=== PATIENT | female | born 1950 | race Caucasian/White ===

== ENCOUNTER 2023-12-24 11:35 | Outpatient (CLI) | payer MEDICARE, SELFPAY ==
--- NOTE | 2023-12-24 | ECG_ITS ---
SEE SCANNED COPY FOR CONFIRMED REPORT MTDD
[2023-12-24 12:17] LABS: Basophils Absolute Auto 0.1 K/mm3 (0.0-0.1); Eosinophils Absolute Auto 0.5 K/mm3 (0-0.3); Eosinophils Percent Auto 8.3 % (0-4.4); Hematocrit 39.7 % (37.0-47.0); Hemoglobin 12.2 g/dL (12.0-15.0); Immature Granulocyte Absolute 0.01 K/mm3 (0.00-0.031); Immature Granulocyte Percent A 0.2 % (0-0.5); Lymphocytes Percent Auto 24.9 % (18.3-44.2); Mean Corpuscular HGB Conc 30.7 g/dl (32-36); Mean Corpuscular Hemoglobin 30.8 pg (26-34); Mean Corpuscular Volume 100.3 fl (80-100); Mean Platelet Volume 11.8 fl (7.4-10.4); Monocytes Absolute Auto 0.5 K/mm3 (0.1-0.6); Neutrophils Absolute Auto 3.4 K/mm3 (1.3-6.7); Neutrophils Percent Auto 56.6 % (45.5-73.1); Platelet Count Result 248 k/mm3 (150-375); Red Blood Count 3.96 M/mm3 (4.2-5.4); Red Cell Distribution Width 13.2 % (11.5-14.5)
[2023-12-24 12:27] LABS: Appearance Urine Clear (Clear); Bacteria Urine None Seen /hpf; Bilirubin Urine Negative (Negative); Blood Urine Negative (Negative); Color Urine Yellow (Yellow); Glucose Urine UA Negative (Negative); Ketones Urine Negative (Negative); Leukocyte Esterase Ur Trace LEU/UL (Negative); Nitrate Urine Negative (Negative); Protein Urine Negative (Negative); RBC Urine 0-2 /hpf (0-2); Specific Grav Ur 1.025 (1.001-1.035); Squamous Epithelial Cell Urine Occasional /hpf (Few); WBC Urine 0-5 /hpf (0-3); pH Urine 5.5 (5.0-9.0)
[2023-12-24 12:29] LABS: Alanine Aminotransferase 11 U/L (6-35); Albumin Level 4.3 g/dL (3.5-5.1); Alkaline Phosphatase 76 U/L (38-126); Anion Gap 6 mmol/L (4-12); Aspartate Amino Transferase 22 U/L (14-36); Bilirubin,Total 0.5 mg/dL (0.2-1.3); Blood Urea Nitrogen 23 mg/dL (7-17); Calcium 9.6 mg/dL (8.4-10.2); Carbon Dioxide 26 mmol/L (22-30); Chloride 105 mmol/L (98-107); Estimated Glomerular Filt Rate > 60; Glucose 95 mg/dL (65-110); Potassium 4.3 mmol/L (3.4-5.0); Sodium 137 mmol/L (137-145)
[2023-12-24 12:32] LABS: Add Urine Microscopic? YES
== END 2023-12-24 11:36 | disposition home or self-care (01) ==
LOC: ANHLAB 11:45
PROVIDERS: PCP Internal Medicine; Visit Provider Internal Medicine
DX: I47.19 Other supraventricular tachycardia (principal)
CPT/HCPCS: 36415; 80053; 81001; 85025; 93005

== ENCOUNTER 2024-01-04 09:51 | Outpatient (CLI) | payer MEDICARE, SELFPAY ==
[2024-01-04 11:36] LABS: Urine Cotinine NEGATIVE
[2024-01-04 13:22] LABS: Hemoglobin A1C 4.9 % (<5.7)
== END 2024-01-04 09:52 | disposition home or self-care (01) ==
LOC: ANHSURGERY 09:58
PROVIDERS: PCP Internal Medicine; Visit Provider Orthopaedic Surgery
DX: Z01.818 Encounter for other preprocedural examination (principal); M16.12 Unilateral primary osteoarthritis, left hip
CPT/HCPCS: 80307; 83036; 86850; 86900; 86901

== ENCOUNTER 2024-01-06 07:36 | Outpatient (CLI) | payer MEDICARE, SELFPAY ==
--- NOTE | 2024-01-06 | ECHO_ITS ---
Patient Info Name: Louise Ponce Age: 73 years : 1950 Gender: Female Ht: 63 in Wt: 217 lbs BSA: 2.14 m2 HR: 69 bpm BP: 137 / 88 mmHg Heart Rhythm: Sinus Rhythm Technical Quality: Fair Exam Date: 01/06/2024 7:56 AM Exam Location: Echo Lab Patient Status: Outpatient Admit Date: 01/06/2024 Staff Ordering Physician: LucianoDidier MD [employer] Console Operator Track: Gena Barksdale RDCS Attending Provider: FabiánDidier MD Exam Type: CA echo doppler color flow Study Info Indications R00.0 - Tachycardia, unspecified - Preop Complete two-dimensional, color flow and Doppler transthoracic echocardiogram is performed. Summary 1. Left ventricular chamber dimension is normal. 2. Left ventricular systolic function is normal, estimated at 50-55%. 3. There is mildly increased left ventricular wall thickness. 4. The left ventricular diastolic function is grade I diastolic dysfunction. 5. Right ventricular chamber dimension is mildly enlarged. 6. Right ventricular systolic function is normal. 7. Left atrial chamber dimension is moderately enlarged. 8. Right atrial chamber dimension is mildly enlarged. 9. There is mild mitral valve regurgitation. 10. There is mild tricuspid valve regurgitation. Left Ventricle Left ventricular chamber dimension is normal. Left ventricular systolic function is normal, estimated at 50-55%. There is mildly increased left ventricular wall thickness. The left ventricular diastolic function is grade I diastolic dysfunction. Right Ventricle Right ventricular chamber dimension is mildly enlarged. Right ventricular systolic function is normal. Left Atria Left atrial chamber dimension is moderately enlarged. Right Atria Right atrial chamber dimension is mildly enlarged. Atrial Septum Intact interatrial septum visualized by color flow imaging. Aortic Valve The aortic valve is probable trileaflet. There is no aortic valve stenosis. There is no aortic valve regurgitation. Pulmonic Valve The pulmonic valve is not well visualized. There is trace pulmonic regurgitation. Mitral Valve There is mild mitral valve regurgitation. Tricuspid Valve There is mild tricuspid valve regurgitation. Pericardium/Pleural There is no pericardial effusion. Inferior Vena Cava Normal inferior vena cava with >50% collapse upon inspiration consistent with normal right atrial pressure, 3 mmHg. Aorta The aortic root size at the sinus of Valsalva is normal. Tricuspid Valve Name Value Normal Estimated PAP/RSVP RA Pressure 3 mmHg <=5 Report Signatures
== END 2024-01-06 07:37 | disposition home or self-care (01) ==
PROVIDERS: PCP Internal Medicine; Visit Provider Internal Medicine
DX: I47.19 Other supraventricular tachycardia (principal); I51.89 Other ill-defined heart diseases
CPT/HCPCS: 93306

== ENCOUNTER 2024-01-12 15:46 | Observation (INO) | payer MEDICARE, SELFPAY ==
[2024-01-04 10:03] VITALS: BMI 39.2
--- NOTE | 2024-01-04 10:22 | PC.NURSE ---
Report to the Outpatient Waiting Room, entrance under the green pavilion located off [facility], at time _6:00 AM on date _01/11/24 . Planned Procedure Time: 7:30 AM . Time changes happen often and if your time is changed the preop area will call you the afternoon before. - You and your visitor will be asked to self-screen and do not enter if you have any COVID symptoms. - A mask is optional within the hospital at this time. Patients may have clear liquids (water, carbonated beverages, clear teas, apple juice) until 3 hours prior to surgery ( 4:30 AM)with a maximum of 20 ounces. - No food from midnight until time of surgery - Infants may have breast milk until 4 hours before surgery, infant formula 6 hours prior to surgery. - Children will be allowed to drink immediately following surgery. If applicable, please bring a bottle or sippy cup to assist with drinking. Juice, water, soda, and popsicles are readily available. For infants on formula, please bring formula the day of surgery. Pacifiers are allowed. Take the following medications with a SIP of water the morning of surgery: __BUPROPION,PRIMIDONE,SERTRALINE DO NOT STOP ANY OF YOUR OTHER PRESCRIPTION MEDICATIONS PRIOR TO SURGERY ?EXCEPT THE FOLLOWING Medications to discontinue per physician ____IBUPROFEN PER DR MEJIA Please no make-up, nail tuvaluan, hairspray, perfume, deodorant, or body powder the day of surgery. No jewelry (including any body piercings) or valuables the day of surgery, leave them at home. Please take a shower or bath the night before, or the morning of, surgery with an antibacterial soap. Wear comfortable, loose fitting clothing. Children are encouraged to wear pajamas. - Jewelry must be removed prior to entering the operating room. Rings and piercings that are not removed may be cut off. - The hospital will not accept responsibility for valuables. - Please leave all valuables, including medications, at home the day of surgery. If you are going home after surgery, a licensed armored car driver must drive you home. - NO public transportation without another adult if you receive anesthesia. - We recommend that an adult stay with you for 24 hours following discharge. - We also recommend that you do not drive, make important decision, drink alcoholic beverages, or take any drugs that were not prescribed by your health care provider for at least 24 hours after your discharge time. Follow any additional instructions given to you from your surgeon. If you or anyone in your household have experienced Covid symptoms in the past week, please notify your surgeon or the nurse liaison at the phone number below for possible testing. VERBAL AND WRITTEN instructions given to _PATIENT and asked if any additional questions and then verbalized understanding. Patient advised to call surgeon office or pre surgery nurse liaison [phone] if any additional questions.
[2024-01-04 10:43] VITALS: BP 111/74; PULSE 70; RESP 18; TEMP 36.6; O2SAT 97
--- NOTE | 2024-01-08 14:53 | PM.IMHP ---
H&P: HPI History of Present Illness Date/Time: 01/08/24 14:53 Chief Complaint: Painful Arthritis Left hip, unresponsive to conservative therapy. Review of Systems Musculoskeletal: Musculoskeletal: Reports myalgias, Reports arthralgias, Reports joint swelling and Reports stiffness PMF Past Medical History Medical History (Updated 12/03/23 @ 10:51 by Miguelito Stauffer MD) Depression Hyperlipidemia Hypertension Occasional tremors Surgical History Surgical History (Updated 12/03/23 @ 10:51 by Miguelito Stauffer MD) History of ankle surgery 1988 due to break History of bladder surgery bladder lift 2005 History of left knee replacement 2017 History of lung surgery upper lobe removed 1999 History of right hip replacement 2014 Family History Family History (Updated 12/03/23 @ 10:39 by Evy Bashir CMA) Father Acute myocardial infarction Hypertension Sibling Cerebrovascular accident Breast cancer Social History Social History (Updated 12/03/23 @ 10:40 by Evy Bashir CMA) Smoking status: Never smoker Additional smoking assessment comments: DENIES ANY FORM OF TOBACCO USE Alcohol intake: current Drinks per week: 7 Substance use: current Substance use type: marijuana Other substance usage details: 1/2 gummie to sleep Do You Feel Safe in your Home?: Yes Lack of Transportation: No Lack of Food: Never True Current Housing: I Have Housing Concerned About Future Housing: No Difficulty Paying Gas/Electric Bills: No Difficulty Paying for Meds: No Currently Unemployed: No Education: Bachelor's Degree Difficulty w/ Childcare or Family Care: No Living arrangements: with family Additional living arrangements comments: caregiver for Occupation/Education: retired Gender identity (if verbalized by the patient): Female Spiritual care concerns: No Meds Home Medications and Allergies Home Medications Medication Instructions Recorded Confirmed Type albuterol 90 mcg/actuation aerosol 1 mcg inhalation PRN PRN ASTHMA 01/04/24 01/04/24 History inhaler atorvastatin 10 mg tablet 10 mg PO DAILY 01/04/24 01/04/24 History bupropion HCl 150 mg 24 hr tablet, 150 mg PO DAILY 01/04/24 01/04/24 History extended release hydrochlorothiazide 25 mg tablet 25 mg PO DAILY 01/04/24 01/04/24 History ibuprofen 125 mg-acetaminophen 250 2 tablet PO PRN PRN Pain 01/04/24 01/04/24 History mg tablet olmesartan 40 mg tablet 40 mg PO DAILY 01/04/24 01/04/24 History primidone 50 mg tablet 50 mg PO BID 01/04/24 01/04/24 History sertraline 100 mg tablet 150 mg PO DAILY 01/04/24 01/04/24 History rivaroxaban 10 mg tablet (Xarelto) 10 mg PO DAILY PE prophylaxis s/p 01/07/24 Rx joint surgery 21 days #21 tabs Allergies Allergy/AdvReac Type Severity Reaction Status Date / Time avocado Allergy Mild stomach Verified 01/04/24 10:05 ache banana Allergy Mild stomach Uncoded 01/04/24 10:05 ache Exam Narrative: Pain with any motion of the Left Hip. Internal roatation to 0. External rotation to 30. Positive Stinchfield Test. NVI Eyes: General: appearance normal, both eyes and all related structures Neck: Neck: supple Resp: Effort & Inspection: normal respiratory effort Cardio: Rate: regular rate Rhythm: regular rhythm Assessment and Plan Assessment and plan (1) Osteoarthritis of left hip: Code(s): M16.12 - Unilateral primary osteoarthritis, left hip Status: Acute Assessment and Plan: Patient has Osteoarthritis Left Hip. She has failed conservative treatment and would like to proceed with Total Hip Arthroplasty. I discussed Risks, Benefits, Limitations, and Alternatives in detail. Will proceed with Left Total Hip Arthroplasty.
[2024-01-11] VITALS (16 sets, daily range): BP systolic 108–133; BP diastolic 57–96; PULSE 65–106; RESP 12–19; TEMP 35.9–36.7; O2SAT 93–100
--- NOTE | 2024-01-11 06:44 | WPDHPUPDATE1 ---
History and Physical Update Update Date/Time: 01/11/24 06:44 History and Physical has been reviewed, including an updated exam of the patient. There are NO changes in the patient's condition. Risks, benefits, and alternatives have been discussed and questions answered. Patient agrees to proceed with procedure.
[2024-01-11] MEDS: VANCOMYCIN 1,500 MG/NS 500 ML BAG 250 MG IVPB (06:57)
[2024-01-11] MEDS: ACETAMINOPHEN 500 MG TABLET 1000 MG PO (06:58)
[2024-01-11] MEDS: TRANEXAMIC ACID 1,000MG/ISO100 1,000 MG/100 ML BAG 200 MG IVPB (07:00)
--- NOTE | 2024-01-11 07:13 | WPDANESEPPF ---
Anes - Initial Pre Proc Eval Procedure: Operation Date: 01/11/24 07:30 Proposed Procedures p Left Total Hip Arthroplasty - Miguelito Stauffer MD Date/Time: 01/11/24 07:13 Surgeon: Miguelito Stauffer MD Pre Op Diagnosis: oa left hip Patient Data Age: 73 Gender: F Height: 1.6 m Weight: 100.4 kg Last Vital Signs Temp 96.9 F L 01/11/24 06:13 Pulse 106 H 01/11/24 06:13 Resp 18 01/11/24 06:13 BP 108/61 01/11/24 06:13 Pulse Ox 97 01/11/24 06:13 O2 Del Method Room Air 01/11/24 06:13 Allergies Allergy/AdvReac Type Severity Reaction Status Date / Time avocado Allergy Mild stomach Verified 01/11/24 06:14 ache banana Allergy Mild stomach Uncoded 01/11/24 06:14 ache Home Medications Medication Instructions Recorded Confirmed Type albuterol 90 mcg/actuation aerosol 1 mcg inhalation PRN PRN ASTHMA 01/04/24 01/11/24 History inhaler atorvastatin 10 mg tablet 10 mg PO DAILY 01/04/24 01/11/24 History bupropion HCl 150 mg 24 hr tablet, 150 mg PO DAILY 01/04/24 01/11/24 History extended release hydrochlorothiazide 25 mg tablet 25 mg PO DAILY 01/04/24 01/11/24 History ibuprofen 125 mg-acetaminophen 250 2 tablet PO PRN PRN Pain 01/04/24 01/11/24 History mg tablet olmesartan 40 mg tablet 40 mg PO DAILY 01/04/24 01/11/24 History primidone 50 mg tablet 50 mg PO BID 01/04/24 01/11/24 History sertraline 100 mg tablet 150 mg PO DAILY 01/04/24 01/11/24 History rivaroxaban 10 mg tablet (Xarelto) 10 mg PO DAILY PE prophylaxis s/p 01/07/24 Rx joint surgery 21 days #21 tabs Patient hx anesthesia problems: none Family hx anesthesia problems: none Results Review: All pre-operative results and documents have been reviewed as part of the pre-operative evaluation. PMFSH Past Medical History Medical History (Updated 12/03/23 @ 10:51 by Miguelito Stauffer MD) Depression Hyperlipidemia Hypertension Occasional tremors Surgical History Surgical History (Updated 12/03/23 @ 10:51 by Miguelito Stauffer MD) History of ankle surgery 1988 due to break History of bladder surgery bladder lift 2005 History of left knee replacement 2017 History of lung surgery upper lobe removed 1999 History of right hip replacement 2014 Family History Family History (Updated 12/03/23 @ 10:39 by Evy Bashir [facility]) Father Acute myocardial infarction Hypertension Sibling Cerebrovascular accident Breast cancer Social History Social History (Updated 12/03/23 @ 10:40 by Evy Bashir CMA) Smoking status: Never smoker Additional smoking assessment comments: DENIES ANY FORM OF TOBACCO USE Alcohol intake: current Drinks per week: 7 Substance use: current Substance use type: marijuana Other substance usage details: 1/2 gummie to sleep Do You Feel Safe in your Home?: Yes Lack of Transportation: No Lack of Food: Never True Current Housing: I Have Housing Concerned About Future Housing: No Difficulty Paying Gas/Electric Bills: No Difficulty Paying for Meds: No Currently Unemployed: No Education: Bachelor's Degree Difficulty w/ Childcare or Family Care: No Living arrangements: with family Additional living arrangements comments: caregiver for Occupation/Education: retired Gender identity (if verbalized by the patient): Female Spiritual care concerns: No Anes - Eval Final PreProcedure Day of Procedure 01/11/24 07:13 Patient weight: morbidly obese Heart: regular rate and rhythm Lungs: clear to auscultation Airway: Mallampati scale class II Neurological: alert and oriented Last oral intake: >/= 8 hours ASA classification: III Emergent: no Anesthetic plan: proceed Anesthesia type and monitoring: general ETT and standard monitoring Results Review: All pre-operative results and documents have been reviewed as part of the pre-operative evaluation. Informed Consent: The patient's anesthetic plan and its attendan
[2024-01-11] MEDS: ceFAZolin 2 GM/D5W 50 ML 2 GM/50 ML BAG IVPB ×3 (07:30→23:26)
[2024-01-11] MEDS: LACTATED RINGERS 1,000 ML 30 ML IV CONT ×2 (07:33→10:23)
[2024-01-11] MEDS: BUPIVACAINE/EPINEPHRINE 0.5% 10 ML VIAL 30 ML INFILTRATE (08:52)
--- NOTE | 2024-01-11 09:46 | W.PM.PROC2 ---
Procedure Note - Detailed Date of Procedure 01/11/24 Pre-op Diagnosis Osteoarthritis Left Hip Post-op Diagnosis Same Procedure Performed LEFT total hip arthroplasty Surgeon Miguelito Stauffer MD Automatic Pilot Mechanic Jeb Anesthesia General Indications Paind and Arthritis Description of Procedure Patient was brought to the operating room #8, and an anesthetic was administered. The patient was placed with the LEFT up and sterilely prepped and draped in the usual manner. Longitudinal incision was done, dissection carried down to the fascia. A Hardinge type approach was used and the femoral head was dislocated anteriorly. Femoral head was removed a finger breath above the lesser trochanter. The acetabulum was serially reamed to accept a 52mm component. This was impacted into place and secured with 2 25mm screws. A high wall liner was placed. The femur was reamed and broached to accept a #8 component which was impacted into place. A minus 3 head and neck were placed and the hip was put through full range of motion. The hip was noted to be stable. The wounds were then closed in a layered fashion using #5 ethibond, 2 vicryl, 2-0 vicryl and imer. Patient left the operating room in satisfactory condition. Implants Biomet Hip Mere Multihole Cup Estimated Blood Loss 600 Drains No Packing No Pathology None sent Complications No immediate complications Condition Stable Disposition PACU [facility] Billing Surgery - Charge Forward: Surgery Billing ([id number] Total Hip)
[2024-01-11] MEDS: fentaNYL CITRATE INJ (*CRX) 100 MCG/2 ML VIAL 25 MCG IV PUSH ×4 (10:55→11:30)
--- NOTE | 2024-01-11 12:15 | ADMGEN ---
This patient, Louise Ponce, was admitted to Medical Room 258-. Patient/family oriented to hospital policies and general routines including ID bracelet, bed and alarms, visiting hours, pain management, procedures, bathroom and other care routines, personal items, smoking policy, room service/diet, and visiting hours. Information on how to activate the Rapid Response Team has been discussed. Patient/Family are encouraged to report perceived risks to care and to ask questions if they do not understand what they are told or what they should do.
[2024-01-11] MEDS: CYCLOBENZAPRINE HCL 10 MG TABLET PO (12:46)
[2024-01-11] MEDS: HYDROcodone/acetaminophen (*CRX) 5-325 MG TABLET 1 TAB PO ×2 (12:46→17:28)
[2024-01-11] MEDS: RIVAROXABAN 10 MG TABLET PO (16:47)
[2024-01-11] MEDS: PRIMIDONE 50 MG TABLET PO (16:47)
[2024-01-11] MEDS: SENNA/DOCUSATE SODIUM TABLET 2 TAB PO (16:48)
[2024-01-11] MEDS: ONDANSETRON INJ 4 MG/2 ML VIAL IV PUSH (17:27)
--- NOTE | 2024-01-11 20:54 | WPDCN ---
Assessment and Plan Assessment and plan (1) Osteoarthritis of left hip: Code(s): M16.12 - Unilateral primary osteoarthritis, left hip Status: Acute Assessment and Plan: Postoperative day 0 status post left total hip arthroplasty. Wound care, pain control, and DVT prophylaxis deferred to Dr. Stauffer. Check baseline labs in a.m. (2) Postoperative nausea: Code(s): R11.0 - Nausea; Z98.890 - Other specified postprocedural states Status: Acute Assessment and Plan: Antiemetics available as needed. Continue IV fluids until tolerating diet. (3) Hypertension: Code(s): I10 - Essential (primary) hypertension Status: Acute Assessment and Plan: Blood pressures were reviewed and they have been stable postoperatively. Antihypertensives will be reviewed and resumed as appropriate. (4) Hyperlipidemia: Code(s): E78.5 - Hyperlipidemia, unspecified Status: Acute Assessment and Plan: Continue atorvastatin and check LFTs. (5) Essential tremor: Code(s): G25.0 - Essential tremor Status: Acute Assessment and Plan: Continue primidone. (6) Obstructive sleep apnea on CPAP: Code(s): G47.33 - Obstructive sleep apnea (adult) (pediatric) Status: Acute Assessment and Plan: CPAP will be provided for the patient to use while hospitalized. Plan Thank you for allowing us to participate in this patient's care. Please do not hesitate to contact us with any questions. HPI Data of Consult Date/Time: 01/11/24 21:30 Requesting Physician: Miguelito Stauffer MD Consult Narrative Reason for consult: medical management Narrative: This is a very poor 73-year-old female with osteoarthritis, hypertension, hyperlipidemia, essential tremor, obstructive sleep apnea, and remote history of lung cancer whom the hospitalist service has been consulted for help managing her medical conditions postoperatively. The patient provides the following history. She reports longstanding pain in her left hip which has not been amenable to conservative outpatient treatment and she elected for replacement today. Her surgery was performed under general anesthesia with no immediate complications documented and an estimated blood loss of 600 mL. Her pain has been reasonably well controlled. Unfortunately she continues to have quite a bit of nausea postoperatively and she has not had much to eat or drink. She has not been able to urinate since surgery either. She denies fever, chills, sweats, chest pain, shortness of breath, vomiting, back, and abdominal pain. She also denies paresthesias, skin color, and temperature changes distal to the surgical site. Regarding her chronic medical conditions, she believes that they are well controlled on home medication. She wears a CPAP at nighttime no personal or family history of venous thromboembolism. Review of Systems Review of Systems: 12 systems were reviewed and are negative except for as per HPI. [facility] Past Medical History Medical History (Updated 01/11/24 @ 21:31 by Wanda Roman PA-C) Depression Essential tremor Hyperlipidemia Hypertension Obstructive sleep apnea on CPAP Surgical History Surgical History (Updated 01/11/24 @ 21:29 by Wanda Roman PA-C) History of ankle surgery 1988 due to break History of bladder surgery bladder lift 2005 History of left hip replacement (01/11/24) History of left knee replacement 2018 History of lung surgery upper lobe removed 1999 History of right hip replacement 2014 Family History Family History Father Acute myocardial infarction Hypertension Sibling Cerebrovascular accident Breast cancer Social History Social History (Updated 01/11/24 @ 21:30 by Wanda Roman PA-C) Social History: Surrogate medical decision maker: Dottie Ponce, daughter. [place]
[2024-01-12] VITALS (8 sets, daily range): BP systolic 90–130; BP diastolic 50–78; PULSE 66–110; RESP 16–18; TEMP 36.2–36.9; O2SAT 95–98
--- NOTE | ~2024-01-12 | XR_ITS ---
EXAMINATION: XR surgery orthopedic DATE: 01/11/2024 09:36 INDICATION: Left hip osteoarthritis. TECHNIQUE: 3 intraoperative views of the pelvis were obtained. COMPARISON: Pelvis radiograph 01/11/2024 FINDINGS: There is a total right hip arthroplasty in near-anatomic alignment. The first 2 images demo nstrate a left acetabular cup in expected position and a broach in proximal left femur. The third buffy ge demonstrates a total left hip arthroplasty in near-anatomic alignment. No fracture. IMPRESSION: 1. Bilateral total hip arthroplasties in near-anatomic alignment. Reviewed, dictated and finalized at location A.
--- NOTE | ~2024-01-12 | XR_ITS ---
AP view of the pelvis Clinical history: Preoperative Findings: No acute fracture or dislocation is seen. Right hip arthroplasty in place, without evidence of hardware convocation. There is moderate to advanced degenerative change of the left hip joint. So ft tissues are unremarkable. Impression: Moderate to advanced degenerative change of the left hip joint. Right hip arthroplasty in place. Reviewed, dictated and finalized at location M. Impression: Moderate to advanced degenerative change of the left hip joint. Right hip arthroplasty in place.
[2024-01-12] MEDS: HYDROcodone/acetaminophen (*CRX) 5-325 MG TABLET 1 TAB PO ×2 (01:33→17:21)
[2024-01-12 05:50] LABS: Basophils Percent Auto 0.3 % (0.2-1.2); Hemoglobin 10.3 g/dL (12.0-15.0); Immature Granulocyte Absolute 0.02 K/mm3 (0.00-0.031); Immature Granulocyte Percent A 0.3 % (0-0.5); Lymphocytes Absolute Auto 1.22 K/mm3 (0.9-3.2); Lymphocytes Percent Auto 15.8 % (18.3-44.2); Mean Corpuscular HGB Conc 31.2 g/dl (32-36); Mean Corpuscular Hemoglobin 30.9 pg (26-34); Mean Corpuscular Volume 99.1 fl (80-100); Monocytes Absolute Auto 0.9 K/mm3 (0.1-0.6); Monocytes Percent Auto 12.1 % (2.6-8.5); Neutrophils Absolute Auto 5.5 K/mm3 (1.3-6.7); Neutrophils Percent Auto 71.5 % (45.5-73.1); Platelet Count Result 221 k/mm3 (150-375); Red Blood Count 3.33 M/mm3 (4.2-5.4); White Blood Count 7.7 K/mm3 (4.5-10.0)
[2024-01-12 05:51] LABS: Alanine Aminotransferase 14 U/L (6-35); Albumin Level 3.4 g/dL (3.5-5.1); Alkaline Phosphatase 64 U/L (38-126); Anion Gap 3 mmol/L (4-12); Aspartate Amino Transferase 30 U/L (14-36); Bilirubin,Total 0.6 mg/dL (0.2-1.3); Blood Urea Nitrogen 13 mg/dL (7-17); Calcium 8.7 mg/dL (8.4-10.2); Carbon Dioxide 27 mmol/L (22-30); Chloride 102 mmol/L (98-107); Estimated CRCL calculation 83 ml/min; Estimated Glomerular Filt Rate > 60; Glucose 111 mg/dL (65-110); Potassium 3.6 mmol/L (3.4-5.0); Sodium 132 mmol/L (137-145)
[2024-01-12] MEDS: CYCLOBENZAPRINE HCL 10 MG TABLET PO (06:03)
--- NOTE | 2024-01-12 07:15 | PM.PNORT ---
Progress Note: A&P Assessment and Plan (1) History of total left hip replacement: Code(s): Z96.642 - Presence of left artificial hip joint Status: Acute Assessment and Plan: Patient is status post total hip arthroplasty left. Overall she is doing okay. She has a hard time getting up because of her weight. She uses an assist of 2. Will see how she does in therapy. I doubt she would be ready to go today. Anticipate discharge tomorrow if she is doing better. Subjective Subjective Date/Time Seen: 01/12/24 07:15 Post Op day: 1 Principal diagnosis: Status post LEFT total hip arthroplasty for osteoarthriLEF Interval history: Patient is status post hip replacement. Overall she is doing okay. She is heavy and has a difficult time getting up and around. Will see how she does in therapy today. Review of Systems Musculoskeletal: Musculoskeletal: Reports myalgias, Reports arthralgias, Reports joint swelling and Reports stiffness Exam Narrative: On exam the dressing is intact. Patient wiggles toes. She is able to get up with help of 2. Objective Data Vital Signs Vital Signs: Vital Signs - 24 hr 01/11/24 10:23 01/11/24 10:40 01/11/24 10:55 Temperature 97.3 F L Pulse Rate 82 84 81 Respiratory Rate 12 17 13 Blood Pressure 114/70 122/86 117/69 Pulse Oximetry 100 100 100 Oxygen Delivery Simple Face Mask Simple Face Mask Simple Face Mask Oxygen Flow Rate 8 8 8 01/11/24 11:10 01/11/24 11:25 01/11/24 11:40 Temperature Pulse Rate 77 78 77 Respiratory Rate 18 17 19 Blood Pressure 113/86 117/70 113/57 L Pulse Oximetry 100 95 100 Oxygen Delivery Simple Face Mask Room Air Nasal Cannula Oxygen Flow Rate 8 2 01/11/24 11:55 01/11/24 12:20 01/11/24 12:35 Temperature 96.7 F L 96.9 F L Pulse Rate 65 65 84 Respiratory Rate 18 16 16 Blood Pressure 116/96 H 122/73 133/71 Pulse Oximetry 100 100 100 Oxygen Delivery Nasal Cannula Oxygen Flow Rate 2 01/11/24 12:20 01/11/24 13:05 01/11/24 13:35 Temperature 97.3 F L Pulse Rate 71 Respiratory Rate 16 Blood Pressure 131/83 Pulse Oximetry 100 99 Oxygen Delivery Nasal Cannula Room Air Oxygen Flow Rate 2 01/11/24 14:00 01/11/24 14:30 01/11/24 17:50 Temperature 98.1 F 97.2 F L Pulse Rate 92 75 Respiratory Rate 17 16 Blood Pressure 128/70 110/80 Pulse Oximetry 93 96 98 Oxygen Delivery Room Air Oxygen Flow Rate 01/11/24 21:18 01/11/24 21:15 01/11/24 22:40 Temperature 97.2 F L Pulse Rate 78 76 Respiratory Rate 18 Blood Pressure 131/75 Pulse Oximetry 98 98 Oxygen Delivery Room Air CPAP Oxygen Flow Rate 01/12/24 01:31 01/12/24 04:58 01/12/24 02:05 Temperature 97.2 F L 97.7 F Pulse Rate 66 76 Respiratory Rate 18 17 Blood Pressure 130/78 125/54 L Pulse Oximetry 96 95 Oxygen Delivery Room Air Oxygen Flow Rate Intake/Output Intake/Output: Intake & Output 01/09/24 01/10/24 01/11/24 01/12/24 23:59 23:59 23:59 23:59 Intake Total 530 Output Total 250 325 Balance 280 -325 Meds/Results Medications: Active Medications Generic Name Dose Route Start Last Admin Trade Name Freq PRN Reason Stop Dose Admin Hydrocodone Bitart/Acetaminophen 1 tab 01/11/24 12:01 01/12/24 01:33 Hydrocodone/Acetaminophen (*Crx) 5-325 Mg Tablet PO 1 tab Q4H PRN Administration Pain Rated 4-6 Hydrocodone Bitart/Acetaminophen 1 tab 01/11/24 12:01 Hydrocodone/Acetaminophen (*Crx) 7.5-325 Mg Tablet PO Q4H PRN Pain Rated 7-10 Hydrocodone Bitart/Acetaminophen 1 tab 01/11/24 21:05 Hydrocodone/Acetaminophen (*Crx) 5-325 Mg Tablet PO Q6H PRN Pain Rated 4-6 Albuterol 1 puff 01/11/24 12:25 Albuterol Sulfate (*Sp) Aerosol 1 Puff INHALATION Q4-6H PRN Shortness Of Breath Atorvastatin Calcium 10 mg 01/12/24 09:00 Atorvastatin 10 Mg Tablet PO DAILY KATELYN Bupropion HCl 150 mg 01/12/24 09:00 Bupropion Hcl Xl (24 Hr
[2024-01-12] MEDS: SERTRALINE HCL 50 MG TABLET 150 MG PO (08:19)
[2024-01-12] MEDS: PRIMIDONE 50 MG TABLET PO ×2 (08:19→16:54)
[2024-01-12] MEDS: HYDROcodone/acetaminophen (*CRX) 7.5-325 MG TABLET 1 TAB PO (08:19)
[2024-01-12] MEDS: ATORVASTATIN 10 MG TABLET PO (08:19)
[2024-01-12] MEDS: SENNA/DOCUSATE SODIUM TABLET 2 TAB PO ×2 (08:19→16:54)
[2024-01-12] MEDS: OLMESARTAN MEDOXOMIL 20 MG TABLET 40 MG PO (08:19)
[2024-01-12] MEDS: ceFAZolin 2 GM/D5W 50 ML 2 GM/50 ML BAG IVPB (08:20)
[2024-01-12] MEDS: polyethylene glycoL 3350 17 GM POWD.PACK PO (08:20)
[2024-01-12] MEDS: buPROPion HCL XL (24 HR) 150 MG TABCR PO (08:20)
[2024-01-12] MEDS: hydroCHLOROthiazide 25 MG TABLET PO (08:20)
[2024-01-12] MEDS: CELECOXIB 200 MG CAPSULE PO (08:20)
--- NOTE | 2024-01-12 09:35 | PM.IMPN ---
Progress Note: A&P Assessment and Plan (1) Osteoarthritis of left hip: Code(s): M16.12 - Unilateral primary osteoarthritis, left hip Status: Acute Assessment and Plan: Postoperative day 1 status post left total hip arthroplasty. Wound care, pain control, and DVT prophylaxis deferred to Dr. Stauffer. PT and OT ordered Case management working on outpatient rehab needs Patient is stable, and back on all home medications except for Xarelto which we will defer to the surgical team to start. We will sign off today, if you need further assistance please reconsult us. (2) Postoperative nausea: Code(s): R11.0 - Nausea; Z98.890 - Other specified postprocedural states Status: Acute Assessment and Plan: Zofran ordered Advanced diet as tolerated Patient denies any nausea today, resolved (3) Hypertension: Code(s): I10 - Essential (primary) hypertension Status: Acute Assessment and Plan: Blood pressure ranging 114/63 to 130/78 Continue hydrochlorothiazide 25 mg daily (4) Hyperlipidemia: Code(s): E78.5 - Hyperlipidemia, unspecified Status: Acute Assessment and Plan: Continue atorvastatin (5) Essential tremor: Code(s): G25.0 - Essential tremor Status: Acute Assessment and Plan: Continue primidone. (6) Obstructive sleep apnea on CPAP: Code(s): G47.33 - Obstructive sleep apnea (adult) (pediatric) Status: Acute Assessment and Plan: CPAP will be provided for the patient to use while hospitalized. Time Spent With Patient Time with patient: 25 - 35 minutes Subjective Date/time seen: 01/12/24 09:35 Interval history: This is a 73-year-old female who presented to the hospital on 01/11/2024 for elective left total hip arthroplasty with Dr. Stauffer. We were consulted for medical management. On examination today patient is alert oriented x3, lying in the bed. She denies any fever, chills, nausea, vomiting, diarrhea, abdominal pain, chest pain, shortness a breath. She states that her pain is well controlled. She has a left hip incision with imer and OR dressing with shadowing. She is using ice and has worked with PT and OT. Labs today showed normal white blood cell count of 7.7, hemoglobin 10.3, sodium 132 otherwise unremarkable. Plan for PT and OT today. Patient is on all of her home medications at this time other than her Xarelto which will be started by the surgical team. Her vital signs are stable, she is afebrile, she is on room air. We will go ahead and sign off today. Case management looking into AVERY for patient as she states that her just got out of rehab himself after a 9 month long stay and will not be able to help her at home. We will defer for discharge needs to the surgery team at this time. If he needed any further assistance feel free to reach back out. Review of Systems Review of Systems: 12 systems were reviewed and are negative except for as per HPI. Constitutional: Constitutional: Reports as per HPI and Reports no additional constitutional complaints Eyes: Eyes: Reports as per HPI and Reports no additional eye complaints ENT: Reports system reviewed and no additional complaints, except as documented and Reports as per HPI Cardiovascular: Cardiovascular: Reports as per HPI and Reports no additional cardiovascular complaints Respiratory: Respiratory: Reports as per HPI and Reports no additional respiratory complaints Gastrointestinal: Gastrointestinal: Reports as per HPI and Reports no additional gastrointestinal complaints Genitourinary: Genitourinary: Reports no additional female genitourinary complaints and Reports as per HPI Musculoskeletal: Musculoskeletal: Reports no additional musculoskeletal complaints and Reports as per HPI Integumentary/Breasts: Skin/Breast: Reports system reviewed and no additional complaints, except as docu and Reports as pe
--- NOTE | 2024-01-12 10:36 | WPDANESPN ---
Anes - Prog Note Post-Op Date/Time: 01/12/24 10:36 Cardiovascular status: normal Respiratory status: normal Airway patency: baseline Mental status: baseline Post-Op hydration status: normal Vital Signs: Last Vital Signs Temp 36.8 C 01/12/24 09:32 Pulse 110 H 01/12/24 09:32 Resp 16 01/12/24 09:32 BP 114/63 01/12/24 09:32 Pulse Ox 98 01/12/24 09:32 O2 Del Method Room Air 01/12/24 08:15 O2 Flow Rate 2 01/11/24 12:20 Pain Score (VAS): 10/03 I/O: Intake & Output 01/11/24 01/12/24 01/12/24 23:59 07:59 15:59 Intake Total 340 480 Output Total 250 325 Balance 90 -325 480 Laboratory Tests 01/12/24 05:07 01/12/24 05:07 01/12/24 05:07 WBC 7.7 RBC 3.33 L Hgb 10.3 L Hct 33.0 L MCV 99.1 MCH 30.9 MCHC 31.2 L RDW 13.0 Plt Count 221 MPV 12.0 H Immature Gran % (Auto) 0.3 Neut % (Auto) 71.5 Lymph % (Auto) 15.8 L [place] % (Auto) 12.1 H Eos % (Auto) 0.0 Baso % (Auto) 0.3 Lymph # (Auto) 1.22 [place] # (Auto) 0.9 H Eos # (Auto) 0.0 Baso # (Auto) 0.0 Abs Immat Gran (auto) 0.02 Absolute Neuts (auto) 5.5 Absolute Nucleated RBC 0.000 Nucleated RBC % 0.0 Sodium 132 L Potassium 3.6 Chloride 102 Carbon Dioxide 27 Anion Gap 3 L BUN 13 D Creatinine 0.60 L Estim Creat Clear Calc 83 Estimated GFR > 60 Glucose 111 H Calcium 8.7 Magnesium 2.0 Total Bilirubin 0.6 Direct Bilirubin 0.0 AST 30 ALT 14 Alkaline Phosphatase 64 Total Protein 6.0 L Albumin 3.4 L Post-procedural complaints: none Patient Feedback: Patient satisfied with anesthetic care.
[2024-01-12] MEDS: RIVAROXABAN 10 MG TABLET PO (16:54)
--- NOTE | 2024-01-13 07:08 | PM.DS ---
DS: Admitting Diagnosis Discharge Date 10/15/2023 Admitting Diagnosis Osteoarthritis Left Hip DS: Discharge Diagnosis Discharge Diagnosis (1) History of total left hip replacement: Code(s): Z96.642 - Presence of left artificial hip joint Status: Acute Assessment and Plan: Left Hip Relacement for Osteoarthritis. Plan Discharge to Home DS: Summary Hospital Course Hospital Course: Patient underwent THONG for osteoarthritis. She progressed slowly in therapy. She may be discharged today. Status at Discharge Functional status at discharge: uses cane/walker Time Spent with Patient Time attestation: Total time spent providing and/or coordinating discharge services: Exam Narrative: Dressing intact. Wiggles toes.Ambulating slowly. Discharge Plan Discharge Attending physician on discharge: Miguelito Stauffer Discharging Clinician: Miguelito Stauffer Anticipated Discharge Date/Time: 01/13/24 14:12 Patient Disposition: Home Health Service Activity: no straining and no driving Diet: regular Wound Care Instructions: keep dressing dry Discharge Instructions: Dr. Miguelito Stauffer M.D [address] [id number] POST-OPERATIVE DISCHARGE INSTRUCTIONS TOTAL HIP ARTHROPLASTY 1. Move toes/feet up and down every hour while awake. 2. Be up walking every hour while awake. 3. Use walker stapling machine operator if instructed to use walker stapling machine operator.When you are allowed to use the cane, use the cane in the opposite hand. 4. When resting, do not rest in the chair. Rather, lie on your back, with back flat, and the leg elevated above heart to minimize swelling. You may put a pillow under your head. Do not rest in a chair. Resting in the chair results in swelling in the leg. Significant swelling could indicate a blood clot and if this occurs, call the office (or go to the ER) to have a venous ultrasound performed. Its ok to sit in the chair to eat and use the toilet and to receive a guest but sitting in a chair will cause your leg to swell. so try to minimize sitting in a chair. 5. Wound Care: Apply a folded 4x4 sponge to incision and hold with crossing strips of 1 inch Transpore tape. 6. Follow weight bearing status as instructed: 7. May shower. Remove dressing before shower and reapply dressing after shower. Patient Instructions: Antibiotic Form, Pain Management (GEN) Stand Alone Forms: General Discharge Information Follow-up/Referrals: Miguelito Stauffer MD [Physician] - Discharge Medications: New hydrocodone-acetaminophen 7.5-325 mg tablet 1 tablet PO Q4H PRN (Reason: pain) Qty: 40 0RF doxycycline hyclate 100 mg tablet 100 mg PO DAILY Qty: 10 0RF cyclobenzaprine 10 mg tablet 10 mg PO TID PRN (Reason: muscle spasm) Qty: 30 0RF Continued sertraline 100 mg tablet 150 mg PO DAILY atorvastatin 10 mg tablet 10 mg PO DAILY bupropion HCl 150 mg tablet extended release 24 hr 150 mg PO DAILY hydrochlorothiazide 25 mg tablet 25 mg PO DAILY olmesartan 40 mg tablet 40 mg PO DAILY primidone 50 mg tablet 50 mg PO BID albuterol 90 mcg/actuation Aerosol 1 mcg INHALATION PRN PRN (Reason: ASTHMA) Xarelto 10 mg tablet 10 mg PO DAILY 21 Days Qty: 21 0RF Rx Instructions: take 1 tab daily x 21 days beginning the day AFTER surgery. Held ibuprofen-acetaminophen 125-250 mg Tablet 2 tablet PO PRN PRN (Reason: Pain) Hold Instructions: Resume on 01/23/24. Until Xarelto is done Date of admission: 01/12/24 15:46 Primary Care Provider: FabiánDidier Admitting Provider: Miguelito Stauffer Attending physician on admission: Miguelito Stauffer Condition: Stable
[2024-01-13] MEDS: ATORVASTATIN 10 MG TABLET PO (08:37)
[2024-01-13] MEDS: buPROPion HCL XL (24 HR) 150 MG TABCR PO (08:37)
[2024-01-13] MEDS: PRIMIDONE 50 MG TABLET PO (08:37)
[2024-01-13] MEDS: SERTRALINE HCL 50 MG TABLET 150 MG PO (08:37)
[2024-01-13] MEDS: CELECOXIB 200 MG CAPSULE PO (08:37)
[2024-01-13] MEDS: OLMESARTAN MEDOXOMIL 20 MG TABLET 40 MG PO (08:37)
[2024-01-13] MEDS: HYDROcodone/acetaminophen (*CRX) 5-325 MG TABLET 1 TAB PO ×2 (08:37→14:26)
[2024-01-13] MEDS: SENNA/DOCUSATE SODIUM TABLET 2 TAB PO (08:38)
== END 2024-01-13 15:00 | disposition home health service (06) ==
LOC: ANHSURGERY 15:58 → ANH2MED 15:58
PROVIDERS: Physician Assistant; Admitting Provider Orthopaedic Surgery; PCP Internal Medicine; Visit Provider Orthopaedic Surgery
PROC: (CPT 27130; principal; 2024-01-11 07:30)
DX: M16.12 Unilateral primary osteoarthritis, left hip (principal); R11.0 Nausea; I10 Essential (primary) hypertension; E78.5 Hyperlipidemia, unspecified; G25.0 Essential tremor; G47.33 Obstructive sleep apnea (adult) (pediatric); Z90.2 Acquired absence of lung [part of]; F12.90 Cannabis use, unspecified, uncomplicated; Z79.51 Long term (current) use of inhaled steroids; E66.01 Morbid (severe) obesity due to excess calories; Z68.41 Body mass index [BMI] 40.0-44.9, adult
CPT/HCPCS: 27130; 36415; 72170; 80048; 80076; 80307; 83036; 83735; 85025; 86850; 86900; 86901; 97110; 97116; 97161; 97165; 97530; 97535; 99199; A9270; C1713; C1776; G0378; J0171; J0330; J0690; J1100; J1170; J1596; J2250; J2371; J2405; J2704; J3010; J3370; J7120

== ENCOUNTER 2024-08-03 09:28 | Outpatient (CLI) | payer MEDICARE, SELFPAY ==
[2024-08-03 10:09] LABS: Hematocrit 36.1 % (37.0-47.0); Hemoglobin 11.7 g/dL (12.0-15.0); Mean Corpuscular HGB Conc 32.4 g/dl (32-36); Mean Corpuscular Hemoglobin 31.6 pg (26-34); Mean Corpuscular Volume 97.6 fl (80-100); Mean Platelet Volume 11.5 fl (7.4-10.4); Platelet Count Result 244 k/mm3 (150-375); Red Cell Distribution Width 13.6 % (11.5-14.5); White Blood Count 4.6 K/mm3 (4.5-10.0)
[2024-08-03 10:50] LABS: Iron 97 ug/dL (37-170)
[2024-08-03 11:00] LABS: Percent Iron Saturation 32 % (20-50)
[2024-08-03 11:07] LABS: Free T4 Free Thyroxine 0.82 ng/dL (0.78-2.19)
[2024-08-03 12:21] LABS: LDL Cholesterol Direct 42 mg/dL
[2024-08-03 12:31] LABS: Alanine Aminotransferase 13 U/L (6-35); Albumin Level 4.2 g/dL (3.5-5.1); Alkaline Phosphatase 77 U/L (38-126); Anion Gap 2 mmol/L (4-12); Aspartate Amino Transferase 26 U/L (14-36); Bilirubin,Total 0.5 mg/dL (0.2-1.3); Blood Urea Nitrogen 21 mg/dL (7-17); Calcium 9.6 mg/dL (8.4-10.2); Carbon Dioxide 30 mmol/L (22-30); Chloride 105 mmol/L (98-107); Cholesterol 195 mg/dL (0-200); Estimated Glomerular Filt Rate > 60; Glucose 91 mg/dL (65-110); Sodium 137 mmol/L (137-145); Triglycerides 66 mg/dL (<150)
[2024-08-03 12:40] LABS: Cortisol Random 7.62 ug/dL
[2024-08-03 13:16] LABS: Folic Acid 6.4 ng/mL (2.76->20)
[2024-08-03 21:01] LABS: HDL Direct 119 mg/dL
[2024-08-04 06:39] LABS: Triiodothyronine T3 Free 2.7 pg/mL (2.3-4.2)
== END 2024-08-03 09:29 | disposition home or self-care (01) ==
LOC: ANHLAB 09:32
PROVIDERS: PCP Internal Medicine; Visit Provider Internal Medicine
DX: E78.5 Hyperlipidemia, unspecified (principal); I10 Essential (primary) hypertension; I47.19 Other supraventricular tachycardia; E55.9 Vitamin D deficiency, unspecified
CPT/HCPCS: 36415; 80053; 80061; 82533; 82607; 82728; 82746; 83540; 83550; 84439; 84443; 84481; 85027; 86038; 86039

== ENCOUNTER 2024-10-10 08:03 | Outpatient (CLI) | payer MEDICARE, SELFPAY ==
--- NOTE | ~2024-10-10 | DEXA_ITS ---
Bone Density Report Name: GLADIS MARK Age: 74 Sex: Female Ethnicity: White Date of : 1950 Indication: postmenopausal; screening for osteoporosis; height loss; cancer; Referring Provider: MARGARITA*BALDEV Pettit Study: Bone densitometry was performed. Exam Date: October 10, 2024 Accession number: [id number] Bone Density: Region BMD T-score Z-score Classification AP Spine(L1-L4) 1.060 0.1 2.4 Normal World Health Organization criteria for BMD impression classify patients as: Normal (T-score at or above -1.0), Osteopenia (T-score between -1.0 and -2.5), or Osteoporosis (T-score at or below -2.5). Clinical Information Provided by Patient: Has used the following medications: Vitamin D Has the following medical conditions: Cancer, lung ca Patient maximum height was 65.0 Menopause Age: 57 Drinks caffeinated beverages Onset of menses at age 14 Number of children 2 Impression: The patient has normal bone mass. Discussion: LOW RISK OF FRACTURE; BONE DENSITY IS WELL ABOVE THE MINIMUM DESIRABLE LEVEL AND ABOVE AVERAGE FOR AGE AND SEX AT ALL SKELETAL SITES TESTED. This person's bone density is above expected limits for age and sex. This is rarely clinically significant, but should be pursued if there are significant musculoskeletal complaints. The patient should follow a healthful lifestyle (good nutrition with adequate calcium and vitamin D, and appropriate weight-bearing exercise). Follow-Up: Consider repeating this study in 5 years or sooner if there is some new clinical indication. Reported by: LYNETTE on 10/10/2024 8:39:00 AM. Reviewed, dictated and finalized at location ALinda PINEDA
--- OUTSIDE RECORDS SUMMARY | 2024-10-10 11:11 | XMS_ITS | Referral Summary ---
Author Organization [facility] Address [address] [place] [address] Care Team Providers Care Instrument Maker And Repairer Name Role Phone Didier Wolf MD Primary Care Provider Allergies No known active allergies Medications flu vac [id number] s,up,/PF (FLUARIX QUAD [id number], PF, IM) Fluarix Quad [id number] (PF) 60 mcg (15 mcg x 4)/0.5 mL IM syringe TO BE ADMINISTERED BY PHARMACIST FOR IMMUNIZATION Active albuterol HFA (PROAIR HFA) 90 mcg/actuation inhaler ProAir HFA 90 mcg/actuation aerosol inhaler INHALE 2 PUFFS EVERY 4 HOURS Active ergocalciferol (VITAMIN D) 50,000 unit capsule ergocalciferol (vitamin D2) 50,000 unit capsule TAKE ONE CAPSULE BY MOUTH ONE TIME PER WEEK Active fluticasone propion-salmet patti (WIXELA INHUB) 250-50 mcg/dose diskus inhaler Wixela Inhub 250 mcg-50 mcg/dose powder for inhalation Active buPROPion XL (WELLBUTRIN XL) 150 mg 24 hr tablet Take 1 tablet (150 mg total) by mouth every morning Active atorvastatin (LIPITOR) 10 mg tablet Take 1 tablet (10 mg total) by mouth daily 3 Active hydroCHLOROthi azide (HYDRODIURIL) 25 mg tablet Take 1 tablet (25 mg total) by mouth daily 3 Active olmesartan (BENICAR) 40 mg tablet Take 1 tablet (40 mg total) by mouth daily 3 Active primidone (MYSOLINE) 50 mg tablet Take 1 tablet (50 mg total) by mouth 2 (two) times a day Active sertraline (ZOLOFT) 100 mg tablet Take 1 tablet (100 mg total) by mouth every morning Active sertraline (ZOLOFT) 50 mg tablet Take 1 tablet (50 mg total) by mouth every morning Active Active Problems Problem Noted Date Diagnosed Date Weight loss counseling, encounter for 05/04/2023 Assessment & Plan (06/01/2023 10:38 AM CDT): Reviewed calorie restriction based on BMR as previously detailed.A Commended for continuing to track diet, asked to continue daily or intermittently to have continued mindfulness with calories/carbs/proteins. Reviewed recommendation/goal of >/= 150 minutes/week moderate-intensity aerobic exercise. Assessment & Plan (05/04/2023 1:57 PM CDT): Discussed that significant health benefits/risk reduction may be seen with even 5% weight loss. Discussed that weight loss will require calorie deficit. Calculated basal metabolic rate and estimated total energy expenditure; discussed 500-1000 kcal/day deficit to lose 1-2 lb per week. Asked to keep detailed food diary for at least 1 week and bring to next visit. Discussed setting SMART goals. Discussed relatively small, although significant, role of exercise in weight loss; greater importance in weight maintenance as shown in Look Ahead study and National Weight Control Registry. Discussed recommendation/goal for 150 minutes per week moderate-intensity aerobic exercise. Metabolic and nutritional disorder 05/04/2023 Assessment & Plan (06/01/2023 10:41 AM CDT): Unable to obtain labs from PCP. Pt believes they are older than 6 months. New lab orders sent to [facility]. Continue low-carb (<150 g/day), low-glycemic diet. Assessment & Plan (05/04/2023 1:58 PM CDT): No previous labs available for review. Asked her to forward most recent labs from PCP. Discussed increased risk for DM in setting of obesity and FHx DM. Discussed insulin resistance including effect on weight and risk for progression to diabetes. Recommended low-carb, low-glycemic diet; choose whole grains and avoid more highly processed carbohydrates. Discussed potential benefits of this w/r/t gut microbiome. Referred to ADA and [facility] websites for additional information on topics including glycemic index/carbohydrate choices, protein sources. Recommended low-glycemic diet. Reviewed importance of adequate protein intake of 1-1.2 g/kg IBW/day. Closed fracture of metatarsal bone 05/10/2019 Disorder of sacrum 05/10/2019 Derangement of knee 05/10/2019 Encounter for removal of sutures 05/10/2019 Enthesopathy of hip region 05/10/2019 Hip pain 05/10/2019 Localized, primary osteoarthritis of elbow 05/10 Pain in limb 05/10/2019 Spinal enthesopathy 05/10/2019 Vitamin D deficiency 04/13/2019 Assessment & Plan (06/01/2023 10:38 AM CDT): In past, will recheck lab. Essential hypertension 03/03/2019 Assessment & Plan (05/04/2023 2:02 PM CDT): Reviewed role of diet, exercise, weight loss in controlling blood pressure. Recommended low sodium/DASH diet. Continue current medications. No recent VS to review. Class 3 severe obesity with serious comorbidity and body mass index (BMI) of 40.0 to 44.9 in adult 03/03/2019 Overview (05/04/2023): BMI 40 Sept 2022 Assessment & Plan (06/01/2023 10:40 AM CDT): Obesity is unchanged. Diet interventions: as noted. Resources provided in AVS. Regular aerobic exercise program discussed. Plan- Consider pharmacotherapy, reviewed metformin and zonisamide use however need to wait on labs for more detailed recommendations. Continue diet/exercise interventions as discussed. Follow up with Dr. Torres in [x] 1 month; [] 2 months; [] 3 months; [] 6 months; [] Other: Assessment & Plan (05/04/2023 2:00 PM CDT): Obesity is unchanged.. Plan: General weight loss/lifestyle modification strategies discussed (elicit support from others; identify saboteurs; non-food rewards; etc.)., Behavioral treatment: consider [facility]., Diet interventions: as noted., Informal exercise measures discussed; e.g. taking stairs instead of elevator., Regular aerobic exercise program discussed., and Further, more detailed recommendations pending review of labs and food record. Follow up in [x] 1 month; [] 2 months; [] 3 months; [] 6 months; [] Other: Obstructive sleep apnea syndrome 03/03/2019 Assessment & Plan (05/04/2023 2:03 PM CDT): Discussed comorbidities associated with sleep apnea, including effects on weight, and stressed importance of adequate treatment if present. Continue CPAP. Osteoarthritis of hip 03/03/2019 Assessment & Plan (05/04/2023 2:03 PM CDT): Discussed potential for diminished pain, improved function and reduced progression with weight loss. Anxiety 04/23/2017 Social History Tobacco Use Types Packs/Day Years Used Date Smoking Tobacco: Never Smokeless Tobacco: Never Personal Safety Answer Date Recorded Getting School Help Needed Not on file 08/03 Comments Unknown Sex and Gender Information Value Date Recorded Sex Assigned at Not on file Legal Sex Female 12:45 PM CDT Gender Identity Not on file Sexual Orientation Straight 05/04/2023 12 :18 PM CDT Last Filed Vital Signs Vital Sign Reading Time Taken Comments Blood Pressure - - Pulse - - Temperature - - Respiratory Rate - - Oxygen Saturation - - Inhaled Oxygen Concentration - - Weight 98.9 kg (218 lb) 09/21/2023 1:51 PM MULTIPLE 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 PRESS OPERATOR h ome Height 162.6 cm (5' 4 ) 09/21/2023 1:51 PM MULTIPLE PUNCH PRESS OPERATOR Body Mass Index 37.42 09/21/2023 1:51 PM MULTIPLE PUNCH PRESS OPERATOR Plan of Treatment Not on file Insurance [employer] Member Subscriber Plan / Payer (Ef fective 2023-Present) Name:Louise Ponce Relation to Subscriber:Self Name:Louise Ponce Payer ID:[id number] (NAIC) Type:[facility] MEDICARE Address: [place] [phone] [employer] HMO REF Member Subscriber Plan / Payer (Ef fective 2022-Present) Name:Louise Ponce Relation to Subscriber:Self Name:Louise Ponce Payer ID:[id number] (NAIC) Type:[facility] MEDICARE Address: [address] [place] [phone] [address] [address] MEDICARE SOLUTIONS Care Teams Instrument Maker And Repairer Relationship Specialty Start Date End Date Didier Wolf MD PCP - General Internal Medicine 02/21/19
--- OUTSIDE RECORDS SUMMARY | 2024-10-10 11:11 | XMS_ITS | Encounter Summary ---
Author Organization [facility] Address [address] [place] [address] Care Team Providers Care Senior Climate Advisor Name Role Phone Didier Wolf MD Primary Care Provider [phone] Reason for Referral * Evaluate (Routine) - Closed Specialty Diagnoses / Procedures Referred By Francis t Referred To Contact Diagnoses Family history of breast cancer Meg Munoz MD [address] [facility] [address] [place] [address] Denise Ware, FINANCE AND ADMINISTRATION MANAGER-[facility] RETIRED Referral ID Status Reason Start Date Expiration Date V isits Requested Visits Authorized [id number] Closed Specialty Services Required 09/05/2021 09/05/2022 99 99 [employer] Reason for Visit * Reason Onset Date Comments Genetic Counseling 09/05/2021 Encounter Details Date Type Department Care Team (Late st Contact Info) Description 09/05/2021 Telephone [facility] [address] [place] [address] Meg Munoz MD [address] [facility] [address] [place] [address] Genetic Counseling Social History Tobacco Use Types Packs/Day Years Used Date Smoking Tobacco: Never Smokeless Tobacco: Never Alcohol Use Standard Drinks/Week Comments Yes 10 (1 standard drink = 0.6 oz pu re alcohol) per week Sex and Gender Information Value Date Recorded Sex Assigned at Not on file Gender Identity Not on file Sexual Orientation Not on file documented as of this encounter Miscellaneous Notes * Telephone Encounter - Meg Munoz MD - 09/05/2021 12:46 PM [employer] Would refer the patient to genetics as below. Genetics for breast cancer risk: Dr. Denise Ware at [facility] [phone] Meg Munoz MD [employer] * Telephone Encounter - Duyen Boone - 09/05/2021 11:29 AM CST Patient wanting to get genetic testing for breast cancer because daughter was just diagnosed and italso runs in the family. Daughter is also a patient of Dr Munoz. # [phone] [employer] documented in this encounter Plan of Treatment Scheduled Referrals Name Type Priority Associated Diagnoses Order Schedule Ref to Cancer Genetic Counseling - Yamileth Ware [facility] Outpatient Referral Routine Family history of breast cancer Ordered: 09/05/2021 documented as of this encounter Visit Diagnoses Diagnosis Family history of breast cancer- Primary Family history of malignant neoplasm of breast documented in this encounter Care Teams Senior Climate Advisor Relationship Specialty Start Date End Date Didier Wolf MD PCP - General 12/01/17 documented as of this encounter
--- OUTSIDE RECORDS SUMMARY | 2024-10-10 11:11 | XMS_ITS | Clinical Summary ---
Author Organization [facility] Address [address] [facility] [place] [address] Care Team Providers Care Strings Teacher Name Role Phone Didier Wolf MD Primary Care Provider Source Comments [facility],non-owned Affiliates and Associated Physician Practices is amultiple site organization consisting of ambulatory clinics and hospital sitesin [place], [place], [place] and [place]. This disclosure is being madepursuant to the Care Everywhere program and may not contain all information available regarding this patient. Last updated 18.[facility] Allergies No known active allergies Medications * Be aware that medications may not be up to date on this document. Alwaysverify current medications with the patient. Medication Sig Dispensed Refills Start Date End Date Status losartan-hydroCHLORO thiazide (HYZAAR) 100-25 MG tabletIndications:We ll woman exam with routine gynecological exam Take 1 tablet by mouth once daily 1 11/09/2017 Active ALBUTEROL SULFATE HFA INIndications:Well woman exam with routine gynecological exam Inhale 2 puffs by mouth as needed Active PARoxetine (PAXIL) 20 MG tabletIndications:We ll woman exam with routine gynecological exam Take 20 mg by mouth once daily Active methocarbamol (ROBAXIN) 750 MG tablet Take 750 mg by mouth every 8 hours 1 01/03/2019 Active meloxicam (MOBIC) 15 MG tablet Take 15 mg by mouth once daily 0 01/11/2019 Active WIXELA INHUB 250-50 MCG/DOSE inhaler INHALE 1 DOSE BY MOUTH TWICE DAILY. RINSE MOUTH AFTER USE 1 11/26/2018 Active vitamin D, ergocalciferol, (DRISDOL) 80808 units capsule TAKE ONE CAPSULE BY MOUTH ONE TIME PER WEEK 0 11/11/2018 Active acetaminophen-codein e (TYLENOL #3) 300-30 MG tablet acetaminophen 300 mg-codeine 30 mg tablet Active Estradiol (IMVEXXY STARTER PACK) 10 MCG INST Insert 1 capsule into the vagina once daily 18 Each 03/02/2019 Active Active Problems Problem Noted Date Diagnosed Date Essential hypertension 03/03/2019 Obesity 03/03/2019 Obstructive sleep apnea syndrome 03/03/2019 Osteoarthritis of hip 03/03/2019 Anxiety 04/23/2017 Immunizations Name Administration Dates Next Due INFLUENZA VACCINE 05/24/2017 Family History Medical History Relation Name Comments CAD (Coronary Artery Disease) Father Hypertension Father Cancer - Breast Maternal Grandmother Depression Mother Cancer - Breast Paternal Aunt Cancer - Breast Sister Relation Name Status Comments Father Maternal Grandmother Mother Paternal Aunt Sister Social History Tobacco Use Types Packs/Day Years Used Date Smoking Tobacco: Never Smokeless Tobacco: Never Alcohol Use Standard Drinks/Week Comments Yes 10 (1 standard drink = 0.6 oz pu re alcohol) per week Sex and Gender Information Value Date Recorded Sex Assigned at Not on file Gender Identity Not on file Sexual Orientation Not on file Last Filed Vital Signs Vital Sign Reading Time Taken Comments Blood Pressure 142/82 03/02/2019 10:15 AM CDT Pulse - - Temperature - - Respiratory Rate - - Oxygen Saturation - - Inhaled Oxygen Concentration - - Weight 108 kg (238 lb) 03/02/2019 10:15 AM CDT Height 162.6 cm (5' 4 ) 03/02/2019 10:15 AM CDT Body Mass Index 40.85 03/02/2019 10:15 AM CDT Plan of Treatment Health Maintenance Due Date Last Done Comments BONE DENSITY TESTING 1950 COLOGUARD (AGES 45-75) - COLON CA SCREENING 1950 COLON MONITORING 1950 COLONOSCOPY - COLON CA SCREENING 1950 CT COLONOGRAPHY - COLON CA SCREENING 1950 Colorectal Cancer Screening 1950 FIT - COLON CA SCREENING 1950 FLEX SIG - COLON CA SCREENING 1950 LIPID TESTING 1950 HEPATITIS C SCREENING 02/01/1970 DTAP/TDAP/TD VACCINES (1 - Tdap) 02/05/1971 PNEUMOCOCCAL VACCINE 50+ (1 of 1 - PCV) 02/05/2002 ZOSTER VACCINE (1 of 2) 02/05/2002 Respiratory Syncytial Virus (RSV) Vaccine Pt: or over 60 yrs (1 - Risk 60-74 years 1-dose series) 2012 MAMMOGRAM 01/31/2021 01/31/2019, 01/28/2019 COVID-19 VACCINE ( season) 2024 12/06/2021, 06/20/2021 INFLUENZA VACCINE (#1) 2024 0, 04/22/2018, 06/12/2017, Additional history exists DEPRESSION SCREENING 08/24/2024 MEDICARE AWV CALENDAR YEAR 2024 HEPATITIS B VACCINE Aged Out No longe r eligible based on patient's age to complete this topic HIB VACCINE Aged Out No longer eligi ble based on patient's age to complete this topic HPV VACCINE Aged Out No longer eligi ble based on patient's age to complete this topic MENINGOCOCCAL (Group B) VACCINE Aged Out No longer eligible based on patient's age to complete this topic MENINGOCOCCAL VACCINE Aged Out No anais jerel eligible based on patient's age to complete this topic Procedures Procedure Name Priority Date/Time Associated Diagnosis Comments MAMMOGRAM Routine 01/31/2019 from Last 3 Months or Most Recently Relevant to Health Maintenance Results * MAMMOGRAM (01/31/2019) Anatomical Region Laterality Modality Other Historical Provider MD SCANNING ONLY from Last 3 Months or Most Recently Relevant to Health Maintenance Care Teams Strings Teacher Relationship Specialty Start Date End Date Didier Wolf MD PCP - General 12/01/17
--- OUTSIDE RECORDS SUMMARY | 2024-10-10 11:11 | XMS_ITS | Referral Summary ---
Author Organization [facility] Address [address] [place] [address] Care Team Providers Care Forensic Audit Expert Name Role Phone Didier Wolf MD Primary Care Provider [phone] Source Comments [facility],non-owned Affiliates and Associated Physician Practices is amultiple site organization consisting of ambulatory clinics and hospital sitesin [place], [place], [place] and [place]. This disclosure is being madepursuant to the Care Everywhere program and may not contain all information available regarding this patient. Last updated 18.[facility] Allergies No known active allergies Medications * [...] 1 11/26/2018 Active vitamin D, ergocalciferol, (DRISDOL) 45582 units capsule TAKE ONE CAPSULE BY MOUTH [...] Administration Dates Next Due INFLUENZA VACCINE 05/24/2017 Social History Tobacco Use Types Packs/Day Years [...] 03/02/2019 10:15 AM CDT Plan of Treatment Not on file Procedures Procedure Name Priority Date/Time Associated Diagnosis Comments MAMMOGRAM Routine 01/31/2019 from Last 3 Months or Most Recently Relevant to Health Maintenance Results * MAMMOGRAM (01/31/2019) Anatomical Region Laterality Modality Other Historical Provider MD SCANNING ONLY from Last 3 Months or Most Recently Relevant to Health Maintenance Care Teams Forensic Audit Expert Relationship Specialty Start Date End Date Didier Wolf MD PCP - General 12/01/17
--- OUTSIDE RECORDS SUMMARY | 2024-10-10 11:12 | XMS_ITS | Continuity of Care Document ---
Author Organization [facility] Address [address] [place] [address] Phone Care Team Providers Care Supervisor Logging Name Role Phone Benito Oconnell MD Unavailable Unavailable Advance Directives Directive Yes / No Effective Date File Name No Information Encounters Encounter Description Practice Location Reason(s) For Visit Diagnoses Date Provider Providers Copied on Encounter [facility], Box Replaced by [facility], [place], [place], [id number], tel:[phone] [facility] No Information Anish Oliver. [address], [place], [id number], [place]. tel:[phone] Referring Provider: Anson Flores, [address], [place], [address]. tel:[phone] [facility] Box Replaced by [facility], [place], [place], [id number], tel:[phone] [facility] SCREEN MAMMOGRAM NEC Geri Hernandez. [address], [place], [place], [id number]. tel:[phone] [facility] Box Replaced by [facility], [place], [place], [id number], tel:[phone] [facility] ASYMPT POSTMENO STATUSLUMP OR MASS IN BREAST No Information [facility] Box Replaced by [facility], [place], [place], [id number], tel:[phone] [facility] ABDMNAL TNDR LT LWR QUADOTH ADV EFF MED/BIO SUB Tila Heller. [address], [place], [place], [id number], [place]. tel:[phone] Family History Family Member Type Diagnosis Age At Onset No Information Payers Payer name Insurance type Covered green party ID Ruth amaya(s) [facility] [id number] Social History Type Description Quantity Date Captured Comments Sex Female Smoking Status No Information Chief Complaint And Reason For Visit No Information Reason For Referral Reason For Referral No Information History Of Present Illness Encounter Date Complaint History Of Prese nt Illness No Information Functional Status Date Functional Assessmen t No Information Instructions Date Instruction Additional Infor mation No Information Assessments Type Assessment Date No Information Patient Care Teams Name Effective Dates (start - stop) Status Members No Information
--- OUTSIDE RECORDS SUMMARY | 2024-10-10 11:12 | XMS_ITS ---
Author Organization [facility] Address [address] [place] [address] Care Team Providers Care Electrocardiogram Technician Name Role Phone Didier Wolf MD Primary Care Provider Unavaila Sol [place] Unavailable [phone] Allergies Allergen (clinical drug ingredient) Drug/Non Drug Allergy documented on EMR Reaction Allergy Type Onset Date Status banana allergenic extract BANANA (uncoded) Unknown Allergy 12/28/2023 Active Avocado Avocado Unknown Allergy 12/28/2023 Active REASON FOR VISIT pt doing paper, Depression screening negative Medications Medication SIG (Take, Route, Frequency, Duration) Notes Start Date End Date Status FLUTICASONE 250 MCG-SALMETEROL 50 MCG/DOSE BLISTR POWDR FOR INHALATION *Reorder from [facility] for eRx and Interaction Alerts* 12/28/2023 Active Ergocalciferol 1.25 MG (81622 UT) Oral 12/28/2023 Active Primidone 50 MG Oral 12/28/2023 Act kim Sertraline HCl 100 MG 1 tablet Oral Once a day for 90 days take together with 50 mg tablet for total daily dose of 150 mg Active Sertraline HCl 50 MG 1 tablet Oral Once a day for 90 days take together with 100 mg tab for total daily dose of 150 mg Active buPROPion HCl ER (XL) 150 MG 1 TABLET Oral Once a day for 90 days Active Atorvastatin Calcium 10 MG Oral 12/28/2023 Active hydroCHLOROthiazide 25 MG Oral 12/28/2023 Active Social History Sex Assigned At : Social History Observation Description Sex Assigned At Female Vital Signs Blood pressure systolic 109 mm Hg 10/06/19 25 Blood pressure diastolic 69 mm Hg 025 Heart Rate 67 /min 10/06/2024 Height 64.00 in 10/06/2024 Weight 234 lbs 10/06/2024 BMI 40.16 kg/m2 10/06/2024 Height-cm 162.56 cm 10/06/2024 Weight-kg 106.14 kg 10/06/2024 Encounters Encounter Location Date Provider Diagnosis [facility] [address] [facility] [address] [place] [address] 10/06/2024 Sol Gonzalez Major depressive disorder, recurrent, mild F33.0 ; Generalized anxiety disorder F41.1 and Recurrent hypersomnia G47.13 Assessments Encounter Date Diagnosis (ICD Code) Assessment Notes Treatment Notes Treatment Clinical Notes Section Notes 10/06/2024 Major depressive disorder, recurrent, mild (ICD-10 - F33.0) 10/06/2024 Generalized anxiety disorder (ICD-10 - F41.1) 10/06/2024 Recurrent hypersomnia (ICD-10 - G47.13) Plan Of Treatment Medication Medication Name Sig Start Date Stop Date Notes Sertraline HCl 100 MG 1 tablet Oral Once a day for 90 days Sertraline HCl 50 MG 1 tablet Oral Once a day for 90 days buPROPion HCl ER (XL) 150 MG 1 TABLET Or al Once a day for 90 days Next Appt Details Follow Up: 3 Months, Reason: Provider Name:Bonnie keene, 01/03/2025 02:00:00 PM, [facility] [address], [facility] [address], [place], [address], Progress Notes * HOOD MARKOB: 2 (74 yo F)Acc No.[id number]:10/06/2024 Patient: Jane GLADIS VALENZUELA Provider: Willy GONZALEZ MD :1950 A ge:74 Y S ex:Female Date:10/06/2024 Address:[address] [facility] [facility] Pcp:Didier Wolf MD Subjective: * Chief Complaints: * 1 . Pt doing paper. 2. Depression screening negative. * HPI: D epression Screening: JOCY-7 (2018 Edition) F eeling nervous, anxious, or on edge?Several days, N ot being able to stop or control worrying N ot at all, W orrying too much about different things S everal days, T rouble relaxing N ot at all, B eing so restless that it is hard to sit still N ot at all, B ecoming easily annoyed or irritable?Not at all, F eeling afraid as if something awful might happen N ot at all, T otal JOCY-7 Score 2 , I nterpretation of Total ( 0 to 4) No Anxiety. D epression screening: PHQ-9 L ittle interest or pleasure in doing things N ot at all, F eeling down, depressed, or hopeless N ot at all, T rouble falling or staying asleep, or sleeping too much N ot at all, F eeling tired or having little energy N ot at all, P oor appetite or overeating S everal days, F eeling bad about yourself or that you are a failure, or have let yourself or your family down N ot at all, T rouble concentrating on things, such as reading the newspaper or watching television N ot at all, M oving or speaking so slowly that other people could have noticed; or the opposite, being so fidgety or restless that you have been moving around a lot more than usual N ot at all, T houghts that you would be better off or of hurting yourself in some way N ot at all, T otal Score 1 , Interpretation M inimal Depression. I ntervention D epression Screening Findings N egative, S uicide Risk Assessment Performed 0 10/06/2024. F unctional Status: I think I'm doing well. Of course I'm upset that President Ryan was elected, but it's maybe better than before the election because I can try to tune some of it out. . * ROS: P erformance Met: N ormal blood pressure reading documented, follow-up not required ( G8783). * Medical History: P roblems: Generalized anxiety disorder, Mild recurrent major depression, Recurrent hypersomnia, Recurrent major depression in remission, ,, Past Psychiatric History: Anxiety Disorder,Major Depressive Episode, abdominal aortic aneurysm: No, atrial fibrillation: No, chronic fatigue syndrome: No, essential tremor: Yes, hyperlipidemia: No, hypertension: Yes, Parkinson's disease: No, restless leg syndrome: No, stroke: No, subdural hematoma: No, type 1 diabetes mellitus: No, type 2 diabetes mellitus: No, vitamin B12 deficiency: No, vitamin D deficiency: Yes. * Surgical History: A nkle arthroscopy/surgery (15682) , Hip arthroscopy dx (25656) , Knee arthroscopy/surgery (46069) lt , Lung excision (753013641) , Other , Left hip replacement 01/11/2024. * Social History: M igrated Social History: M igrated Social History: Alcohol Intake: Moderate 12/09/2022,Tobacco Years: Never smoker 03/02/2020. * Medications: T aking Sertraline HCl 100 MG Tablet 1 tablet Oral Once a day take together with 50 mg tablet for total daily dose of 150 mg, Notes to Pharmacist: do not fill until pt requests, Taking Sertraline HCl 50 MG Tablet 1 tablet Oral Once a day take together with 100 mg tab for total daily dose of 150 mg, Notes to Pharmacist: do not fill until pt requests, Taking Atorvastatin Calcium 10 MG Tablet Oral , Taking hydroCHLOROthiazide 25 MG Tablet Oral , Taking FLUTICASONE 250 MCG-SALMETEROL 50 MCG/DOSE BLISTR POWDR FOR INHALATION , Notes to Pharmacist: *Reorder from [facility] for eRx and Interaction Alerts*, Taking Ergocalciferol 1.25 MG (08822 UT) Capsule Oral , Taking Primidone 50 MG Tablet Oral , Taking buPROPion HCl ER (XL) 150 MG Tablet Extended Release 24 Hour 1 TABLET Oral Once a day , Notes to Pharmacist: do not fill until pt requests, Discontinued ProAir HFA 108 (90 Base) MCG/ACT Aerosol Solution Inhalation , Discontinued Wellbutrin XL 150 MG Tablet Extended Release 24 Hour 1 tablet in the morning Oral Once a day , Notes to Pharmacist: do not fill until pt requests, Medication List reviewed and reconciled with the patient * Allergies: B ANANA: Allergy - Onset Date 12/28/2023, Avocado: Allergy - Onset Date 12/28/2023. Objective: * Vitals: B P:109/69mm Hg, HR:67/min, Wt:234lbs, Wt-k.14 kg, Ht: 64.00 in, Ht-cm: 162.56 cm, BMI:40.16Index, Body Surface Area: 2.19. * Examination: P sychiatry: Appearance: w ell-groomed, well-nourished, .... Affect / mood: a ppropriate, full range. Attention: g ood. Attitude: c ooperative. Suicidal ideation: n one. Memory status: n o impairment noted. Degree of awareness of surroundings: w ithin normal limits.? Delusions: n o. Hallucinations: n o. Insight: g ood. Intellectual functioning: n o impairment noted. Judgement: g ood. Orientation: a wake, alert and oriented x 3. Perceptual disorders: n o perceptual disorder noted. Psychomotor activity: w ithin normal range. Speech / language: a ppropriate pitch/modulation, clear and coherent, normal rate, volume, and articulation (RVR), proper grammar used. Thought content: a ppropriate. Thought process: i ntact. Assessment: * Assessment: 1. M ajor depressive disorder, recurrent, mild - F33.0 (Primary) 2 . G eneralized anxiety disorder - F41.1 3 . R ecurrent hypersomnia - G47.13 ? Plan: * Treatment: * Procedure Codes: G 8783 NORMAL BP READING DOC F/U NOT RQR, 11032 BEHAV ASSMT W/SCORE & DOCD/STAND INSTRUMENT, G8752 MOST RECENT SYSTOLIC BP < 140MM HG, G8754 MOST RECENT DIASTOLIC BP < 90MM HG * Follow Up: 3 Months * Billing Information: * Visit Code: * Procedure Codes: G8783 NORMAL BP READING DOC F/U NOT RQR. 93318 BEHAV ASSMT W/SCORE & DOCD/STAND INSTRUMENT. G8752 MOST RECENT SYSTOLIC BP < 140MM HG. G8754 MOST RECENT DIASTOLIC BP < 90MM HG. * Electronic signature of Santa Gonzalez MD on 10/10/2024 at 11:11 AM MASTERCAM PROGRAMMER Sign off status: Pending * Provider: Willy GONZALEZ MD Date: 10/06/2024 Generated for Ladonna vela/Erum/eTkathleensmitting on: 10/10/2024 11:11 AM MASTERCAM PROGRAMMER History and Physical Notes * HPI (History of Present Illness) Category Sub-Category Detail Notes Category Not es Depression screening PHQ-9 Little inte rest or pleasure in doing things: Not at all Feeling down, depressed, or hopeless: No t at all Trouble falling or staying asleep, or sl eeping too much: Not at all Feeling tired or having little energy: N ot at all Poor appetite or overeating: Several day s Feeling bad about yourself o r that you are a failure, or have let yourself or your family down: Not at all Trouble concentrating on thi ngs, such as reading the newspaper or watching television: Not at all Moving or speaking so slowly that other people could have noticed; or the opposite, being so fidgety or restless that you have been moving around a lot more than usual: Not at all Thoughts that you would be b sanford off or of hurting yourself in some way: Not at all Total Score: 1 Interpretation: Minimal Depression Intervention Depression Screening Findings: N egative Suicide Risk Assessment Performed: 10/06 Functional Status I think I 'm doing well. Of course I'm upset that President Ryan was elected, but it's maybe better than before the election because I can try to tune some of it out. Depression Screening JOCY-7 (2018 Edition) Feeling nervous, anxious, or on edge: Several days Not being able to stop or control worryi ng: Not at all Worrying too much about different things : Several days Trouble relaxing: Not at all Being so restless that it is hard to sit still: Not at all Becoming easily annoyed or irritable: No t at all Feeling afraid as if something awful vinnie ht happen: Not at all Total JOCY-7 Score: 2 Interpretation of Total: (0 to 4) No Anx iety Examination Category Sub-Category Detail Notes Category Not es Psychiatry Appearance: well-groomed, well-nourished , ... Attitude: cooperative Psychomotor activity: within normal rang e Attention: good Degree of awareness of surroundings: wit hin normal limits Orientation: awake, alert and krystal ented x 3 Affect / mood: appropriate, full ra nge Speech / language: appropriate pitch/mo dulation, clear and coherent, normal rate, volume, and articulation (RVR), proper grammar used Insight: good Judgement: good Thought process: intact Thought content: appropriate Perceptual disorders: no perceptual diso rder noted Suicidal ideation: none Intellectual functioning: no impairment noted Memory status: no impairment noted Delusions: no Hallucinations: no
--- OUTSIDE RECORDS SUMMARY | 2024-10-10 11:12 | XMS_ITS ---
Author Organization [facility] Address [address] [place] [address] Care Team Providers Care Transition Of Care Specialist Name Role Phone Didier Wolf MD Primary Care Provider Unavaila Sol [place] Unavailable [phone] Allergies Allergen (clinical drug ingredient) Drug/Non Drug Allergy documented on EMR Reaction Allergy Type Onset Date Status BANANA (uncoded) Unknown Allergy 12/28/2023 Ac tive Avocado Avocado Unknown Allergy 12/28/2023 Active REASON FOR VISIT MIPS PHQ less than 5 Positive with f/u doc, Depression screening positive, Dementia MIPS Medications Medication SIG (Take, Route, Frequency, Duration) Notes Start Date End Date Status Primidone 50 MG Oral 12/28/2023 Act kim Ergocalciferol 1.25 MG (52536 UT) Oral 12/28/2023 Active buPROPion HCl ER (XL) 150 MG 1 TABLET Oral Once a day for 90 days do not fill until pt requests Active Wellbutrin XL 150 MG 1 tablet in the morning Oral Once a day for 90 days do not fill until pt requests Active ProAir HFA 108 (90 Base) MCG/ACT Inhalation 12/28/2023 Active Atorvastatin Calcium 10 MG Oral 12/28/2023 Active FLUTICASONE 250 MCG-SALMETEROL 50 MCG/DOSE BLISTR POWDR FOR INHALATION *Reorder from [facility] for eRx and Interaction Alerts* 12/28/2023 Active hydroCHLOROthiazide 25 MG Oral 12/28/2023 Active Sertraline HCl 50 MG 1 tablet Oral Once a day for 90 days take together with 100 mg tab for total daily dose of 150 mg do not fill until pt requests Active Sertraline HCl 100 MG 1 tablet Oral Once a day for 90 days take together with 50 mg tablet for total daily dose of 150 mg do not fill until pt requests Active Social History Tobacco Use: Social History Observation Description Date Details (start date - stop date) Never Smoker NA - NA Sex Assigned At : Social History Observation Description Sex Assigned At Female Tobacco Control (Standard) Question Answer Notes Tobacco use: Nonsmoker AUDIT-C (Standard) Question Answer Notes Did you have a drink contain ing alcohol in the past year? Yes How often did you have six o r more drinks on one occasion in the past year? Never (0 point) How many drinks did you have on a typical day when you were drinking in the past year? 1 or 2 drinks (0 point) How often did you have a dri nk containing alcohol in the past year? Daily or almost daily (4 points) Problems Problem Type SNOMED Code ICD Code Onset Dates Problem Status W/U Status Risk Notes Problem Mild recurrent major depression (76509688) Major depressive disorder, recurrent, mild (F33.0) Active confirmed Problem Generalized anxiety disorder (47214002) Generalized anxiety disorder (F41.1) Active confirmed Problem Recurrent hypersomnia (227926664) Recurrent hypersomnia (G47.13) Active confirmed Vital Signs Blood pressure systolic 108 mm Hg 07/08/20 24 Blood pressure diastolic 69 mm Hg 024 Heart Rate 68 /min 07/08/2024 Height 64.00 in 07/08/2024 Weight 233 lbs 07/08/2024 BMI 39.99 kg/m2 07/08/2024 Height-cm 162.56 cm 07/08/2024 Weight-kg 105.69 kg 07/08/2024 Encounters Encounter Location Date Provider Diagnosis [facility] [address] [facility] [address] [address] 07/08/2024 Thenhugo Gonzalez Major depressive disorder, recurrent, mild F33.0 ; Generalized anxiety disorder F41.1 and Recurrent hypersomnia G47.13 Assessments Encounter Date Diagnosis (ICD Code) Assessment Notes Treatment Notes Treatment Clinical Notes Section Notes 07/08/2024 Major depressive disorder, recurrent, mild (ICD-10 - F33.0) 07/08/2024 Generalized anxiety disorder (ICD-10 - F41.1) 07/08/2024 Recurrent hypersomnia (ICD-10 - G47.13) 07/08/2024 Other referral to the local chapter or national office of the Alzheimer's Association ( ; http://www.alz.o rg), the Alzheimer's Disease Education and Referral Center (ADEMD) ( ; http://www.mandy.[facility].gov/Alzheimer s/), Plan Of Treatment Medication Medication Name Sig Start Date Stop Date Notes buPROPion HCl ER (XL) 150 MG 1 TABLET Oral Once a day for 90 days do not fill until pt requests Sertraline HCl 50 MG 1 tablet Oral Once a day for 90 days do not fill until pt requests Sertraline HCl 100 MG 1 tablet Oral Once a day for 90 days do not fill until pt requests Treatment Notes Assessment Notes Other referral to the local [facility] or national office of the Alzheimer's Association ( ; http://www.alz.org), the Alzheimer's Disease Education and Referral Center (ADEMD) ( ; http://www.mandy.nih.gov/Alzheimers/), Next Appt Details Provider Name:Bonnie Dionna keene, 01/03/2025 02:00:00 PM, [address] [place] [address] [address], [facility] [address], [place], [address], Progress Notes * HOOD MARKOB: 2 (74 yo F)Acc No.[id number]:07/08/2024 Patient: Hugo NICOLAS GLADIS Provider: Willy GONZALEZ MD :1950 A ge:74 Y S ex:Female Date:07/08/2024 Address:[address] [place] [address] Pcp:Didier Wolf MD Subjective: * Chief Complaints: * 1 . MIPS PHQ less than 5 Positive with f/u doc. 2. Depression screening positive. 3. Dementia MIPS. * HPI: P ast Psychiatric Hospitalizations: Previous psychiatric hospitalizations P revious Psychiatric Hospitalization N o. P ast History of Suicidal attempt H ave you ever attempted suicide in the past N o. D epression Screening: JOCY-7 (2018 Edition) F eeling nervous, anxious, or on edge?Several days, N ot being able to stop or control worrying N ot at all, W orrying too much about different things N ot at all, T rouble relaxing N ot at all, B eing so restless that it is hard to sit still N ot at all, B ecoming easily annoyed or irritable?More than half the days, F eeling afraid as if something awful might happen N ot at all,?Total JOCY-7 Score 3 , I nterpretation of Total ( 0 to 4) No Anxiety. [place]-Suicide Severity Rating Scale: Suicide Risk (CSRS-screener) i n the past one month Have you wished you were or wished you could go to sleep and not wake up? N o, i n the past one month Have you actually had any thoughts of killing yourself? N o, H ave you ever done anything, started to do anything, or prepared to do anything to end your life? N o. D epression screening: PHQ-9 L ittle interest or pleasure in doing things S everal days, F eeling down, depressed, or hopeless S everal days, T rouble falling or staying asleep, or sleeping too much S everal days, F eeling tired or having little energy S everal days, P oor appetite or overeating S everal [...] N ot at all, T otal Score 5, I nterpretation M ild Depression. I ntervention D epression Screening Findings?Positve, F ollow-Up for Depression M ental health treatment assessment, Patient follow-up to return when and if necessary, Psychiatric follow-up, S uicide Risk Assessment Performed?07/08/2024, A dditional Evaluation for Depression P sychiatric interview and evaluation, Name of the standardized tool used for adult depression screening: P [facility] Health Questionnaire (PHQ-9). H istory of Presenting Problem: I think I'm pretty good. had difficult time dealing with election results, I've been crabby ; has not seemed to be as affected by it 63 yo [id number] ('s youngest sister) on 06/29/2024--being treated for leukemia, developed an infection in her port and of sepsis, it all just happened so fast still goes to chair yoga; suggested JASON at [facility] to pt and she will look into it. * Medical History: P ramya: Generalized anxiety disorder, Mild recurrent major depression, [...] Yes. * Surgical History: A nkle arthroscopy/surgery (24307) , Hip arthroscopy dx (86751) , Knee arthroscopy/surgery (08627) lt , Lung excision (878477297) , Other , Left hip replacement 01/11/2024. * Hospitalization/Major Diagno stic Procedure: D enies Past Hospitalization. * Family History: M aternal Uncle: Alcohol Abuse. F ather: None. M aternal Aunt: None. P aternal Aunt: None. M other: Psychotic Episode. P aternal Grandfather: None. P aternal Grandmother: None. M aternal Grandfather: None. M aternal Grandmother: None. B rother: Alcohol Abuse. S ister: None. D aughter: None. 2 daughter(s) . . * Social History: T obacco Use: T obacco Control (Standard) T obacco use: N onsmoker. M igrated Social History: M igrated Social History: Alcohol Intake: Moderate 12/09/2022,Tobacco Years: Never smoker 03/02/2020. D rug/Alcohol: D rugs H ave you used drugs other than those for medical reasons in the past 12 months??No. A JEY-C (Standard) D id you have a drink containing alcohol in the past year? Y es, H ow often did you have six or more drinks on one occasion in the past year? N ever (0 point), H ow many drinks did you have on a typical day when you were drinking in the past year? 1 or 2 drinks (0 point), H ow often did you have a drink containing alcohol in the past year? D aily or almost daily (4 points). 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 Safety issues A re there any firearms in the house??Yes. A dvance Care Planning A re you your own decision-maker Y es, D o you have Power of Child Care Development Specialist for Health or Medical? Y es, D o you have a power of deputy commonwealth's attorney for health??Yes, D o you have power of deputy commonwealth's attorney for Medical ? Y es, I f yes, then please bring the POA paperwork so that we can upload it. N o. S ocial History: H grady M arital Status: M jacey, N nirmal of Adults in household: 2 , L evel of Education: F [employer]. * Medications: T aking Atorvastatin Calcium 10 MG Tablet Oral , Taking ProAir HFA 108 (90 Base) MCG/ACT Aerosol Solution Inhalation , Taking hydroCHLOROthiazide 25 MG Tablet Oral , Taking FLUTICASONE 250 MCG-SALMETEROL 50 MCG/DOSE BLISTR POWDR FOR INHALATION , Notes to Pharmacist: *Reorder from [employer] for eRx and Interaction Alerts*, Taking Ergocalciferol 1.25 MG (40130 UT) Capsule Oral , Taking Primidone 50 MG Tablet Oral , Taking Sertraline HCl 100 MG Tablet 1 tablet [...] do not fill until pt requests, Taking Wellbutrin XL 150 MG Tablet Extended Release 24 Hour 1 tablet in the morning Oral Once a day , Notes to Pharmacist: do not fill until pt requests, Taking buPROPion HCl ER (XL) 150 MG Tablet Extended Release 24 Hour TAKE 1 TABLET BY MOUTH EVERY DAY IN THE MORNING FOR 90 DAY Oral , Discontinued Olmesartan Medoxomil 40 MG Tablet Oral , Medication List reviewed and reconciled with the patient * Allergies: B ANANA: Allergy - Onset Date 12/28/2023, Avocado: Allergy - Onset Date 12/28/2023. Objective: * Vitals: B P:108/69mm Hg, HR:68/min, Wt:233lbs, Wt-k.69 kg, Ht: 64.00 in, Ht-cm: 162.56 cm, BMI:39.99Index, Body Surface Area: 2.18. * Examination: F unctional Assessment: Ajmes Index of ADL . Physical Functioning . 1 point for independence, 0 for help. P sychiatry: Dementia . N eurology: s lums score 28/30. Assessment: * Assessment: 1. M ajor depressive disorder, recurrent, mild - F33.0 (Primary) 2 . G eneralized anxiety disorder - F41.1 3 . R ecurrent hypersomnia - G47.13 ? Plan: * Treatment: 2. O thers Notes: referral to the local [facility] ornational office of the Alzheimer's Association ( ;http://www.alz.org), the [facility] ([facility]) ( ;http://www.mandy.nih.gov/Alzh star/), * Procedure Codes: 9 6127 BEHAV ASSMT W/SCORE & DOCD/STAND INSTRUMENT * Billing Information: * Visit Code: * Procedure Codes: 36707 BEHAV ASSMT W/SCORE & DOCD/STAND INSTRUMENT. * Electronic signature of Santa Gonzalez MD on 10/10/2024 at 11:12 AM ASSEMBLER CONVERTIBLE TOP Sign off status: Pending * Provider: Willy GONZALEZ MD Date: 1 09/07/2023 Generated for Ladonna vela/Erum/Vickyitting on: 0 10/10/2024 11:12 AM ASSEMBLER CONVERTIBLE TOP History and Physical Notes * HPI (History of Present Illness) Category Sub-Category Detail Notes Category Notes History of Presenting Problem I think I'm pretty good. had difficult time dealing with election results, I've been crabby ; has not seemed to be as affected by it 63 yo [id number] ('s youngest sister) on 06/29/2024--deepa vela treated for leukemia, developed an infection in her port and of sepsis, it all just happened so fast still goes to chair yoga; suggested JASON at [facility] to pt and she will look into it Past Psychiatric Hospitalizations Previous psychiatric hospitalizations Previous Psychiatric Hospitalization: No Past History of Suicidal attempt Have yo u ever attempted suicide in the past: No Depression screening PHQ-9 Little inte rest or pleasure in doing things: Several days Feeling down, depressed, or hopeless: Se veral days Trouble falling or staying asleep, or sl eeping too much: Several days Feeling tired or having little energy: S everal days Poor appetite or overeating: Several day s [...] some way: Not at all Total Score: 5 Interpretation: Mild Depression Intervention Depression Screening Findings: P ositve Follow-Up for Depression: [facility] health treatment assessment, Patient follow-up to return when and if necessary, Psychiatric follow-up Suicide Risk Assessment Performed: 07/08 Additional Evaluation for Depression: Ps ychiatric interview and evaluation Name of the standardized too l used for adult depression screening:: Patient Health Questionnaire (PHQ-9) Depression Screening JOCY-7 (2018 Edition) Elizabethin g nervous, anxious, or on edge: Several days Not being able to stop or control worryi ng: Not at all Worrying too much about different things : Not at all Trouble relaxing: Not at all Being so restless that it is hard to sit still: Not at all Becoming easily annoyed or irritable: Mo re than half the days Feeling afraid as if something awful vinnie ht happen: Not at all Total JOCY-7 Score: 3 Interpretation of Total: (0 to 4) No Anx iety [place]-Suicide Severity Rating Scale Suicide Risk (CSRS-screener) in the past one month Have you wished you were or wished you could go to sleep and not wake up?: No in the past one month Have y ou actually had any thoughts of killing yourself?: No Have you ever done anything, started to do anything, or prepared to do anything to end your life?: No Examination Category Sub-Category Detail Notes Category Not es Neurology slums score Psychiatry Dementia Safety concern s creening for dangerousness to self and environment risks provided:: Yes What action was taken to mitigate the risk?: Education provided Topics discussed for environmental risks:: Home safety risks that could arise from cooking or smoking, Access to firearms or other weapons, Access to potentially dangerous chemicals and other materials Topics discussed for dangerousness to self:: Medication misuse, Financial mismanagement Safety concern mitigation recommendation provided:: Not required Screening Result:: Negative Caregiver education and support provided : Yes Functional Assessment James Index of ADL Score:: 6 1 point for independence, 0 for help 1 point for independence, 0 for help Physical Functioning Personal hygiene: i ncluding combing hair, brushing teeth, shaving, applying makeup, washing/drying face and hands (exclude baths and showers): Independent (1) Bathing: how client takes fu ll-body bath/shower or sponge bath (exclude washing of back and hair). Includes how each part of body is bathed: arms, upper and lower legs, chest, abdomen, perineal area. (code for most dependent episode in last 7 days): Independent (1) Dressing upper body: how cli ent dresses and undresses (street clothes, underwear) above the waist, includes prostheses, orthotics, fasteners, pullovers, etc.: Independent (1) Dressing lower body: how cli ent dresses and undresses (street clothes, underwear), from the waist down, includes prostheses, orthotics, belts, pants, skirts, shoes, and fasteners: Independent (1) Eating - Including taking in food by any method, including tube feedings: Independent (1) Toilet use: including using the toilet room or commode, bedpan, urinal, transferring on/off toilet, cleaning self after toilet use or incontinent episode, changing pad, managing any special devices required (ostomy or catheter), and adjusting clothes.: Independent (1) Transfer: including moving t o and between surfaces--to/from bed, chair, wheelchair, standing position (excludes to/from bath/toilet): Independent (1) Transportation: No difficulty Continence:: Independent (1)
--- OUTSIDE RECORDS SUMMARY | 2024-10-10 11:12 | XMS_ITS ---
Author Organization [facility] Exent Address [facility] [place] [address] Care Team Providers Care Lens Cleaner Name Role Phone Didier Wolf MD Primary Care Provider Unavaila Sol [place] Unavailable [phone] Walter Parada Unavailable [phone] REASON FOR VISIT phq less than 5, major depression and anxiety Medications Medication SIG (Take, Route, Frequency, Duration) Notes Start Date End Date Status Atorvastatin Calcium 10 MG Oral 12/28/2023 Active ProAir HFA 108 (90 Base) MCG/ACT Inhalation 12/28/2023 Active hydroCHLOROthiazide 25 MG Oral 12/28/2023 Active FLUTICASONE 250 MCG-SALMETEROL 50 MCG/DOSE BLISTR POWDR FOR INHALATION *Reorder from [facility] for eRx and Interaction Alerts* 12/28/2023 Active Ergocalciferol 1.25 MG (69291 UT) Oral 12/28/2023 Active Wellbutrin XL 150 MG 1 tablet in the morning Oral Once a day for 90 days do not fill until pt requests Active Olmesartan Medoxomil 40 MG Oral 12/28/2023 Active Primidone 50 MG Oral 12/28/2023 Act kim Sertraline HCl 100 MG 1 tablet Oral Once a day for 90 days take together with 50 mg tablet for total daily dose of 150 mg do not fill until pt requests Active Sertraline HCl 50 MG 1 tablet Oral Once a day for 90 days take together with 100 mg tab for total daily dose of 150 mg do not fill until pt requests Active Social History Sex Assigned At : Social History Observation Description Sex Assigned At Female Encounters Encounter Location Date Provider Diagnosis [facility] [address] [facility] [address] [place] [address] 06/29/2024 Walter Parada Generalized anxiety disorder F41.1 and Depression, major, recurrent, mild F33.0 Assessments Encounter Date Diagnosis (ICD Code) Assessment Notes Treatment Notes Treatment Clinical Notes Section Notes 06/29/2024 Generalized anxiety disorder (ICD-10 - F41.1) 72 year female who presents with a hx of anxiety and depression. Reported she has suffered from both since 1999; noted she has had a lot life events at that time. Diagnosed with lung cancer, brother suffered a massive stroke, who in 2019, and life stressors. Started on Paxil at that time, believes she did really well on it. Client added she has seen Rachael Shin for a couple of years for medication therapy. Noted she would like to stop taking psych meds but is concerned she may never stop. No psych admissions reported by client but stated she has received out patient therapy in the past and really benefited from it. Family hs is postive for depression and anxiety and suspects mother may have suffered a psychotic break.Client was [place] area. Described childhood as very lonely due to big age differences with siblings, father always working and mother caring for her mother. Reported she is the youngest of three; sister and brother who in 2019. Parents were over 40 years; father in 1975 and mother in 1996. Relationship with parents was pretty decent due to parents being older when she was born. Noted older sister took care of her more so then mother. Client has two daughters ages 45 and 41. Relationship is very good with daughters. Client has been for 52 years with having major health issues; some cognitive issues which are affecting his ability to make decisions and loss of independence. Client stated this has added to her anxiety. Further shared sister in law who she was close to 06/2022. Noted she had been her POA for several years prior to her . 06/29/2024 Depression, major, recurrent, mild (ICD-10 - F33.0) 72 year female who presents with a hx of anxiety and depression. Reported she has suffered from both since 1999; noted she has had a lot life events at that time. Diagnosed with lung cancer, brother suffered a massive stroke, who in 2019, and life stressors. Started on Paxil at that time, believes she did really well on it. Client added she has seen Rachael Shin for a couple of years for medication therapy. Noted she would like to stop taking psych meds but is concerned she may never stop. No psych admissions reported by client but stated she has received out patient therapy in the past and really benefited from it. Family hs is postive for depression and anxiety and suspects mother may have suffered a psychotic break.Client was born and raised in this area. Described childhood as very lonely due to big age differences with siblings, father always working and mother caring for her mother. Reported she is the youngest of three; sister and brother who in 2019. Parents were over 40 years; father in 1975 and mother in 1996. Relationship with parents was pretty decent due to parents being older when she was born. Noted older sister took care of her more so then mother. Client has two daughters ages 45 and 41. Relationship is very good with daughters. Client has been for 52 years with having major health issues; some cognitive issues which are affecting his ability to make decisions and loss of independence. Client stated this has added to her anxiety. Further shared sister in law who she was close to 06/2022. Noted she had been her POA for several years prior to her . 06/29/2024 Other Client participated in individual psychotherapy (CBT/Supportive) related to her hx of depression and anxiety. Based on today's session continued psychotherapy is recommended with no changes to treatment plan. Client presented to session well groomed and fully oriented with no risk of harm to self or others. Client verbal and engaged through out session. Reported upon presentation that she has been okay since last seen on 04.28.2024. Added that she is a bit disappointed due to presidential election results but acknowledges that there is nothing she can do. Client further shared that 's youngest sister last night from Leukemia. Noted she had just been diagnosed three months ago. seems to be doing all right. Client bothered that she was unable to cry due to medication she is taking. Believes however that she is doing all right with . Noted that she had a really good visit with sister and her two daughters and is looking forward to daughter and granddaughter coming to visit this week. Client is a good place with little to anxiety or depression. Client provided supportive therapy. Next session in two months. 72 year female who presents with a hx of anxiety and depression. Reported she has suffered from both since 1999; noted she has had a lot life events at that time. Diagnosed with lung cancer, brother suffered a massive stroke, who in 2019, and life stressors. Started on Paxil at that time, believes she did really well on it. Client added she has seen Rachael Shin for a couple of years for medication therapy. Noted she would like to stop taking psych meds but is concerned she may never stop. No psych admissions reported by client but stated she has received out patient therapy in the past and really benefited from it. Family hs is postive for depression and anxiety and suspects mother may have suffered a psychotic break.Client was born and raised in this area. Described childhood as very lonely due to big age differences with siblings, father always working and mother caring for her mother. Reported she is the youngest of three; sister and brother who in 2019. Parents were over 40 years; father in 1975 and mother in 1996. Relationship with parents was pretty decent due to parents being older when she was born. Noted older sister took care of her more so then mother. Client has two daughters ages 45 and 41. Relationship is very good with daughters. Client has been for 52 years with having major health issues; some cognitive issues which are affecting his ability to make decisions and loss of independence. Client stated this has added to her anxiety. Further shared sister in law who she was close to 06/2022. Noted she had been her POA for several years prior to her . Plan Of Treatment Next Appt Details Follow Up: 2 months, Reason: Provider Name:Bonnie keene, 01/03/2025 02:00:00 PM, [address], [facility] [address], [place], [address], Progress Notes * HOOD MARKOB: 2 (74 yo F)Acc No.[id number]:06/29/2024 Patient: Jane GLADIS VALENZUELA Provider: Jane Parada LCPC :1950 A ge:74 Y S ex:Female Date:06/29/2024 Address:[address] [facility] Pcp:Didier Wolf MD Data: * Time Tracker: * Date Start Time End Time Duration User Type Captured By Mode Notes 06/29/2024 11:02 AM 11:47 AM 00:45:42 Therapist Walter Parada Timer * Chief Complaints: * P hq less than 5 major depression and anxiety * HPI: D epression Screening: JOCY-7 (2018 Edition) F eeling nervous, anxious, or on edge N ot at all N ot being able to stop or control worrying?Not at all W orrying too much about different things N ot at all T rouble relaxing N ot at all B eing so restless that it is hard to sit still N ot at all B ecoming easily annoyed or irritable N ot at all F eeling afraid as if something awful might happen N ot at all I f you checked any problems, how difficult have they made it for you to do your work, take care of things at home, or get along with other people? N ot difficult at all I nterpretation of Total ( 0 to 4) No Anxiety Referral source s elf-referral . A nger management H x denied by client . A nxiety w ith excessive worry(about my due to his poor health, if I could take care of him, what the future would hold with low energy with restlessness which has been long-standing aggravated by difficult work, financial and/or relationship issues and relieved by compliance with medication therapy active counseling . D epression w ith decreased concentration with decreased energy with difficulty sleeping with poor appetite with isolative behavior with feelings of being slowed down with feelings of worthlessness with sad mood which has been long-standing aggravated by difficult work, financial and/or relationship issues and relieved by compliance with medication therapy active counseling . H omicidal ideation H x denied by client . M ood lability ?Hx denied by client . O bsessive thoughts H x denied by client . P sychosis H x denied by client . S leep disturbance w ith difficulty staying asleep has been long-standing difficult work, financial and/or relationship issues and relieved by compliance with medication therapy treating the underlying medical condition . S ubstance abuse H x denied by client . S uicidal ideation H x denied for any suicidee attempts and thoughts.? . A DHD H x denied by client but has thought she might suffer from it.?. P sychotherapy H x positive for psychotherapyl currently seeing Walter . 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 C urrent probation / parole n o . H istory of arrests n o . H istory of incarcerations n o .?Legal history n o . P ending charges n o . [place]-Suicide Severity Rating Scale: Suicide Risk (CSRS-screener) i n the past one month Have you wished you were or wished you could go to sleep and not wake up? N o i n the past one month Have you actually had any thoughts of killing yourself? N o D epression screening: PHQ-9 L ittle interest or pleasure in doing things?Not at all F eeling down, depressed, or hopeless N ot at all T rouble falling or staying asleep, or sleeping too much N ot at all F eeling tired or having little energy N ot at all P oor appetite or overeating N ot at all F eeling bad about yourself or that you are a failure, or have let yourself or your family down N ot at all T rouble concentrating on things, such as reading the newspaper or watching television N ot at all M oving or speaking so slowly that other people could have noticed; or the opposite, being so fidgety or restless that you have been moving around a lot more than usual N ot at all T houghts that you would be better off or of hurting yourself in some way N ot at all I nterpretation M inimal Depression Intervention D epression Screening Findings N egative S uicide Risk Assessment Performed 1 08/29/2023 * Family History: F ather: . M other: , Anxiety disorder , Depressive disorder . B rother: . S islucía: alive 83 yrs, Diabetes mellitus . 2 daughter(s) . . * Social History: M igrated Social History: M igrated Social History: Alcohol Intake: Moderate 12/09/2022,Tobacco Years: Never smoker 03/02/2020. * Medications: T akingAtorvastatin Calcium 10 MG Tablet Oral ProAir HFA 108 (90 Base) MCG/ACT Aerosol Solution Inhalation hydroCHLOROthiazide 25 MG Tablet Oral FLUTICASONE 250 MCG-SALMETEROL 50 MCG/DOSE BLISTR POWDR FOR INHALATION , Notes to Pharmacist: *Reorder from [facility] for eRx and Interaction Alerts*Ergocalciferol 1.25 MG (62977 UT) Capsule Oral Olmesartan Medoxomil 40 MG Tablet Oral Primidone 50 MG Tablet Oral Sertraline HCl 100 MG Tablet 1 tablet Oral Once a day take together with 50 mg tablet for total daily dose of 150 mg, Notes to Pharmacist: do not fill until pt requestsSertraline HCl 50 MG Tablet 1 tablet Oral Once a day take together with 100 mg tab for total daily dose of 150 mg, Notes to Pharmacist: do not fill until pt requestsWellbutrin XL 150 MG Tablet Extended Release 24 Hour 1 tablet in the morning Oral Once a day , Notes to Pharmacist: do not fill until pt requestsMedication List reviewed and reconciled with the patientTaking Atorvastatin Calcium 10 MG Tablet Oral Taking ProAir HFA 108 (90 Base) MCG/ACT Aerosol Solution Inhalation Taking hydroCHLOROthiazide 25 MG Tablet Oral Taking FLUTICASONE 250 MCG-SALMETEROL 50 MCG/DOSE BLISTR POWDR FOR INHALATION , Notes to Pharmacist: *Reorder from [facility] for eRx and Interaction Alerts*Taking Ergocalciferol 1.25 MG (80672 UT) Capsule Oral Taking Olmesartan Medoxomil 40 MG Tablet Oral Taking Primidone 50 MG Tablet Oral Taking Sertraline HCl 100 MG Tablet 1 tablet Oral Once a day take together with 50 mg tablet for total daily dose of 150 mg, Notes to Pharmacist: do not fill until pt requestsTaking Sertraline HCl 50 MG Tablet 1 tablet Oral Once a day take together with 100 mg tab for total daily dose of 150 mg, Notes to Pharmacist: do not fill until pt requestsTaking Wellbutrin XL 150 MG Tablet Extended Release 24 Hour 1 tablet in the morning Oral Once a day , Notes to Pharmacist: do not fill until pt requestsMedication List reviewed and reconciled with the patient Assessment: * Assessment: 1. G eneralized anxiety disorder - F41.1 (Primary) 2 . D epression, major, recurrent, mild - F33.0 72 year fe male who presents with a hx of anxiety and depression. Reported she has suffered from both since 1999; noted she has had a lot life events at that time. Diagnosed with lung cancer, brother suffered a massive stroke, who in 2019, and life stressors. Started on Paxil at that time, believes she did really well on it. Client added she has seen Rachael Shin for a couple of years for medication therapy. Noted she would like to stop taking psych meds but is concerned she may never stop. No psych admissions reported by client but stated she has received out patient therapy in the past and really benefited from it. Family hs is postive for depression and anxiety and suspects mother may have suffered a psychotic break.Client was born and raised in this area. Described childhood as very lonely due to big age differences with siblings, father always working and mother caring for her mother. Reported she is the youngest of three; sister and brother who in 2019. Parents were over 40 years; father in 1975 and mother in 1996. Relationship with parents was pretty decent due to parents being older when she was born. Noted older sister took care of her more so then mother. Client has two daughters ages 45 and 41. Relationship is very good with daughters. Client has been for 52 years with having major health issues; some cognitive issues which are affecting his ability to make decisions and loss of independence. Client stated this has added to her anxiety. Further shared sister in law who she was close to 06/2022. Noted she had been her POA for several years prior to her . Plan: * Treatment: * Procedure Codes: 9 6127 BEHAV ASSMT W/SCORE & DOCD/STAND [id number] PSYCHOTHERAPY W/PATIENT 45 MINUTES * Follow Up: 2 months * Billing Information: * Visit Code: * Procedure Codes: 52424 BEHAV ASSMT W/SCORE & DOCD/STAND INSTRUMENT. 86844 PSYCHOTHERAPY W/PATIENT 45 MINUTES. * H BALER Sign off status: Completed Signatures: No Ad Hoc Signature Added true * Provider: Jane Parada LCPC Date: 08/29/2023 Generated for Ladonna vela/Erum/Vickyitting on: 0 10/10/2024 11:11 AM CLOTH BALER History and Physical Notes * HPI (History [...] ot at all Poor appetite or overeating: Not at all Feeling bad about yourself o r that [...] yourself in some way: Not at all Interpretation: Minimal Depression Intervention Depression Screening Findings: N egative Suicide Risk Assessment Performed: 06/29 Depression Screening JOCY-7 (2018 Edition) Feeling nervous, anxious, or on edge: Not at all Referral source self-referral . Anger management Hx denied by client . Anxiety with excessive worry(about my due to his poor health, if I could take care of him, what the future would hold with low energy with restlessness which has been long-standing aggravated by difficult work, financial and/or relationship issues and relieved by compliance with medication therapy active counseling . Depression with decreased concentration with decreased energy with difficulty sleeping with poor appetite with isolative behavior with feelings of being slowed down with feelings of worthlessness with sad mood which has been long-standing aggravated by difficult work, financial and/or relationship issues and relieved by compliance with medication therapy active counseling . Homicidal ideation Hx denied by client . Mood lability Hx denied by client . Obsessive thoughts Hx denied by client . Psychosis Hx denied by client . Sleep disturbance with difficulty staying asleep has been long-standing difficult work, financial and/or relationship issues and relieved by compliance with medication therapy treating the underlying medical condition . Substance abuse Hx denied by client . Suicidal ideation Hx denied for any suicidee attempts and thoughts. . ADHD Hx denied by client but has thought she might suffer from it. . Psychotherapy Hx positive for psychotherapyl currently seeing Walter . 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 Current probation / parole no . History of arrests no . History of incarcerations no . Legal history no . Pending charges no . Not being able to stop or control worryi ng: Not at all Worrying too much about different things : Not at all Trouble relaxing: Not at all Being so restless that it is hard to sit still: Not at all Becoming easily annoyed or irritable: No t at all Feeling afraid as if something awful vinnie ht happen: Not at all If you checked any problems, how difficult have they made it for you to do your work, take care of things at home, or get along with other people?: Not difficult at all Interpretation of Total: (0 to 4) No Anx iety [place]-Suicide Severity Rating Scale Suicide Risk (CSRS-screener) in the past one month Have you wished you were or wished you could go to sleep and not wake up?: No in the past one month Have y ou actually had any thoughts of killing yourself?: No
--- OUTSIDE RECORDS SUMMARY | 2024-10-10 11:12 | XMS_ITS | Clinical Summary ---
Author Organization [facility] Address [address] [place] [address] Care Team Providers Care Claims Supervisor Name Role Phone Didier Wolf MD Primary Care Provider [phone] Allergies No known active allergies Medications flu vac [id number],36mo s,up,/PF (FLUARIX QUAD [id number], PF, IM) Fluarix Quad [id number] (PF) 60 mcg (15 mcg x 4)/0.5 [...] 6 months. New lab orders sent to [facility]. Continue low-carb (<150 g/day), low-glycemic diet. Assessment [...] w/r/t gut microbiome. Referred to ADA and [facility] websites for additional information on topics [...] reduced progression with weight loss. Anxiety 04/23/2017 Surgical History Surgery Date Site/Laterality Comments ANKLE FRACTURE SURGERY 08/24/1988 - 08/23/1989 LUNG CANCER SURGERY BLADDER REPAIR TOTAL HIP ARTHROPLASTY REPLACEMENT TOTAL KNEE Medical History Medical History Date Comments Asthma Cancer (CMS/HCC) (HCC) Depression Hypertension Obesity Pneumonia Sleep apnea Family History Medical History Relation Name Comments Arthritis Brother Gout Brother Hypertension Brother Heart disease Father Hypertension Father Arthritis Mother Arthritis Sister Blood Clot Sister Cancer Sister Diabetes Sister Hypertension Sister Relation Name Status Comments Brother Father Mother Sister Social History Tobacco Use Types Packs/Day Years Used Date Smoking Tobacco: Never Smokeless Tobacco: Never Personal Safety Answer Date Recorded Getting School Help Needed Not on file 08/03 Comments Unknown Sex and Gender Information Value Date Recorded Sex Assigned at Not on file Legal Sex Female 12:45 PM CDT Gender Identity Not on file Sexual Orientation Straight 05/04/2023 12 :18 PM CDT Obstetrics History Last Filed Vital Signs Vital Sign Reading Time Taken Comments Blood Pressure - - Pulse - - Temperature - - Respiratory Rate - - Oxygen Saturation - - Inhaled Oxygen Concentration - - Weight 98.9 kg (218 lb) 09/21/2023 1:51 PM TELEVISION JOURNALIST h ome Height 162.6 cm (5' 4 ) 09/21/2023 1:51 PM TELEVISION JOURNALIST Body Mass Index 37.42 09/21/2023 1:51 PM TELEVISION JOURNALIST Plan of Treatment Health Maintenance Due Date Last Done Comments Breast Cancer Screening-Mammogram 1950 Colon Cancer Screening-Colonoscopy 1950 Depression Screening 1950 Fall Risk Assessment 1950 Hepatitis C Screening 1950 Osteoporosis Screening-Bone Density Scan 1950 DTaP/Tdap/Td Vaccine (1 - Tdap) 02/05/1963 Hepatitis B Screening 02/05/1970 Well Visit 65+ 02/05/2017 Influenza Vaccine (#1) 2024 3, 06/01/2022, 05/24/2020, Additional history exists Zoster Vaccine Completed 06/21/2018, 05/25, 03/16/2018, Additional history exists Pneumococcal vaccine 65+ Completed 07/22/2019, 01/22 Insurance MEDICARE SOLUTIONS [facility] MDCR HMO REF MEDICARE SOLUTIONS Care Teams Claims Supervisor Relationship Specialty Start Date End Date Didier Wolf MD PCP - General Internal Medicine 02/21/19
--- OUTSIDE RECORDS SUMMARY | 2024-10-10 11:12 | XMS_ITS | Patient Health Summary ---
Author Organization [facility] Address [address] [place] [address] Care Team Providers Care Preschool Teacher Aide Name Role Phone Didier Wolf MD Primary Care Provider [phone] Note from [facility],non-owned Affiliates and Associated Physician Practices is amultiple site organization consisting of ambulatory clinics and hospital sitesin [place], [place], [place] and [place]. This disclosure is being madepursuant to the Care Everywhere program and may not contain all information available regarding this patient. Last updated 18.[facility] Allergies No known active allergies Medications * Be aware that medications may not be up to date on this document. Alwaysverify current medications with the patient. * losartan-hydroCHLOROthiazide (HYZAAR) 100-25 MG tablet(Started 11/09/2017) Take 1 tablet by mouth once daily 1 refill left * ALBUTEROL SULFATE HFA IN Inhale 2 puffs by mouth as needed * PARoxetine (PAXIL) 20 MG tablet Take 20 mg by mouth once daily * methocarbamol (ROBAXIN) 750 MG tablet(Started 01/03/2019) Take 750 mg by mouth every 8 hours 1 refill left * meloxicam (MOBIC) 15 MG tablet(Started 01/11/2019) Take 15 mg by mouth once daily * WIXELA INHUB 250-50 MCG/DOSE inhaler(Started 11/26/2018) INHALE 1 DOSE BY MOUTH TWICE DAILY. RINSE MOUTH AFTER USE 1 refill left * vitamin D, ergocalciferol, (DRISDOL) 43317 units capsule(Started 11/11/2018) TAKE ONE CAPSULE BY MOUTH ONE TIME PER WEEK * acetaminophen-codeine (TYLENOL #3) 300-30 MG tablet acetaminophen 300 mg-codeine 30 mg tablet * Estradiol (IMVEXXY STARTER PACK) 10 MCG INST(Started 03/02/2019) Insert 1 capsule into the vagina once daily Active Problems Problem Noted Date Diagnosed Date Essential hypertension 03/03/2019 Obesity 03/03/2019 Obstructive sleep apnea syndrome 03/03/2019 Osteoarthritis of hip 03/03/2019 Anxiety 04/23/2017 Immunizations * INFLUENZA VACCINE(Given 05/24/2017) Social History Tobacco Use Types Packs/Day Years [...] Mass Index 40.85 03/02/2019 10:15 AM CDT Procedures * MAMMOGRAM(Performed 01/31/2019) * MAMMOGRAM(Performed 01/28/2019) * PAP IMAGE-GUIDED W HPV(Performed 12/01/2017) Performed for Well woman exam with routine gynecological exam * HPV DETECTION HIGH RISK GUANAKITO(Performed 12/01/2017) Performed for Well woman exam with routine gynecological exam Results * MAMMOGRAM (01/31/2019) Only the most recent of2 resultswithin the time period is included. Anatomical Region Laterality Modality Other Historical Provider MD SCANNING ONLY * HPV DETECTION HIGH RISK GUANAKITO (12/01/2017 2:00 PM CDT) High Risk Human Papilloma Result Not Detected Not Detected 12/07/2017 4:31 PM CDT [facility] High Risk Human Papilloma Interp 12/07/2017 4:31 PM CDT [facility] Comment:High Risk Human Kristopher lloma Virus was Not Detected. Pathology/Cytolo gy VAGINA AND CERVIX, CS / Unknown 12/01/2017 2:00 PM CDT 12/07/2017 10:02 AM CDT Narrative [facility] - 12/07/2017 4:31 PM CDT Nucleic acid isolated from the specimen was analyzed with a nucleic acid amplification test (FDA approved Gen-Probe HPV Assay) to detect high risk human papilloma virus (Types: 16, 18, 31, 33, 35, 39, 45, 51, 52, 56, 58, 59, 66, and 68). The reference range is Not Detected . Comment: These test results should not be used as the sole basis for clinical assessment and treatment of patients. These results should always be correlated with other available data (cytology, histology, and clinical information). Meg Munoz MD LAB - MICROBIOLOGY ORDERABLES Performing Organization Address City/State/[facility] Co de Phone Number [facility] [address] [phone] * PAP IMAGE-GUIDED LIQUID BASE W HPV (12/01/2017 2:00 PM CDT) Case Report Gynecologic Cytology Report Case: [id number] Authorizing Provider: Meg Munoz MD Collected: 12/01/2017 02:00 PM Ordering Location: [facility] Received: 12/07/2017 10:02 AM First Screen: Kael Aleman Specimen: THINPREP - IMAGE GUIDED, Cervicovaginal 12/08/2017 3:32 PM CDT [facility] LMP menopausal 12/08/2017 3:32 PM CDT [facility] Menstrual Status Postmenopausal 11/22 3:32 PM CDT [facility] Specimen Adequacy Satisfactory for evaluation, endocervical/trans formation zone component present. 12/08/2017 3:32 PM CDT [facility] Categorization Negative for intraepithelial lesion or malignancy. 12/08/2017 3:32 PM CDT [facility] Interpretation SOAP GRINDER Negative for intraepithelial lesion or malignancy. 12/08/2017 3:32 PM CDT [facility] Other Atrophic epithelial pattern. 12/08/2017 3:32 PM CDT [facility] Note(s) HUMAN PAPILLOMAVIRUS DIRECT - HPV result to follow in separate report. 12/08/2017 3:32 PM CDT [facility] Pap Footnote This specimen was evaluated by the ThinPrep Imaging System along with the an additional manual rescreening by a upholsterer helper and/or pathologist. 12/08/2017 3:32 PM CDT [facility] Embedded Images 3:32 PM CDT [facility] Pathology/Cytolo gy VAGINA AND CERVIX, CS / Unknown 12/01/2017 2:00 PM CDT 12/07/2017 10:02 AM CDT Meg Munoz MD LAB - PATHOLOGY/CY TOLOGY ORDERABLES Performing Organization Address City/State/[facility] Co de Phone Number [facility] [address] [phone] Care Teams Preschool Teacher Aide Relationship Specialty Start Date End Date Didier Wolf MD PCP - General 12/01/17
--- OUTSIDE RECORDS SUMMARY | 2024-10-10 11:12 | XMS_ITS | Data Portability ---
[facility] Organization [facility] Address [address] [place] [address] Care Team Providers Care Hepatologist Name Role Phone BALDEV WOLF Primary Care Provider Assessment Encounter Date Assessment Date Assessment LastModified by Organization Details LastModified Time 10/29/2023 10/29/2023 She is still trying to lose weight hyperlipidemia and other diagnosis and the assessment and plan under management of been discussed. She has been using her CPAP for sleep apnea and gaining benefit. Obtain records from previous clinic and follow-up with me in 4 months [email or web address] Not available 11/08/2023 16:40:11 12/24/2023 12/24/2023 EKG was interpreted by cardiology as sinus rhythm with PVC inferior infarct age undetermined we will obtain blood work she will need an echocardiogram continue current therapy if echo shows no regional wall more motion abnormalities that she is optimized for keep her regular follow. Her asthma is optimized blood pressure is optimized sleep apnea is optimized anxiety is stable resume home medications as soon as possible postsurgery [email or web address] Not available 01/30/2024 11:14:29 02/29/2024 02/29/2024 wellness visit completed handouts were appropriate discussed immunizations and screenings ordered were appropriate patient agreeable she will keep her regular follow up all questions answered [email or web address] Not available 03/27/2024 11:49:39 03/07/2024 03/07/2024 obesity handout DEXA ordered we will continue current therapy echo reviewed blood work recently done reviewed follow up me in months she is taking some for anemia Not available 03/07/2024 21:01:00 08/04/2024 08/04/2024 blood work reall y is nondiagnostic we will continue to observe and she will see me back in her regularly scheduled appointment time [place] [id number] Not available 08/29/2024 16:50:55 Plan of Treatment Reminders Order Date Submit Date Provider Last Modified By Organization Details Last Modified Time Details Appointments ANY 15 2024 10:00A M Baldev Wolf MD Not available Not available Not available Lab CBC w/ auto diff 2023 024 [facility] (Lab), [address] [place] [address], [phone], 12/24/2023 16:02:44 CMP, serum or plasma 2023 024 [facility] (Lab), [address] [place] [address], [phone], 12/24/2023 16:02:44 urinalysi s, complete 2023 024 [facility] (Lab), [address] [place] [address], [phone], 12/24/2023 16:02:44 Referral None recorded. Procedures None recorded. Surgeries None recorded. Imaging DEXA [address] (Imaging), [address] [place] [address], [phone], 10/05/2024 14:42:17 MAMMO, screening , bilateral 2023 024 [email or web address], [address] [facility], [place], [address], 04/19/2024 15:27:57 electroca rdiogram 2023 024 [facility] (Cardiology & Emg), [address] [place] [address], [phone], 12/31/2023 09:38:18 Medication Orders None recorded. Patient TargetsNo targets recorded. Patient Instructions Encounter Date Encounter Id Patient Instructions Last Modified By Organization Details Last Modified Time 02/29/2024 [id number] A healthy lifestyle: care instructions [email or web address] Not available 02/29/2024 17:33:48 preventing falls : care instructions [email or web address] Not available 02/29/2024 14:00:11 Medicare [place] Preventive Checklist [email or web address] Not available 02/29/2024 14:00:11 03/07/2024 [id number] A healthy lifestyle: care instructions [email or web address] Not available 03/07/2024 21:01:16 08/04/2024 [id number] A healthy lifestyle: care instructions [email or web address] Not available 08/05/2024 07:59:03 Reason for Referral None Reported. Results Created Date Observation Date Name Description Value Unit Range Abnormal Flag Note LastModifiedBy Organization Detail LastModifiedTime 12/25/19 elect jose alcantara am No observ ation record ed. [facility] (Cardiology & Emg) [address] [place] [address], [phone], 01/04/2024 09:47:37 01/06/2001/06/2024 , [facility] ardio gram No observ ation record ed. [address], [address], 01/10/2024 23:08:56 01/11/2001/11/2024 XR, pelvi s No observ ation record ed. [email or web address] [address], [address], 01/11/2024 13:30:59 02/17/20 24 08/30/2020 DEXA, axial skele ton No observ ation record ed. [email or web address] Not Available 16:24:33 02/17/20 24 02/28/2022 MAMMO , scree inderjit, digit al, bilat eral No observ ation record ed. [email or web address] Not Available 16:35:53 02/29/20 24 03/06/2023 XR, foot, 3 or more view No observ ation record ed. Not Available 2023 09:16:12 03/01/20 24 08/30/2014 colon oscop y proce dure (PROC ) No observ ation record ed. [address] [place], [address], 03/02/2024 09:14:56 04/14/20 24 04/14/2024 MAMMO , scree inderjit, bilat eral No observ ation record ed. [facility] [address] [facility], [place], [address], 04/19/2024 16:35:25 04/19/20 24 04/14/2024 MAMMO , scree inderjit, bilat eral No observ ation record ed. [facility] [address] [facility], [place], [address], 04/20/2024 13:56:32 04/19/20 24 04/14/2024 MAMMO , scree inderjit, bilat eral No observ ation record ed. [facility] [address] [facility], [place], [address], 04/20/2024 13:56:33 Result Notes None recorded. Problems Name Problem SNOMED Code Status Onset Date Resolution Date Notes Provider Name and Address Organization Details Recorded Time Ectopic atrial tachycardia 473499044 Active [address] MA [facility], [facility] 4 17:15:22 Obstructive sleep apnea syndrome 35624652 Active 2023 Baldev Wolf MD Attn: Rahul ritter,[address] [facility], [place], [address], [facility] 4 14:20:19 Hyperlipidemia 45005671 Active 2023 Baldve Wolf MD Attn: Rahul ritter,[address] [facility], [place], [address], [facility] 4 14:20:20 Essential tremor 144091003 Active 2023 Baldev Wolf MD Attn: Rahul ritter,[address] [facility], [place], [address], [place] - [facility] 4 14:20:21 Vitamin D deficiency 32641320 Active 2023 Baldev Wolf MD Attn: Rahul ritter,[address] [facility], [place], [address], [place] [facility] 4 14:20:24 Anxiety 73516146 Active 2023 Baldev Wolf MD Attn: Rahul ritter,[address] [facility], [place], [address], [place] [facility] 4 14:20:26 Essential hypertension 31782027 Active 2023 Baldev Wlof MD Attn: Rahul ritter,[address] [facility], [place], [address], [place] - [facility] 4 14:20:28 Obesity 660774804 Active 2023 Baldev Wolf MD Attn: Rahul ritter,[address] [facility], [place], [address], [place] - [facility] 4 14:20:29 Problem Notes None recorded. Procedures Surgical History Date Name Laterality Status Provider Name and Address Organization Details Recorded Time 08/30/19 15 colonoscopy completed Shell Grant [place] - [facility] 02/17/2024 16:25:52 repair of ankle completed Elizabeth Lind Jane [place] - [facility] 10/29/2023 16:03:24 Joint Replacement completed Elizabeth Lind Jane [place] - [facility] 10/29/2023 16:03:34 lobectomy of upper lobe of left lung completed Elizabeth Lind [facility] - [facility] 10/29/2023 16:03:48 Imaging Results Imaging Date Name Status LastModified by Organization Details LastModified Time 12/25/2023 electrocardiogram completed [facility] (Cardiology & Emg) [address] [place] [address], [phone], 01/04/2024 09:47:37 01/06/2024 US, echocardiogram completed [address], [address], 01/10/2024 23:08:56 01/11/2024 XR, pelvis completed [facility] [address] [facility] [address], [place], [address], 01/11/2024 13:30:59 08/30/2020 DEXA, axial skeleton completed [email or web address] In formation not available 02/17/2024 16:24:33 02/28/2022 MAMMO, screening, digital, bilateral completed [email or web address] Information not available 02/17/2024 16:35:53 03/06/2023 XR, foot, 3 or more view completed Information not available 03/02/2024 09:16:12 08/30/2014 colonoscopy procedure (PROC) completed [address] [place], [address], 03/02/2024 09:14:56 04/14/2024 MAMMO, screening, bilateral completed [facility] [address] [facility], [place], [address], 04/19/2024 16:35:25 04/14/2024 MAMMO, screening, bilateral completed [facility] [address] [facility], [place], [address], 04/20/2024 13:56:32 04/14/2024 MAMMO, screening, bilateral completed [facility] [address] [place], [address], 04/20/2024 13:56:33 Procedure Notes None recorded. Medical Equipment None Reported. Allergies Allergen ID Allergen Name Allergen Category Reaction Reaction Severity Criticality Documentation Date Start Date Code Code System Note Provider Name and Address Organization Details Recorded Time 054227 banana extract food,medi cation nausea severe Not available 12/24/2023 22230 9 RxNorm Not Available Not Available Not Available 427558 avocado allergeni c extract food nausea severe Not available 12/24/2023 01654 2 RxNorm Not Available Not Available Not Available Medications Name Sig Start Date Stop Date Status Note LastModified by Organization Details LastModified Time cyclobenzap rine 10 mg tablet 10 MG ORALLY THREE TIMES A DAY NEEDED FOR MUSCLE SPASM 02/28 completed Not Available Not Available Not Available amoxicillin 500 mg capsule TAKE 4 CAPSULES BY MOUTH NOW 10/28 completed Not Available Not Available Not Available primidone 50 mg tablet TAKE 1 TABLET BY MOUTH TWICE A DAY active Not Available Not Available No t Available fluticasone 250 mcg-salmete rol 50 mcg/dose blistr powdr for inhalation TAKE 1 PUFF BY MOUTH TWICE A DAY *RINSE MOUTH AFTER USE* active Not Available Not Available No t Available nystatin 100,000 unit/mL oral suspension TAKE 5 ML BY MOUTH 3 TIMES A DAY FOR 10 DAYS 10/28 completed Not Available Not Available Not Available doxycycline hyclate 100 mg capsule TAKE 1 CAPSULE BY MOUTH EVERY DAY 02/28 completed Not Available Not Available Not Available atorvastati n 10 mg tablet TAKE 1 TABLET BY MOUTH EVERY DAY 2024 active Not Available Not Available Not Avai lable azithromyci n 250 mg tablet TAKE 2 TABLETS BY MOUTH TODAY, THEN TAKE 1 TABLET DAILY FOR 4 DAYS 10/28 completed Not Available Not Available Not Available naltrexone 50 mg tablet TAKE 0.5 TABLETS (25 MG TOTAL) BY MOUTH DAILY FOR 7 DAYS, THEN 1 TABLET (50 MG TOTAL) DAILY. 10/28 completed Not Available Not Available Not Available sertraline 100 mg tablet 1 TABLET ORAL ONCE A DAY TAKE TOGETHER WITH 50 MG TABLET FOR TOTAL DAILY DOSE OF 150 MG 90 DAYS active Not Available Not Available No t Available hydrocodone 7.5 mg-acetamin ophen 325 mg tablet TAKE 1 TABLET BY MOUTH EVERY 4 HOURS NEEDED FOR PAIN 02/28 completed Not Available Not Available Not Available hydrochloro thiazide 25 mg tablet TAKE 1 TABLET BY MOUTH EVERY DAY 2024 active Not Available Not Available Not Avai lable ergocalcife rol (vitamin D2) 1,250 mcg (50,000 unit) capsule TAKE 1 CAPSULE BY MOUTH EVERY 2 WEEKS 2023 active Not Available Not Available Not Avai lable albuterol sulfate HFA 90 mcg/actuati on aerosol inhaler INHALE 2 PUFFS EVERY 4 HOURS active Not Available Not Available No t Available sertraline 50 mg tablet TAKE 1 TABLET BY MOUTH ONCE DAILY WITH SERTRALIN E 100MG TABLET, TOTAL DOSE 150MG active Not Available Not Available No t Available doxycycline hyclate 100 mg tablet TAKE 1 TABLET BY MOUTH EVERY DAY 02/28 completed Not Available Not Available Not Available tobramycin 0.3 %-dexametha sone 0.1 % eye drops,suspe nsion INSTILL 3 DROPS INTO BOTH EYES THREE TIMES DAILY FOR ONE WEEK 10/28 completed Not Available Not Available Not Available olmesartan 40 mg tablet Take One Tablet By Mouth Every Day active Not Available Not Available No t Available bupropion HCl XL 150 mg 24 hr tablet, extended release TAKE 1 TABLET BY MOUTH EVERY DAY IN THE MORNING FOR 90 DAY active Not Available Not Available No t Available nitrofurant oin monohydrate /macrocryst als 100 mg capsule TAKE 1 CAPSULE BY MOUTH TWICE A DAY FOR 5 DAYS active Not Available Not Available No t Available Xarelto 10 mg tablet PLEASE SEE ATTACHED FOR DETAILED DIRECTION S 02/28 completed Not Available Not Available Not Available Vitals Date Recorded Body height Body mass index (BMI) Body weight Heart rate Oxygen saturation Oxygen saturation in Arterial blood by Pulse oximetry Systolic blood pressure Diastolic blood pressure Provider Name and Address Organization Details Last Updated DateTime 4 162.56 cm 37.7 kg/m2 24486.9 6 g 64 /min 98 % 98 % 108 mm[Hg] 82 mm[Hg] CLEMENTE Lim [place] - [facility] 4 15:58:43 Date Recorded Body height Body mass index (BMI) Body weight Heart rate Oxygen saturation Oxygen saturation in Arterial blood by Pulse oximetry Systolic blood pressure Diastolic blood pressure Provider Name and Address Organization Details Last Updated DateTime 4 162.56 cm 38.3 kg/m2 741546. 54 g 99 /min 99 % 99 % 110 mm[Hg] 78 mm[Hg] Miriam Kirkpatrick [place] - [facility] 4 11:42:17 Date Recorded Body height Body mass index (BMI) Body weight Heart rate Respiratory rate Oxygen saturation Oxygen saturation in Arterial blood by Pulse oximetry Systolic blood pressure Diastolic blood pressure Provider Name and Address Organization Details Last Updated DateTime 4 162.56 cm 38.1 kg/m2 468253. 15 g 118 /min 18 /min 99 % 99 % 106 mm[Hg] 78 mm[Hg] CLEMENTE Lim [facility] 4 12:51:07 Date Recorded Pain severity - 0-10 verbal numeric rating [Score] - Reported Provider Name and Address Organization Details Last Updated DateTime 02/29/2024 Moraima Delgado [facility] 02/29/2024 12:52:52 Date Recorded Body height Body mass index (BMI) Body weight Heart rate Respiratory rate Oxygen saturation Oxygen saturation in Arterial blood by Pulse oximetry Systolic blood pressure Diastolic blood pressure Provider Name and Address Organization Details Last Updated DateTime 4 162.56 cm 38.3 kg/m2 872510. 54 g 71 /min 14 /min 97 % 97 % 102 mm[Hg] 68 mm[Hg] CLEMENTE Lim [facility] 4 14:09:27 Date Recorded Body height Body mass index (BMI) Body weight Heart rate Oxygen saturation Oxygen saturation in Arterial blood by Pulse oximetry Systolic blood pressure Diastolic blood pressure Provider Name and Address Organization Details Last Updated DateTime 4 162.56 cm 39.9 kg/m2 192497. 59 g 73 /min 96 % 96 % 112 mm[Hg] 74 mm[Hg] Tatiana Jeong MA [facility] 4 16:31:09 Social History Question Answer Notes LastModified by Organizat ion Details LastModified Time Tobacco Smoking Status Never Smoker [facility] 10/29/2023 15:58:56 Do You Have An Advance Directive? Yes Information not available 12/24/2023 What Is Your Level Of Alcohol Consumption? Occasional Couple Drinks Per Week Information not available 02/29/2024 Are You Blind Or Do You Have Difficulty Seeing? Yes Glasses Information not available 12/24/2023 What Is Your Level Of Caffeine Consumption? Moderate Information not available 02/29/2024 In The 14 Days Before Symptom Onset, Have You Had Close Contact With A Laboratory-confir med COVID-19 While That Case Was Ill? No Information not available 12/24/2023 In The 14 Days Before Symptom Onset, Have You Had Close Contact With A Person Who Is Under Investigation For COVID-19 While That Person Was Ill? No Information not available 12/24/2023 Have You Been To An Area Known To Be High Risk For COVID-19? No Information not available 12/24/2023 Are You Currently Employed? No Retired Information not available 02/29/2024 Are You Deaf Or Do You Have Serious Difficulty Hearing? 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 REGULAR Information not available 12/24/2023 What Is The Highest Grade Or Level Of School You Have Completed Or The Highest Degree You Have Received? [id number] Information not available 02/29/2024 Are There Any Guns Present In Your Home? Yes Locked Up Information not available 02/29/2024 In The Past 7 Days, How Many Days Did You Exercise? 0 Information not available 02/29/2024 In The Past 7 Days, How Much Pain Have You Temple? Some Information not available 02/29/2024 In General, Would You Say You Health Is: Very Good Information not available 02/29/2024 How Would You Describe The Condition Of Your Mouth And Teeth- Including False Teeth Or Dentures? Very Good Information not available 02/29/2024 Each Night, How Many Hours Of Sleep Do You Get? 9 Information no t available 02/29/2024 Has Anyone Ever Told You That You Snore? No CPAP Information not available 02/29/2024 In The Past 7 Days, How Often Have You Temple Sleepy In The Daytime? Never Information not available 02/29/2024 # Alcohol Drinks Per Week 2 Information not available 02/29/2024 What Was The Date Of Your Most Recent Tobacco Screening? 08/04/2024 [email or web address] Information not available 08/04/2024 What Is Your Relationship Status? Information not available 12/24/2023 Do You Use Your Seat Belt Or Car Seat Routinely? Yes Information not available 12/24/2023 Do You Have Smoke And Carbon Monoxide Detectors In Your Home? Yes Information not available 12/24/2023 Do You Feel Stressed (tense, Restless, Nervous, Or Anxious, Or Unable To Sleep At Night)? [id number] Information not available 02/29/2024 Do You Use Any Illicit Or Recreational Drugs? No Information not available 02/29/2024 Do You Use Sunscreen Routinely? Yes Information not available 12/24/2023 Has Tobacco Cessation Counseling Been Provided? No Information not available 02/29/2024 Do You Or Have You Ever Used Any Other Forms Of Tobacco Or Nicotine? No Information not available 02/29/2024 Sex: Female Functional Status Question Answer Note LastModified by Organization D etails LastModified Time Are you able to care for yourself? Yes Information n ot available 12/24/2023 What is your exercise level? None Information not available 12/24/2023 Mental Status None recorded. Family History Relationship Description Onset Age of this Age Resolved Age Notes LastModified by Organization Details LastModified Time Father Hypertensive disorder [email or web address] Not available 02/2024 16:01:05 Father Heart disease [email or web address] Not available 02/2024 16:01:16 Father Disorder of coronary artery [email or web address] Not available 02/2024 16:02:28 Mother Hypertensive disorder [email or web address] Not available 02/2024 16:01:05 Mother Dementia [email or web address] Not availa ble 10/29/2023 16:01:57 Sister Hypertensive disorder [email or web address] Not available 02/2024 16:01:05 Sister Malignant tumor of breast [email or web address] Not available 02/2024 16:01:44 Brother Cerebrovascu lar accident [email or web address] Not available 0 10/29/2023 16:01:28 Medical History Condition Response Anxiety Disorder Y High Blood Pressure Y Cancer Y Depression Y Asthma Y Gynecological History Statement/Question Response If Post Menopausal, Age at Menopause 54 Obstetrics History GPAL:G 0 P 0 0 0 0 Immunizations Vaccine Type Date Status Note Provider Nam e and Address Organization Details Recorded Time zoster recombinant 8 completed SRIDHAR Barrientos - [facility] 02/17/2024 16:12:14 zoster recombinant 8 SRIDHAR Parham - [facility] 02/17/2024 16:12:14 Influenza, high-dose, quadrivalent, PF 1 completed Shell Grant [place], [place] - [facility] 02/17/2024 16:12:14 Influenza, adjuvanted, quadrivalent, PF 0 completed Shell [place] [facility] 02/17/2024 16:12:14 Influenza, adjuvanted, quadrivalent, PF 1 completed Shell Grant [place] [facility] 02/17/2024 16:12:14 Influenza, adjuvanted, quadrivalent, PF 2 completed Shell Grant [place] [facility] 02/17/2024 16:12:14 Influenza, adjuvanted, quadrivalent, PF 3 completed Shell [place] [facility] 02/17/2024 16:12:14 COVID-19, mRNA, LNP-S, PF, 100 mcg/0.5mL dose or 50 mcg/0.25mL dose 1 completed Shell Grant [place] [facility] 02/17/2024 16:12:14 COVID-19, mRNA, LNP-S, PF, 100 mcg/0.5mL dose or 50 mcg/0.25mL dose 1 completed Shell Grant [place] [facility] 02/17/2024 16:12:14 COVID-19, mRNA, LNP-S, PF, 30 mcg/0.3 mL dose 1 completed Shell Grant [place] [facility] 02/17/2024 16:12:14 COVID-19, mRNA, LNP-S, PF, 30 mcg/0.3 mL dose, sunita-sucrose 2 completed Shell Grant [place] [facility] 02/17/2024 16:12:14 COVID-19, mRNA, LNP-S, bivalent, PF, 30 mcg/0.3 mL dose 2 [place] Shell sims[place] [facility] 02/17/2024 16:12:14 pneumococcal conjugate PCV 7 9 [place] [facility] 02/17/2024 16:12:14 RSV, recombinant, protein subunit RSVpreF, adjuvant reconstituted, 0.5 mL, PF 3 completed Shell Grant [place] [facility] 02/17/2024 16:12:14 COVID-19, mRNA, LNP-S, PF, 50 mcg/0.5 mL 3 completed Shell Grant [place] [facility] 02/17/2024 16:12:14 pneumococcal polysaccharide PPV23 9 completed Shell Grant [place] [facility] 02/17/2024 16:12:14 influenza, unspecified formulation 7 completed Shell Grant [place] [facility] 02/17/2024 16:12:14 Pneumococcal conjugate PCV 13 8 [place] Shell sims[place] [facility] 02/17/2024 16:12:14 Influenza, high-dose, trivalent, PF 8 completed Shell Grant [place] [facility] 02/17/2024 16:12:14 Influenza, high-dose, trivalent, PF 9 completed Shell [place] [facility] 02/17/2024 16:12:14 Influenza, high-dose, trivalent, PF 7 completed [place] [facility] 02/17/2024 16:12:14 Influenza, split virus, trivalent, PF 4 completed [place] [facility] 02/17/2024 16:12:14 Influenza, split virus, quadrivalent, PF 5 completed Shell [place] [facility] 02/17/2024 16:12:14 Influenza, split virus, quadrivalent, PF 6 completed Shell Grant [place] [facility] 02/17/2024 16:12:14 influenza, unspecified formulation 4 completed Bernadette Rothman [place] [facility] 06/29/2024 12:43:10 Past Encounters Encounter ID Performer Location Encounter Start Date Encounter Closed Date Diagnosis/Indication Diagnosis SNOMED-CT Code Diagnosis ICD10 Code Diagnosis Note [id number] MD [facility] (Adult Med) [address] [place] [address] 10/29/2023 15:28:42 10/29/2023 16:48:29 Hyperlipidemia 71258389 E78.5 Anxiety 51828546 F41.9 Chronic rhinitis 1611809 6 J31.0 Asthma 910555343 J45.90 9 Essential hypertension 24918082 I10 Essential tremor 6327683 09 G25.0 Obstructiv e sleep apnea syndrome 50002620 G47.33 [id number] Baldev Wolf MD [facility] [employer] - [place] [address] [place] [address] 12/24/2023 11:08:30 12/24/2023 12:16:24 Ectopic atrial tachycardia 462781900 I47.19 Hyperlipidemia 27664544 E78.5 Anxiety 86706571 F41.9 Chronic rhinitis 5199993 6 J31.0 Obstructiv e sleep apnea syndrome 87372195 G47.33 Asthma 834158007 J45.90 9 Essential hypertension 63556361 I10 Essential tremor 2382943 09 G25.0 Osteoarthritis 809089898 M19.90 [id number] Baldev Wolf MD [facility] Group - [place] [address] [place] [address] 02/29/2024 11:38:17 02/29/2024 14:34:26 Adult health examination 025713933 Z00.00 Health Risk Assessment collected and reviewed Obesity 185624105 E66.8 Screening mammography 24 907025 Z12.31 [id number] Baldev Wolf MD [facility] - [place] [address] [place] [address] 03/07/2024 13:55:56 03/07/2024 14:44:21 Screening for osteoporosis 384737056 Z13.820 Obesity 145527508 E66.8 Essential hypertension 94893063 I10 Anxiety 13403573 F41.9 Vitamin D deficiency 347 01473 E55.9 Essential tremor 9130028 09 G25.0 Hyperlipidemia 19922981 E78.5 Obstructiv e sleep apnea syndrome 61926627 G47.33 Postmenopausal state 764 [address] Z78.0 [id number] Baldev Wolf [facility] [place]son Amezcua [address] [place] [address] 08/04/2024 15:50:22 08/04/2024 17:28:59 Body mass index 30+ - obesity 843982204 Z68.39 Obesity 683761930 E66.9 Fatigue 01760667 R53.83 Health Concerns Section Related Observation LastModified by Organization Detai ls LastModified Time None Recorded Concern Status LastModified by Organization Details LastModified Time None Recorded Advance Directives Directive Y: Payers Encounter Date Sequence Insurance Name Policy Number Policy Fowler Covered Member ID Fowler Member ID Guarantor Name 10/29/2023 1 [facility] (MEDICARE REPLACEMENT/A DVANTAGE - PPO) [id number] Louise Arnotti [id number] Louisemary beth Caceresotti 12/24/2023 1 [facility] (MEDICARE REPLACEMENT/A DVANTAGE - PPO) [id number] Louise Arnotti [id number] Louisemary beth Caceresotti 02/29/2024 1 [facility] (MEDICARE REPLACEMENT/A DVANTAGE - PPO) [id number] Louise Arnotti [id number] Louise Arnotti 03/07/2024 1 [facility] (MEDICARE REPLACEMENT/A DVANTAGE - PPO) [id number] Louise Arnotti [id number] Louise Arnotti 08/04/2024 1 [facility] (MEDICARE REPLACEMENT/A DVANTAGE - PPO) [id number] Louise Arnotti [id number] Louise Arnotti Notes Date Note Type Note Provider Name and Address Organization Details Recorded Time 10/29/2023 text/html Asthma has been doing fine despite up-and-down temperatures. Anxiety stable no SI or HI. Chronic rhinitis has been doing okay no side effects from meds. Hyperlipidemia does try to follow a low-fat diet hypertension no headache or dizziness essential tremors been doing fine osteoarthritis still bothers her. Sleep apnea she has been using her CPAP Baldev Wolf MD Attn: Accounting,[address] [facility], [place], [address], [facility] 11/08/2023 16:40:29 12/24/2023 text/html Going to have orthopedic surgery no chest pain shortness of breath or palpitations. Getting benefit from CPAP anxiety has been stable asthma has been controlled no new interval developments or from her last visit Baldev Wolf MD Attn: Accounting,[address], [place], [address], [facility] 01/30/2024 11:14:46 02/29/2024 text/html MAW 2Reported bypatient.Diet and Nutrition:healthy diet Fracture Risk:no sudden unexplained fractures;history of fractures(right ankle in 1988) Concentration and Memory:no decreased concentrating ability; no memory lapses or loss; does not forget words Speech/Motor difficulties:no speech difficulties; no difficulty expressing formulated concepts; no difficulty with fine manipulative tasks; no difficulty writing/copying; no slowed reaction time; does not knock things over when trying to pick them up Hearing: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); wears hearing aids Vision:worse with distance(glasses) Activities of Daily Living:able to bathe with limited or no assistance; able to contol urination and bowels; able to dress with limited or no assistance; able to feed self with limited or no assistance; able to get out of chair or bed with limited or no assistance; able to groom with limited or no assistance; able to toilet with limited or no assistance Instrumental Activities of Daily Living:able to do house work with limited or no assistance; able to grocery shop with limited or no assistance; able to manage medications with limited or no assistance; able to manage money with limited or no assistance; able to prepare meals with limited or no assistance; able to use the phone with limited or no assistance Falls Risk Assessment:no frequent falls while walking; no fall in the past year; no fall since last visit; no dizziness/vertigo Home Safety:no unsafe yazmin hazzards; no unsafe stairs; working smoke/CO detectors; practicing 'safer sex'; has hand bars in the bathroom/shower; good lighting in the home;fire arms(locked up) here for Medicare wellness Baldev Wolf MD Attn: Accounting,[address], [place], [address], [facility] 03/27/2024 11:49:52 03/07/2024 text/html hypertension no headache or dizziness obesity she has needed limbs anxiety has been stable low vitamin-D level she does try to replace that her tremor has been doing okay hyperlipidemia trying to low-fat diet sleep apnea compliant with device. Still recovering from left hip surgery Baldev Wolf MD Attn: Accounting,[address] , [place], [address], [facility] 03/07/2024 21:01:19 08/04/2024 text/html she has been hav ing some fatigue got some blood work done which really nonspecific does have some mild anemia she is seeing her psychiatrist as well she has had a lot of anxiety and depression. Still has a hematoma from her surgery but it is no worse Baldev Wolf MD Attn: Accounting,[address] , [place], [address], [facility] 08/29/2024 16:51:14 OBGyn Episode No OBEpisode recorded.
== END 2024-10-10 08:04 | disposition home or self-care (01) ==
LOC: ANHIMG 08:07
PROVIDERS: PCP Internal Medicine; Visit Provider Internal Medicine
DX: Z13.820 Encounter for screening for osteoporosis (principal); Z78.0 Asymptomatic menopausal state
CPT/HCPCS: 77080

== ENCOUNTER 2024-11-22 00:59 | Emergency (ER) | payer MEDICARE, SELFPAY ==
--- NOTE | ~2024-11-22 | XR_ITS ---
Right Knee Technique: AP, lateral, and oblique views were obtained. Clinical History: Pain Findings: No fracture or dislocation is seen. Osseous alignment is anatomic. Joint spaces are preserv ed without degenerative or erosive change. Soft tissues are unremarkable. No joint effusion is seen. Impression: Unremarkable right knee radiographs. Reviewed, dictated and finalized at [facility]. Impression: Unremarkable right knee radiographs.
--- OUTSIDE RECORDS SUMMARY | 2024-11-22 01:02 | XMS_ITS | CONTINUITY OF CARE DOCUMENT ---
Author Name [email or web address] Address Unknown Organization [facility] Address [address] [place] [address] Phone [phone] Care Team Providers Care Cfo Controller Name Role Phone Ann Marie TURCIOS, Josué Unavailable [phone] ROBERTO TURCIOS, JULIA Unavailable AMRGARITA TURCIOS, BALDEV Amaya Unavailable [phone] INSURANCE PROVIDERS Payer name Policy type / Coverage type [employer] red alliance party ID UHC MEDICARE COMPLETE O Other [id number]
--- OUTSIDE RECORDS SUMMARY | 2024-11-22 01:02 | XMS_ITS | Referral Summary ---
Author Organization [facility] Address [address] [place] [address] Care Team Providers Care Cashier Manager Name Role Phone Didier Wolf MD Primary Care Provider Allergies No known active allergies Medications flu vac [id number] s,up,/PF (FLUARIX QUAD 3620-3240, PF, IM) Fluarix Quad 3524-7307 (PF) 60 mcg (15 mcg x 4)/0.5 [...] 6 months. New lab orders sent to [facility]. Continue low-carb (<150 g/day), low-glycemic diet. Assessment [...] w/r/t gut microbiome. 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 Height 162.6 cm (5' 4 ) 09/21/2023 1:51 PM POOLROOM TABLE ATTENDANT Body Mass Index 37.42 09/21/2023 1:51 PM POOLROOM TABLE ATTENDANT Plan of Treatment Not on file [address] MEDICARE ADVANTAGE [address] H[address] REF [address] MEDIC[address] ADVANTAGE Member Subscriber Plan / Payer (Ef fective 2023-Present) Name:Louise Ponce Relation to Subscriber:Self Name:Louise Ponce Payer ID:[id number] (NAIC) Type:[facility] MEDICARE Address: [place] [phone] Care Teams Cashier Manager Relationship Specialty Start Date End Date Didier Wolf MD PCP - General Internal Medicine 02/21/19
--- OUTSIDE RECORDS SUMMARY | 2024-11-22 01:02 | XMS_ITS | Clinical Summary ---
Author Organization [facility] Address [address] [place] [address] Care Team Providers Care Paradichlorobenzene Tender Name Role Phone Didier Wolf MD Primary Care Provider [phone] [facility],non-owned Affiliates and Associated Physician Practices is amultiple site organization consisting of ambulatory clinics and hospital sitesin [place], [place], [place] and [place]. This disclosure is being madepursuant to the Care Everywhere program and may not contain all information available regarding this patient. Last updated 18.[facility] Allergies No known active allergies Medications * [...] 1 11/26/2018 Active vitamin D, ergocalciferol, (DRISDOL) 44928 units capsule TAKE ONE CAPSULE BY MOUTH [...] 2024 12/06/2021, 06/20/2021 INFLUENZA VACCINE (#1) 2024 , 04/22/2018, 06/12/2017, Additional history exists DEPRESSION SCREENING [...] complete this topic MENINGOCOCCAL (Group B) VACCINE SHARED DECISION-MAKING Aged Out No longer eligible based on patient's age to complete this topic MENINGOCOCCAL GROUPS A/C/Y/W VACCINE Aged Out No longer eligible based on patient's age to complete this topic Procedures Procedure Name Priority Date/Time Associated Diagnosis Comments MAMMOGRAM Routine 01/31/2019 from Last 3 Months or Most Recently Relevant to Health Maintenance Results * MAMMOGRAM (01/31/2019) Anatomical Region Laterality Modality Other Historical Provider MD SCANNING ONLY from Last 3 Months or Most Recently Relevant to Health Maintenance Care Teams Paradichlorobenzene Tender Relationship Specialty Start Date End Date Didier Wolf MD PCP - General 12/01/17
--- OUTSIDE RECORDS SUMMARY | 2024-11-22 01:03 | XMS_ITS | Continuity of Care Document ---
Author Organization [facility] Address [address] [place] [address] Phone Care Team Providers Care Rn Endocrinology Name Role Phone Benito Oconnell MD Unavailable Unavailable Advance Directives Directive Yes / No Effective Date File Name No Information Encounters Encounter Description Practice Location Reason(s) For Visit Diagnoses Date Provider Providers Copied on Encounter [facility], [facility], [place], [place], [id number], tel:[phone] [facility] No Information Anish Oliver. [address], [place], [id number], [place]. tel:[phone] Referring Provider: Anson Flores, [address], [place], [address]. tel:[phone] [facility], [place], [place], [address], tel:[phone] [facility] SCREEN MAMMOGRAM NEC Geri Hernandez. [address], [place], [place], [address]. tel:[phone] [facility], [place], [place], [address], tel:[phone] [facility] ASYMPT POSTMENO STATUSLUMP OR MASS IN BREAST No Information [facility], [place], [place], [address], tel:[phone] [facility] ABDMNAL TNDR LT LWR QUADOTH ADV EFF MED/BIO SUB Tila Heller. [address], [place], [place], [address], [place]. tel:[phone] Family History Family Member Type Diagnosis Age At Onset No Information Payers Payer name Insurance type Covered alliance party ID Ruth amaya(s) [facility] [id number] Social History Type Description Quantity Date Captured [...]
--- OUTSIDE RECORDS SUMMARY | 2024-11-22 01:03 | XMS_ITS | Clinical Summary ---
Author Organization [facility] Address [address] [place] [address] Care Team Providers Care Professional Athletes Coach Name Role Phone Unavailable Primary Care Provider Unavailabl e Encounters Date Type Department Care Team Description 11/09/2024 External Device Data [facility] Provider, Abstract 10/29/2024 External Device Data [facility] Provider, Abstract 10/28/2024 External Device Data [facility] Provider, Abstract 10/25/2024 External Device Data [facility] Provider, Abstract 10/11/2024 External Device Data [facility] Provider, Abstract 09/14/2024 External Device Data [facility] Provider, Abstract 09/13/2024 External Device Data [facility] Provider, Abstract 09/06/2024 External Device Data [facility] Provider, Abstract from Last 3 Months Social History Tobacco Use Types Packs/Day Years Used Date Smoking Tobacco: Never Assessed Comments Unknown Sex and Gender Information Value Date Recorded Sex Assigned at Not on file Legal Sex Female 9:21 PM CDT Gender Identity Not on file Sexual Orientation Not on file Plan of Treatment Health Maintenance Due Date Last Done Comments DTAP/TDAP/TD VACCINES (1 - Tdap) 02/05/1971 FIT-DNA Q 3 years 02/05/1997 FIT/FOBT Q 1 year 02/05/1997 Flex Sig/CT Colonography Q 5 years 02/05/1997 RSV VACCINE (60+ or ) (1 - Risk 60-74 years 1-dose series) 2012 OSTEOPOROSIS SCREENING 02/05/2017 ZOSTER VACCINE (2 of 3) 08/16/2018 06/21/2018, 03/16 INFLUENZA VACCINE (#1) 2024 2, 06/06/2021, 05/24/2020, Additional history exists COLORECTAL SCREENING 08/29/2024 08/29/2014 Colorectal Cancer Screening 08/29/2024 BREAST CANCER SCREENING 04/14/2025 04/14/20 24, 02/28/2022, 02/28/2022, Additional history exists PNEUMOCOCCAL VACCINE 50+ YEARS Completed 07/22/2019 , 02/01/2018 Procedures Procedure Name Priority Date/Time Associated Diagnosis Comments MAMMO 3D ANTIONETTE SCREEN BILAT W OR WO CAD Routine 04/14/2024 11:41 AM CDT Encounter for screening mammogram for malignant neoplasm of breast from Last 3 Months or Most Recently Relevant to Health Maintenance Results * MAMMO 3D ANTIONETTE SCREEN BILAT W OR WO CAD (04/14/2024 11:41 AM CDT) Anatomical Region Laterality Modality Breast Bilateral Mammography 04/14/2024 11:4 1 AM CDT Impressions 04/14/2024 11:51 AM CDT IMPRESSION: NO MAMMOGRAPHIC EVIDENCE OF MALIGNANCY. OVERALL BIRADS CATEGORY:2 (benign findings). ROUTINE SCREENING MAMMOGRAPHY IS RECOMMENDED IN 12 MONTHS. A normal letter will be sent to patient. Narrative 04/14/2024 11:51 AM CDT EXAM: MAMMO 3D ANTIONETTE SCREEN BILAT W OR WO CAD STUDY DATE: 04/14/2024 11:41 AM CLINICAL INDICATION: 74 years old female presents for routine screening mammography. COMPARISON: Prior mammograms, the most recent dated 02/28/2022 PROCEDURE: CC and MLO digital mammographic views of the bilateral breasts are obtained. Computer Aided Detection (CAD) was utilized. Tomosynthesis was done with all views. FINDINGS: Breast Density: Scattered fibroglandular densities. Right breast: There is a stable focal asymmetry in the right upper outer breast at posterior depth. There are no spiculated masses, suspicious microcalcifications or areas of architectural distortion in the right breast. Left breast: There are no spiculated masses, suspicious microcalcifications or areas of architectural distortion in the left breast. us Didier Wolf MD MAMMO ORDERABLES Final Result from Last 3 Months or Most Recently Relevant to Health Maintenance Insurance [facility] [id number]
--- OUTSIDE RECORDS SUMMARY | 2024-11-22 01:03 | XMS_ITS | Data Portability ---
Author Organization [facility] Address [address] [place] [address] Care Team Providers Care Stiff Straw Hat Washer Name Role Phone BALDEV WOLF Primary Care Provider [phone] Assessment Encounter Date Assessment Date Assessment LastModified by Organization Details LastModified Time 12/24/2023 12/24/2023 EKG was interpreted by cardiology [...] home medications as soon as possible postsurgery [email or web address] Not available 01/30/2024 11:14:29 02/29/2024 02/29/2024 wellness visit completed handouts were appropriate discussed immunizations and screenings ordered were appropriate patient agreeable she will keep her regular follow up all questions answered [email or web address] Not available 03/27/2024 11:49:39 03/07/2024 03/07/2024 obesity handout DEXA ordered we will continue current therapy echo reviewed blood work recently done reviewed follow up me in months she is taking some for anemia Not available 03/07/2024 21:01:00 08/04/2024 08/04/2024 blood work reall y is nondiagnostic we will continue to observe and she will see me back in her regularly scheduled appointment time [email or web address] Not available 08/29/2024 16:50:55 Plan of Treatment Reminders Order Date Submit Date Provider Last Modified By Organization Details Last Modified Time Details Appointments ANY 15 2024 09:30A M Baldev Wolf MD Not available Not available Not available Lab CBC w/ auto diff 2023 024 [facility] (Lab), [address] [place] [address], [phone], 12/24/2023 16:02:44 CMP, serum or plasma 2023 024 [facility] (Lab), [address] [place] [address], [phone], 12/24/2023 16:02:44 urinalysi s, complete 2023 024 [facility] (Lab), [address] [place] [address], [phone], 12/24/2023 16:02:44 Referral None recorded. Procedures None recorded. Surgeries None recorded. Imaging DEXA 2023 024 [facility] (Imaging), [address] [place] [address], [phone], 10/14/2024 17:27:54 MAMMO, screening , bilateral 2023 024 [facility], [address] [place], [address], 04/19/2024 15:27:57 electroca rdiogram 2023 024 [facility] (Cardiology & Emg), [address] [place] [address], [phone], 12/31/2023 09:38:18 Medication Orders None recorded. Patient TargetsNo targets recorded. Patient Instructions Encounter Date Encounter Id Patient Instructions Last Modified By Organization Details Last Modified Time 02/29/2024 [id number] A healthy lifestyle: care instructions Not available 02/29/2024 17:33:48 preventing falls : care instructions [email or web address] Not available 02/29/2024 14:00:11 Medicare [facility] Preventive Checklist [email or web address] Not available 02/29/2024 14:00:11 03/07/2024 [id number] A healthy lifestyle: care instructions [email or web address] Not available 03/07/2024 21:01:16 08/04/2024 [id number] A healthy lifestyle: care instructions [email or web address] Not available 08/05/2024 07:59:03 Reason for Referral None Reported. Results Created Date Observation Date Name Description Value Unit Range Abnormal Flag Note LastModifiedBy Organization Detail LastModifiedTime 12/25/19 elect jose diogr am No observ ation record ed. [facility] (Cardiology & Emg) [address] [place] [address], [phone], 01/04/2024 09:47:37 01/06/20 24 01/06/2024 , [facility] ardio gram No observ ation record ed. [address] [address], [place], [address], 01/10/2024 23:08:56 01/11/20 24 01/11/2024 XR, pelvi s No observ ation record ed. [email or web address] [address], [address], 01/11/2024 13:30:59 02/17/20 24 08/30/2020 DEXA, axial skele ton No observ ation record ed. [email or web address] Not Available 16:24:33 02/17/20 24 02/28/2022 MAMMO , scree inderjit, digit al, bilat eral No observ ation record ed. [email or web address] Not Available 16:35:53 02/29/20 24 03/06/2023 XR, foot, 3 or more view No observ ation record ed. Not Available 2023 09:16:12 03/01/20 24 08/30/2014 colon oscop y proce dure (PROC ) No observ ation record ed. [facility] [address] [place], [address], 03/02/2024 09:14:56 04/14/20 24 04/14/2024 MAMMO , scree inderjit, bilat eral No observ [facility]ion record ed. [facility] [address] [facility], [place], [address], 04/19/2024 16:35:25 04/19/20 24 04/14/2024 MAMMO , scree inderjit, bilat eral No observ ation record ed. [facility] [address] [facility], [place], [address], 04/20/2024 13:56:32 04/19/20 24 04/14/2024 MAMMO , scree inderjit, bilat eral No observ ation record ed. [facility] [address] [facility], [place], [address], 04/20/2024 13:56:33 10/13/19 25 10/10/2024 DEXA No observ ation record ed. [facility] [address] [facility] [address], [place], [address], 10/18/2024 18:39:29 Result Notes None recorded. Problems Name Problem SNOMED Code Status Onset Date Resolution Date Notes Provider Name and Address Organization Details Recorded Time Ectopic atrial tachycardia 528526524 Active 2023 Bernadette Rothman MA [facility], [place] - [facility] 4 17:15:22 Obstructive sleep apnea syndrome 31587692 Active 2023 Baldev Wolf MD Attn: Rahul ritter,[address] [facility], [place], [address], [facility] - [facility] 4 14:20:19 Hyperlipidemia 01007981 Active 2023 Baldev Wolf MD Attn: Rahul ritter,[address] [facility], [place], [address], [facility] - [facility] 4 14:20:20 Essential tremor 088701859 Active 2023 Baldev Wolf MD Attn: Rahul ritter,[address] [facility], [place], [address], [facility] - [facility] 4 14:20:21 Vitamin D deficiency 02257837 Active 2023 Baldev Wolf MD Attn: Rahul ritter,[address] [facility], [place], [address], [facility] - [facility] 4 14:20:24 Anxiety 70743044 Active 2023 Baldev Wolf MD Attn: Rahul ritter,[address] [facility], [place], [address], [facility] - [facility] 4 14:20:26 Essential hypertension 28567458 Active 2023 Baldev Wolf MD Attn: Rahul ritter,[address] [facility], [place], [address], [facility] - [facility] 4 14:20:28 Obesity 299852004 Active 2023 Baldev Wolf MD Attn: Rahul ritter,[address] [facility], [place], [address], [facility] - [facility] 4 14:20:29 Problem Notes None recorded. 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 completed Elizabeth Lind [facility] 10/29/2023 16:03:48 Imaging Results Imaging Date Name Status LastModified by Organization Details LastModified Time 12/25/2023 electrocardiogram completed [facility] (Cardiology & Emg) [address] [place] [address], [phone], 01/04/2024 09:47:37 01/06/2024 , echocardiogram completed [address], [address], 01/10/2024 23:08:56 01/11/2024 XR, pelvis completed [address], [address], 01/11/2024 13:30:59 08/30/2020 DEXA, axial skeleton completed [email or web address] In formation not available 02/17/2024 16:24:33 02/28/2022 MAMMO, screening, digital, bilateral completed [email or web address] Information not available 02/17/2024 16:35:53 03/06/2023 XR, foot, 3 or more view completed Information not available 03/02/2024 09:16:12 08/30/2014 colonoscopy procedure (PROC) completed [address], [address], 03/02/2024 09:14:56 04/14/2024 MAMMO, screening, bilateral completed [facility] [address] [place] [address], [place], [address], 04/19/2024 16:35:25 04/14/2024 MAMMO, screening, bilateral completed [facility] [address] [facility], [place], [address], 04/20/2024 13:56:32 04/14/2024 MAMMO, screening, bilateral completed [facility] [address] [place], [address], 04/20/2024 13:56:33 10/10/2024 DEXA completed [address], [address], 10/18/2024 18:39:29 Procedure Notes None recorded. Medical Equipment None Reported. Allergies Allergen ID Allergen Name Allergen Category Reaction Reaction Severity Criticality Documentation Date Start Date Code Code System Note Provider Name and Address Organization Details Recorded Time 061886 banana extract food,medi cation nausea severe Not available 12/24/2023 78186 9 RxNorm Not Available Not Available Not Available 160253 avocado allergeni c extract food nausea severe Not available 12/24/2023 98283 2 RxNorm Not Available Not Available Not [...] 1 TABLET BY MOUTH TWICE A DAY 2024 active Not Available Not Available Not Avai lable fluticasone 250 mcg-salmete rol 50 mcg/dose blistr [...] TAKE 1 TABLET BY MOUTH EVERY DAY active Not Available Not Available No t Available azithromyci n 250 mg tablet TAKE 2 TABLETS BY MOUTH TODAY, THEN TAKE 1 TABLET DAILY FOR 4 DAYS 10/28 completed Not Available Not Available Not Available naltrexone 50 mg tablet TAKE 0.5 TABLETS (25 MG TOTAL) BY MOUTH DAILY FOR 7 DAYS, THEN 1 TABLET (50 MG TOTAL) DAILY. 10/28 completed Not Available Not Available Not Available sertraline 100 mg tablet TAKE 1 TABLET BY MOUTH DAILY WITH 50MG TABLET active Not Available Not Available No t Available hydrocodone 7.5 mg-acetamin ophen 325 mg tablet TAKE 1 TABLET BY MOUTH EVERY 4 HOURS NEEDED FOR PAIN 02/28 completed Not Available Not Available Not Available hydrochloro thiazide 25 mg tablet TAKE 1 TABLET BY MOUTH EVERY DAY active Not Available Not Available No t Available ergocalcife rol (vitamin D2) 1,250 mcg (50,000 unit) capsule TAKE 1 CAPSULE BY MOUTH EVERY 2 WEEKS 2024 active Not Available Not Available Not [...] Available Not Available olmesartan 40 mg tablet TAKE 1 TABLET BY MOUTH EVERY DAY 2024 active Not Available Not Available Not Avai lable bupropion HCl XL 150 mg 24 hr tablet, extended release TAKE 1 TABLET BY MOUTH EVERY DAY FOR 90 DAYS active Not Available Not Available [...] Updated DateTime 4 162.56 cm 38.3 kg/m2 474082. 54 g 99 /min 99 % 99 % 110 mm[Hg] 78 mm[Hg] Miriam Kirkpatrick MA [facility] 4 11:42:17 Date Recorded Body height Body mass index (BMI) Body weight Heart rate Respiratory rate Oxygen saturation Oxygen saturation in Arterial blood by Pulse oximetry Systolic blood pressure Diastolic blood pressure Provider Name and Address Organization Details Last Updated DateTime 4 162.56 cm 38.1 kg/m2 492608. 15 g 118 /min 18 /min 99 % 99 % 106 mm[Hg] 78 mm[Hg] CLEMENTE Lim [facility] 4 12:51:07 Date Recorded Pain severity - 0-10 verbal numeric rating [Score] - Reported Provider Name and Address Organization Details Last Updated DateTime 02/29/2024 0 Jamia Delgado [facility] 02/29/2024 12:52:52 Date Recorded Body height Body mass index (BMI) Body weight Heart rate Respiratory rate Oxygen saturation Oxygen saturation in Arterial blood by Pulse oximetry Systolic blood pressure Diastolic blood pressure Provider Name and Address Organization Details Last Updated DateTime 4 162.56 cm 38.3 kg/m2 820207. 54 g 71 /min 14 /min 97 % 97 % 102 mm[Hg] 68 mm[Hg] CLEMENTE Lim [facility] 4 14:09:27 Date Recorded Body height Body mass index (BMI) Body weight Heart rate Oxygen saturation Oxygen saturation in Arterial blood by Pulse oximetry Systolic blood pressure Diastolic blood pressure Provider Name and Address Organization Details Last Updated DateTime 4 162.56 cm 39.9 kg/m2 598106. 59 g 73 /min 96 % 96 % 112 mm[Hg] 74 mm[Hg] Tatiana Jeong MA [facility] 4 16:31:09 Date Recorded Body height Body mass index (BMI) Body weight Heart rate Oxygen saturation Oxygen saturation in Arterial blood by Pulse oximetry Systolic blood pressure Diastolic blood pressure Provider Name and Address Organization Details Last Updated DateTime 5 162.56 cm 40.5 kg/m2 162800. 16 g 63 /min 98 % 98 % 132 mm[Hg] 70 mm[Hg] Arely Swift MA [facility] 5 11:06:07 Social History Question Answer Notes LastModified by Organizat ion Details LastModified Time Tobacco Smoking Status Never Smoker CLEMENTE Lim null, [facility] 10/29/2023 15:58:56 Do You Have [...] Or The Highest Degree You Have Received? [id number] Information not available 02/29/2024 Are There Any Guns Present In Your Home? Yes Locked Up Information not available 02/29/2024 In The Past 7 Days, How Many Days Did You Exercise? 0 Information not available 02/29/2024 In The Past 7 Days, How Much Pain Have You Watson? Some Information not available 02/29/2024 In General, [...] Past 7 Days, How Often Have You Watson Sleepy In The Daytime? Never Information not available 02/29/2024 # Alcohol Drinks Per Week 2 Information not available 02/29/2024 What Was The Date Of Your Most Recent Tobacco Screening? 10/20/2024 Information not available 10/20/2024 What Is Your Relationship Status? Information not available 12/24/2023 Do You Use Your Seat Belt Or Car Seat Routinely? Yes Information not available 12/24/2023 Do You Have Smoke And Carbon Monoxide Detectors In Your Home? Yes Information not available 12/24/2023 Do You Feel Stressed (tense, Restless, Nervous, Or Anxious, Or Unable To Sleep At Night)? [id number] Information not available 10/20/2024 Do You Use Any Illicit Or Recreational [...] able to care for yourself? Yes Information not available 12/24/2023 What is your exercise level? Moderate Information not available 10/20/2024 Mental Status None recorded. Family History Relationship [...] zoster recombinant 8 completed SRIDHAR Barrientos - [facility] 02/17/2024 16:12:14 zoster recombinant 8 completed Shell Grant null, [place] - [facility] 02/17/2024 16:12:14 Influenza, high-dose, quadrivalent, [...] adjuvanted, quadrivalent, PF 3 completed Shell Grant [place], [place] [facility] 02/17/2024 16:12:14 COVID-19, mRNA, LNP-S, PF, 100 mcg/0.5mL dose or 50 mcg/0.25mL dose 1 completed Shell Grant [place] [facility] 02/17/2024 16:12:14 COVID-19, mRNA, LNP-S, PF, 100 mcg/0.5mL dose or 50 mcg/0.25mL dose 1 completed Shell sims[place] [facility] 02/17/2024 16:12:14 COVID-19, mRNA, [...] pneumococcal conjugate PCV 7 9 completed Shell Grant [place] [facility] 02/17/2024 16:12:14 RSV, recombinant, protein subunit RSVpreF, adjuvant reconstituted, 0.5 mL, PF 3 completed Shell Grant [place] [facility] 02/17/2024 16:12:14 COVID-19, mRNA, LNP-S, PF, 50 mcg/0.5 mL 3 completed Shell sims[place] [facility] 02/17/2024 16:12:14 pneumococcal polysaccharide [...] SNOMED-CT Code Diagnosis ICD10 Code Diagnosis Note [id number] Baldev Wolf MD [facility] (Adult Med) [address] [place] [address] 10/29/2023 15:28:42 10/29/2023 16:48:29 Hyperlipidemia 51859010 E78.5 Anxiety 11181116 F41.9 Chronic rhinitis 2471131 6 J31.0 Asthma 569486305 J45.90 9 Essential hypertension 54030020 I10 Essential tremor 2018308 09 G25.0 Obstructiv e sleep apnea syndrome 94019162 G47.33 [id number] Baldev Wolf MD [facility] [employer] [employer] [facility] [address] [place] [address] 12/24/2023 11:08:30 12/24/2023 12:16:24 Ectopic atrial tachycardia 159571225 I47.19 Hyperlipidemia 58054324 E78.5 Anxiety 57379564 F41.9 Chronic rhinitis 4368905 6 J31.0 Obstructiv e sleep apnea syndrome 46023830 G47.33 Asthma 182894030 J45.90 9 Essential hypertension 29268614 I10 Essential tremor 9556102 09 G25.0 Osteoarthritis 105328024 M19.90 [id number] Baldev Wolf MD [facility] [address] [place] [address] 02/29/2024 11:38:17 02/29/2024 14:34:26 Adult health examination 896540134 Z00.00 Health Risk Assessment collected and reviewed Obesity 803562167 E66.8 Screening mammography 24 957862 Z12.31 [id number] Baldev Wolf MD [facility] [address] [place] [address] 03/07/2024 13:55:56 03/07/2024 14:44:21 Screening for osteoporosis 022244086 Z13.820 Obesity 666977077 E66.8 Essential hypertension 78611515 I10 Anxiety 02058215 F41.9 Vitamin D deficiency 347 17207 E55.9 Essential tremor 6059039 09 G25.0 Hyperlipidemia 44193665 E78.5 Obstructiv e sleep apnea syndrome 27805229 G47.33 [facility] state 764 [address] Z78.0 [id number] Baldev Wolf MD [facility] [address] [place] [address] 08/04/2024 15:50:22 08/04/2024 17:28:59 Body mass index 30+ - obesity 771029724 Z68.39 Obesity 893260530 E66.9 Fatigue 18735399 R53.83 [id number] Bernadette Rothman MA [facility] [address] [place] [address] 10/20/2024 10:45:07 10/20/2024 12:03:55 Obesity 372882467 E66.9 Screening for malignant neoplasm of colon 593845782 Z12.11 Health Concerns Section Related Observation LastModified by Organization Detai ls LastModified Time None Recorded Concern Status LastModified by Organization Details LastModified Time None Recorded Advance Directives Directive Y: Payers Encounter Date Sequence Insurance Name Policy Number Policy Fowler Covered Member ID Fowler Member ID Guarantor Name 12/24/2023 1 [facility] (MEDICARE REPLACEMENT/A DVANTAGE - PPO) [id number] Louise Kris [id number] Louise Kris 02/29/2024 1 [facility] (MEDICARE REPLACEMENT/A DVANTAGE - PPO) [id number] Louise Saenzi [id number] Louisemary beth Caceresotti 03/07/2024 1 [facility] (MEDICARE REPLACEMENT/A DVANTAGE - PPO) [id number] Louisemary beth Caceresotti [id number] Louisemary beth Caceresotti 08/04/2024 1 [facility] (MEDICARE REPLACEMENT/A DVANTAGE - PPO) [id number] [facility] [id number] Louisemary beth Caceresotti Notes Date Note Type Note Provider Name and Address Organization Details Recorded Time 12/24/2023 text/html Going to have orthopedic surgery no chest pain shortness of breath or palpitations. Getting benefit from CPAP anxiety has been stable asthma has been controlled no new interval developments or from her last visit Baldev Wolf MD Attn: [address] [place], [address], [facility] 01/30/2024 11:14:46 02/29/2024 text/html MAW 2Reported bypatient.Diet [...] wellness Baldev Wolf MD Attn: [address] [place], [address], [facility] - [facility] 03/27/2024 11:49:52 03/07/2024 text/html hypertension no headache or dizziness obesity she has needed limbs anxiety has been stable low vitamin-D level she does try to replace that her tremor has been doing okay hyperlipidemia trying to low-fat diet sleep apnea compliant with device. Still recovering from left hip surgery Baldev Wolf MD Attn: [address] [place], [address], [facility] 03/07/2024 21:01:19 08/04/2024 text/html she has been hav ing some fatigue got some blood work done which really nonspecific does have some mild anemia she is seeing her psychiatrist as well she has had a lot of anxiety and depression. Still has a hematoma from her surgery but it is no worse Baldev Wolf MD Attn: Accounting[address] [facility], [place], [address], [facility] 08/29/2024 16:51:14 OBGyn Episode No OBEpisode recorded.
--- OUTSIDE RECORDS SUMMARY | 2024-11-22 01:03 | XMS_ITS | Encounter Summary ---
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 Referral ID Status Reason Start Date Expiration Date V isits Requested Visits Authorized [id number] Closed Specialty Services Required 09/05/2021 09/05/2022 99 99 NT SERVER DEVELOPER Reason for Visit * Reason Onset Date Comments Genetic Counseling 09/05/2021 Encounter Details Date Type Department Care Team (Late st Contact Info) Description 09/05/2021 Telephone [facility] [address] [place] [address] Meg Munoz MD [address] [facility] [address] [place] [address] Genetic Counseling Social History Tobacco [...] Meg Munoz MD - 09/05/2021 12:46 PM CLIENT SERVER DEVELOPER Would refer the patient to genetics as below. Genetics for breast cancer risk: Dr. Denise Ware at [facility] [phone] Meg Munoz MD NT SERVER DEVELOPER * Telephone Encounter - Duyen Boone - 09/05/2021 11:29 AM CST Patient wanting to get genetic testing for breast cancer because daughter was just diagnosed and italso runs in the family. Daughter is also a patient of Dr Munoz. # [phone] NT SERVER DEVELOPER documented in this encounter Plan of Treatment Scheduled Referrals Name Type Priority Associated Diagnoses Order Schedule Ref to Cancer Genetic Counseling - Yamileth Ware [facility] Outpatient Referral Routine Family history of breast cancer Ordered: 09/05/2021 documented as of this encounter Visit Diagnoses Diagnosis Family history of breast cancer- Primary Family history of malignant neoplasm of breast documented in this encounter Care Teams Human Services Instructor Relationship Specialty Start Date End Date Didier Wolf MD PCP - General 12/01/17 documented as of this encounter
--- OUTSIDE RECORDS SUMMARY | 2024-11-22 01:03 | XMS_ITS ---
Author Organization [facility] Address [address] [place] [address] Care Team Providers Care Light Out Examiner Name Role Phone Didier Wolf MD Primary Care Provider Unavaila Bonnie Holley Unavailable [phone] Sol Gonzalez Unavailable [phone] Allergies Allergen (clinical drug ingredient) Drug/Non Drug Allergy documented on EMR Reaction Allergy Type Onset Date Status banana allergenic extract BANANA (uncoded) Unknown Allergy 12/28/2023 Active Avocado Avocado Unknown Allergy 12/28/2023 Active REASON FOR VISIT MIPS PHQ less than 5 Positive with f/u doc, Depression screening positive, Dementia MIPS, depression in remission, anxiety, PSYCHOTHERAPY W/PATIENT W/E M Medications Medication SIG (Take, Route, Frequency, Duration) Notes Start Date End Date Status buPROPion HCl ER (XL) 150 MG 1 TABLET Oral Once a day for 90 days do not fill until pt requests Active hydroCHLOROthiazide 25 MG Oral 12/28/2023 Active Ergocalciferol 1.25 MG (55412 UT) Oral 12/28/2023 Active FLUTICASONE 250 MCG-SALMETEROL 50 MCG/DOSE BLISTR POWDR FOR INHALATION *Reorder from [facility] for eRx and Interaction Alerts* 12/28/2023 Active Primidone 50 MG Oral 12/28/2023 Act kim ProAir HFA 108 (90 Base) MCG/ACT Inhalation 12/28/2023 Active Atorvastatin Calcium 10 MG Oral 12/28/2023 Active Sertraline HCl 100 MG 1 tablet [...] Risk Notes Problem Mild recurrent major depression (89459623) Major depressive disorder, recurrent, mild (F33.0) Active confirmed Problem Generalized anxiety disorder (62557364) Generalized anxiety disorder (F41.1) Active confirmed Problem Recurrent hypersomnia (896981177) Recurrent hypersomnia (G47.13) Active confirmed Vital Signs Blood pressure systolic 108 mm Hg 07/08/20 24 Blood pressure diastolic 69 mm Hg 024 Heart Rate 68 /min 07/08/2024 Height 64.00 in 07/08/2024 Weight 233 lbs 07/08/2024 BMI 39.99 kg/m2 07/08/2024 Height-cm 162.56 cm 07/08/2024 Weight-kg 105.69 kg 07/08/2024 Encounters Encounter Location Date Provider Diagnosis [facility] [address] [address] 07/08/2024 Thena Malik Major depressive disorder, recurrent, mild F33.0 ; Generalized anxiety disorder F41.1 and Recurrent hypersomnia G47.13 Assessments Encounter Date Diagnosis (ICD Code) Assessment Notes Treatment Notes Treatment Clinical Notes Section Notes 07/08/2024 Major depressive disorder, recurrent, mild (ICD-10 - F33.0) 07/08/2024 Generalized anxiety disorder (ICD-10 - F41.1) 07/08/2024 Recurrent hypersomnia (ICD-10 - G47.13) 07/08/2024 Other Plan Of Treatment Medication Medication Name Sig [...] days do not fill until pt requests Next Appt Details Follow Up: 3 Months, Reason: depression in remission,anxiety,hypersomnia Provider Name:Bonnie keene, 01/03/2025 02:00:00 PM, [address], [facility] [address], [address], Progress Notes * LEIGH ANNJUANJOSEHOOD LaraOB: 2 (74 yo F)Acc No.[id number]:07/08/2024 Patient: Jane MENAGLADIS KHAN Provider: Willy GONZALEZ MD :[id number] A ge:74 Y S ex:Female Date:07/08/2024 Address:[address] [place] [address] Pcp:Didier Wolf MD Subjective: * Chief Complaints: * 1 . MIPS PHQ less than 5 Positive with f/u doc. 2. Depression screening positive. 3. Dementia MIPS. 4. Depression in remission. 5. Anxiety. 6. PSYCHOTHERAPY W/PATIENT W/E M. * HPI: P ast Psychiatric Hospitalizations: Previous [...] ild Depression. I ntervention D epression Screening Findings?Gwyn, F ollow-Up for Depression M ental health treatment assessment, Patient follow-up to return when and if necessary, Psychiatric follow-up, S uicide Risk Assessment Performed?07/08/2024, A dditional Evaluation for Depression P sychiatric interview and evaluation, Name of the standardized tool used for adult depression screening: P atient Health Questionnaire (PHQ-9). H istory of Presenting Problem: I think I'm pretty good. had difficult time dealing with election results, I've been crabby ; has not seemed to be as affected by it 63 yo [id number] ('s youngest sister) on 06/29/2024--being treated for leukemia, developed an infection in her port and of sepsis, it all just happened so fast still goes to chair yoga; suggested JASON at [facility] to pt and she will look into it. P sychotherapy with Med eval: Therapy with Med eval P sychotherapy with Medication management Y es, P sychotherapy done Time Spent Minute 2 0 to 30 min, T ype of therapy done S upportive Therapy. * Medical History: P roblems: Generalized anxiety [...] Yes. * Surgical History: A nkle arthroscopy/surgery (80681) , Hip arthroscopy dx (17339) , Knee arthroscopy/surgery (57988) lt , Lung excision (316079594) , Other , Left hip replacement 01/11/2024. * Hospitalization/Major Diagno stic Procedure: Sujatha faust Past Hospitalization. * Family History: M aternal [...] es, D o you have Power of Associate Embalmer/Funeral Director for Health or Medical? Y es, D o you have a power of supervisory clerk for health??Yes, D o you have power of supervisory clerk for Medical ? Y es, I f yes, then please bring the POA paperwork so that we can upload it. N o. S ocial History: H grady Xiong arital Status: M jacey, N nirmal of Adults in household: 2 , L evel of Education: F [employer]. * Medications: T aking Atorvastatin Calcium 10 MG Tablet Oral , Taking ProAir HFA 108 (90 Base) MCG/ACT Aerosol Solution Inhalation , Taking hydroCHLOROthiazide 25 MG Tablet Oral , Taking FLUTICASONE 250 MCG-SALMETEROL 50 MCG/DOSE BLISTR POWDR FOR INHALATION , Notes to Pharmacist: *Reorder from [facility] for eRx and Interaction Alerts*, Taking Ergocalciferol 1.25 MG (67295 UT) Capsule Oral , Taking Primidone 50 [...] B ANANA: Allergy - Onset Date 12/28/2023, Dinorah: Allergy - Onset Date 12/28/2023. Objective: * Vitals: B P:108/69mm Hg, HR:68/min, Wt:233lbs, Wt-k.69 kg, Ht: 64.00 in, Ht-cm: 162.56 cm, BMI:39.99Index, Body Surface Area: 2.18. * Examination: F unctional Assessment: James Index of ADL S core: 6 1 point for independence, 0 for help. Physical Functioning P ersonal hygiene: including combing hair, brushing teeth, shaving, applying makeup, washing/drying face and hands (exclude baths and showers) I ndependent (1)Bathing: how client takes full-body bath/shower or sponge bath (exclude washing of back and hair). Includes how each part of body is bathed: arms, upper and lower legs, chest, abdomen, perineal area. (code for most dependent episode in last 7 days) I ndependent (1)Dressing upper body: how client dresses and undresses (street clothes, underwear) above the waist, includes prostheses, orthotics, fasteners, pullovers, etc. I ndependent (1)Dressing lower body: how client dresses and undresses (street clothes, underwear), from the waist down, includes prostheses, orthotics, belts, pants, skirts, shoes, and fasteners I ndependent (1)Eating - Including taking in food by any method, including tube feedings I ndependent (1)Toilet use: including using the toilet room or commode, bedpan, urinal, transferring on/off toilet, cleaning self after toilet use or incontinent episode, changing pad, managing any special devices required (ostomy or catheter), and adjusting clothes. I ndependent (1)Transfer: including moving to and between surfaces--to/from bed, chair, wheelchair, standing position (excludes to/from bath/toilet) I ndependent (1)Transportation N o difficultyContinence: I ndependent (1). 1 point for independence, 0 for help. P sychiatry: Dementia S afety concern screening for dangerousness to self and environment risks provided: Y esWhat action was taken to mitigate the risk? E ducation providedTopics discussed for environmental risks: H ome safety risks that could arise from cooking or smoking, Access to firearms or other weapons, Access to potentially dangerous chemicals and other materialsTopics discussed for dangerousness to self: M edication misuse, Financial mismanagementSafety concern mitigation recommendation provided: N ot requiredScreening Result: N egativeCaregiver education and support provided Y es. N eurology: s lums score 28/30. Assessment: * Assessment: 1. M ajor depressive disorder, recurrent, mild - F33.0 (Primary) 2 . G eneralized anxiety disorder - F41.1 3 . R ecurrent hypersomnia - G47.13 ? Plan: * Treatment: * Procedure Codes: 9 6127 BEHAV ASSMT W/SCORE & DOCD/STAND INSTRUMENT, 85188 PSYCHOTHERAPY W/PATIENT W/E&M SRVCS 30 MIN * Follow Up: 3 Months (Reason: depression in remission,anxiety,hypersomnia) * Billing Information: * Visit Code: 95611 OFFICE OUTPATIENT VISIT 25 MINUTES DETAILED HISTORY AND EXAM/MODERATE MEDICAL DECISION MAKING. * Procedure Codes: 59296 BEHAV ASSMT W/SCORE & DOCD/STAND INSTRUMENT. 05223 PSYCHOTHERAPY W/PATIENT W/E&M SRVCS 30 MIN. * ARCH ATTORNEY Sign off status: Completed true * Provider: Willy GONZALEZ MD Date: 09/07/2023 Generated for Ladonna vela/Erum/eTransmitting on: 0 11/22/2024 01:02 AM CDT History and Physical Notes * HPI (History of Present Illness) Category Sub-Category Detail Notes Category Notes History of Presenting Problem I think I'm pretty good. had difficult time dealing with election results, I've been crabby ; has not seemed to be as affected by it 63 yo [id number] ('s youngest sister) on 06/29/2024--deepa vela treated for leukemia, developed an infection in her port and of sepsis, it all just happened so fast still goes to chair yoga; suggested OLLI at [facility] to pt and she will look into [...] Screening Findings: P ositve Follow-Up for Depression: [facility] treatment assessment, Patient follow-up to return when and if necessary, Psychiatric follow-up Suicide Risk Assessment Performed: 07/08 Additional Evaluation for Depression: Ps ychiatric interview and evaluation Name of the standardized too l used for adult depression screening:: Patient Health Questionnaire (PHQ-9) Depression Screening JOCY-7 (2018 Edition) Feelin g nervous, anxious, or on edge: Several [...] Total: (0 to 4) No Anx iety Psychotherapy with Med eval Therapy with Med marzena l Psychotherapy with Medication management: Yes Psychotherapy done Time Spent Minute: 20 to 30 min Type of therapy done: Supportive Therapy [place]-Suicide Severity Rating Scale Suicide Risk (CSRS-screener) in [...] Notes Category Not es Neurology slums score 28/ 30 Psychiatry Dementia Safety concern s creening for [...]
--- OUTSIDE RECORDS SUMMARY | 2024-11-22 01:03 | XMS_ITS | Clinical Summary ---
Author Organization [facility] Address [address] [place] [address] Care Team Providers Care Claims Manager Name Role Phone Didier Wolf MD Primary Care Provider [phone] Allergies No known active allergies Medications flu vac dd7239-64,36mo s,up,/PF (FLUARIX QUAD 5354-5726, PF, IM) Fluarix Quad 3403-5090 (PF) 60 mcg (15 mcg x 4)/0.5 [...] 6 months. New lab orders sent to [facility]. Continue low-carb (<150 g/day), low-glycemic diet. Assessment [...] w/r/t gut microbiome. 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 h ome Height 162.6 cm (5' 4 ) 09/21/2023 1:51 PM JEWELRY MAKING INSTRUCTOR Body Mass Index 37.42 09/21/2023 1:51 PM JEWELRY MAKING INSTRUCTOR Plan of Treatment Health Maintenance Due Date Last Done Comments Breast Cancer Screening-Mammogram 1950 Colon Cancer Screening-Colonoscopy 1950 Depression Screening 1950 Fall Risk Assessment 1950 Hepatitis C Screening 1950 Osteoporosis Screening-Bone Density Scan 1950 DTaP/Tdap/Td Vaccine (1 - Tdap) 02/05/1963 Hepatitis B Screening 02/05/1970 Well Visit 65+ 02/05/2017 Influenza Vaccine (#1) 2024 , 06/01/2022, 05/24/2020, Additional history exists Zoster Vaccine Completed 06/21/2018, 05/25, 03/16/2018, Additional history exists Pneumococcal vaccine 65+ Completed 07/22/2019, 01/22 Insurance 1982 [place] [id number] [facility] MEDICARE ADVANTAGE [facility] MDCR HMO REF [facility] MEDICARE ADVANTAGE Care Teams Claims Manager Relationship Specialty Start Date End Date Didier Wolf MD PCP - General Internal Medicine 02/21/19
[2024-11-22 01:08] VITALS: BP 149/73; PULSE 77; RESP 19; TEMP 36.7; O2SAT 96
--- NOTE | 2024-11-22 01:22 | ED.LOWEXIN ---
HPI - Extremity Injury (Lower) General Chief Complaint: Extremity Injury, Lower Stated Complaint: right knee pain Time Seen by Provider: 11/22/24 01:14 History of Present Illness HPI Narrative: 74-year-old female with past medical history including osteoarthropathy with multiple hip and knee replacements. She states that she was working out at the [employer] last week and having increased exercises focusing on her lower extremities. She states that she is having pain in the inferior portion of her right patella especially with lying flat. Has been taking Tylenol and ibuprofen at home with some improvement in pain but recurs frequently. No trauma or injury. No distal leg pain or back pain. She was otherwise in her normal state of health. Has rheumatology appointment tomorrow morning. Sees Dr. Stauffer from Orthopedics for her previous hip replacements and left knee replacement. Related Data Home Medications ?Medication ?Instructions ?Recorded ?Confirmed ?Last Taken ?Type albuterol 90 mcg/actuation aerosol 1 mcg inhalation PRN PRN ASTHMA 01/04/24 02/23/24 Unknown History inhaler atorvastatin 10 mg tablet 10 mg PO DAILY 01/04/24 02/23/24 Unknown History bupropion HCl 150 mg 24 hr tablet, 150 mg PO DAILY 01/04/24 02/23/24 01/11/24 History extended release hydrochlorothiazide 25 mg tablet 25 mg PO DAILY 01/04/24 02/23/24 Unknown History ibuprofen 125 mg-acetaminophen 250 2 tablet PO PRN PRN Pain 01/04/24 02/23/24 Unknown History mg tablet olmesartan 40 mg tablet 40 mg PO DAILY 01/04/24 02/23/24 Unknown History primidone 50 mg tablet 50 mg PO BID 01/04/24 02/23/24 01/11/24 History sertraline 100 mg tablet 150 mg PO DAILY 01/04/24 02/23/24 01/11/24 History Allergies Allergy/AdvReac Type Severity Reaction Status Date / Time avocado Allergy Mild stomach Verified 11/22/24 01:00 ache banana Allergy Mild stomach Uncoded 11/22/24 01:00 ache Review of Systems Review of Systems: As reviewed above in HPI PMFSH Past Medical History Medical History Essential tremor Obstructive sleep apnea on CPAP Hyperlipidemia Hypertension Depression Surgical History Surgical History History of left hip replacement (01/11/24) History of left knee replacement 2017 History of right hip replacement 2014 History of bladder surgery bladder lift 2005 History of lung surgery upper lobe removed 1999 History of ankle surgery 1988 due to break Family History Family History Father Acute myocardial infarction Hypertension Sibling Cerebrovascular accident Breast cancer Social History Social History Social History: Surrogate medical decision maker: Dottie Ponce, daughter. Code status: Full code. Smoking status: Never smoker Second hand tobacco smoke exposure: No Alcohol intake: current Drinks per week: 2 Substance use: former Substance use type: marijuana Other substance usage details: 1/ gummie to sleep Last use: 01/04/24 Do You Feel Safe in your Home?: Yes Lack of Transportation: No Lack of Food: Never True Current Housing: I Have Housing Concerned About Future Housing: No Difficulty Paying Gas/Electric Bills: No Difficulty Paying for Meds: No Currently Unemployed: No Education: Bachelor's Degree Difficulty w/ Childcare or Family Care: No Living arrangements: with family Additional living arrangements comments: caregiver for Occupation/Education: retired Spiritual care concerns: No Exam Narrative: GENERAL: [Well-appearing, well-nourished, and in no acute distress.] HEAD: [Normocephalic, atraumatic.] EYES: [PERRLA and EOMI.] ENT: Nares clear, no rhinorrhea or epistaxis. Mucous membranes moist. NECK: Supple. CHEST: [Clear to auscultation. No respiratory distress.] HEART: [Regular rate and rhythm]. No murmur heard. [Normal peripheral pulses.] ABDOMEN: [Soft, nondistended], [nontender], [No rigidity or guarding] EXTREMITIES: Tenderness to palpation over the inferior patella on the right side near the tendon origin site. No step-offs deformities. No pain with valgus or varus stress testing. Negative Dung's test. No pain with grind test or flexion and extension. Dorsalis pedis pulse 2 +. Normal range of motion. Ambulatory. SKIN: Warm, dry, no rash. NEURO: [No focal deficits]. Alert and oriented [x3.] PSYCH: [Normal mood and affect.] Course Vital Signs Vital signs: Vital Signs Temperature 36.7 C 11/22/24 01:08 Pulse Rate 77 11/22/24 01:08 Respiratory Rate 19 11/22/24 01:08 Blood Pressure 149/73 H 11/22/24 01:08 Pulse Oximetry 96 11/22/24 01:08 Temperature 36.7 C 11/22/24 01:08 Pulse Rate 77 11/22/24 01:08 Respiratory Rate 19 11/22/24 01:08 Blood Pressure 149/73 H 11/22/24 01:08 Pulse Oximetry 96 11/22/24 01:08 MDM - Extremity Injury (Lower) MDM Narrative Medical decision making narrative: 74-year-old female with history of osteoarthritis and multiple joint replacements. She presents with atraumatic right knee pain after working out at the [employer] last week. Pain does decrease with Tylenol and ibuprofen. She has pinpoint tenderness over the patellar insertion site of the patellar tendon with no overlying skin changes. No laxity or instability in the joint. She is ambulatory. Normal strong pulses. Normal back exam and good range of motion. Normal vital signs. X-rays were obtained to rule out any kind of osseous process although suspicion presently is for patellar tendinitis/tendinopathy. Low suspicion for occult osseous injury or fracture of the tibial plateau versus distal femur. Low suspicion for bony process otherwise such as occult malignancy. X-rays were obtained. The right knee does show some osteoarthritic changes but no significant disease. No acute traumatic injuries are identified, no fractures. She will be safe for discharge home at this time, provided a short course of Toradol for pain control and referred back to her orthopedic doctor for evaluation of this is a persistent issue. Patient was comfortable with this plan. Medical Records Attestation: I reviewed the patient's medical records. Imaging Data Attestation: I personally reviewed and interpreted this imaging study as follows: My impression: No traumatic fractures, mild osteoarthritis. No effusions. Discharge Plan Discharge Clinical Impression: Patellar tendinitis of right knee, Acute knee pain, Osteoarthritis Patient Disposition: Home, Self-Care Condition: Stable Instructions: Antibiotic Form, Knee Pain (ED), Patellar Tendinitis (ED) Additional Instructions: Your x-ray does not show any bony anomalies aside from some mild osteoarthritis. The bones appear intact. Your symptoms are very consistent with patellar tendinitis likely from the overuse of the knee during your exercises. Recommendations are for ice as needed up to 20 minutes at a time in addition to anti-inflammatories. We will prescribe be Toradol which is a high-dose anti-inflammatory. Take this medication as needed for the next several days. Follow-up with your regular doctor and orthopedic doctor. Patient Language: Urdu Prescriptions: New ketorolac 10 mg tablet 10 mg PO Q8H PRN (Reason: pain) 5 Days Qty: 20 0RF Rx Instructions: maximum total duration of 5 days from all oral, intranasal, or parenteral formulations No Action sertraline 100 mg tablet 150 mg PO DAILY atorvastatin 10 mg tablet 10 mg PO DAILY bupropion HCl 150 mg tablet extended release 24 hr 150 mg PO DAILY hydrochlorothiazide 25 mg tablet 25 mg PO DAILY olmesartan 40 mg tablet 40 mg PO DAILY primidone 50 mg tablet 50 mg PO BID ibuprofen-acetaminophen 125-250 mg Tablet 2 tablet PO PRN PRN (Reason: Pain) albuterol 90 mcg/actuation Aerosol 1 mcg INHALATION PRN PRN (Reason: ASTHMA) Follow-up/Referrals: Luciano,MD Didier [Primary Care Provider] - Time of Disposition: 01:57
--- OUTSIDE RECORDS SUMMARY | 2024-11-22 01:40 | XMS_ITS | Referral Summary ---
Author Organization [facility] Address [address] [place] [address] Care Team Providers Care Loan Representative Name Role Phone Didier Wolf MD Primary Care Provider [phone] Allergies No known active allergies Medications flu vac du5331-52,36mo s,up,/PF (FLUARIX QUAD 6545-8389, PF, IM) Fluarix Quad 2531-1850 (PF) 60 mcg (15 mcg x 4)/0.5 [...] 6 months. New lab orders sent to [facility]. Continue low-carb (<150 g/day), low-glycemic diet. Assessment [...] w/r/t gut microbiome. 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 h ome Height 162.6 cm (5' 4 ) 09/21/2023 1:51 PM PSYCHOLOGIST RESEARCH ASSISTANT Body Mass Index 37.42 09/21/2023 1:51 PM PSYCHOLOGIST RESEARCH ASSISTANT Plan of Treatment Not on file [address] MEDIC[address] ADVANTAGE Member Subscriber Plan / Payer (Ef fective 2023-Present) Name:Louise Ponce Relation to Subscriber:Self Name:Louise Ponce Payer ID:[id number] (NAIC) Type:[facility] MEDICARE Address: [place] [phone] Care Teams Loan Representative Relationship Specialty Start Date End Date Didier Wolf MD PCP - General Internal Medicine 02/21/19
--- OUTSIDE RECORDS SUMMARY | 2024-11-22 01:40 | XMS_ITS | Clinical Summary ---
Author Organization [facility] [employer] Address [address] [place] [address] Care Team Providers Care Salesperson Surgical Appliances Name Role Phone Didier Wolf MD Primary Care Provider [phone] Source Comments [facility] [employer],non-owned Affiliates and Associated Physician Practices is amultiple site organization consisting of ambulatory clinics and hospital sitesin [place], [place], [place] and [place]. This disclosure is being madepursuant to the Care Everywhere program and may not contain all information available regarding this patient. Last updated 18.[facility] [employer] Allergies No known active allergies Medications * [...] 1 11/26/2018 Active vitamin D, ergocalciferol, (DRISDOL) 23329 units capsule TAKE ONE CAPSULE BY MOUTH [...] Recently Relevant to Health Maintenance Care Teams Salesperson Surgical Appliances Relationship Specialty Start Date End Date Didier Wolf MD PCP - General 12/01/17
--- OUTSIDE RECORDS SUMMARY | 2024-11-22 01:40 | XMS_ITS ---
Author Organization [facility] As Off & Away Address [address] [place] [address] Care Team Providers Care Summer Clerk Name Role Phone Didier Wolf MD Primary Care Provider Unavaila Bonnie Holley Unavailable [phone] Sol Gonzalez Unavailable [phone] Allergies Allergen (clinical drug ingredient) Drug/Non Drug Allergy documented on EMR Reaction Allergy Type Onset Date Status banana allergenic extract BANANA (uncoded) Unknown Allergy 12/28/2023 Active Avocado Avocado Unknown Allergy 12/28/2023 Active REASON FOR VISIT depression in remission, Depression screening negative, PSYCHOTHERAPY W/PATIENT W/E M, anxiety, MIPS Elder maltreatment Medications Medication SIG (Take, Route, Frequency, Duration) Notes Start Date End Date Status FLUTICASONE 250 MCG-SALMETEROL 50 MCG/DOSE BLISTR POWDR FOR INHALATION *Reorder from [facility] for eRx and Interaction Alerts* 12/28/2023 Active Ergocalciferol 1.25 MG (53425 UT) Oral 12/28/2023 Active Primidone 50 MG [...] 10/06/2024 Encounters Encounter Location Date Provider Diagnosis [facility] [address] [place] [address] 10/06/2024 Sol Gonzalez Major depressive disorder, recurrent, [...] Appt Details Follow Up: 3 Months, Reason: depression, anxiety Provider Name:Bonnie keene, 01/03/2025 02:00:00 PM, [facility] [facility] [address], [facility] [address], [place], [address], Progress Notes * HOOD MARKOB: 2 (74 yo F)Acc No.[id number]:10/06/2024 Patient: Jane GLADIS VALENZUELA Provider: Willy GONZALEZ MD :1950 A ge:74 Y S ex:Female Date:10/06/2024 Address:[address] [place] [address] Pcp:Didier Wolf MD Subjective: * Chief Complaints: * 1 . Depression in remission. 2. Depression screening negative. 3. PSYCHOTHERAPY W/PATIENT W/E M. 4. Anxiety. 5. MIPS Elder maltreatment. * HPI: D epression Screening: JOCY-7 (2018 [...] try to tune some of it out. discussed pt's concerns related to current events discussed transition of care to new provider at [facility] since I am leaving private practice. P sychotherapy with Med eval: Therapy with Med eval P sychotherapy with Medication management Y es, P sychotherapy done Time Spent Minute 2 0 to 30 min, T ype of therapy done S upportive Therapy. E lderly Maltreatment: Screening Questions P hysical Abuse - Infliction of physical injury by punching, beating, kicking, biting, burning, shaking, or other actions that result in harm. N o, E motional/Psychological Abuse - Willful infliction of mental or emotional anguish by threat, humiliation, isolation, or other verbal or nonverbal conduct. N o, N eglect - Involves attitudes of others or actions caused by others - such as family members, friends, or institutional caregivers - that have an extremely detrimental effect upon well-being N o, S exual Abuse - Forcing of undesired sexual behavior by one person upon another against their will who are either competent or unable to fully comprehend and/or give consent. This may also be called molestation. N o, E lder Abandonment - Desertion of an elderly person by an individual who has assumed responsibility for providing care for an elder, or by a person with physical custody of an elder No, F inancial or Material Exploitation - Taking advantage of a person for monetary gain or profit N o, U nwarranted Control - Controlling a person's ability to make choices about living situations, household finances, and medical care. N o. S creening Results R esults E lder maltreatment screen documented as negative, follow-up is not required (G8734). * ROS: P erformance Met: N ormal [...] Yes. * Surgical History: A nkle arthroscopy/surgery (63299) , Hip arthroscopy dx (67230) , Knee arthroscopy/surgery (18799) lt , Lung excision (545881565) , Other , Left hip replacement 01/11/2024. [...] INHALATION , Notes to Pharmacist: *Reorder from [facility] for eRx and Interaction Alerts*, Taking Ergocalciferol 1.25 MG (17311 UT) Capsule Oral , Taking Primidone 50 [...] Examination: P sychiatry: Appearance: w ell-groomed, well-nourished, appears stated age. Affect / mood: a ppropriate, full range. [...] 6127 BEHAV ASSMT W/SCORE & DOCD/STAND INSTRUMENT, G8733 DOC ELDER MALTX SCR&DOC PLAN TM SCR, G8734 ELDER MALTX SCR DOC NEG NO F/U RQR, G8783 NORMAL BP READING DOC F/U NOT RQR, 36079 PSYCHOTHERAPY W/PATIENT W/E&M SRVCS 30 MIN, G8752 MOST RECENT SYSTOLIC BP < 140MM HG, G8754 MOST RECENT DIASTOLIC BP < 90MM HG * Follow Up: 3 Months (Reason: depression, anxiety) * Billing Information: * Visit Code: 85097 OFFICE OUTPATIENT VISIT 25 MINUTES DETAILED HISTORY AND EXAM/MODERATE MEDICAL DECISION MAKING. * Procedure Codes: 21190 BEHAV ASSMT W/SCORE & DOCD/STAND INSTRUMENT. G8733 DOC ELDER MALTX SCR&DOC PLAN TM SCR. G8734 ELDER MALTX SCR DOC NEG NO F/U RQR. G8783 NORMAL BP READING DOC F/U NOT RQR. 14713 PSYCHOTHERAPY W/PATIENT W/E&M SRVCS 30 MIN. G8752 MOST RECENT SYSTOLIC BP < 140MM HG. G8754 MOST RECENT DIASTOLIC BP < 90MM HG. * CAB DRIVER Sign off status: Completed true * Provider: Willy GONZALEZ MD Date: 0 10/06/2024 Generated for Ladonna vela/Erum/eTransmitting on: 0 11/22/2024 [...] Assessment Performed: 10/06 Functional Status I think I'm doing well. Of course I'm upset that President Ryan was elected, but it's maybe better than before the election because I can try to tune some of it out. discussed pt's concerns related to current events discussed transition of care to new provider at [facility] since I am leaving private practice Depression Screening JOCY-7 (2018 Edition) Feeling nervous, [...] min Type of therapy done: Supportive Therapy Elderly Maltreatment Screening Questions Physica l Abuse - Infliction of physical injury by punching, beating, kicking, biting, burning, shaking, or other actions that result in harm.: No Emotional/Psychological Abus e - Willful infliction of mental or emotional anguish by threat, humiliation, isolation, or other verbal or nonverbal conduct.: No Neglect - Involves attitudes of others or actions caused by others - such as family members, friends, or institutional caregivers - that have an extremely detrimental effect upon well-being: No Sexual Abuse - Forcing of un desired sexual behavior by one person upon another against their will who are either competent or unable to fully comprehend and/or give consent. This may also be called molestation.: No Elder Abandonment - Desertio n of an elderly person by an individual who has assumed responsibility for providing care for an elder, or by a person with physical custody of an elder: No Financial or Material Exploi tation - Taking advantage of a person for monetary gain or profit: No Unwarranted Control - Contro lling a person's ability to make choices about living situations, household finances, and medical care.: No Screening Results Results: Elder maltr eatment screen documented as negative, follow-up is not required (G8734) Examination Category Sub-Category Detail Notes Category Not es Psychiatry Appearance: well-groomed, we ll-nourished, appears stated age Attitude: cooperative Psychomotor activity: within normal rang [...]
--- OUTSIDE RECORDS SUMMARY | 2024-11-22 01:41 | XMS_ITS | Patient Health Record ---
Author Organization [facility] As Authorly Address [address] [place] [address] Care Team Providers Care Photoengraving Proofer Apprentice Name Role Phone Didier Wolf MD Primary Care Provider Unavaila Bonnie Holley Unavailable [phone] Walter Parada Unavailable [phone] Sol Gan Unavailable [phone] Migration, Provider Unavailable Unavailable Allergies Allergen (clinical drug ingredient) Drug/Non Drug Allergy documented on EMR Reaction Allergy Type Onset Date Status banana allergenic extract BANANA (uncoded) Unknown Allergy 12/28/2023 Active Avocado Avocado Unknown Allergy 12/28/2023 Active Reason For Referral No Information Medications Medication SIG (Take, Route, Frequency, Duration) Notes Start Date End Date Status Sertraline HCl 100 MG 1 tablet Oral [...] MCG/DOSE BLISTR POWDR FOR INHALATION *Reorder from [facility] for eRx and Interaction Alerts* 12/28/2023 Active Ergocalciferol 1.25 MG (41060 UT) Oral 12/28/2023 Active Primidone 50 MG Oral 12/28/2023 Act kim Immunizations Vaccine Route Administration Date Status Comme nts Zoster Unknown 03/16/2018 Administered Zoster Unknown 06/18/2018 Administered Pneumococcal polysaccharide PPV23 Unknown 01/31/2018 Ad ministered Pneumococcal polysaccharide PPV23 Unknown 07/22/2019 Ad ministered Pneumococcal conjugate PCV 7 Unknown 08/24/2018 Adminis tered Pneumococcal conjugate PCV 13 Unknown 01/31/2018 Admini stered Pfizer-Biontech Covid-19 Vac cine 1st dose Unknown 12/06/2021 Administered Pfizer-Biontech Covid-19 Vac cine 1st dose Unknown 06/01/2022 Administered Pfizer Biontech Covid-19 Vac cine 2nd dose Unknown 06/20/2021 Administered Novel [id number], preservative free Unknown 07/01/2015 Administered Novel [id number], preservative free Unknown 08/14/2016 Administered Moderna Covid-19 Vaccine 1st dose Unknown 09/26/2020 Ad ministered Moderna Covid-19 Vaccine 1st dose Unknown 10/30/2020 Ad ministered Influenza, unspecified formulation Unknown 05/24/2020 A dministered Influenza, high-dose seasona l, quadrivalent, preservative free >65 yrs Unknown 05/24/2020 Administered Influenza, high dose seasonal Unknown 06/11/2017 Admini stered Influenza, high dose seasonal Unknown 04/21/2018 Admini stered Influenza, high dose seasonal Unknown 06/06/2019 Admini stered Influenza virus vaccine, quadrivalent (IIV4), split virus, 0.25 mL dosage Unknown 06/29/2014 Administered Influenza virus vaccine, quadrivalent (IIV4), split virus, 0.25 mL dosage Unknown 06/06/2019 Administered Social History Tobacco Use: Social History Observation [...] Risk Notes Problem Mild recurrent major depression (60048577) Major depressive disorder, recurrent, mild (F33.0) Active confirmed Problem Generalized anxiety disorder (93239594) Generalized anxiety disorder (F41.1) Active confirmed Problem Recurrent hypersomnia (039565937) Recurrent hypersomnia (G47.13) Active confirmed Vital Signs Heart Rate 67 /min 10/06/2024 Height-cm 162.56 cm 10/06/2024 Blood pressure diastolic 69 mm Hg 10/06/2024 Weight-kg 106.14 kg 10/06/2024 Height 64.00 in 10/06/2024 Blood pressure systolic 109 mm Hg 10/06/2024 Weight 234 lbs 10/06/2024 BMI 40.16 kg/m2 10/06/2024 Encounters Encounter Location Date Provider Diagnosis [facility] [employer] [place] [id number] [address] 11/23/2023 Walter Parada Generalized anxiety disorder F41.1 ; Major depressive disorder, recurrent, in remission, unspecified F33.40 and Major depressive disorder, recurrent, mild F33.0 [facility] [place] [address] [address] 12/28/2023 Thena Malik Generalized anxiety disorder F41.1 and Major depressive disorder, recurrent, in remission, unspecified F33.40 [facility] [place] [address] [address] 02/09/2024 Walter Parada Generalized anxiety disorder F41.1 and Recurrent major depressive episodes, mild F33.0 [facility] [place] [address] [address] 04/08/2024 Thena Malik Major depressive disorder, recurrent, mild F33.0 ; Generalized anxiety disorder F41.1 and Recurrent hypersomnia G47.13 [facility] [address] [address] 04/28/2024 Walter Parada Generalized anxiety disorder F41.1 and Recurrent major depressive episodes, mild F33.0 [facility] [place] [address] [address] 06/29/2024 Walter Parada Generalized anxiety disorder F41.1 and Depression, major, recurrent, mild F33.0 [facility] [address] [facility] [address] [facility] [address] [place] [address] 07/08/2024 Thena Malik Major depressive disorder, recurrent, mild F33.0 ; Generalized anxiety disorder F41.1 and Recurrent hypersomnia G47.[address] [facility] [address] [place] [address] 10/06/2024 Thena Malik Major depressive disorder, recurrent, mild F33.0 ; Generalized anxiety disorder F41.1 and Recurrent hypersomnia G47.[address] [facility] [address] [place] [address] 01/09/2024 Provider Migration [address] [address] 01/10/2024 Provider Migration Assessments Encounter Date Diagnosis (ICD Code) Assessment Notes Treatment Notes Treatment Clinical Notes Section Notes 07/08/2024 Major depressive disorder, recurrent, mild (ICD-10 - F33.0) 07/08/2024 Generalized anxiety disorder (ICD-10 - F41.1) 10/06/2024 Major depressive disorder, recurrent, mild (ICD-10 - F33.0) 10/06/2024 Generalized anxiety disorder (ICD-10 - F41.1) 06/29/2024 Generalized anxiety disorder (ICD-10 - F41.1) [...] for several years prior to her . 04/28/2024 Generalized anxiety disorder (ICD-10 - F41.1) 72 [...] for several years prior to her . 04/28/2024 Recurrent major depressive episodes, mild (ICD-10 - F33.0) 72 year female [...] it. Client added she has seen Rachael hSin for a couple of years for medication [...] for several years prior to her . 04/08/2024 Major depressive disorder, recurrent, mild (ICD-10 - F33.0) 04/08/2024 Generalized anxiety disorder (ICD-10 - F41.1) 02/09/2024 Generalized anxiety disorder (ICD-10 - F41.1) 72 [...] suspects mother may have suffered a psychotic break. Client [place] area. [...] for several years prior to her . 02/09/2024 Recurrent major depressive episodes, mild (ICD-10 - F33.0) 72 year female [...] suspects mother may have suffered a psychotic break. Client was [place] in this area. [...] for several years prior to her . 11/23/2023 Major depressive disorder, recurrent, mild (ICD-10 - F33.0) 11/23/2023 Major depressive disorder, recurrent, in remission, unspecified (ICD-10 - F33.40) 11/23/2023 Generalized anxiety disorder (ICD-10 - F41.1) 12/28/2023 Major depressive disorder, recurrent, in remission, unspecified (ICD-10 - F33.40) 12/28/2023 Generalized anxiety disorder (ICD-10 - F41.1) 04/08/2024 Recurrent hypersomnia (ICD-10 - G47.13) 10/06/2024 Recurrent hypersomnia (ICD-10 - G47.13) 07/08/2024 Recurrent hypersomnia (ICD-10 - G47.13) 02/09/2024 Other Client participated in individual psychotherapy(CB T) related to hx of anxiety and depression. Based on today's session continued psychotherapy is recommended with no changes to treatment. Client seen today for the first time since 11.23.2023 and presented well groomed and fully oriented although walking with the aid of a walker. Reported she underwent hip surgery about a 6 weeks ago. Believes she is recovering nicely but has been in some pain Added that she has been feeling so much better with regard to anxiety and depression symptoms with no risk of harm to self or others. also doing much better with visible improvements in his cognitive and physical condition. Admitted she rodriguez been focused on those things she can control and letting go what she cannot control. Moreover has started to abandon any and all false beliefs which has fueled anxiety and depression in the past. Client receptive to session with next session in a month. Client encouraged to keep focusing on what she can control. 72 year female who presents with a [...] suspects mother may have suffered a psychotic break. Client was born and raised in this area. [...] for several years prior to her . 04/28/2024 Other Client participated in individual psychotherapy(CB T/Supportive) based on her hx of anxiety and depression. Based on today's session continued psychotherapy is recommended with changes to time of next session. She requested to be seen in two months due to progress she has made and continues to make. Client presented to session well groomed and fully oriented with no risk of harm to self or others. Client verbal and engaged through out session with appropriate mood and affect. Reported upon presentation that she has been pretty good since last seen on 02.09.2024. Added however that she continues to walk with aid of walker and is going to ask (PCP) for a referral for further PT. Client further shared during opening minutes of session that she has been bothered by the current political climate. Excited about daugther and sister coming to [place] later this year; daughter in May while sister is coming in a few weeks. Session focused on encouraging client to continue being good to self and focusing on what is within her control and letting go of those things beyond her control. Believes she is in a good place. Next session in two months. 72 year [...] for several years prior to her . 07/08/2024 Other Plan Of Treatment Next Appt Details Provider Name:Bonnie Villareal jassi, 01/03/2025 02:00:00 PM, [address] [facility] [address], [facility] [address], [place], [address], Insurance Providers Payer Name Payer Address Payer Phone Subscriber Number Group Number Insured Name Patient Relationship to Insured Coverage Start Date Coverage End Date [facility] Medicare Replacement/ Advantage - Ppo [address] [address] [place] [address] [id number] GLADIS MARK Self - patient is the insured Medical (General) History Medical History History ICD Code Problems: Generalized anxiety disorder Mild recurrent major depression Recurrent hypersomnia Recurrent major depression in remission , Past Psychiatric History: Anxiety Disord er,Major Depressive Episode undefined abdominal aortic aneurysm: No atrial fibrillation: No chronic fatigue syndrome: No essential tremor: Yes hyperlipidemia: No hypertension: Yes Parkinson's disease: No restless leg syndrome: No stroke: No subdural hematoma: No type 1 diabetes mellitus: No type 2 diabetes mellitus: No vitamin B12 deficiency: No vitamin D deficiency: Yes Surgical History Surgery Date(Month/Year) Ankle arthroscopy/surgery (50867) Hip arthroscopy dx (87851) Knee arthroscopy/surgery (22286) lt Lung excision ([id number]) Other Left hip replacement 01/11/2024
--- OUTSIDE RECORDS SUMMARY | 2024-11-22 01:41 | XMS_ITS | Continuity of Care Document ---
Author Organization [facility] Address [address] [place] [address] Phone Care Team Providers Care Veterinary Practitioner Name Role Phone Benito Oconnell MD Unavailable Unavailable Advance Directives Directive Yes / No Effective Date File Name No Information Encounters Encounter Description Practice Location Reason(s) For Visit Diagnoses Date Provider Providers Copied on Encounter [facility], [facility], [place], [place], [id number], tel:[phone] [facility] No Information Anish Oliver. [address], [place], [id number], [place]. tel:[phone] Referring Provider: Anson Flores, [address], [place], [address]. tel:[phone] [facility], [place], [place], [id number], tel:[phone] [facility] SCREEN MAMMOGRAM NEC Geri Hernandez. [address], [place], [place], [id number]. tel:[phone] [facility], [place], [place], [id number], tel:[phone] [facility] ASYMPT POSTMENO STATUSLUMP OR MASS IN BREAST No Information [facility], [place], [place], [address], tel:[phone] [facility] ABDMNAL TNDR LT LWR QUADOTH ADV EFF MED/BIO SUB Tila Heller. [address], [place], [place], [address], [place]. tel:[phone] Family History Family Member Type Diagnosis Age At Onset No Information Payers Payer name Insurance type Covered constitution party ID Ruth amaya(s) [facility] [id number] Social History Type Description Quantity Date Captured [...]
--- OUTSIDE RECORDS SUMMARY | 2024-11-22 01:41 | XMS_ITS | Clinical Summary ---
Author Organization [facility] Address [address] [place] [address] Care Team Providers Care Tree Climber Name Role Phone Didier Wolf MD Primary Care Provider Allergies No known active allergies Medications flu vac [id number],36mo s,up,/PF (FLUARIX QUAD 7074-6461, PF, IM) Fluarix Quad 1800-5867 (PF) 60 mcg (15 mcg x 4)/0.5 [...] 6 months. New lab orders sent to [facility]. Continue low-carb (<150 g/day), low-glycemic diet. Assessment [...] w/r/t gut microbiome. Referred to ADA and [employer] websites for additional information on topics including [...] 98.9 kg (218 lb) 09/21/2023 1:51 PM WO[employer] C[employer]FTSMAN h ome Height 162.6 cm (5' 4 ) 09/21/2023 1:51 PM WOOD CRAFTSMAN Body Mass Index 37.42 09/21/2023 1:51 PM WOOD CRAFTSMAN Plan of Treatment Health Maintenance Due Date [...] vaccine 65+ Completed 07/22/2019, 01/22 Insurance [address] [place] [id number] [facility] [employer] [facility] HMO REF [facility] [employer] Care Teams Tree Climber Relationship Specialty Start Date End Date Didier Wolf MD PCP - General Internal Medicine 02/21/19
--- OUTSIDE RECORDS SUMMARY | 2024-11-22 01:41 | XMS_ITS | Clinical Summary ---
Author Organization [facility] Address [address] [place] [address] Care Team Providers Care Business Development Assistant Name Role Phone Unavailable Primary Care Provider [...] Most Recently Relevant to Health Maintenance Insurance [facility] [id number]
--- OUTSIDE RECORDS SUMMARY | 2024-11-22 01:41 | XMS_ITS ---
Author Organization [facility] hiyalife Address [facility] [address] [place] [address] Care Team Providers Care Screw Machine Operator Swiss Type Name Role Phone Didier Wolf MD Primary Care Provider Bonnie Santos Unavailable [phone] Walter Parada Unavailable [phone] REASON FOR VISIT phq less than 5, major depression and anxiety Medications Medication SIG (Take, Route, Frequency, Duration) Notes Start Date End Date Status Atorvastatin Calcium 10 MG Oral 12/28/2023 Active ProAir HFA 108 (90 Base) MCG/ACT Inhalation 12/28/2023 Active hydroCHLOROthiazide 25 MG Oral 12/28/2023 Active FLUTICASONE 250 MCG-SALMETEROL 50 MCG/DOSE BLISTR POWDR FOR INHALATION *Reorder from [facility] for eRx and Interaction Alerts* 12/28/2023 Active Ergocalciferol 1.25 MG (73655 UT) Oral 12/28/2023 Active Wellbutrin XL 150 [...] Female Encounters Encounter Location Date Provider Diagnosis [facility], [facility] [address] [facility] [address] [place] [address] 06/29/2024 Walter Parada Generalized anxiety disorder F41.1 [...] Reason: Provider Name:Bonnie keene, 01/03/2025 02:00:00 PM, [address], [facility] [address], [place], [address], Progress Notes * HOOD MARKOB: 2 (74 yo F)Acc No.[id number]:06/29/2024 Patient: Jane GLADIS VALENZUELA Provider: Jane Parada LCPC :1950 A ge:74 Y S ex:Female Date:06/29/2024 [address] [facility] [id number] Pcp:Didier Wolf MD Data: * Time Tracker: [...] Walter . 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 C urrent probation / [...] INHALATION , Notes to Pharmacist: *Reorder from [facility] for eRx and Interaction Alerts*Ergocalciferol 1.25 MG (75528 UT) Capsule Oral Olmesartan Medoxomil 40 MG [...] INHALATION , Notes to Pharmacist: *Reorder from [facility] for eRx and Interaction Alerts*Taking Ergocalciferol 1.25 MG (48146 UT) Capsule Oral Taking Olmesartan Medoxomil 40 [...] 9 6127 BEHAV ASSMT W/SCORE & DOCD/STAND [id number] PSYCHOTHERAPY W/PATIENT 45 MINUTES * Follow Up: 2 months * Billing Information: * Visit Code: * Procedure Codes: 48195 BEHAV ASSMT W/SCORE & DOCD/STAND INSTRUMENT. 69962 PSYCHOTHERAPY W/PATIENT 45 MINUTES. * ESS ASSISTANT Sign off status: Completed Signatures: No Ad Hoc Signature Added true * Provider: Jane Parada LCPC Date: 08/29/2023 Generated for Ladonna vela/Erum/Vickyitting on: 11/22/2024 01:03 AM CDT History and Physical Notes * [...] currently seeing Walter . 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 Current probation / parole no [...] Total: (0 to 4) No Anx iety [place]-Suicide Severity Rating Scale Suicide Risk (CSRS-screener) in the past one month Have you wished you were or wished you could go to sleep and not wake up?: No in the past one month Have y ou actually had any thoughts of killing yourself?: No
--- OUTSIDE RECORDS SUMMARY | 2024-11-22 01:41 | XMS_ITS | Data Portability ---
Author Organization [place] [facility], Main Office Address [address] [place] [address] Care Team Providers Care Calibration Specialist Name Role Phone BALDEV WOLF Primary Care Provider BALDEV WOLF Referring Provider Assessment Encounter Date Assessment Date Assessment LastModified by Organization Details LastModified Time 12/24/2022 12/24/2022 Cough doxycycline for a week Done divide his eyedrops no contacts for 2 weeks she is going to check in by phone in 4-5 days because that she is not improving with her eyes I told her I want to go see the eye doctor [email or web address] Not available 12/25/2022 08:51:35 03/12/2023 03/12/2023 Patient presents hip pain left. She has an arthritic left hip and is [id number] at this time. She has pain with any manipulation has a hard time walking when walks with an antalgic gait. Of note is the fact she is 8 years out status post right total hip and has done quite well with that and is very pleased with the results. Her right hip she has her x-rays look great no evidence of loosening or change I would like to see her back every year to for follow-up for her left hip she needs a hip replacement however she needs to lose some weight we put our goal at 200 lb if she gets close to that we will consider hip replacement surgery her BMI is almost 41 this point. I have discussed treatment options with her risks benefits limitations and alternatives. If that the pain gets severe she can call before she reaches or treatment goals will reassess at that point. christopher Not available 03/12/2023 11:43:49 03/19/2023 03/19/2023 I recommended G LP 1 agent she is going to think about it will continue with current therapy follow-up with me in 4 months all questions answered [email or web address] Not available 03/19/2023 22:49:18 07/20/2023 07/20/2023 Blood work show A1c of 5.0 LDL of 80 minimally anemic vitamin-D level look continue current therapy follow-up 4 months. [email or web address] Not available 07/20/2023 22:40:59 Plan of Treatment Reminders Order Date Submit Date Provider Last Modified By Organization Details Last Modified Time Details Appointments None recorded. Lab None recorded. Referral None recorded. Procedures None recorded. Surgeries None recorded. Imaging XR, hip + pelvis, unilateral, 2 or 3 view 2022 023 [email or web address] 158 [facility], [address], [place], [address], 11:42:24 Medication Orders TobraDex 0.3 %-0.1 % eye drops,suspe nsion [email or web address] [facility][id number], [address] [place], [address], 11:00:11 doxycycline hyclate 100 mg tablet [email or web address] [facility][id number], [address] [place], [address], 10:59:57 Patient TargetsNo targets recorded. Patient InstructionsNo instructions recorded. Reason for Referral None Reported. Results Created Date Observation Date Name Description Value Unit Range Abnormal Flag Note LastModifiedBy Organization Detail LastModifiedTime 09/22/1909/05/2022 mihai r monit or No observ ation record ed. [id number] [facility] [address], [place], [address], 10/22/2022 06:09:13 11/05/19 23 09/22/2022 cardi ac monit or No observ ation record ed. cyahl Not Available 2022 16:23:42 03/06/20 23 XR, foot [facility] [address] [facility] [place] [address] Dominick hooker Name: LOUISE OROZCO Access ion #: [id number] Sex: F : 1949 1 Locati on: RA2 Attend ing Physic eun: KRISTIN WOLF Orderi Physic eun: KRISTIN WOLF Exam Date: 023 2:07 PM Exam Name: XR FOOT RT 3V+ Admitt ing Diagno sis(es ): RADIOL OGY REPORT - FINAL EXAM: XR FOOT RT 3V+ HISTOR Y: right foot pain 73-yea r-old female with right foot pain, injury 1 month ago, histor y of right ankle surger y. COMPAR VICENTE: None availa ble. TECHNI QUE: Three views of the right foot were perfor med. FINDIN GS: No acute fractu re or disloc ation are identi fied about the right foot. There is mild to modera te osteoa rthrit is of the 1st MTP joint, IP joints of the toes, and midfoo t. There is medial promin ence of the navicu lar bone. Small planta r calcan eal bone spur and Achill es insert ion enthes ophyte are incide ntally noted. There is deform ity of the right distal tibia sugges tive Page 1 of 2 [facility] Dominick hooker Name: LOUISE OROZCO ion #: [id number] Sex: F : 1949 1 Exam Date: 023 2:07 PM Exam Name: XR FOOT RT 3V+ Admitt ing Diagno sis(es ): of old healed fractu re. There is severe osteoa rthrit is of the tibiot alar joint with joint space narrow ing, subcho ndral sclero sis, and promin ent margin al osteop hytes. IMPRES DINESH: 1. No acute fractu re of the right foot. 2. Nonacu te findin gs as detail ed above. Create d and electr onical ly signed by: Ambrose kauffman MD Signed Date: 2:52 PM (CT) Dictat ed by: Ambrose kauffman MD DD: 023 2:52 PM (CT) DT: 023 2:52 PM (CT) Page 2 of 2 [facility] (Imaging) [address] [facility], [place], [address], 03/20/2023 13:58:20 03/12/20 23 XR, hip + pelvi s, unila teral , 2 or 3 view No observ ation record ed. [email or web address] [facility] [address], [place], [address], 03/12/2023 11:42:23 Result Notes None recorded. Problems Name Problem SNOMED Code Status Onset Date Resolution Date Notes Provider Name and Address Organization Details Recorded Time Spinal enthesopa thy 76804144 Active Not Available [facility] 3 09:44:19 Arthritis of left hip 26966461221 86708 Active 2020 Not Available [facility] 3 09:44:19 Arthritis of left knee 72294980139 22433 Active 2020 Not Available [facility] 3 09:44:19 History of left total knee replaceme nt 18760211045 01410 Active 2020 Not Available [facility] 3 09:44:19 History of total knee arthropla sty 24922396979 05 Active 2021 Not Available [facility] 3 09:44:19 Pain in right sacroilia c joint 25448324099 014783 Active 2021 Not Available [facility] 3 09:44:19 Disorder of sacrum 01828379 Active Not Available [facility] 3 09:44:19 Recurrent urinary tract infection 168927990 Active 2021 Not Available [facility] 3 09:44:19 Localized , primary osteoarth ritis of the hand 283462288 Active Not Available [facility] 3 09:44:19 Localized , primary osteoarth 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 222238540 Active Not Available [facility] 3 09:44:19 Wrist joint pain 688194208 Active Not Available [facility] 3 09:44:19 Sciatica 25357101 Active 2021 Not Available [facility] 3 09:44:19 Osteoarth ritis of hip 166889164 Active Not Available [facility] 3 09:44:19 Osteoarth ritis of knee 251641189 Active Not Available [facility] 3 09:44:19 Low back pain 075664900 Active 2021 Not Available [facility] 3 09:44:19 Enthesopa thy of hip region 96600748 Active Not Available [facility] 3 09:44:19 Localized , primary osteoarth ritis of elbow 519394904 Active Not Available [facility] 3 09:44:19 Pain of left hip joint 09772797431 9100 Active 2020 Not Available [facility] 3 09:44:19 Trochante dhiraj bursitis of left hip 79288383835 9103 Active 2020 Not Available [facility] 3 09:44:19 Tachycard ia 6338729 Active 2022 Not Available [facility] 3 09:44:19 Vitamin D deficienc y 72414723 Active 2018 Not Available [facility] 3 09:44:19 Closed fracture of metatarsa l bone 19390161 Active Not Available [facility] 3 09:44:19 Sinusitis 78893682 Completed Not Available [facility] 3 06:02:39 Dyslipide hanh 552425022 Active 2020 Not Available [facility] 3 09:44:19 Osteoarth ritis 860853522 Active Not Available [facility] 3 09:44:19 Obesity 300762870 Active Not Available [facility] 3 09:44:19 Disorder of wrist joint 569426940 Active Not Available [facility] 3 09:44:19 Asymmetri stephnaie sensorine ural hearing loss 704082739 Active 2021 Not Available [facility] 3 09:44:19 Acute urinary tract infection 518371661 Active 2021 Not Available [facility] 3 09:44:19 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 04391522329 4100 Active 2021 Not Available [facility] 3 09:44:19 Tinnitus of left ear 91481507197 06 Active 2021 Not Available [facility] 3 09:44:19 Anxiety 42276404 Active 2016 Not Available [facility] 3 09:44:19 Hip pain 48570202 Active Not Available [facility] 3 09:44:19 Cough 39474474 Completed CLEMENTE Holloway [place] [facility] 3 11:29:07 Essential hypertens ion 46201318 Active Not Available [facility] 3 09:44:20 Derangeme nt of knee 59120789 Active Not Available [facility] 3 09:44:20 Obstructi ve sleep apnea syndrome 72239385 Active Not Available [facility] 3 09:44:20 Pain in limb 91542016 Active Not Available [facility] 3 09:44:20 Upper respirato ry infection 79202936 Active 2022 Not Available [facility] 3 09:44:20 Cough 21074238 Active 2022 Not Available [facility] 3 09:44:19 Acute conjuncti vitis 33479184 Active 2022 Not Available [facility] 3 09:44:20 Sore mouth 816923902 Active 2022 Not Available [facility] 3 09:44:19 Foot pain 37125237 Active 2022 Not Available [facility] 3 09:44:19 Osteoarth ritis of left hip joint 58764270560 9108 Active 2022 Not Available [facility] 3 09:44:19 Morbid obesity 610834131 Active 2022 Not Available [facility] 3 09:44:19 Asthma 156984521 Active 2022 Not Available [facility] 3 09:44:19 Notes:Some problems listed i n Document: #[id number] could not be added to this patient's chart. Please review this document and add these problems to the patient's chart manually as needed. Problem Notes None recorded. Procedures Surgical History Date Name Laterality Status Provider Name and Address Organization Details Recorded Time 08/30/19 21 Most Recent Bone Density completed Not Available [facility] 10/22/2022 05:56:24 09/02/19 18 Total knee arthroplasty completed Not Available [facility] 10/22/2022 05:56:31 07/18/20 15 Total hip arthroplasty completed Not Available [facility] 10/22/2022 05:56:31 08/30/19 15 Date of Last Colonoscopy completed Not Available [facility] 10/22/2022 05:56:24 08/30/19 15 Colonoscopy completed Not Available [facility] 10/23/19 23 05:56:31 08/24/18 99 lobectomy of the lung and excisional biopsies completed Jaelyn Gutierrez [facility] 03/12/2023 11:01:16 Ankle Surgery completed Not Available [facility] 10/22/2022 05:56:31 Imaging Results Imaging Date Name Status LastModified by [facility] Details LastModified Time 09/05/2022 holter monitor completed [id number] [facility] [address], [place], [address], 10/22/2022 06:09:13 09/22/2022 nurse monitoring completed [email or web address] Information not available 11/04/2022 16:23:42 03/06/2023 XR, foot completed cyahl [facility] (Imaging) [address] [place], [address], 03/20/2023 13:58:20 03/12/2023 XR, hip + pelvis, unilateral, 2 or 3 view completed [email or web address] [facility] [place] [address], [place], [address], 03/12/2023 11:42:23 Procedure Notes None recorded. Medical Equipment None Reported. Allergies Allergen ID Allergen Name Allergen Category Reaction Reaction Severity Criticality Documentation Date Start Date Code Code System Note Provider Name and Address Organization Details Recorded Time 41813 banana extract food,medi cation abdominal pain Not available Not available 10/22/2022 55598 9 RxNorm Not Available [facility] 3 06:08:51 00248 avocado allergeni c extract food abdominal pain Not available Not available 10/22/2022 79991 2 RxNorm Not Available [facility] 3 06:08:51 Medications Name Sig Start Date Stop Date Status Note LastModified by Organization Details LastModified Time amoxicillin 500 mg capsule TAKE 4 CAPSULES BY MOUTH NOW active Not Available Not Available No t Available buspirone 5 mg tablet 12/02 completed Not Available Not Available Not Available primidone 50 mg tablet TAKE 1 TABLET BY MOUTH TWICE A DAY active Not Available Not Available No t Available bupropion HCl SR 150 mg tablet,12 hr sustained-r elease TAKE 1 TABLET BY MOUTH TWICE A DAY 05/24 completed Not Available Not Available Not Available fluticasone 250 mcg-salmete rol 50 mcg/dose blistr powdr for inhalation TAKE 1 PUFF BY MOUTH TWICE A DAY *RINSE MOUTH AFTER USE* active Not Available Not Available No t Available nystatin 100,000 unit/mL oral suspension Take 5 mL 3 times a day by oral route for 10 days. 03/12 completed Not Available Not Available Not Available prednisone 10 mg tablet TAKE 1 TABLET 3 TIMES A DAY FOR 3 DAYS, TWICE A DAY FOR 2 DAYS, ONCE DAILY FOR 1 DAY 05/27 completed Not Available Not Available Not Available paroxetine 10 mg tablet TAKE 1 TABLET BY MOUTH EVERY DAY 05/24 completed Not Available Not Available Not Available atorvastati n 10 mg tablet TAKE 1 TABLET BY MOUTH EVERY DAY active Not Available Not Available No t Available azithromyci n 250 mg tablet TAKE 2 TABLETS BY MOUTH TODAY, THEN TAKE 1 TABLET DAILY FOR 4 DAYS 12/24 completed Not Available Not Available Not Available hydrocodone 5 mg-acetamin ophen 325 mg tablet TAKE 1 TABLET BY MOUTH EVERY 4 HOURS active Not Available Not Available No t Available meloxicam 15 mg tablet TAKE 1 TABLET BY MOUTH EVERY DAY NEEDED FOR PAIN active Not Available Not Available No t Available naltrexone 50 mg tablet TAKE 0.5 TABLETS (25 MG TOTAL) BY MOUTH DAILY FOR 7 DAYS, THEN 1 TABLET (50 MG TOTAL) DAILY. active Not Available Not Available No t Available sertraline 100 mg tablet TAKE 1 TABLET BY MOUTH EVERY DAY IN THE MORNING active Not Available Not Available No t Available acetaminoph en 300 mg-codeine 30 mg tablet active Not Available Not Available Not Available ciprofloxac in 500 mg tablet TAKE 1 TABLET BY MOUTH EVERY 12 HOURS FOR 7 DAYS 08/27 completed Not Available Not Available Not Available Tamiflu 75 mg capsule Take 1 capsule every day by oral route. 11/03 completed Not Available Not Available Not Available prednisone 10 mg tablets in a dose pack Take 1 tab by mouth, 3 times a day for 3 daysTake 1 tab by mouth 2 times a day for 2 daysTake 1 tab by mouth once a day for 1 day 05/27 completed Not Available Not Available Not Available losartan 100 mg-hydrochl orothiazide 25 mg tablet TAKE 1 TABLET BY MOUTH EVERY DAY 07/07 completed Not Available Not Available Not Available methocarbam ol 750 mg tablet TAKE 1 TABLET BY MOUTH EVERY 8 HOURS 09/07 completed Not Available Not Available Not Available Kenalog 10 mg/mL suspension for injection In office injection administe red by the provider 06/[address] [facility]: [phone]- [phone] Not Available Not Available Not Available hydrocodone 7.5 mg-acetamin ophen 325 mg tablet 05/24 completed Not Available Not Available Not Available paroxetine 20 mg tablet TAKE 1 TABLET BY MOUTH EVERY DAY active Not Available Not Available No t Available pantoprazol e 40 mg tablet,corin yed release TAKE 1 TABLET BY MOUTH EVERY DAY active Not Available Not Available No t Available diclofenac sodium 75 mg tablet,corin yed release TAKE 1 TABLET BY MOUTH TWICE A DAY WITH FOOD active Not Available Not Available No t Available hydrocodone 5 mg-acetamin ophen 500 mg tablet 06/29 completed Not Available Not Available Not Available hydrochloro thiazide 25 mg tablet TAKE 1 TABLET BY MOUTH EVERY DAY 2022 active Not Available Not Available Not Avai lable ergocalcife rol (vitamin D2) 1,250 mcg (50,000 unit) capsule TAKE 1 CAPSULE BY MOUTH ONE TIME PER WEEK active Not Available Not Available No t Available methylpredn isolone 4 mg tablets in a dose pack TAKE 6 TABLETS ON DAY 1 DIRECTED ON PACKAGE AND DECREASE BY 1 TAB EACH DAY FOR A TOTAL OF 6 DAYS 12/11 completed Not Available Not Available Not Available albuterol sulfate HFA 90 mcg/actuati on aerosol inhaler INHALE 2 PUFFS EVERY 4 HOURS 2022 active Not Available Not Available Not Avai lable losartan 100 mg tablet take one tablet by mouth once daily active Not Available Not Available No t Available fluticasone propionate 50 mcg/actuati on nasal spray,suspe nsion Inhale 2 sprays every day by intranasa l route in the evening. active Not Available Not Available No t Available sertraline 50 mg tablet TAKE 1 TABLET BY MOUTH EVERY DAY IN THE MORNING active Not Available Not Available No t Available doxycycline hyclate 100 mg tablet TAKE 1 TABLET BY MOUTH TWICE A DAY FOR 7 DAYS 03/12 completed Not Available Not Available Not Available amoxicillin 875 mg-potassiu m clavulanate 125 mg tablet TAKE 1 TABLET BY MOUTH TWICE A DAY FOR 10 DAYS 12/11 completed Not Available Not Available Not Available tobramycin 0.3 %-dexametha sone 0.1 % eye drops,suspe nsion INSTILL 3 DROPS INTO BOTH EYES THREE TIMES DAILY FOR ONE WEEK 03/12 completed Not Available Not Available Not Available olmesartan 40 mg tablet TAKE 1 TABLET BY MOUTH EVERY DAY 2022 active Not Available Not Available Not Avai lable Pneumovax-2 3 25 mcg/0.5 mL injection syringe active Not Available Not Available Not Available bupropion HCl XL 150 mg 24 hr tablet, extended release TAKE 1 TABLET BY MOUTH EVERY DAY IN THE MORNING active Not Available Not Available No t Available nitrofurant oin monohydrate /macrocryst als 100 mg capsule TAKE 1 CAPSULE BY MOUTH EVERY 12 HOURS FOR 5 DAYS 08/27 completed Not Available Not Available Not Available aspirin (bulk) 10/06 completed Not Available Not Available Not Available lidocaine (PF) 10 mg/mL (1 %) injection solution In office injection administe red by the provider 06/[address] [facility]: [phone]- [phone] Not Available Not Available Not Available ProAir HFA 01/16 completed Not Available Not Available Not Available Prevnar 13 (PF) 0.5 mL intramuscul ar syringe active Not Available Not Available N ot Available Suprep Bowel Prep Kit 17.5 gram-3.13 gram-1.6 gram oral solution 01/16 completed Not Available Not Available Not Available Xarelto 10 mg tablet TAKE 1 TABLET BY MOUTH DAILY 05/24 completed Not Available Not Available Not Available Fluarix Quad 0691-0467 (PF) 60 mcg (15 mcg x 4)/0.5 mL IM syringe TO BE ADMINISTE RED BY PHARMACIS T FOR IMMUNIZAT ION active Not Available Not Available No t Available Fluarix Quad 3752-1571 (PF) 60 mcg (15 mcg x 4)/0.5 mL IM syringe TO BE ADMINISTE RED BY PHARMACIS T FOR IMMUNIZAT ION 11/20 completed Not Available Not Available Not Available Fluzone High-Dose 9534-4081 (PF) 180 mcg/0.5 mL intramuscul ar syringe TO BE ADMINISTE RED BY PHARMACIS T FOR IMMUNIZAT ION active Not Available Not Available No t Available Shingrix (PF) 50 mcg/0.5 mL intramuscul ar suspension, kit 10/06 completed Not Available Not Available Not Available Fluzone High-Dose 8262-4624 (PF) 180 mcg/0.5 mL intramuscul ar syringe active Not Available Not Available N ot Available Fluzone High-Dose (PF) 180 mcg/0.5 mL intramuscul ar syringe TO BE ADMINISTE RED BY PHARMACIS T FOR IMMUNIZAT ION active Not Available Not Available No t Available Fluad Quad 2775-4950(6 5yr up)(PF) 60 mcg (15 mcg x 4)/0.5mL IM syringe PHARMACY ADMINISTE RED 09/07 completed Not Available Not Available Not Available Vitals Date Recorded Body mass index (BMI) Body height Pain severity - 0-10 verbal numeric rating [Score] - Reported Heart rate Body temperature Body weight Systolic blood pressure Diastolic blood pressure Provider Name and Address Organization Details Last Updated DateTime 3 42.3 kg/m2 160.02 cm 0 69 /min 97.7 [degF] 774374. 58 g 118 mm[Hg] 78 mm[Hg] Not Available [facility] 3 05:56:56 Date Recorded Body height Body mass index (BMI) Body weight Body temperature Heart rate Systolic blood pressure Diastolic blood pressure Provider Name and Address Organization Details Last Updated DateTime 3 160.02 cm 42.2 kg/m2 099692. 98 g 97.3 [degF] 70 /min 118 mm[Hg] 78 mm[Hg] CLEMENTE Byrd [facility] 3 10:43:03 Date Recorded Body height Body mass index (BMI) Body weight Provider Name and Address Organization Details Last Updated DateTime 03/12/2023 160.02 cm 40.7 kg/m2 949198.25 g Jaelyn Silvano [facility] 03/12/2023 10:59:25 Date Recorded Body height Body mass index (BMI) Body weight Body temperature Heart rate Systolic blood pressure Diastolic blood pressure Provider Name and Address Organization Details Last Updated DateTime 3 160.02 cm 41.3 kg/m2 369449. 02 g 97.7 [degF] 60 /min 124 mm[Hg] 84 mm[Hg] Amarilys Diaz [facility] 3 11:22:43 Date Recorded Body height Body mass index (BMI) Body weight Body temperature Heart rate Systolic blood pressure Diastolic blood pressure Provider Name and Address Organization Details Last Updated DateTime 3 160.02 cm 40.2 kg/m2 561074. 47 g 98.9 [degF] 59 /min 130 mm[Hg] 88 mm[Hg] CLEMENTE Byrd [employer] [facility] 3 12:40:55 Social History Question Answer Notes LastModified by Organization Details LastModified Time Tobacco Smoking Status Never Smoker Not Available [facility] 10/22/2022 05:53:42 Do You Have An Advance Directive? Yes [id number] Information not available 10/22/2022 What Is Your Level Of Alcohol Consumption? Occasional [id number] [id number] Information not available 10/22/2022 Are You Blind Or Do You Have Difficulty Seeing? No MIGRATION.0301 [id number] Information not available 10/22/2022 What Is Your Level Of Caffeine Consumption? Heavy MIGRATION.0301 [id number] Information not available 10/22/2022 How Much Tobacco Do You Chew? None MIGRATION.0301 [id number] Information not available 10/22/2022 In The 14 Days Before Symptom Onset, Have You Had Close Contact With A Laboratory-confi rmed COVID-19 While That Case Was Ill? No [id number] [id number] Information not available 10/22/2022 In The 14 Days Before Symptom Onset, Have You Had Close Contact With A Person Who Is Under Investigation For COVID-19 While That Person Was Ill? No MIGRATION.0301 [id number] Information not available 10/22/2022 Are You Deaf Or Do You Have Serious Difficulty Hearing? Yes In Left Ear Getting Hearing Aid MIGRATION.030 [id number] Information not available 10/22/2022 What Type Of Diet Are You Following? REGULAR MIGRATION.030 [id number] Information not available 10/22/2022 Which Illicit Or Recreational Drugs Have You Used? None MIGRATION.030 [id number] Information not available 10/22/2022 Do You Or Have You Ever Used E-cigarettes Or Vape? Never Used Electronic Cigarettes MIGRATION.030 [id number] Information not available 10/22/2022 What Is The Highest Grade Or Level Of School You Have Completed Or The Highest Degree You Have Received? [id number] MIGRATION.030 [id number] Information not available 10/22/2022 What Is Your Occupation? Retired MIGRATION.030 [id number] Information not available 10/22/2022 Have There Been Any Changes To Your Family Or Social Situation? No MIGRATION.0301 [id number] Information not available 10/22/2022 What Is The Fluoride Status Of Your Home? Unknown MIGRATION.0301 [id number] Information not available 10/22/2022 Are There Any Guns Present In Your Home? Yes MIGRATION.0301 [id number] Information not available 10/22/2022 Do You Use Insect Repellent Routinely? No MIGRATION.0301 [id number] Information not available 10/22/2022 Where Do You Live? 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 Yes [id number].0301 [id number] Information not available 10/22/2022 What Was The Date Of Your Most Recent Tobacco Screening? 07/20/2023 [email or web address] Information not available 07/20/2023 Have You Ever Been Counseled For Unhealthy Alcohol Use? No MIGRATION.0301 [id number] Information not available 10/22/2022 Do You Have Any Pets? No MIGRATION.0301 087121 Information not available 10/22/2022 What Is Your Relationship Status? MIGRATION.0301 [id number] Information not available 10/22/2022 Do You Use Your Seat Belt Or Car Seat Routinely? Yes MIGRATION.0301 [id number] Information not available 10/22/2022 Do You Have Smoke And Carbon Monoxide Detectors In Your Home? Yes MIGRATION.0301 383204 Information not available 10/22/2022 Are You Passively Exposed To Smoke? No MIGRATION.0301 075856 Information not available 10/22/2022 Do You Or Have You Ever Used Smokeless Tobacco? Never Used Smokeless Tobacco MIGRATION.0301 867375 Information not available 10/22/2022 Are There Any Smokers In Your House? No MIGRATION.0301 187877 Information not available 10/22/2022 How Much Tobacco Do You Smoke? No MIGRATION.0301 308504 Information not available 10/22/2022 What Types Of Sporting Activities Do You Participate In? None MIGRATION.0301 771932 Information not available 10/22/2022 Do You Feel Stressed (tense, Restless, Nervous, Or Anxious, Or Unable To Sleep At Night)? [id number] MIGRATION.0301 994206 Information not available 10/22/2022 Do You Use Any Illicit Or Recreational Drugs? No MIGRATION.0301 510134 Information not available 10/22/2022 Do You Use Sunscreen Routinely? Yes MIGRATION.0301 508646 Information not available 10/22/2022 Has Tobacco Cessation Counseling Been Provided? No Not Needed-ne arnav Smoked MIGRATION.0301 885947 Information not available 10/22/2022 How Many Years Have You Smoked Tobacco? 0 MIGRATION.0301 436282 Information not available 10/22/2022 Have You Recently Traveled Abroad? No MIGRATION.0301 569103 Information not available 10/22/2022 Do You Have Any Dietary Restrictions? No MIGRATION.0301 592843 Information not available 10/22/2022 Do You Or Have You Ever Used Any Other Forms Of Tobacco Or Nicotine? No MIGRATION.0301 954696 Information not available 10/22/2022 Sex: Female Functional Status Question Answer Note LastModified by Organizat be[employer] Details LastModified Time Do you have difficulty walking or climbing stairs? No MIGRATION.933031 5925 Information not available 10/22/2022 Do you have transportation difficulties? No MIGRATION.570772 0018 Information not available 10/22/2022 Are you able to walk? YESWOREST MIGRATION.669193 4512 Information not available 10/22/2022 Do you have difficulty doing errands alone? No MIGRATION.393590 8964 Information not available 10/22/2022 Are you able to care for yourself? Yes MIGRATION.672497 8182 Information not available 10/22/2022 Do you have difficulty dressing or bathing? No MIGRATION.595428 8241 Information not available 10/22/2022 What is your exercise level? Moderate goes to gym weekly MIGRATION.119503 5905 Information not available 10/22/2022 Mental Status Question Answer Note LastModified by Organizat ion Details LastModified Time Do you have difficulty concentrating, remembering or making decisions? No MIGRATION.[id number] 6 Information not available 10/22/2022 Family History Relationship Description Onset Age of this Age Resolved Age Notes LastModified by Organization Details LastModified Time Unspecified Relation Hypertensive disorder MIGRATION.308 [id number] Not available 10/22/2022 05:56:32 Father Heart disease MIGRATION.989 [id number] Not available 10/22/2022 05:56:32 Mother Anxiety disorder MIGRATION.950 [id number] Not available 10/22/2022 05:56:32 Mother Dementia MIGRATION.067 [id number] Not available 10/22/2022 05:56:32 Brother Cerebrovascu lar accident MIGRATION.878 [id number] Not available 10/22/2022 05:56:33 Sister Family history of malignant neoplasm MIGRATION.547 [id number] Not available 10/22/2022 05:56:33 Notes:NO ENT HISTORY Medical History Condition Response BLINDNESS N NERVE DISEASE N RHEUMATIC FEVER N BLADDER PROBLEMS N KIDNEY STONES N MRSA N OTHER # 1 N POLIO N LUNG DISEASE/DISORDER N RADIATION / CHEMOTHERAPY N COPD N Other # 2 N BLOOD DISEASES N EAR OR HEARING PROBLEMS N MUMPS N BOWEL PROBLEMS N DEPRESSION (INCLUDING POST ) Y STROKE/TIA N ULCERS N BENIGN PROSTATIC HYPERPLASIA N MEASLES N MYOCARDIAL INFARCTION N OBESITY Y GERD/NAUSEA N ANEURYSM N URINARY/BLADDER/KIDNEY PROBLEMS N CORONARY ARTERY DISEASE (CAD) N ADDICTION CONCERNS N Impotence N ENDOMETRIOSIS N USE OF BLOOD THINNERS N SKIN PROBLEMS N GASTROINTESTINAL DISORDER N PERIPHERAL VASCULAR DISEASE N MUSCLE,JOINT OR BONE PROBLEMS N GASTROINTESTINAL BLEEDING N BLOOD CLOTS N ASTHMA Y CATARACTS N ERECTILE DYSFUNCTION N VARICOSITIES N GI PROBLEMS N Low Testosterone N INFERTILITY N AIDS/HIV N CHEMOTHERAPY / RADIATION N LIVER DISEASE N MALE HYPOGONADISM N HYPERTENSION Y Deficiency Y TOURETTE'S N ANXIETY DISORDER Y BLOOD TRANSFUSION N ANEMIA/BLOOD DISORDER N CHRONIC EAR INFECTIONS N BRONCHITIS N TUBERCULOSIS N GLAUCOMA N FOOT PROBLEM N DIVERTICULITIS N SLEEP APNEA N CHICKENPOX N INFECTIOUS DISEASE N PROSTATE N HEART ARRHYTHMIA N INSOMNIA N HIGH CHOLESTEROL / HYPERLIPIDEMIA N EYE PROBLEMS N HYPERTHYROIDISM N EDEMA N CHRONIC PAIN SYNDROME N HYPOTHYROIDISM N CAROTID BLOCKAGE N CONSTIPATION N BACK / NECK PROBLEMS Y ATHEROSCLEROSIS N BREAST PROBLEMS N DIALYSIS N ECZEMA N OSTEOPOROSIS N ARTHRITIS Y APPENDICITIS N DIABETES, TYPE N BAD TEETH N ENT N HEARTBURN / REFLUX N AUTISM SPECTRUM DISORDER (ASD) N HEPATITIS / LIVER DISEASE N GOUT N SLEEP DISORDER N ALZHEIMER'S DISEASE N Brain Problems N DEMENTIA N HERPES N SEIZURES/EPILEPSY N HEADACHES/MIGRAINES N VASCULAR DISEASE N PACEMAKER N Blood Disorder N DIZZINESS N HEART DISEASE/HEART PROBLEMS N KIDNEY DISEASE N MULTIPLE SCLEROSIS N CANCER: SPECIFY Y CARDIAC ARRHYTHMIA N ATRIAL FIBRILLATION N Gall Stones N PULMONARY EMBOLISM N AUTOIMMUNE DISEASE N Gynecological History Statement/Question Response Date of Last Pap Date of Last Mammogram 01/28/2021 Date of Last Colonoscopy 08/30/2014 Most Recent Bone Density 08/30/2020 Obstetrics History GPAL:G 0 P 0 0 0 0 Immunizations Vaccine Type Date Status Note Provider Nam e and Address Organization Details Recorded Time influenza, unspecified formulation 3 completed CLEMENTE Holloway, [facility] [employer] 06/08/2023 16:23:09 SARS-COV-2 (COVID-19) vaccine, UNSPECIFIED 3 completed CLEMENTE Holloway, [facility] [employer] [facility] 06/08/2023 16:23:19 Respiratory syncytial virus (RSV) MAB, unspecified 3 completed CLEMENTE Holloway, [place] [facility] 08/10/2023 10:26:58 Influenza, high-dose, quadrivalent, PF 1 completed Not Available [facility] 03/14/2023 06:33:23 Influenza, split virus, trivalent, preservative 0 completed Not Available [facility] 03/14/2023 06:33:23 pneumococcal polysaccharide PPV23 9 completed Not Available [facility] 03/14/2023 06:33:23 Influenza, high-dose, quadrivalent, PF 9 completed Not Available [facility] 03/14/2023 06:33:23 zoster live 8 completed Not Available [facility] 03/14/2023 06:33:23 influenza, unspecified formulation 8 completed Not Available [facility] 03/14/2023 06:33:23 zoster live 8 completed Not Available [facility] 03/14/2023 06:33:23 Pneumococcal conjugate PCV 13 8 completed Not Available [facility] 03/14/2023 06:33:23 Influenza, high-dose, trivalent, PF 7 completed Not Available [facility] 03/14/2023 06:33:23 Influenza, split virus, quadrivalent, preservative 6 completed Not Available [facility] 03/14/2023 06:33:23 COVID-19, mRNA, LNP-S, PF, 30 mcg/0.3 mL dose 2 completed Not Available [facility] 03/14/2023 06:33:23 Influenza, split virus, trivalent, preservative 2 completed Not Available [facility] 03/14/2023 06:33:23 COVID-19, mRNA, LNP-S, PF, 30 mcg/0.3 mL dose 2 completed Not Available [facility] 03/14/2023 06:33:23 COVID-19, mRNA, LNP-S, PF, 30 mcg/0.3 mL dose 1 completed Not Available [facility] 03/14/2023 06:33:23 influenza, unspecified formulation 5 completed Not Available [facility] 03/14/2023 06:33:23 Influenza, split virus, trivalent, PF 4 completed Not Available [facility] 03/14/2023 06:33:23 Past Encounters Encounter ID Performer Location Encounter Start Date Encounter Closed Date Diagnosis/Indication Diagnosis SNOMED-CT Code Diagnosis ICD10 Code Diagnosis Note [id number] [facility] [place] [address] [place] [address] 11/22/2020 00:00:00 11/22/2020 11:17:50 [id number] [facility] [place] [address] [place] [address] 12/20/2020 00:00:00 01/10/2021 15:44:36 [id number] [facility] [place] [address] [address] 03/01/2021 00:00:00 03/02/2021 15:56:51 [id number] [facility] [place] [address] [place] [address] 03/12/2021 00:00:00 03/12/2021 15:27:35 [id number] [facility] [place] [address] [place] [address] 04/04/2021 00:00:00 04/04/2021 10:57:26 [id number] [facility] [place] [address] [address] 06/28/2021 00:00:00 07/07/2021 22:02:58 [id number] [facility] [place] [address] [place] [address] [address] [address] 09/20/2021 00:00:00 09/20/2021 14:01:30 [id number] [facility] [place] [address] [place] [address] [address] [address] 10/25/2021 00:00:00 11/17/2021 17:11:19 [id number] [facility] [place] [address] [place] [address] 12/02/2021 00:00:00 12/02/2021 09:59:09 [id number] [facility] [[email or web address] [address] [place] [address] 04/23/2022 00:00:00 04/23/2022 23:06:16 [id number] [facility] [place] [address] [place] [address] 05/27/2022 00:00:00 05/27/2022 15:24:55 [id number] [facility] [[email or web address]] [address] [address] 08/27/2022 00:00:00 08/28/2022 20:55:04 [id number] Baldev Wolf MD [facility] [[email or web address]] [address] [address] 12/24/2022 10:32:44 12/24/2022 11:19:14 Cough 81869867 R05.9 Acute conjunctivitis 537 60938 H10.33 [id number] Miguelito Stauffer MD [facility] [place] [address] [place] [address] 03/12/2023 10:30:10 03/12/2023 11:40:29 Arthritis of left hip 5609027651 385333 M13.852 Osteoarthr itis of left hip joint 3567599383 36922 M16.12 History of total replacement of right hip joint 0780702132 58261 Z96.641 Morbid obesity 461041939 E66.01 [id number] Baldev Wolf MD [facility] [address] [place] [address] 03/19/2023 11:07:54 03/19/2023 12:05:17 Dyslipidemia 431323484 E78.5 Anxiety 06800209 F41.9 Essential hypertension 00624822 I10 Asthma 312121800 J45.90 9 [id number] Baldev Wolf MD [facility] [place] [address] [facility] [address] [place] [address] 07/20/2023 11:31:46 07/20/2023 13:04:29 Anxiety 01851087 F41.9 Dyslipidemia 265967766 E 78.5 Asthma 491582006 J45.90 9 Essential hypertension 28428600 I10 Health Concerns Section Related Observation LastModified by Organization Detai ls LastModified Time None Recorded Concern Status LastModified by Organization Details LastModified Time None Recorded Advance Directives Directive Y: Payers Encounter Date Sequence Insurance Name Policy Number Policy Fowler Covered Member ID Fowler Member ID Guarantor Name 12/24/2022 1 [facility] (MEDICARE REPLACEMENT/A DVANTAGE - HMO) [id number] Louise Ponce [id number] Louise Ponce 03/12/2023 1 [facility] (MEDICARE REPLACEMENT/A DVANTAGE - HMO) [id number] Louise Ponce [id number] Louise Ponce 03/19/2023 1 [facility] (MEDICARE REPLACEMENT/A DVANTAGE - HMO) [id number] Louise Ponce [id number] Louise Ponce 07/20/2023 1 [facility] (MEDICARE REPLACEMENT/A DVANTAGE - HMO) [id number] Louise Ponce [id number] Louise Ponce Notes Date Note Type Note Provider Name and Address Organization Details Recorded Time 12/24/2022 text/html dry cough for about a weekEyes of started itching turned red and they are mattingNo skin rashesNot really short of breath no hemoptysis Baldev Wolf MD [address] [facility], [address], [place], [address], [place] - [facility] 12/25/2022 08:51:56 03/12/2023 text/html Patient returns hip pain left. She has an arthritic left hip and is getting close to time for hip replacement. She would like to have 1 however BMI is over 40 at this point. She does have pain in the hip and groin it is worse with activity. Patient is status post total hip replacement on the right. She is 8 years out doing well she is here for follow-up with that hip. Miguelito Stauffer MD [address], [place], [address], [employer] 03/12/2023 11:44:31 03/19/2023 text/html Asthma stable dyslipidemia can not lose weight hypertension no headache no dizziness arthritis foot still bothers her she still working with Orthopedics and probably needs a joint replacement but they want to lose some weight for Baldev Wolf MD [address], [place], [address], [employer] 03/19/2023 22:49:34 07/20/2023 text/html Saw weight loss specialists lots of blood work that was done will get copies of. anxiety stable . Hypertension no chest pain or shortness of breath. Obesity has stated being put on medicines. Arthritis ortho recommended weight loss prior to any surgery. Asthma stable Baldev Wolf MD [address], [place], [address], [employer] 07/20/2023 22:41:17 OBGyn Episode No OBEpisode recorded.
--- OUTSIDE RECORDS SUMMARY | 2024-11-22 01:41 | XMS_ITS | Encounter Summary ---
Author Organization [facility] Address [address] [facility] [place] [address] Care Team Providers Care Application Support Technician Name Role Phone Didier Wolf MD Primary Care Provider [phone] Reason for Referral * Evaluate (Routine) - Closed Specialty Diagnoses / Procedures Referred By Francis t Referred To Contact Diagnoses Family history of breast cancer Meg Munoz MD [address] [facility] [address] [place] [address] Denise Ware, [facility] Referral ID Status Reason Start Date Expiration Date V isits Requested Visits Authorized [id number] Closed Specialty Services Required 09/05/2021 09/05/2022 99 99 URE WAXER Reason for Visit * Reason Onset Date Comments Genetic Counseling 09/05/2021 Encounter Details Date Type Department Care Team (Late st Contact Info) Description 09/05/2021 Telephone [facility] [address] [place] [address] Meg Munoz MD [address] [facility] [address] [place] [address] Genetic Counseling Social History Tobacco [...] Meg Munoz MD - 09/05/2021 12:46 PM DENTURE WAXER Would refer the patient to genetics as below. Genetics for breast cancer risk: Dr. Denise Ware at [facility] [phone] Meg Munoz MD URE WAXER * Telephone Encounter - Duyen Boone - 09/05/2021 11:29 AM CST Patient wanting to get genetic testing for breast cancer because daughter was just diagnosed and italso runs in the family. Daughter is also a patient of Dr Munoz. # [phone] URE WAXER documented in this encounter Plan of Treatment Scheduled Referrals Name Type Priority Associated Diagnoses Order Schedule Ref to Cancer Genetic Counseling - Yamileth Ware [facility] Outpatient Referral Routine Family history of breast cancer Ordered: 09/05/2021 documented as of this encounter Visit Diagnoses Diagnosis Family history of breast cancer- Primary Family history of malignant neoplasm of breast documented in this encounter Care Teams Application Support Technician Relationship Specialty Start Date End Date Didier Wolf MD PCP - General 12/01/17 documented as of this encounter
--- OUTSIDE RECORDS SUMMARY | 2024-11-22 01:41 | XMS_ITS | CONTINUITY OF CARE DOCUMENT ---
Author Name [email or web address] Address Unknown Organization [facility] Address [address] [facility] [address] [place] [address] Phone [phone] Care Team Providers Care Warehouse Sorter Name Role Phone Ann Marie TURCIOS, Josué Unavailable ROBERTO TURCIOS, JULIA Unavailable [phone] MARGARITA TURCIOS, BALDEV Amaya Unavailable INSURANCE PROVIDERS Payer name Policy type / Coverage type [place] red republican ID UHC MEDICARE COMPLETE O Other [id number]
[2024-11-22 02:12] VITALS: BP 122/81; PULSE 95; RESP 14; O2SAT 94
== END 2024-11-22 02:13 | disposition home or self-care (01) ==
PROVIDERS: Emergency Provider Student in an Organized Health Care Education/Training Program; PCP Internal Medicine
DX: M76.51 Patellar tendinitis, right knee (principal); M17.11 Unilateral primary osteoarthritis, right knee; I10 Essential (primary) hypertension; E78.5 Hyperlipidemia, unspecified; G47.33 Obstructive sleep apnea (adult) (pediatric); F32.A Depression, unspecified; Z96.652 Presence of left artificial knee joint; Z96.643 Presence of artificial hip joint, bilateral; Z90.2 Acquired absence of lung [part of]
CPT/HCPCS: 73564; 99283

== ENCOUNTER 2024-11-23 07:08 | Emergency (ER) | payer MEDICARE, SELFPAY ==
--- OUTSIDE RECORDS SUMMARY | 2024-11-23 07:13 | XMS_ITS | Clinical Summary ---
Author Organization [facility] Address [address] [facility] [place] [address] Care Team Providers Care Pairer Name Role Phone Didier Wolf MD Primary Care Provider [phone] Source Comments [facility],non-owned Affiliates and Associated Physician Practices is amultiple site organization consisting of ambulatory clinics and hospital sitesin [place], [place], [place] and [place]. This disclosure is being madepursuant to the Care Everywhere program and may not contain all information available regarding this patient. Last updated 18.[facility] Allergies No known active allergies Medications * [...] 1 11/26/2018 Active vitamin D, ergocalciferol, (DRISDOL) 19784 units capsule TAKE ONE CAPSULE BY MOUTH [...] COVID-19 VACCINE ( season) 2024 12/06/2021, 06/20/2021 DEPRESSION SCREENING 08/24/2024 MEDICARE AWV CALENDAR YEAR 2024 INFLUENZA VACCINE (Season Ended) 2025 05/24/2020, 04/22/2018, 06/12/2017, Additional history exists HEPATITIS B VACCINE Aged Out No longe [...] Recently Relevant to Health Maintenance Care Teams Pairer Relationship Specialty Start Date End Date Didier Wolf MD PCP - General 12/01/17
--- OUTSIDE RECORDS SUMMARY | 2024-11-23 07:13 | XMS_ITS | Referral Summary ---
Author Organization [facility] Address [address] [place] [address] Care Team Providers Care Service Officer Name Role Phone Didier Wolf MD Primary Care Provider [phone] Encounters Date Type Department Care Team Description 11/22/2024 11:15 AM CDT Lab [facility] ([facility]) [address] [place] [address] Other specified abnormal immunological findings in serum 11/22/2024 9:00 AM CDT Office Visit [facility] Rheumatology [address] [facility] 5[address] [place] [address] [place] [address] Satish Espinosa MD PhD Other specified abnormal immunological findings in serum from Last 3 Months Allergies Active Allergy Reactions Criticality Noted Date Comments Avocado Stomach upset,Unknown Low 12/28/2023 Banana Extract Stomach upset,Unknown Low 12/28/2023 Medications flu vac [id number],36mo s,up,/PF (FLUARIX QUAD 3619-1937, PF, IM) Fluarix Quad 4838-3199 (PF) 60 mcg (15 mcg x 4)/0.5 [...] mg total) by mouth every morning Active ketorolac (TORADOL) 10 mg tablet 5 Active Active Problems Problem Noted Date Diagnosed [...] 6 months. New lab orders sent to [facility]. Continue low-carb (<150 g/day), low-glycemic diet. Assessment [...] w/r/t gut microbiome. Referred to ADA and [employer] websites for additional information on topics [...] interventions as discussed. Follow up with Dr. Torrse in [x] 1 month; [] 2 months; [...] Date Smoking Tobacco: Never Smokeless Tobacco: Never Tobacco Cessation:Counseling Given: Not Answered Comments Unknown Sex and Gender Information Value Date Recorded Sex Assigned at Not on file Legal Sex Female 12:45 PM CDT Gender Identity Not on file Sexual Orientation Straight 05/04/2023 12 :18 PM CDT Last Filed Vital Signs Vital Sign Reading Time Taken Comments Blood Pressure 119/82 11/22/2024 9:25 AM CDT Pulse 104 11/22/2024 9:25 AM CDT Temperature - - Respiratory Rate - - Oxygen Saturation 99% 11/22/2024 9:25 AM CDT Inhaled Oxygen Concentration - - Weight 108.1 kg (238 lb 6.4 oz) 11/22/2024 9:25 AM CDT Height 162.6 cm (5' 4 ) 11/22/2024 9:25 AM CDT Body Mass Index 40.92 11/22/2024 9:25 AM CDT Plan of Treatment Not on file Procedures Procedure Name Priority Date/Time Associated Diagnosis Comments CELSO ANTIBODY EVALUATION WITH REFLEX Routine 11/22/2024 10:19 AM CDT Other specified abnormal immunological findings in serum from Last 3 Months Results * CELSO ab eval w/reflex (11/22/2024 10:19 AM CDT) CELSO ab Negative Negative Comment: Interpretive Data Positive Screens will be reflexed to specific testing for Antibodies against the following antigens: Shirley-1 Ab, RN INTERN Ab, Scl-70 Ab, Brady Ab, SS-A/Ro Ab, and SS- B/La Ab. Further testing for dsDNA, Centromere, or Ribosomal P antibodies is suggested in patient with a positive screen and negative specific antibodies. Current interpretive data was last revised on 2023. Blood 11/22/2024 10:1 9 AM CDT 11/22/2024 11:11 AM CDT us Satish Espinosa MD PhD LAB BLOOD ORDERABLE S Final Result [facility] [address] [facility] [place] [address] from Last 3 Months Insurance [address] MEDICARE ADVANTAGE [facility] Address: [address] [address] [place] [phone] [address] H[address] REF [facility] MED[facility] Address: [address] [address] [place] [phone] MEDICARE ADVANTAGE [facility] Address: [address] [address] [place] [phone] Care Teams Service Officer Relationship Specialty Start Date End Date Didier Wolf MD PCP - General Internal Medicine 02/21/19
--- OUTSIDE RECORDS SUMMARY | 2024-11-23 07:13 | XMS_ITS ---
Author Organization [facility] Address [address] [place] [address] Care Team Providers Care Compliance Specialist Name Role Phone Didier Wolf MD Primary Care Provider Unavaila Bonnie Holley Unavailable [phone] Sol Gonzalez Unavailable [phone] Allergies Allergen (clinical drug ingredient) Drug/Non Drug [...] MCG/DOSE BLISTR POWDR FOR INHALATION *Reorder from [facility] for eRx and Interaction Alerts* 12/28/2023 Active Ergocalciferol 1.25 MG (29599 UT) Oral 12/28/2023 Active Primidone 50 MG [...] 10/06/2024 Encounters Encounter Location Date Provider Diagnosis [facility] [address] [place] [address] 10/06/2024 Sol Gonzalez Major depressive disorder, recurrent, [...] anxiety Provider Name:Bonnie keene, 01/03/2025 02:00:00 PM, [facility] [facility] [address], [facility] [address], [place], [address], Progress Notes * HOOD MARKOB: 2 (74 yo F)Acc No.[id number]:10/06/2024 Patient: Jane GLADIS VALENZUELA Provider: Willy GONZALEZ MD :1950 A ge:74 Y S ex:Female Date:10/06/2024 Address:[address] [place] [address] Pcp:Didier Wolf MD Subjective: * Chief Complaints: [...] transition of care to new provider at [facility] since I am leaving private practice. P [...] Yes. * Surgical History: A nkle arthroscopy/surgery (03595) , Hip arthroscopy dx (23780) , Knee arthroscopy/surgery (01145) lt , Lung excision ([id number]) , Other , Left hip replacement 01/11/2024. [...] INHALATION , Notes to Pharmacist: *Reorder from [facility] for eRx and Interaction Alerts*, Taking Ergocalciferol 1.25 MG (09363 UT) Capsule Oral , Taking Primidone 50 [...] NORMAL BP READING DOC F/U NOT RQR, 73444 PSYCHOTHERAPY W/PATIENT W/E&M SRVCS 30 MIN, G8752 MOST RECENT SYSTOLIC BP < 140MM HG, G8754 MOST RECENT DIASTOLIC BP < 90MM HG * Follow Up: 3 Months (Reason: depression, anxiety) * Billing Information: * Visit Code: 29426 OFFICE OUTPATIENT VISIT 25 MINUTES DETAILED HISTORY AND EXAM/MODERATE MEDICAL DECISION MAKING. * Procedure Codes: 29967 BEHAV ASSMT W/SCORE & DOCD/STAND INSTRUMENT. G8733 DOC ELDER MALTX SCR&DOC PLAN TM SCR. G8734 ELDER MALTX SCR DOC NEG NO F/U RQR. G8783 NORMAL BP READING DOC F/U NOT RQR. 24749 PSYCHOTHERAPY W/PATIENT W/E&M SRVCS 30 MIN. G8752 MOST RECENT SYSTOLIC BP < 140MM HG. G8754 MOST RECENT DIASTOLIC BP < 90MM HG. * OGRAPHIC EDITOR Sign off status: Completed true * Provider: Willy GONZALEZ MD Date: 0 10/06/2024 Generated for Ladonna vela/Erum/eTransmitting on: 0 11/23/2024 07:12 AM CDT History and Physical Notes * [...] transition of care to new provider at [facility] since I am leaving private practice Depression [...]
--- OUTSIDE RECORDS SUMMARY | 2024-11-23 07:14 | XMS_ITS | CONTINUITY OF CARE DOCUMENT ---
Author Name [email or web address] Address Unknown Organization [facility] Address [address] [place] [address] Phone [phone] Care Team Providers Care Rehabilitation Assistant Name Role Phone Ann Marie TURCIOS, Josué Unavailable ROBERTO TURCIOS, JULIA Unavailable [phone] MARGARITA TURCIOS, BALDEV Amaya Unavailable INSURANCE PROVIDERS Payer name Policy type / Coverage type [place] red republican ID UHC MEDICARE COMPLETE O Other [id number]
--- OUTSIDE RECORDS SUMMARY | 2024-11-23 07:14 | XMS_ITS | Encounter Summary ---
Author Organization [facility] Address [address] [place] [address] Care Team Providers Care Silver Solderer Name Role Phone Didier Wolf MD Primary Care Provider [phone] Reason for Referral * Evaluate (Routine) - Closed Specialty Diagnoses / Procedures Referred By Francis t Referred To Contact Diagnoses Family history of breast cancer Meg Munoz MD [address] [facility] [address] [place] [address] Denise Ware, RETORT FI[employer]MAN-[facility] Referral ID Status Reason Start Date Expiration Date V isits Requested Visits Authorized [id number] Closed Specialty Services Required 09/05/2021 09/05/2022 99 99 PRODUCTION WORKER Reason for Visit * Reason Onset Date Comments Genetic Counseling 09/05/2021 Encounter Details Date Type Department Care Team (Late st Contact Info) Description 09/05/2021 Telephone [facility] [address] [place] [address] Meg Munoz MD [address] [facility] [address] [place] [address] Genetic Counseling Social History Tobacco [...] Meg Munoz MD - 09/05/2021 12:46 PM RACK PRODUCTION WORKER Would refer the patient to genetics as below. Genetics for breast cancer risk: Dr. Denise Ware at [facility] [phone] Meg Munoz MD PRODUCTION WORKER * Telephone Encounter - Duyen Boone - 09/05/2021 11:29 AM CST Patient wanting to get genetic testing for breast cancer because daughter was just diagnosed and italso runs in the family. Daughter is also a patient of Dr Munoz. # [phone] PRODUCTION WORKER documented in this encounter Plan of Treatment Scheduled Referrals Name Type Priority Associated Diagnoses Order Schedule Ref to Cancer Genetic Counseling - Yamileth Ware [facility] Outpatient Referral Routine Family history of breast cancer Ordered: 09/05/2021 documented as of this encounter Visit Diagnoses Diagnosis Family history of breast cancer- Primary Family history of malignant neoplasm of breast documented in this encounter Care Teams Silver Solderer Relationship Specialty Start Date End Date Didier Wolf MD PCP - General 12/01/17 documented as of this encounter
--- OUTSIDE RECORDS SUMMARY | 2024-11-23 07:14 | XMS_ITS | Continuity of Care Document ---
Author Organization [facility] Address [address] [place] [address] Phone Care Team Providers Care Doughnut Icer Name Role Phone Benito Oconnell MD Unavailable Unavailable Advance Directives Directive Yes / No Effective Date File Name No Information Encounters Encounter Description Practice Location Reason(s) For Visit Diagnoses Date Provider Providers Copied on Encounter [facility], [address] [facility], [place], [place], [address], tel:[phone] [facility] No Information Anish Oliver. [address], [place], [address], [place]. tel:[phone] Referring Provider: Anson Flores, [address], [place], [address]. tel:[phone] [facility] [address] [facility], [place], [place], [address], tel:[phone] [facility] SCREEN MAMMOGRAM NEC Geri Hernandez. [address], [place], [place], [address]. tel:[phone] [facility] [address] [facility], [place], [place], [address], tel:[phone] [facility] ASYMPT POSTMENO STATUSLUMP OR MASS IN BREAST No Information [facility] [address] [facility], [place], [place], [address], tel:[phone] [facility] ABDMNAL TNDR LT LWR QUADOTH ADV EFF MED/BIO SUB Tila Heller. [address], [place], [place], [address], [place]. tel:[phone] Family History Family Member Type Diagnosis Age At Onset No Information Payers Payer name Insurance type Covered republican ID Ruth amaya(s) [facility] [id number] Social History Type Description Quantity Date Captured [...]
--- OUTSIDE RECORDS SUMMARY | 2024-11-23 07:14 | XMS_ITS ---
Author Organization [facility] [employer] Address [facility] [address] [place] [address] Care Team Providers Care Instructional Coordinator Name Role Phone Didier Wolf MD Primary Care Provider Bonnie Santos Unavailable [phone] Walter Parada Unavailable [phone] REASON FOR VISIT phq less than 5, major depression and anxiety Medications Medication SIG (Take, Route, Frequency, Duration) Notes Start Date End Date Status Atorvastatin Calcium 10 MG Oral 12/28/2023 Active ProAir HFA 108 (90 Base) MCG/ACT Inhalation 12/28/2023 Active hydroCHLOROthiazide 25 MG Oral 12/28/2023 Active FLUTICASONE 250 MCG-SALMETEROL 50 MCG/DOSE BLISTR POWDR FOR INHALATION *Reorder from [facility] for eRx and Interaction Alerts* 12/28/2023 Active Ergocalciferol 1.25 MG (58116 UT) Oral 12/28/2023 Active Wellbutrin XL 150 [...] Female Encounters Encounter Location Date Provider Diagnosis [facility], [facility] [address] [facility] [address] [place] [address] 06/29/2024 Walter Parada Generalized anxiety disorder F41.1 [...] Reason: Provider Name:Bonnie keene, 01/03/2025 02:00:00 PM, [address], [facility] [address], [place], [address], Progress Notes * HOOD MARKOB: 2 (74 yo F)Acc No.[id number]:06/29/2024 Patient: Jane GLADIS VALENZUELA Provider: Jane Parada LCPC :1950 A ge:74 Y S ex:Female Date:06/29/2024 [address] [facility] Pcp:Didier Wolf MD Data: * Time Tracker: [...] Walter . 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 / [...] INHALATION , Notes to Pharmacist: *Reorder from [facility] for eRx and Interaction Alerts*Ergocalciferol 1.25 MG (78812 UT) Capsule Oral Olmesartan Medoxomil 40 MG [...] INHALATION , Notes to Pharmacist: *Reorder from [facility] for eRx and Interaction Alerts*Taking Ergocalciferol 1.25 MG (32425 UT) Capsule Oral Taking Olmesartan Medoxomil 40 [...] 9 6127 BEHAV ASSMT W/SCORE & DOCD/STAND [id number] PSYCHOTHERAPY W/PATIENT 45 MINUTES * Follow Up: 2 months * Billing Information: * Visit Code: * Procedure Codes: 35540 BEHAV ASSMT W/SCORE & DOCD/STAND INSTRUMENT. 35686 PSYCHOTHERAPY W/PATIENT 45 MINUTES. * TECHNICIAN Sign off status: Completed Signatures: No Ad Hoc Signature Added true * Provider: Jane Parada LCPC Date: 08/29/2023 Generated for Ladonna vela/Erum/Vickyitting on: 11/23/2024 07:13 AM CDT History and Physical Notes * [...] currently seeing Walter . 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 Current probation / parole no [...] Total: (0 to 4) No Anx iety [place]-Suicide Severity Rating Scale Suicide Risk (CSRS-screener) in the past one month Have you wished you were or wished you could go to sleep and not wake up?: No in the past one month Have y ou actually had any thoughts of killing yourself?: No
--- OUTSIDE RECORDS SUMMARY | 2024-11-23 07:14 | XMS_ITS | Data Portability ---
Author Organization [place] - [facility], Main Office Address [address] [place] [address] Care Team Providers Care Creeler Name Role Phone BALDEV WOLF Primary Care Provider BALDEV WOLF Referring Provider [phone] Assessment Encounter Date Assessment Date Assessment LastModified by Organization Details LastModified Time 12/24/2022 12/24/2022 Cough doxycycline for a week Done divide his eyedrops no contacts for 2 weeks she is going to check in by phone in 4-5 days because that she is not improving with her eyes I told her I want to go see the eye doctor [email or web address] Not available 12/25/2022 08:51:35 03/12/2023 03/12/2023 Patient presents hip pain left. She has an arthritic left hip and is udcr-ur-jlos at this time. She has pain with [...] me in 4 months all questions answered [email or web address] Not available 03/19/2023 22:49:18 07/20/2023 07/20/2023 Blood work show A1c of 5.0 LDL of 80 minimally anemic vitamin-D level look continue current therapy follow-up 4 months. [email or web address] Not available 07/20/2023 22:40:59 Plan of Treatment Reminders Order Date Submit Date Provider Last Modified By Organization Details Last Modified Time Details Appointments None recorded. Lab None recorded. Referral None recorded. Procedures None recorded. Surgeries None recorded. Imaging XR, hip + pelvis, unilateral, 2 or 3 view 2022 023 [email or web address] 158 [facility] [place], [address] [facility] [address], [place], [address], 11:42:24 Medication Orders TobraDex 0.3 %-0.1 % eye drops,suspe nsion 2022 023 [email or web address] 3 [facility], [address] [place], [address], 11:00:11 doxycycline hyclate 100 mg tablet 2022 023 [email or web address] 3 [facility]25[facility], [address] [place], [address], 10:59:57 Patient TargetsNo targets recorded. Patient InstructionsNo instructions recorded. Reason for Referral None Reported. Results Created Date Observation Date Name Description Value Unit Range Abnormal Flag Note LastModifiedBy Organization Detail LastModifiedTime 09/22/1909/05/2022 mihai r monit or No observ ation record ed. [id number] [facility] [address], [place], [address], 10/22/2022 06:09:13 11/05/19 23 09/22/2022 cardi ac monit or No observ ation record ed. cyahl Not Available 2022 16:23:42 03/06/20 23 XR, foot [facility] [address] [facility] [place] [address] [phone] Dominick hooker Name: LOUISE OROZCO Access ion #: [id number] Sex: F : 1949 1 Locati [...] tibia sugges tive Page 1 [facility] 2 [facility] Dominick hooker Name: LOUISE OROZCO ion #: [id number] Sex: F : 1949 1 Exam [...] 2:52 PM (CT) Page 2 of 2 [facility] (Imaging) [address] [facility], [place], [address], 03/20/2023 13:58:20 03/12/20 23 XR, hip + pelvi s, unila teral , 2 or 3 view No observ ation record ed. [email or web address] [facility] [place] [address], [place], [address], 03/12/2023 11:42:23 Result Notes None recorded. Problems Name Problem SNOMED Code Status Onset Date Resolution Date Notes Provider Name and Address Organization Details Recorded Time Spinal enthesopa thy 44871437 Active Not Available [facility] 3 09:44:19 Arthritis of left hip 53988219375 08248 Active 2020 Not Available [facility] 3 09:44:19 Arthritis of left knee 35997707813 78741 Active 2020 Not Available [facility] 3 09:44:19 History of left total knee replaceme nt 74479943238 25987 Active 2020 Not Available [facility] 3 09:44:19 History of total knee arthropla sty 54701983914 05 Active 2021 Not Available [facility] 3 09:44:19 Pain in right sacroilia c joint 63852931473 523715 Active 2021 Not Available [facility] 3 09:44:19 Disorder of sacrum 21899816 Active Not Available [facility] 3 09:44:19 Recurrent urinary tract infection 631671455 Active 2021 Not Available [facility] 3 09:44:19 Localized , primary osteoarth ritis of the hand 033841335 Active Not Available [facility] 3 09:44:19 Localized , primary osteoarth 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 289743601 Active Not Available [facility] 3 09:44:19 Wrist joint pain 780529939 Active Not Available [facility] 3 09:44:19 Sciatica 88238124 Active 2021 Not Available [facility] 3 09:44:19 Osteoarth ritis of hip 646700584 Active Not Available [facility] 3 09:44:19 Osteoarth ritis of knee 601359156 Active Not Available [facility] 3 09:44:19 Low back pain 470377233 Active 2021 Not Available [facility] 3 09:44:19 Enthesopa thy of hip region 34737923 Active Not Available [facility] 3 09:44:19 Localized , primary osteoarth ritis of elbow 834227129 Active Not Available [facility] 3 09:44:19 Pain of left hip joint 84690479665 9100 Active 2020 Not Available [facility] 3 09:44:19 Trochante dhiraj bursitis of left hip 36584576061 9103 Active 2020 Not Available [facility] 3 09:44:19 Tachycard ia 5020545 Active 2022 Not Available [facility] 3 09:44:19 Vitamin D deficienc y 40143191 Active 2018 Not Available [facility] 3 09:44:19 Closed fracture of metatarsa l bone 93565075 Active Not Available [facility] 3 09:44:19 Sinusitis 64643536 Completed Not Available [facility] 3 06:02:39 Dyslipide hanh 593106484 Active 2020 Not Available [facility] 3 09:44:19 Osteoarth ritis 809691282 Active Not Available [facility] 3 09:44:19 Obesity 167550196 Active Not Available [facility] 3 09:44:19 Disorder of wrist joint 594990083 Active Not Available [facility] 3 09:44:19 Asymmetri stephanie sensorine ural hearing loss 741588962 Active 2021 Not Available [facility] 3 09:44:19 Acute urinary tract infection 893460298 Active 2021 Not Available [facility] 3 09:44:19 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 93156192832 4100 Active 2021 Not Available [facility] 3 09:44:19 Tinnitus of left ear 01493208595 06 Active 2021 Not Available [facility] 3 09:44:19 Anxiety 50392136 Active 2016 Not Available [facility] 3 09:44:19 Hip pain 14296059 Active Not Available [facility] 3 09:44:19 Cough 58738384 Completed CLEMENTE Holloway [place] [employer] [facility] 3 11:29:07 Essential hypertens ion 05464195 Active Not Available [facility] 3 09:44:20 Derangeme nt of knee 64226995 Active Not Available [facility] 3 09:44:20 Obstructi ve sleep apnea syndrome 26001814 Active Not Available [facility] 3 09:44:20 Pain in limb 43733042 Active Not Available [facility] 3 09:44:20 Upper respirato ry infection 41312652 Active 2022 Not Available [facility] 3 09:44:20 Cough 80091833 Active 2022 Not Available [facility] 3 09:44:19 Acute conjuncti vitis 59755156 Active 2022 Not Available [facility] 3 09:44:20 Sore mouth 068675231 Active 2022 Not Available [facility] 3 09:44:19 Foot pain 28015613 Active 2022 Not Available [facility] 3 09:44:19 Osteoarth ritis of left hip joint 67288602963 9108 Active 2022 Not Available [facility] 3 09:44:19 Morbid obesity 315057672 Active 2022 Not Available [facility] 3 09:44:19 Asthma 320813905 Active 2022 Not Available [facility] 3 09:44:19 Notes:Some problems listed i n Document: #[id number] could not be added to this patient's chart. Please review this document and add these problems to the patient's chart manually as needed. Problem Notes None recorded. Procedures Surgical History Date Name Laterality Status Provider Name and Address Organization Details Recorded Time 08/30/19 21 Most Recent Bone Density completed Not Available [facility] 10/22/2022 05:56:24 09/02/19 18 Total knee arthroplasty completed Not Available [facility] 10/22/2022 05:56:31 07/18/20 15 Total hip arthroplasty completed Not Available [facility] 10/22/2022 05:56:31 08/30/19 15 Date of Last Colonoscopy completed Not Available [facility] 10/22/2022 05:56:24 08/30/19 15 Colonoscopy completed Not Available [facility] 10/23/19 23 05:56:31 08/24/18 99 lobectomy of the lung and excisional biopsies completed Jaelyn Gutierrez [facility] 03/12/2023 11:01:16 Ankle Surgery completed Not Available [facility] 10/22/2022 05:56:31 Imaging Results Imaging Date Name Status LastModified by [facility]iz [facility] Details LastModified Time 09/05/2022 holter monitor completed [id number] [facility] [address], [place], [address], 10/22/2022 06:09:13 09/22/2022 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, [place], [address], 03/12/2023 11:42:23 Procedure Notes None recorded. Medical Equipment None Reported. Allergies Allergen ID Allergen Name Allergen Category Reaction Reaction Severity Criticality Documentation Date Start Date Code Code System Note Provider Name and Address Organization Details Recorded Time 57782 banana extract food,medi cation abdominal pain Not available Not available 10/22/2022 66140 9 RxNorm Not Available [facility] 3 06:08:51 76296 avocado allergeni c extract food abdominal pain Not available Not available 10/22/2022 29736 2 RxNorm Not Available [facility] 3 06:08:51 Medications Name Sig Start Date [...] Available Not Available Not Available Fluarix Quad 0224-3419 (PF) 60 mcg (15 mcg x 4)/0.5 mL IM syringe TO BE ADMINISTE RED BY PHARMACIS T FOR IMMUNIZAT ION active Not Available Not Available No t Available Fluarix Quad 7849-5005 (PF) 60 mcg (15 mcg x 4)/0.5 mL IM syringe TO BE ADMINISTE RED BY PHARMACIS T FOR IMMUNIZAT ION 11/20 completed Not Available Not Available Not Available Fluzone High-Dose 0887-5015 (PF) 180 mcg/0.5 mL intramuscul ar syringe TO BE ADMINISTE RED BY PHARMACIS T FOR IMMUNIZAT ION active Not Available Not Available No t Available Shingrix (PF) 50 mcg/0.5 mL intramuscul ar suspension, kit 10/06 completed Not Available Not Available Not Available Fluzone High-Dose 8624-1096 (PF) 180 mcg/0.5 mL intramuscul ar syringe active Not Available Not Available N ot Available Fluzone High-Dose (PF) 180 mcg/0.5 mL intramuscul ar syringe TO BE ADMINISTE RED BY PHARMACIS T FOR IMMUNIZAT ION active Not Available Not Available No t Available Fluad Quad 6042-7473(6 5yr up)(PF) 60 mcg (15 mcg x [...] 160.02 cm 0 69 /min 97.7 [degF] 776520. 58 g 118 mm[Hg] 78 mm[Hg] Not Available [facility] 3 05:56:56 Date Recorded Body height Body mass index (BMI) Body weight Body temperature Heart rate Systolic blood pressure Diastolic blood pressure Provider Name and Address Organization Details Last Updated DateTime 3 160.02 cm 42.2 kg/m2 378280. 98 g 97.3 [degF] 70 /min 118 mm[Hg] 78 mm[Hg] CLEMENTE Byrd [employer] 3 10:43:03 Date Recorded Body height Body mass index (BMI) Body weight Provider Name and Address Organization Details Last Updated DateTime 03/12/2023 160.02 cm 40.7 kg/m2 610987.25 g Jaelyn Silvano Marakana [facility] 03/12/2023 10:59:25 Date Recorded Body height Body mass index (BMI) Body weight Body temperature Heart rate Systolic blood pressure Diastolic blood pressure Provider Name and Address Organization Details Last Updated DateTime 3 160.02 cm 41.3 kg/m2 520077. 02 g 97.7 [degF] 60 /min 124 mm[Hg] 84 mm[Hg] Amarilys Diaz [employer] 3 11:22:43 Date Recorded Body height Body mass index (BMI) Body weight Body temperature Heart rate Systolic blood pressure Diastolic blood pressure Provider Name and Address Organization Details Last Updated DateTime 3 160.02 cm 40.2 kg/m2 416592. 47 g 98.9 [degF] 59 /min 130 mm[Hg] 88 mm[Hg] CLEMENTE Byrd [employer] [facility] 3 12:40:55 Social History Question Answer Notes LastModified by Organization Details LastModified Time Tobacco Smoking Status Never Smoker Not Available [facility] 10/22/2022 05:53:42 Do You Have An Advance Directive? Yes MIGRATION.300 539222 Information not available 10/22/2022 What Is Your Level Of Alcohol Consumption? Occasional MIGRATION.0301 594168 Information not available 10/22/2022 Are You Blind Or Do You Have Difficulty Seeing? No MIGRATION.0301 442807 Information not available 10/22/2022 What Is Your Level Of Caffeine Consumption? Heavy MIGRATION.0301 059868 Information not available 10/22/2022 How Much Tobacco Do You Chew? None MIGRATION.0301 039320 Information not available 10/22/2022 In The 14 Days Before Symptom Onset, Have You Had Close Contact With A Laboratory-confi rmed COVID-19 While That Case Was Ill? No MIGRATION.0301 732550 Information not available 10/22/2022 In The 14 Days Before Symptom Onset, Have You Had Close Contact With A Person Who Is Under Investigation For COVID-19 While That Person Was Ill? No MIGRATION.0301 842706 Information not available 10/22/2022 Are You Deaf Or Do You Have Serious Difficulty Hearing? Yes In Left Ear Getting Hearing Aid MIGRATION.030 792411 Information not available 10/22/2022 What Type Of Diet Are You Following? REGULAR MIGRATION.030 853051 Information not available 10/22/2022 Which Illicit Or Recreational Drugs Have You Used? None MIGRATION.030 750697 Information not available 10/22/2022 Do You Or Have You Ever Used E-cigarettes Or Vape? Never Used Electronic Cigarettes MIGRATION.030 101446 Information not available 10/22/2022 What Is The Highest Grade Or Level Of School You Have Completed Or The Highest Degree You Have Received? JA60510-2 MIGRATION.030 444424 Information not available 10/22/2022 What Is Your Occupation? Retired MIGRATION.030 219820 Information not available 10/22/2022 Have There Been Any Changes To Your Family Or Social Situation? No MIGRATION.0301 043690 Information not available 10/22/2022 What Is The Fluoride Status Of Your Home? Unknown MIGRATION.0301 335511 Information not available 10/22/2022 Are There Any Guns Present In Your Home? Yes MIGRATION.0301 113547 Information not available 10/22/2022 Do You Use Insect Repellent Routinely? No MIGRATION.0301 773704 Information not available 10/22/2022 Where [facility] You Live? 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 Yes MIGRATION.0301 455695 Information not available 10/22/2022 What Was The Date Of Your Most Recent Tobacco Screening? 07/20/2023 [email or web address] Information not available 07/20/2023 Have You Ever Been Counseled For Unhealthy Alcohol Use? No MIGRATION.0301 119276 Information not available 10/22/2022 Do You Have Any Pets? No MIGRATION.0301 380748 Information not available 10/22/2022 What Is Your Relationship Status? MIGRATION.0301 730748 Information not available 10/22/2022 Do You Use Your Seat Belt Or Car Seat Routinely? Yes MIGRATION.0301 230078 Information not available 10/22/2022 Do You Have Smoke And Carbon Monoxide Detectors In Your Home? Yes MIGRATION.0301 013866 Information not available 10/22/2022 Are You Passively Exposed To Smoke? No MIGRATION.0301 501375 Information not available 10/22/2022 Do You Or Have You Ever Used Smokeless Tobacco? Never Used Smokeless Tobacco MIGRATION.0301 437725 Information not available 10/22/2022 Are There Any Smokers In Your House? No MIGRATION.0301 040992 Information not available 10/22/2022 How Much Tobacco Do You Smoke? No MIGRATION.0301 482761 Information not available 10/22/2022 What Types Of Sporting Activities Do You Participate In? None MIGRATION.0301 420943 Information not available 10/22/2022 Do You Feel Stressed (tense, Restless, Nervous, Or Anxious, Or Unable To Sleep At Night)? [id number] MIGRATION.0301 377732 Information not available 10/22/2022 Do You Use Any Illicit Or Recreational Drugs? No MIGRATION.0301 878486 Information not available 10/22/2022 Do You Use Sunscreen Routinely? Yes MIGRATION.0301 982818 Information not available 10/22/2022 Has Tobacco Cessation Counseling Been Provided? No Not Needed-ne arnav Smoked MIGRATION.0301 418779 Information not available 10/22/2022 How Many Years Have You Smoked Tobacco? 0 MIGRATION.0301 224014 Information not available 10/22/2022 Have You Recently Traveled Abroad? No MIGRATION.0301 735413 Information not available 10/22/2022 Do You Have Any Dietary Restrictions? No MIGRATION.0301 062969 Information not available 10/22/2022 Do You Or Have You Ever Used Any Other Forms Of Tobacco Or Nicotine? No MIGRATION.0301 316478 Information not available 10/22/2022 Sex: Female Functional Status Question Answer Note LastModified by Organizat [place] Details LastModified Time Do you have difficulty walking or climbing stairs? No MIGRATION.636350 1064 Information not available 10/22/2022 Do you have transportation difficulties? No MIGRATION.263395 4530 Information not available 10/22/2022 Are you able to walk? YESWOREST MIGRATION.592125 2948 Information not available 10/22/2022 Do you have difficulty doing errands alone? No MIGRATION.211072 8913 Information not available 10/22/2022 Are you able to care for yourself? Yes MIGRATION.882957 7644 Information not available 10/22/2022 Do you have difficulty dressing or bathing? No MIGRATION.381082 4705 Information not available 10/22/2022 What is your exercise level? Moderate goes to gym weekly MIGRATION.762353 5787 Information not available 10/22/2022 Mental Status Question Answer Note LastModified by Organizat ion Details LastModified Time Do you have difficulty concentrating, remembering or making decisions? No MIGRATION.792710323 6 Information not available 10/22/2022 Family History Relationship Description Onset Age of this Age Resolved Age Notes LastModified by Organization Details LastModified Time Unspecified Relation Hypertensive disorder MIGRATION.126 1782190 Not available 10/22/2022 05:56:32 Father Heart disease MIGRATION.828 3287882 Not available 10/22/2022 05:56:32 Mother Anxiety disorder MIGRATION.883 2015781 Not available 10/22/2022 05:56:32 Mother Dementia MIGRATION.533 4752663 Not available 10/22/2022 05:56:32 Brother Cerebrovascu lar accident MIGRATION.104 2753334 Not available 10/22/2022 05:56:33 Sister Family history of malignant neoplasm MIGRATION.294 1386321 Not available 10/22/2022 05:56:33 Notes:NO ENT HISTORY Medical History Condition Response NERVE DISEASE N BLINDNESS N RHEUMATIC FEVER N KIDNEY STONES N BLADDER PROBLEMS N MRSA N OTHER # 1 N POLIO N LUNG DISEASE/DISORDER N COPD N RADIATION / CHEMOTHERAPY N Other # 2 N BLOOD DISEASES N EAR OR HEARING PROBLEMS N MUMPS N DEPRESSION (INCLUDING POST ) Y BOWEL PROBLEMS N STROKE/TIA N ULCERS N BENIGN PROSTATIC HYPERPLASIA [...] influenza, unspecified formulation 3 completed CLEMENTE Holloway, [facility] 06/08/2023 16:23:09 SARS-COV-2 (COVID-19) vaccine, UNSPECIFIED 3 completed CLEMENTE Holloway, [facility] [employer] [facility] 06/08/2023 16:23:19 Respiratory syncytial virus (RSV) MAB, unspecified 3 completed CLEMENTE Holloway, [place] [facility] 08/10/2023 10:26:58 Influenza, high-dose, quadrivalent, PF 1 completed Not Available [facility] 03/14/2023 06:33:23 Influenza, split virus, trivalent, preservative 0 completed Not Available [facility] 03/14/2023 06:33:23 pneumococcal polysaccharide PPV23 9 completed Not Available [facility] 03/14/2023 06:33:23 Influenza, high-dose, quadrivalent, PF 9 completed Not Available [facility] 03/14/2023 06:33:23 zoster live 8 completed Not Available [facility] 03/14/2023 06:33:23 influenza, unspecified formulation 8 completed Not Available [facility] 03/14/2023 06:33:23 zoster live 8 completed Not Available [facility] 03/14/2023 06:33:23 Pneumococcal conjugate PCV 13 8 completed Not Available [facility] 03/14/2023 06:33:23 Influenza, high-dose, trivalent, PF 7 completed Not Available [facility] 03/14/2023 06:33:23 Influenza, split virus, quadrivalent, preservative 6 completed Not Available [facility] 03/14/2023 06:33:23 COVID-19, mRNA, LNP-S, PF, 30 mcg/0.3 mL dose 2 completed Not Available [facility] 03/14/2023 06:33:23 Influenza, split virus, trivalent, preservative 2 completed Not Available [facility] 03/14/2023 06:33:23 COVID-19, mRNA, LNP-S, PF, 30 mcg/0.3 mL dose 2 completed Not Available [facility] 03/14/2023 06:33:23 COVID-19, mRNA, LNP-S, PF, 30 mcg/0.3 mL dose 1 completed Not Available [facility] 03/14/2023 06:33:23 influenza, unspecified formulation 5 completed Not Available [facility] 03/14/2023 06:33:23 Influenza, split virus, trivalent, PF 4 completed Not Available [facility] 03/14/2023 06:33:23 Past Encounters Encounter ID Performer Location Encounter Start Date Encounter Closed Date Diagnosis/Indication Diagnosis SNOMED-CT Code Diagnosis ICD10 Code Diagnosis Note [id number] [facility] [place] [address] [place] [address] 11/22/2020 00:00:00 11/22/2020 11:17:50 [id number] [facility] [place] [address] [place] [address] 12/20/2020 00:00:00 01/10/2021 15:44:36 [id number] [facility] [address] [address] 03/01/2021 00:00:00 03/02/2021 15:56:51 [id number] [facility] [place] [address] [place] [address] 03/12/2021 00:00:00 03/12/2021 15:27:35 [id number] [facility] [place] [address] [place] [address] 04/04/2021 00:00:00 04/04/2021 10:57:26 [id number] [facility] [address] [address] 06/28/2021 00:00:00 07/07/2021 22:02:58 [id number] [facility] [address] [place] [address] [address] [address] 09/20/2021 00:00:00 09/20/2021 14:01:30 [id number] [facility] [address] [place] [address] [address]ana., [address] [address] 10/25/2021 00:00:00 11/17/2021 17:11:19 [id number] [facility] [place] [address] [place] [address] 12/02/2021 00:00:00 12/02/2021 09:59:09 [id number] [facility] [address] [place] [address] 04/23/2022 00:00:00 04/23/2022 23:06:16 [id number] [facility] [place] [address] [place] [address] 05/27/2022 00:00:00 05/27/2022 15:24:55 [id number] [facility] [address] [address] 08/27/2022 00:00:00 08/28/2022 20:55:04 [id number] Baldev Wolf MD [facility] [address] [address] 12/24/2022 10:32:44 12/24/2022 11:19:14 Cough 78444137 R05.9 Acute conjunctivitis 537 75998 H10.33 [id number] Miguelito Stauffer MD [facility] [place] [address] [place] [address] 03/12/2023 10:30:10 03/12/2023 11:40:29 Arthritis of left hip 6021602585 249026 M13.852 Osteoarthr itis of left hip joint 3989047892 50873 M16.12 History of total replacement of right hip joint 1946551942 61112 Z96.641 Morbid obesity 448420397 E66.01 [id number] Baldev Wolf MD [facility] [address] [place] [address] 03/19/2023 11:07:54 03/19/2023 12:05:17 Dyslipidemia 195071397 E78.5 Anxiety 93092056 F41.9 Essential hypertension 30779391 I10 Asthma 546309921 J45.90 9 [id number] Baldev Wolf MD [facility] [address] [facility] [place] [address] 07/20/2023 11:31:46 07/20/2023 13:04:29 Anxiety 81687385 F41.9 Dyslipidemia 739299437 E 78.5 Asthma 844367064 J45.90 9 Essential hypertension 01644377 I10 Health Concerns Section Related Observation LastModified by Organization Detai ls LastModified Time None Recorded Concern Status LastModified by Organization Details LastModified Time None Recorded Advance Directives Directive Y: Payers Encounter Date Sequence Insurance Name Policy Number Policy Fowler Covered Member ID Fowler Member ID Guarantor Name 12/24/2022 1 [facility] (MEDICARE REPLACEMENT/A DVANTAGE - HMO) [id number] Louise Ponce [id number] Louise Ponce 03/12/2023 1 [facility] (MEDICARE REPLACEMENT/A DVANTAGE - HMO) [id number] Louise Ponce [id number] Louise Ponce 03/19/2023 1 [facility] (MEDICARE REPLACEMENT/A DVANTAGE - HMO) [id number] Louise Ponce [id number] Louise Ponce 07/20/2023 1 [facility] (MEDICARE REPLACEMENT/A DVANTAGE - HMO) [id number] Louise Ponce [id number] Louise Ponce Notes Date Note Type Note Provider Name and Address Organization Details Recorded Time 12/24/2022 text/html dry cough for about a weekEyes of started itching turned red and they are mattingNo skin rashesNot really short of breath no hemoptysis Baldev Wolf MD [address] [facility], [address], [place], [address], [place] - [facility] 12/25/2022 [...] Miguelito Stauffer MD [address], [place], [address], [place] 03/12/2023 11:44:31 03/19/2023 text/html Asthma stable dyslipidemia can not lose weight hypertension no headache no dizziness arthritis foot still bothers her 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 anxiety stable . Hypertension no chest pain or shortness of breath. Obesity has stated being put on medicines. Arthritis ortho recommended weight loss prior to any surgery. Asthma stable Baldev Wolf MD [address], [place], [address], [place] 07/20/2023 22:41:17 OBGyn Episode No OBEpisode recorded.
--- OUTSIDE RECORDS SUMMARY | 2024-11-23 07:14 | XMS_ITS | Encounter Summary ---
Author Organization [facility] Address [address] [place] [address] Phone Care Team Providers Care Vacuum Truck Driver Name Role Phone Didier Wolf MD Primary Care Provider [phone] Reason for Visit * Consultation (Routine) - Authorized Specialty Diagnoses / Procedures Referred By Francis t Referred To Contact Rheumatology Diagnoses Other specified abnormal immunological findings in serum Didier Wolf MD [address] [place] [address] Phone: tel: fax: [facility] (All Locations) Referral ID Status Reason Start Date Expiration Date Visits Requested Visits Authorized [id number] Authorized Specialty Services Required 09/02/2024 10/02/2025 12 12 Encounter Details Date Type Department Care Team (Latest Contact Info) Description 11/22/2024 9:00 AM CDT Office Visit [facility] Rheumatology [address] [facility] Medicine 5th [place] [address] [place] [address] Satish Espinosa MD PhD [address] [place] [address] Other specified abnormal immunological findings in serum Social History Tobacco Use Types Packs/Day Years Used Date Smoking Tobacco: Never Smokeless Tobacco: Never Tobacco Cessation:Counseling Given: Not Answered Comments Unknown Sex and Gender Information Value Date Recorded Sex Assigned at Not on file Legal Sex Female 12:45 PM CDT Gender Identity Not on file Sexual Orientation Straight 05/04/2023 12 :18 PM CDT documented as of this encounter Last Filed Vital Signs Vital Sign Reading [...] Mass Index 40.92 11/22/2024 9:25 AM CDT documented in this encounter Plan of Treatment Not on file documented as of this encounter Results * CELSO ab eval w/reflex (11/22/2024 10:19 AM CDT) CELSO ab Negative Negative Comment: Interpretive Data Positive Screens will be reflexed to specific testing for Antibodies against the following antigens: Shirley-1 Ab, CST Ab, Scl-70 Ab, Brady Ab, SS-A/Ro Ab, and SS- B/La Ab. Further testing for dsDNA, Centromere, or Ribosomal P antibodies is suggested in patient with a positive screen and negative specific antibodies. Current interpretive data was last revised on 2023. Blood 11/22/2024 10:1 9 AM CDT 11/22/2024 11:11 AM CDT us Satish Espinosa MD PhD LAB BLOOD ORDERABLE S Final Result JUNAID MCNEIL [facility] Department [place] [address] documented in this encounter Visit Diagnoses Diagnosis Other specified abnormal immunological findings in serum documented in this encounter Historical Medications * This list may reflect changes made after this encounter. Medication Sig Dispense Quantity Refills Last Filled Start D ate End Date ketorolac (TORADOL) 10 mg tablet 11/22/2024 added in this encounter Orders Outpatient Referral Count Last Ordered Date Fir st Ordered Date AMB REFERRAL TO RHEUMATOLOGY 1 11/22/2024 documented in this encounter Care Teams Vacuum Truck Driver Relationship Specialty Start Date End Date Didier Wolf MD PCP - General Internal Medicine 02/21/19 documented as of this encounter
--- OUTSIDE RECORDS SUMMARY | 2024-11-23 07:14 | XMS_ITS | Data Portability ---
Author Organization [facility] Address [address] [facility] [place] [address] Care Team Providers Care Edge Setter Name Role Phone BALDEV WOLF Primary Care Provider [phone] Assessment Encounter Date Assessment Date Assessment LastModified [...] home medications as soon as possible postsurgery [email or web address] Not available 01/30/2024 11:14:29 02/29/2024 02/29/2024 wellness visit completed handouts were appropriate discussed immunizations and screenings ordered were appropriate patient agreeable she will keep her regular follow up all questions answered [email or web address] Not available 03/27/2024 11:49:39 03/07/2024 03/07/2024 obesity handout DEXA ordered we will continue current therapy echo reviewed blood work recently done reviewed follow up me in months she is taking some for anemia [email or web address] Not available 03/07/2024 21:01:00 08/04/2024 08/04/2024 blood work reall y is nondiagnostic we will continue to observe and she will see me back in her regularly scheduled appointment time [email or web address] Not available 08/29/2024 16:50:55 Plan of Treatment Reminders Order Date Submit Date Provider Last Modified By Organization Details Last Modified Time Details Appointments ANY 15 2024 02:00P Inga Wolf MD Not available Not available Not available ANY 15 2024 09:30A Inga oWlf MD Not available Not available Not available Lab CBC w/ auto diff [address] [facility] (Lab), [address] [place] [address], [phone], 12/24/2023 16:02:44 CMP, serum or plasma [address] [facility] (Lab), [address] [place] [address], [phone], 12/24/2023 16:02:44 urinalysi s, complete [address] [facility] (Lab), [address] [place] [address], [address], 12/24/2023 16:02:44 Referral None recorded. Procedures None recorded. Surgeries None recorded. Imaging DEXA 2023 024 [facility] (Imaging), [address] [place] [address], [phone], 10/14/2024 17:27:54 MAMMO, screening , bilateral 2023 024 [facility], [address] [facility], [place], [address], 04/19/2024 15:27:57 electroca rdiogram [address] [facility] (Cardiology & Emg), [address] [place] [address], [phone], 12/31/2023 09:38:18 Medication Orders None recorded. Patient TargetsNo targets recorded. Patient Instructions Encounter Date Encounter Id Patient Instructions Last Modified By Organization Details Last Modified Time 02/29/2024 [id number] A healthy lifestyle: care instructions [email or web address] Not available 02/29/2024 17:33:48 preventing falls : care instructions Not available 02/29/2024 14:00:11 Medicare Wellnes s Preventive Checklist [email or web address] Not available 02/29/2024 14:00:11 03/07/2024 [id number] A healthy lifestyle: care instructions Not available 03/07/2024 21:01:16 08/04/2024 [id number] A healthy lifestyle: care instructions [email or web address] Not available 08/05/2024 07:59:03 Reason for Referral None Reported. Results Created Date Observation Date Name Description Value Unit Range Abnormal Flag Note LastModifiedBy Organization Detail LastModifiedTime 12/25/19 elect jose alcantara am No observ ation record ed. [facility] (Cardiology & Emg) [address] [place] [address] [place] [address], [phone], 01/04/2024 09:47:37 01/06/20 24 01/06/2024 , [facility] ardio gram No observ ation record ed. [address], [address], 01/10/2024 23:08:56 01/11/20 24 01/11/2024 XR, pelvi s No observ ation record ed. [email or web address] [address], [address], 01/11/2024 13:30:59 02/17/20 24 08/30/2020 DEXA, axial skele ton No observ ation record ed. [email or web address] Not Available 16:24:33 02/17/20 24 02/28/2022 MAMMO , scree inderjit, digit al, bilat eral No observ ation record ed. [email or web address] Not Available 16:35:53 02/29/20 24 03/06/2023 XR, foot, 3 or more view No observ ation record ed. Not Available 2023 09:16:12 03/01/20 24 08/30/2014 colon oscop y proce dure (PROC ) No observ ation record ed. [email or web address] [address], [address], 03/02/2024 09:14:56 04/14/20 24 04/14/2024 MAMMO , scree inderjit, bilat eral No observ ation record ed. [facility] [address] [facility], [place], [address], 04/19/2024 16:35:25 04/19/20 24 04/14/2024 MAMMO , scree inderjit, bilat eral No observ ation record ed. [facility] [address] [facility], [place], [address], 04/20/2024 13:56:32 04/19/20 24 04/14/2024 MAMMO , scree inderjit, bilat eral No observ ation record ed. [facility] [address] [facility], [place], [address], 04/20/2024 13:56:33 10/13/19 25 10/10/2024 DEXA No observ ation record ed. [address] [facility], [place], [address], 10/18/2024 18:39:29 11/23/19 25 11/22/2024 XR, knee No observ ation record ed. [address] [facility], [place], [address], 11/22/2024 16:00:44 Result Notes None recorded. Problems Name Problem SNOMED Code Status Onset Date Resolution Date Notes Provider Name and Address Organization Details Recorded Time Ectopic atrial tachycardia 063229618 Active 2023 Bernadette Rothman MA [facility], [place] - [place] 4 17:15:22 Obstructive sleep apnea syndrome 56279845 Active 2023 Baldev Wolf MD Attn: Rahul ritter,[address] [facility], [place], [address] [place] [address] - [place] 4 14:20:19 Hyperlipidemia 57408333 Active 2023 Baldev Wolf MD Attn: Rahul ritter,[address] [facility], [place], [address], [place] [facility] 4 14:20:20 Essential tremor 054272498 Active 2023 Baldev Wolf MD Attn: Rahul ritter,[address] [facility], [place], [address], [place] [facility] 4 14:20:21 Vitamin D deficiency 31313382 Active 2023 Baldev Wolf MD Attn: Fauziasherlyn ritter,[address] [facility], [place], [address], [place] - [facility] 4 14:20:24 Anxiety 10404114 Active 2023 Baldev Wolf MD Attn: Rahul ritter,[address] [facility], [place], [address], [place] [facility] 4 14:20:26 Essential hypertension 75803406 Active 2023 Baldev Wolf MD Attn: Rahul ritter,[address] [facility], [place], [address], [place] - [facility] 4 14:20:28 Obesity 095953283 Active 2023 Baldev Wolf MD Attn: Rahul ritter,[address] [facility], [place], [address], [place] - [facility] 4 14:20:29 Problem Notes None recorded. Procedures Surgical History Date Name Laterality Status Provider Name and Address Organization Details Recorded Time 08/30/19 15 colonoscopy completed Shell Grant [place] - [facility] 02/17/2024 16:25:52 repair of ankle completed CLEMENTE Lim [place] [facility] 10/29/2023 16:03:24 Joint Replacement [place] CLE[place]E Lim [place] [facility] 10/29/2023 16:03:34 lobectomy of upper lobe of left lung completed CLEMENTE Lim [place] [facility] 10/29/2023 16:03:48 Imaging Results Imaging Date Name Status LastModified by Organization Details LastModified Time 12/25/2023 electrocardiogram completed [facility] (Cardiology & Emg) [address] [place] [address] [address]te [facility], [place], [address], 01/04/2024 09:47:37 01/06/2024 US, echocardiogram completed [address] [address], [place], [address], 01/10/2024 23:08:56 01/11/2024 XR, pelvis completed [address] [address], [place], [address], 01/11/2024 13:30:59 08/30/2020 DEXA, axial skeleton completed [email or web address] In formation not available 02/17/2024 16:24:33 02/28/2022 MAMMO, screening, digital, bilateral completed [email or web address] Information not available 02/17/2024 16:35:53 03/06/2023 XR, foot, 3 or more view completed [email or web address] Information not available 03/02/2024 09:16:12 08/30/2014 colonoscopy procedure (PROC) completed [address] [place], [address], 03/02/2024 09:14:56 04/14/2024 MAMMO, screening, bilateral completed [facility] [address] [facility], [place], [address], 04/19/2024 16:35:25 04/14/2024 MAMMO, screening, bilateral completed [facility] [address] [facility], [place], [address], 04/20/2024 13:56:32 04/14/2024 MAMMO, screening, bilateral completed [facility] [address] [place], [address], 04/20/2024 13:56:33 10/10/2024 DEXA completed [address], [address], 10/18/2024 18:39:29 11/22/2024 XR, knee active [facility] [address], [place], [address], 11/22/2024 16:00:44 Procedure Notes None recorded. Medical Equipment None Reported. Allergies Allergen ID Allergen Name Allergen Category Reaction Reaction Severity Criticality Documentation Date Start Date Code Code System Note Provider Name and Address Organization Details Recorded Time 746703 banana extract food,medi cation nausea severe Not available 12/24/2023 92446 9 RxNorm Not Available Not Available Not Available 561380 avocado allergeni c extract food nausea severe Not available 12/24/2023 93395 2 RxNorm Not Available Not Available Not [...] Updated DateTime 4 162.56 cm 38.3 kg/m2 786009. 54 g 99 /min 99 % 99 [...] Updated DateTime 4 162.56 cm 38.1 kg/m2 266509. 15 g 118 /min 18 /min 99 % 99 % 106 mm[Hg] 78 mm[Hg] CLEMENTE Lim [facility] 4 12:51:07 Date Recorded Pain severity - 0-10 verbal numeric rating [Score] - Reported Provider Name and Address Organization Details Last Updated DateTime 02/29/2024 0 Jamia Delgado [facility] 02/29/2024 12:52:52 Date Recorded Body height Body mass index (BMI) Body weight Heart rate Respiratory rate Oxygen saturation Oxygen saturation in Arterial blood by Pulse oximetry Systolic blood pressure Diastolic blood pressure Provider Name and Address Organization Details Last Updated DateTime 4 162.56 cm 38.3 kg/m2 682555. 54 g 71 /min 14 /min 97 % 97 % 102 mm[Hg] 68 mm[Hg] CLEMENTE Lim [facility] 4 14:09:27 Date Recorded Body height Body mass index (BMI) Body weight Heart rate Oxygen saturation Oxygen saturation in Arterial blood by Pulse oximetry Systolic blood pressure Diastolic blood pressure Provider Name and Address Organization Details Last Updated DateTime 4 162.56 cm 39.9 kg/m2 970536. 59 g 73 /min 96 % 96 % 112 mm[Hg] 74 mm[Hg] Tatiana Jeong MA [facility] 4 16:31:09 Date Recorded Body height Body mass index (BMI) Body weight Heart rate Oxygen saturation Oxygen saturation in Arterial blood by Pulse oximetry Systolic blood pressure Diastolic blood pressure Provider Name and Address Organization Details Last Updated DateTime 5 162.56 cm 40.5 kg/m2 655220. 16 g 63 /min 98 % 98 % 132 mm[Hg] 70 mm[Hg] Arely Swift MA [facility] 5 11:06:07 Social History Question Answer Notes LastModified by Organizat ion Details LastModified Time Tobacco Smoking Status Never Smoker CLEMENTE Lim null, [facility] 10/29/2023 15:58:56 Do You Have An Advance [...] Or The Highest Degree You Have Received? [id number] Information not available 02/29/2024 Are There Any Guns Present In Your Home? Yes Locked Up Information not available 02/29/2024 In The Past 7 Days, How Many Days Did You Exercise? 0 Information not available 02/29/2024 In The Past 7 Days, How Much Pain Have You [place]? Some Information not available 02/29/2024 In General, [...] Past 7 Days, How Often Have You [place] Sleepy In The Daytime? Never Information not [...] Anxious, Or Unable To Sleep At Night)? [id number] Information not available 10/20/2024 Do You Use [...] Malignant tumor of breast [email or web address] Not available 0302/2024 16:01:44 Brother Cerebrovascu lar accident [email or web address] Not available 0 10/29/2023 16:01:28 Medical History Condition Response High Blood Pressure Y Depression Y Anxiety Disorder Y Cancer Y Asthma Y Gynecological History Statement/Question Response If Post Menopausal, Age at Menopause 54 Obstetrics History GPAL:G 0 P 0 0 0 0 Immunizations Vaccine Type Date Status Note Provider Nam e and Address Organization Details Recorded Time zoster recombinant 8 completed Shell Grant [place], [place] [facility] 02/17/2024 16:12:14 zoster recombinant 8 completed Shell [...] 30 mcg/0.3 mL dose 2 completed Shell Grant [place] [facility] 02/17/2024 16:12:14 pneumococcal conjugate [...] Pneumococcal conjugate PCV 13 8 completed Shell Grant [place], [place] - [...] quadrivalent, PF 5 completed Shell Grant null, [facility] 02/17/2024 16:12:14 Influenza, split virus, quadrivalent, PF 6 completed Shell Grant null, [facility] 02/17/2024 16:12:14 influenza, unspecified formulation 4 completed Bernadette Rothman MA null, [facility] 06/29/2024 12:43:10 Past Encounters Encounter ID Performer Location Encounter Start Date Encounter Closed Date Diagnosis/Indication Diagnosis SNOMED-CT Code Diagnosis ICD10 Code Diagnosis Note [id number] Baldev Wolf MD [facility] (Adult Med) [address] [place] [address] 10/29/2023 15:28:42 10/29/2023 16:48:29 Hyperlipidemia 37158997 E78.5 Anxiety 38000476 F41.9 Chronic rhinitis 8121134 6 J31.0 Asthma 028898162 J45.90 9 Essential hypertension 14826445 I10 Essential tremor 8699381 09 G25.0 Obstructiv e sleep apnea syndrome 37918909 G47.33 [id number] Baldev Wolf MD [facility] [address] [place] [address] 12/24/2023 11:08:30 12/24/2023 12:16:24 Ectopic atrial tachycardia 107171681 I47.19 Hyperlipidemia 75876847 E78.5 Anxiety 32378693 F41.9 Chronic rhinitis 1118377 6 J31.0 Obstructiv e sleep apnea syndrome 27314825 G47.33 Asthma 554462858 J45.90 9 Essential hypertension 29201219 I10 Essential tremor 9697074 09 G25.0 Osteoarthritis 761953774 M19.90 [id number] Baldev Wolf MD [facility] [address] [place] [address] 02/29/2024 11:38:17 02/29/2024 14:34:26 Adult health examination 302623545 Z00.00 Health Risk Assessment collected and reviewed Obesity 687314422 E66.8 Screening mammography 24 438594 Z12.31 [id number] Baldev Wolf MD [facility] [facility] [place] [address] [place] [address] 03/07/2024 13:55:56 03/07/2024 14:44:21 Screening for osteoporosis 416607634 Z13.820 Obesity 655032592 E66.8 Essential hypertension 43553488 I10 Anxiety 67779682 F41.9 Vitamin D deficiency 347 [address] E55.9 Essential tremor 4206209 09 G25.0 Hyperlipidemia 97210230 E78.5 Obstructiv e sleep apnea syndrome 07441890 G47.33 Postmenopausal state 764 [address] Z78.0 [id number] Baldev Wolf MD [facility] [facility] [place] [address] [place] [address] 08/04/2024 15:50:22 08/04/2024 17:28:59 Body mass index 30+ - obesity 367185039 Z68.39 Obesity 511512682 E66.9 Fatigue 19255519 R53.83 [id number] Bernadette Rothman MA [facility] [employer] [facility] [place] [address] [place] [address] 10/20/2024 10:45:07 10/20/2024 12:03:55 Obesity 597269065 E66.9 Screening for malignant neoplasm of colon 116839004 Z12.11 Health Concerns Section Related Observation LastModified by Organization Detai ls LastModified Time None Recorded Concern Status LastModified by Organization Details LastModified Time None Recorded Advance Directives Directive Y: Payers Encounter Date Sequence Insurance Name Policy Number Policy Fowler Covered Member ID Fowler Member ID Guarantor Name 12/24/2023 1 [facility] (MEDICARE REPLACEMENT/A DVANTAGE - PPO) [id number] Louise Ponce [id number] Louise Ponce 02/29/2024 1 [facility] (MEDICARE REPLACEMENT/A DVANTAGE - PPO) [id number] Louise Ponce [id number] Louise Ponce 03/07/2024 1 [facility] (MEDICARE REPLACEMENT/A DVANTAGE - PPO) [id number] Louise Ponce [id number] Louise Ponce 08/04/2024 1 [facility] (MEDICARE REPLACEMENT/A DVANTAGE - PPO) [id number] Louise Ponce [id number] Louise Ponce Notes Date Note Type Note Provider Name and Address Organization Details Recorded Time 12/24/2023 text/html Going to have orthopedic surgery no chest pain shortness of breath or palpitations. Getting benefit from CPAP anxiety has been stable asthma has been controlled no new interval developments or from her last visit Baldev Wolf MD Attn: Accounting[address] [place], [address], [facility] 01/30/2024 11:14:46 02/29/2024 text/html MAW 2Reported bypatient.Diet [...] MD Attn: Accounting,[address], [place], [address], [place] [facility] 03/27/2024 11:49:52 03/07/2024 text/html hypertension no headache or dizziness obesity she has needed limbs anxiety has been stable low vitamin-D level she does try to replace that her tremor has been doing okay hyperlipidemia trying to low-fat diet sleep apnea compliant with device. Still recovering from left hip surgery Baldev Wolf MD Attn: Accounting,[address], [place], [address], [facility] - [facility] 03/07/2024 21:01:19 08/04/2024 text/html she has been hav ing some fatigue got some blood work done which really nonspecific does have some mild anemia she is seeing her psychiatrist as well she has had a lot of anxiety and depression. Still has a hematoma from her surgery but it is no worse Baldev Wolf MD Attn: Accounting,[address], [place], [address], [place] [facility] 08/29/2024 16:51:14 OBGyn Episode No OBEpisode recorded."
--- OUTSIDE RECORDS SUMMARY | 2024-11-23 07:14 | XMS_ITS | Clinical Summary ---
Author Organization [facility] Address [address] [place] [address] Care Team Providers Care Decorator Consultant Name Role Phone Didier Wolf MD Primary Care Provider [phone] Allergies Active Allergy Reactions Criticality Noted Date Comments Avocado Stomach upset,Unknown Low 12/28/2023 Banana Extract Stomach upset,Unknown Low 12/28/2023 Medications flu vac qa4515-02,36mo s,up,/PF (FLUARIX QUAD 9738-1944, PF, IM) Fluarix Quad 4546-6162 (PF) 60 mcg (15 mcg x 4)/0.5 [...] 6 months. New lab orders sent to [facility]. Continue low-carb (<150 g/day), low-glycemic diet. Assessment [...] w/r/t gut microbiome. Referred to ADA and [employer] websites for additional information on topics including [...] reduced progression with weight loss. Anxiety 04/23/2017 Encounters Date Type Department Care Team Description 11/22/2024 11:15 AM CDT Lab [facility] Advanced Medicine (CAM) [address] [place] [phone] Other specified abnormal immunological findings in serum 11/22/2024 9:00 AM CDT Office Visit [facility] [address] [facility] Medicine 5th [place] [address] [place] [address] Satish Espinosa MD PhD Other specified abnormal immunological findings in serum from Last 3 Months Surgical History Surgery Date Site/Laterality Comments ANKLE [...] 11/22/2024 9:25 AM CDT Plan of Treatment Health Maintenance Due Date Last Done Comments Colon Cancer Screening-Colonoscopy 1950 Depression Screening 1950 Fall Risk Assessment 1950 Hepatitis C Screening 1950 Osteoporosis Screening-Bone Density Scan 1950 DTaP/Tdap/Td Vaccine (1 - Tdap) 02/05/1963 Hepatitis B Screening 02/05/1970 Well Visit 65+ 02/05/2017 Breast Cancer Screening-Mammogram 04/14/2025 024, 04/14/2024 Influenza Vaccine (Season Ended) 2025 06/06/2023, 06/01/2022, 05/24/2020, Additional history exists Zoster Vaccine Completed 06/21/2018, 05/25, 03/16/2018 Pneumococcal vaccine 65+ Completed 019, 02/01/2018, 01/31/2018 Procedures Procedure Name Priority Date/Time Associated Diagnosis Comments CELSO ANTIBODY EVALUATION WITH REFLEX Routine 11/22/2024 10:19 AM CDT Other specified abnormal immunological findings in serum from Last 3 Months Results * CELSO ab eval w/reflex (11/22/2024 10:19 AM CDT) CELSO ab Negative Negative Comment: Interpretive Data Positive Screens will be reflexed to specific testing for Antibodies against the following antigens: Shirley-1 Ab, UX RESEARCHER Ab, Scl-70 Ab, Brady Ab, SS-A/Ro Ab, and SS- B/La Ab. Further testing for dsDNA, Centromere, or Ribosomal P antibodies is suggested in patient with a positive screen and negative specific antibodies. Current interpretive data was last revised on 2023. Blood 11/22/2024 10:1 9 AM CDT 11/22/2024 11:11 AM CDT us Satish Espinosa MD PhD LAB BLOOD ORDERABLE S Final Result Performing Organization Address City/State/[facility] Co hi Phone Number [facility] Department [place] [address] from Last 3 Months Insurance [facility] MEDICARE ADVANTAGE [facility] MDCR HMO REF [facility] MEDICARE ADVANTAGE Care Teams Decorator Consultant Relationship Specialty Start Date End Date Didier Wolf MD PCP - General Internal Medicine 02/21/19
--- OUTSIDE RECORDS SUMMARY | 2024-11-23 07:14 | XMS_ITS | Encounter Summary ---
Author Organization [facility] Address [address] [place] [address] Care Team Providers Care Principal Architect Name Role Phone Didier Wolf MD Primary Care Provider Encounter Details Date Type Department Care Team (Late st Contact Info) Description 11/22/2024 11:15 AM CDT Lab [facility] Advanced Medicine ([facility]) [address] [place] [phone] Other specified abnormal immunological findings in serum Social History Tobacco Use Types Packs/Day Years Used Date Smoking Tobacco: Never Smokeless Tobacco: Never Comments Unknown Sex and Gender Information Value Date Recorded Sex Assigned at Not on file Legal Sex Female 12:45 PM CDT Gender Identity Not on file Sexual Orientation Straight 05/04/2023 12 :18 PM CDT documented as of this encounter Plan of Treatment Not on file documented as of this encounter Procedures Procedure Name Priority Date/Time Associated Diagnosis Comments CELSO ANTIBODY EVALUATION WITH REFLEX Routine 11/22/2024 10:19 AM CDT Other specified abnormal immunological findings in serum documented in this encounter Results * CELSO ab eval w/reflex (11/22/2024 10:19 AM CDT) CELSO ab Negative Negative Comment: Interpretive Data Positive Screens will be reflexed to specific testing for Antibodies against the following antigens: Shirley-1 Ab, WOOD MACHINIST APPRENTICE Ab, Scl-70 Ab, Brady Ab, SS-A/Ro Ab, and SS- B/La Ab. Further testing for dsDNA, Centromere, or Ribosomal P antibodies is suggested in patient with a positive screen and negative specific antibodies. Current interpretive data was last revised on 2023. Blood 11/22/2024 10:1 9 AM CDT 11/22/2024 11:11 AM CDT us Satish Espinosa MD PhD LAB BLOOD ORDERABLE S Final Result [facility] Department [place] [address] documented in this encounter Visit Diagnoses Diagnosis Other specified abnormal immunological findings in serum documented in this encounter Care Teams Principal Architect Relationship Specialty Start Date End Date Didier Wolf MD PCP - General Internal Medicine 02/21/19 documented as of this encounter
--- OUTSIDE RECORDS SUMMARY | 2024-11-23 07:14 | XMS_ITS ---
Author Organization [facility] [employer] Address [address] [place] [address] Care Team Providers Care Harness Rigger Name Role Phone Didier Wolf MD Primary Care Provider Unavaila Bonnie Holley Unavailable [phone] Sol Gonzalez Unavailable [phone] Allergies Allergen (clinical drug ingredient) Drug/Non Drug [...] MG Oral 12/28/2023 Active Ergocalciferol 1.25 MG (08562 UT) Oral 12/28/2023 Active FLUTICASONE 250 MCG-SALMETEROL 50 MCG/DOSE BLISTR POWDR FOR INHALATION *Reorder from [facility] for eRx and Interaction Alerts* [...] Risk Notes Problem Mild recurrent major depression (02012523) Major depressive disorder, recurrent, mild (F33.0) Active confirmed Problem Generalized anxiety disorder (45236679) Generalized anxiety disorder (F41.1) Active confirmed Problem Recurrent hypersomnia (577672988) Recurrent hypersomnia (G47.13) Active confirmed Vital Signs Blood pressure systolic 108 mm Hg 07/08/20 24 Blood pressure diastolic 69 mm Hg 024 Heart Rate 68 /min 07/08/2024 Height 64.00 in 07/08/2024 Weight 233 lbs 07/08/2024 BMI 39.99 kg/m2 07/08/2024 Height-cm 162.56 cm 07/08/2024 Weight-kg 105.69 kg 07/08/2024 Encounters Encounter Location Date Provider Diagnosis [facility] [address] [address] 07/08/2024 Thena Malik Major depressive disorder, recurrent, [...] remission,anxiety,hypersomnia Provider Name:Bonnie keene, 01/03/2025 02:00:00 PM, [address] [facility] [address], [facility] [address], [address], Progress Notes * LEIGH ANNJUANJOSEHOOD LaraOB: 2 (74 yo F)Acc No.[id number]:07/08/2024 Patient: Jane MENAGLADIS KHAN Provider: Willy GONZALEZ MD :1950 A ge:74 Y S ex:Female Date:07/08/2024 Address:[address] [place] [address] Pcp:Didier Wolf MD Subjective: * Chief Complaints: [...] be as affected by it 63 yo teaxcz-fb-gvj ('s youngest sister) on 06/29/2024--being treated for leukemia, developed an infection in her port and of sepsis, it all just happened so fast still goes to chair yoga; suggested JASON at [facility] to pt and she will look into [...] Yes. * Surgical History: A nkle arthroscopy/surgery (63462) , Hip arthroscopy dx (75260) , Knee arthroscopy/surgery (93185) lt , Lung excision (948712919) , Other , Left hip replacement 01/11/2024. [...] es, D o you have Power of Hat Stock Laminating Machine Operator for Health or Medical? Y es, D o you have a power of compliance attorney for health??Yes, D o you have power of compliance attorney for Medical ? Y es, I f yes, then please bring the POA paperwork so that we can upload it. N o. S ocial History: H grady Xiong arital Status: M jacey, N nirmal of Adults in household: 2 , L evel of Education: F [employer]. * Medications: T aking Atorvastatin Calcium 10 MG Tablet Oral , Taking ProAir HFA 108 (90 Base) MCG/ACT Aerosol Solution Inhalation , Taking hydroCHLOROthiazide 25 MG Tablet Oral , Taking FLUTICASONE 250 MCG-SALMETEROL 50 MCG/DOSE BLISTR POWDR FOR INHALATION , Notes to Pharmacist: *Reorder from [facility] for eRx and Interaction Alerts*, Taking Ergocalciferol 1.25 MG (86261 UT) Capsule Oral , Taking Primidone 50 [...] 6127 BEHAV ASSMT W/SCORE & DOCD/STAND INSTRUMENT, 23753 PSYCHOTHERAPY W/PATIENT W/E&M SRVCS 30 MIN * Follow Up: 3 Months (Reason: depression in remission,anxiety,hypersomnia) * Billing Information: * Visit Code: 01494 OFFICE OUTPATIENT VISIT 25 MINUTES DETAILED HISTORY AND EXAM/MODERATE MEDICAL DECISION MAKING. * Procedure Codes: 82703 BEHAV ASSMT W/SCORE & DOCD/STAND INSTRUMENT. 90143 PSYCHOTHERAPY W/PATIENT W/E&M SRVCS 30 MIN. * ORT SERVICES REP Sign off status: Completed true * Provider: Willy GONZALEZ MD Date: 09/07/2023 Generated for Ladonna vela/Erum/eTransmitting on: 0 11/23/2024 07:13 AM CDT History and Physical Notes * HPI (History of Present Illness) Category Sub-Category Detail Notes Category Notes History of Presenting Problem I think I'm pretty good. had difficult time dealing with election results, I've been crabby ; has not seemed to be as affected by it 63 yo arkctw-if-bvk ('s youngest sister) on 06/29/2024--deepa vela treated for leukemia, developed an infection in her port and of sepsis, it all just happened so fast still goes to chair yoga; suggested OLLI at [facility] to pt and she will look into [...] Screening Findings: P ositve Follow-Up for Depression: [facility] treatment assessment, Patient follow-up to return when [...] min Type of therapy done: Supportive Therapy Ada-Suicide Severity Rating Scale Suicide Risk (CSRS-screener) in [...]
--- OUTSIDE RECORDS SUMMARY | 2024-11-23 07:14 | XMS_ITS | Clinical Summary ---
Author Organization [employer] [facility] Address [address] [place] [address] Care Team Providers Care Cloth Napping Supervisor Name Role Phone Unavailable Primary Care Provider [...] Most Recently Relevant to Health Maintenance Insurance [facility] [address] [place] [address]
[2024-11-23 07:15] VITALS: BP 156/91; PULSE 67; RESP 18; TEMP 36.5; O2SAT 98
--- NOTE | 2024-11-23 07:45 | ED_ITS ---
HPI - General Adult General Chief complaint: Extremity Problem,Nontraumatic Stated complaint: RLE pain, seen here 2 days ago Time Seen by Provider: 11/23/24 07:13 History of Present Illness HPI narrative: 74-year-old female presenting to the emergency department for evaluation for right hip pain. Patient has been having some irritation of the right knee and states that yesterday she began developing some right hip pain. Patient does have a prior history of sciatica and states this feels similar to her previous sciatica. Patient states the pain starts in the right lower back goes into the right buttock and does intermittently go down to the right knee. Patient denies any pain past the knee. Patient denies any associated numbness or weakness of the foot patient denies any change in bowel or bladder habits. Patient did attempt to do water therapy this morning at the [facility] and states that did not help. Related Data Home Medications ?Medication ?Instructions ?Recorded ?Confirmed ?Last Taken ?Type albuterol 90 mcg/actuation aerosol 1 mcg inhalation PRN PRN ASTHMA 01/04/24 02/23/24 Unknown History inhaler atorvastatin 10 mg tablet 10 mg PO DAILY 01/04/24 02/23/24 Unknown History bupropion HCl 150 mg 24 hr tablet, 150 mg PO DAILY 01/04/24 02/23/24 01/11/24 History extended release hydrochlorothiazide 25 mg tablet 25 mg PO DAILY 01/04/24 02/23/24 Unknown History ibuprofen 125 mg-acetaminophen 250 2 tablet PO PRN PRN Pain 01/04/24 02/23/24 Unknown History mg tablet olmesartan 40 mg tablet 40 mg PO DAILY 01/04/24 02/23/24 Unknown History primidone 50 mg tablet 50 mg PO BID 01/04/24 02/23/24 01/11/24 History sertraline 100 mg tablet 150 mg PO DAILY 01/04/24 02/23/24 01/11/24 History Allergies Allergy/AdvReac Type Severity Reaction Status Date / Time avocado Allergy Mild stomach Verified 11/22/24 01:00 ache banana Allergy Mild stomach Uncoded 11/22/24 01:00 ache Review of Systems Review of Systems: All systems reviewed & are unremarkable except as noted in HPI and below PMFSH Past Medical History Medical History Essential tremor Obstructive sleep apnea on CPAP Hyperlipidemia Hypertension Depression Surgical History Surgical History History of left hip replacement (01/11/24) History of left knee replacement 2018 History of right hip replacement 2014 History of bladder surgery bladder lift 2005 History of lung surgery upper lobe removed 1999 History of ankle surgery 1988 due to break Family History Family History Father Acute myocardial infarction Hypertension Sibling Cerebrovascular accident Breast cancer Social History Social History Social History: Surrogate medical decision maker: Dottie Ponce, daughter. Code status: Full code. Smoking status: Never smoker Second hand tobacco smoke exposure: No Alcohol intake: current Drinks per week: 2 Substance use: former Substance use type: marijuana Other substance usage details: 1/2 gummie to sleep Last use: 01/04/24 Do You Feel Safe in your Home?: Yes Lack of Transportation: No Lack of Food: Never True Current Housing: I Have Housing Concerned About Future Housing: No Difficulty Paying Gas/Electric Bills: No Difficulty Paying for Meds: No Currently Unemployed: No Education: Bachelor's Degree Difficulty w/ Childcare or Family Care: No Living arrangements: with family Additional living arrangements comments: caregiver for Occupation/Education: retired Spiritual care concerns: No Exam Narrative: APPEARANCE: Well appearing, no pain, no distress, well-nourished. HEAD: normocephalic, atraumatic. EYES: PERRLA/EOMI, conjunctivae clear. NOSE: Normal no drainage EARS:TMS clear with good light reflex. THROAT: Pharynx clear, no exudate. NECK: Supple. No adenopathy, no masses. RESPIRATORY: Airway patent, respirations nonlabored. Clear to auscultation bilaterally, no rales, rhonchi, wheezing. CARDIOVASCULAR: Regular rate and rhythm without murmurs rubs or gallops. ABDOMINAL: Soft, nontender, nondistended, normal bowel sounds MUSCULOSKELETAL: Right hip tenderness to palpation, negative straight leg NEURO: Alert. Cranial nerves II through XII intact. Good gait. Good coordination SKIN: Warm, dry. Normal Color Course Vital Signs Vital signs: Vital Signs Temperature 97.7 F 11/23/24 07:15 Pulse Rate 67 11/23/24 07:15 Respiratory Rate 18 11/23/24 07:15 Blood Pressure 156/91 H 11/23/24 07:15 Pulse Oximetry 98 11/23/24 07:15 Temperature 97.7 F 11/23/24 07:15 Pulse Rate 67 11/23/24 07:15 Respiratory Rate 18 11/23/24 07:15 Blood Pressure 156/91 H 11/23/24 07:15 Pulse Oximetry 98 11/23/24 07:15 Medical Decision Making MDM Narrative Medical decision making narrative: 74-year-old female presented emergency department for evaluation for right hip pain. Patient's exam is consistent with sciatica. Patient's sciatica may have been worsened by her favoring her injured knee on that same side. Patient was started on a Medrol Dosepak and provided Flexeril for muscle spasm. Patient was encouraged of close follow-up with her primary care physician and patient was also educated that she may need additional physical therapy. All questions concerns were addressed patient was comfortable with plan for discharge and close follow-up. Differential Diagnosis Differential Diagnosis: Hip strain, hip fracture, sciatica Vital Signs Vital Signs: Vital Signs Temperature 97.7 F 11/23/24 07:15 Pulse Rate 67 11/23/24 07:15 Respiratory Rate 18 11/23/24 07:15 Blood Pressure 156/91 H 11/23/24 07:15 Pulse Oximetry 98 11/23/24 07:15 Temperature 97.7 F 11/23/24 07:15 Pulse Rate 67 11/23/24 07:15 Respiratory Rate 18 11/23/24 07:15 Blood Pressure 156/91 H 11/23/24 07:15 Pulse Oximetry 98 11/23/24 07:15 Discharge Plan Discharge Clinical Impression: Sciatica Patient Disposition: Home, Self-Care Condition: Stable Instructions: Antibiotic Form, Sciatica (ED) Additional Instructions: Medrol Dosepak as directed until completed. Flexeril for muscle spasm. [place] as needed for additional pain control. Have close follow-up with your primary care physician. Patient Language: Palestinian Prescriptions: New cyclobenzaprine 10 mg tablet 10 mg PO BID PRN (Reason: muscle spasm) Qty: 14 0RF hydrocodone-acetaminophen 5-325 mg tablet 1 tablet PO Q12H PRN (Reason: pain) Qty: 14 0RF methylprednisolone [Medrol (Mo)] 4 mg tablets,dose pack See Rx Instructions .ROUTE .COMPLEX Qty: 21 0RF Rx Instructions: for 6 days No Action sertraline 100 mg tablet 150 mg PO DAILY atorvastatin 10 mg tablet 10 mg PO DAILY bupropion HCl 150 mg tablet extended release 24 hr 150 mg PO DAILY hydrochlorothiazide 25 mg tablet 25 mg PO DAILY olmesartan 40 mg tablet 40 mg PO DAILY primidone 50 mg tablet 50 mg PO BID ibuprofen-acetaminophen 125-250 mg Tablet 2 tablet PO PRN PRN (Reason: Pain) albuterol 90 mcg/actuation Aerosol 1 mcg INHALATION PRN PRN (Reason: ASTHMA) ketorolac 10 mg tablet 10 mg PO Q8H PRN (Reason: pain) 5 Days Qty: 20 0RF Rx Instructions: maximum total duration of 5 days from all oral, intranasal, or parenteral fo rmulations Follow-up/Referrals: Luciano,MD Didier [Primary Care Provider] -
--- OUTSIDE RECORDS SUMMARY | 2024-11-23 07:46 | XMS_ITS | Referral Summary ---
Author Organization [facility] Address [address] [place] [address] Care Team Providers Care Software Clerk Name Role Phone Didier Wolf MD Primary Care Provider [phone] Encounters Date Type Department Care Team Description 11/22/2024 11:15 AM CDT Lab [facility] Advanced Medicine (CAM) [address] [place] [address] Other specified abnormal immunological findings in serum 11/22/2024 9:00 AM CDT Office Visit [facility] Rheumatology [address] [facility] 5th [place] [address] [place] [address] Satish Espinosa MD PhD Other specified abnormal immunological findings in serum from Last 3 Months Allergies Active Allergy Reactions Criticality Noted Date Comments Avocado Stomach upset,Unknown Low 12/28/2023 Banana Extract Stomach upset,Unknown Low 12/28/2023 Medications flu vac ey5909-13,36mo s,up,/PF (FLUARIX QUAD 2595-5640, PF, IM) Fluarix Quad 2560-7385 (PF) 60 mcg (15 mcg x 4)/0.5 [...] 6 months. New lab orders sent to [facility]. Continue low-carb (<150 g/day), low-glycemic diet. Assessment [...] w/r/t gut microbiome. Referred to ADA and [facility] [facility] websites for additional information on topics [...] Antibodies against the following antigens: Shirley-1 Ab, MOUNTING INSPECTOR Ab, Scl-70 Ab, Brady Ab, SS-A/Ro Ab, and SS- B/La Ab. Further testing for dsDNA, Centromere, or Ribosomal P antibodies is suggested in patient with a positive screen and negative specific antibodies. Current interpretive data was last revised on 2023. Blood 11/22/2024 10:1 9 AM CDT 11/22/2024 11:11 AM CDT us Satish Espinosa MD PhD LAB BLOOD ORDERABLE S Final Result [facility] One [facility] Department [place] [address] from Last 3 Months Insurance [address] MEDICARE ADVANTAGE [facility] Address: [address] [address] [place] [id number] [address] HMO REF [facility] Address: [address] [address] [place] [phone] MEDICARE ADVANTAGE [facility] Address: [address] [address] [place] [phone] Care Teams Software Clerk Relationship Specialty Start Date End Date Didier Wolf MD PCP - General Internal Medicine 02/21/19
--- OUTSIDE RECORDS SUMMARY | 2024-11-23 07:46 | XMS_ITS | Clinical Summary ---
Author Organization [facility] Address [address] [place] [address] Care Team Providers Care Auto Finance Sales Rep Name Role Phone Didier Wolf MD Primary Care Provider [phone] Source Comments [facility],non-owned Affiliates and Associated Physician Practices is amultiple site organization consisting of ambulatory clinics and hospital sitesin [place], [place], [place] and [place]. This disclosure is being madepursuant to the Care Everywhere program and may not contain all information available regarding this patient. Last updated 18.[facility] Allergies No known active allergies Medications * [...] 1 11/26/2018 Active vitamin D, ergocalciferol, (DRISDOL) 10582 units capsule TAKE ONE CAPSULE BY MOUTH [...] Recently Relevant to Health Maintenance Care Teams Auto Finance Sales Rep Relationship Specialty Start Date End Date Didier Wolf MD PCP - General 12/01/17
--- OUTSIDE RECORDS SUMMARY | 2024-11-23 07:47 | XMS_ITS | Continuity of Care Document ---
Author Organization [facility] Address [address] [place] [address] Phone Care Team Providers Care Copy Lathe Operator Name Role Phone Benito Oconnell MD Unavailable Unavailable Advance Directives Directive Yes / No Effective Date File Name No Information Encounters Encounter Description Practice Location Reason(s) For Visit Diagnoses Date Provider Providers Copied on Encounter [facility], Box On license of [facility], [place], [place], [id number], tel:[phone] [facility] No Information Anish Oliver. [address], [place], [id number], [place]. tel:[phone] Referring Provider: Anson Flores, [address], [place], [address]. tel:[phone] [facility] Box On license of [facility], [place], [place], [id number], tel:[phone] [facility] SCREEN MAMMOGRAM NEC Geri Hernandez. [address], [place], [place], [id number]. tel:[phone] [facility] Box On license of [facility], [place], [place], [id number], tel:[phone] [facility] ASYMPT POSTMENO STATUSLUMP OR MASS IN BREAST No Information [facility] Box On license of [facility], [place], [place], [id number], tel:[phone] [facility] ABDMNAL TNDR LT LWR QUADOTH ADV EFF MED/BIO SUB Tila Heller. [address], [place], [place], [id number], [place]. tel:[phone] Family History Family Member Type Diagnosis Age At Onset No Information Payers Payer name Insurance type Covered democrat ID Ruth amaya(s) [facility] [id number] Social History Type Description Quantity Date Captured [...]
--- OUTSIDE RECORDS SUMMARY | 2024-11-23 07:47 | XMS_ITS | Encounter Summary ---
Author Organization [facility] Address [address] [place] [address] Phone Care Team Providers Care Manager Client Service Name Role Phone Didier Wolf MD Primary Care Provider [phone] Reason for Visit * Consultation (Routine) - Authorized Specialty Diagnoses / Procedures Referred By Francis t Referred To Contact Rheumatology Diagnoses Other specified abnormal immunological findings in serum Didier Wolf MD [address] [place] [address] Phone: tel: fax: [facility] (All Locations) Referral ID Status Reason Start Date Expiration Date Visits Requested Visits Authorized [id number] Authorized Specialty Services Required 09/02/2024 10/02/2025 12 12 Encounter Details Date Type Department Care Team (Latest Contact Info) Description 11/22/2024 9:00 AM CDT Office Visit [facility] Rheumatology [address] [facility] Medicine 5th [place] [address] [place] [address] Satish Espinosa MD PhD [address] [place] [address] Other specified abnormal immunological findings in serum [...] Antibodies against the following antigens: Shirley-1 Ab, CARD CUTTER HELPER Ab, Scl-70 Ab, Brady Ab, SS-A/Ro Ab, [...] ORDERABLE S Final Result JUNAID MCNEIL [facility] [place] [address] documented in this encounter Visit Diagnoses Diagnosis [...] 11/22/2024 documented in this encounter Care Teams Manager Client Service Relationship Specialty Start Date End Date Didier Wolf MD PCP - General Internal Medicine 02/21/19 documented as of this encounter
--- OUTSIDE RECORDS SUMMARY | 2024-11-23 07:47 | XMS_ITS | Encounter Summary ---
Author Organization [facility] Address [address] [place] [address] Care Team Providers Care Internal Audit Manager Name Role Phone Didier Wolf MD Primary Care Provider Encounter Details Date Type Department Care Team (Late st Contact Info) Description 11/22/2024 11:15 AM CDT Lab [facility] Advanced Medicine ([facility]) [address] [place] [phone] Other specified abnormal immunological findings in serum [...] Antibodies against the following antigens: Shirley-1 Ab, P 3 ARMAMENT/ORDNANCE IMA TECHNICIAN Ab, Scl-70 Ab, Brady Ab, SS-A/Ro Ab, and SS- B/La Ab. Further testing for dsDNA, Centromere, or Ribosomal P antibodies is suggested in patient with a positive screen and negative specific antibodies. Current interpretive data was last revised on 2023. Blood 11/22/2024 10:1 9 AM CDT 11/22/2024 11:11 AM CDT us Satish Espinosa MD PhD LAB BLOOD ORDERABLE S Final Result [facility] Department [place] [address] documented in this encounter Visit Diagnoses Diagnosis Other specified abnormal immunological findings in serum documented in this encounter Care Teams Internal Audit Manager Relationship Specialty Start Date End Date Didier Wolf MD PCP - General Internal Medicine 02/21/19 documented as of this encounter
--- OUTSIDE RECORDS SUMMARY | 2024-11-23 07:47 | XMS_ITS | Clinical Summary ---
Author Organization [employer] [facility] Address [address] [place] [address] Care Team Providers Care Research Study Assistant Name Role Phone Unavailable Primary Care [...] Most Recently Relevant to Health Maintenance Insurance [facility] [id number]
--- OUTSIDE RECORDS SUMMARY | 2024-11-23 07:47 | XMS_ITS | Patient Health Record ---
Author Organization [facility] [employer] Address [address] [place] [address] Care Team Providers Care Examining Chair Assembler Name Role Phone Didier Wolf MD Primary Care Provider Unavaila Bonnie Holley Unavailable [phone] Walter Parada Unavailable [phone] Sol Gna Unavailable [phone] Migration, Provider Unavailable Unavailable Allergies Allergen (clinical [...] MCG/DOSE BLISTR POWDR FOR INHALATION *Reorder from [facility] for eRx and Interaction Alerts* 12/28/2023 Active Ergocalciferol 1.25 MG (73309 UT) Oral 12/28/2023 Active Primidone 50 MG Oral 12/28/2023 Act kim Immunizations Vaccine Route Administration Date Status Comme nts Influenza virus vaccine, quadrivalent (IIV4), split virus, 0.25 mL dosage Unknown 06/29/2014 Administered Influenza virus vaccine, quadrivalent (IIV4), split virus, 0.25 mL dosage Unknown 06/06/2019 Administered Influenza, high dose seasonal Unknown 06/11/2017 Admini stered Influenza, high dose seasonal Unknown 04/21/2018 Admini stered Influenza, high dose seasonal Unknown 06/06/2019 Admini stered Influenza, high-dose seasona l, quadrivalent, preservative free >65 yrs Unknown 05/24/2020 Administered Influenza, unspecified formulation Unknown 05/24/2020 A dministered Moderna Covid-19 Vaccine 1st dose Unknown 09/26/2020 Ad ministered Moderna Covid-19 Vaccine 1st dose Unknown 10/30/2020 Ad ministered Novel [id number], preservative free Unknown 07/01/2015 Administered Novel [id number]-[id number], preservative free Unknown 08/14/2016 Administered Pfizer Biontech Covid-19 Vac cine 2nd dose Unknown 06/20/2021 Administered Pfizer-Biontech Covid-19 Vac cine 1st dose Unknown 12/06/2021 Administered Pfizer-Biontech Covid-19 Vac cine 1st dose Unknown 06/01/2022 Administered Pneumococcal conjugate PCV 13 Unknown 01/31/2018 Admini stered Pneumococcal conjugate PCV 7 Unknown 08/24/2018 Adminis tered Pneumococcal polysaccharide PPV23 Unknown 01/31/2018 Ad ministered Pneumococcal polysaccharide PPV23 Unknown 07/22/2019 Ad ministered Zoster Unknown 03/16/2018 Administered Zoster Unknown 06/18/2018 Administered Social History Tobacco Use: Social History [...] Risk Notes Problem Mild recurrent major depression (40659075) Major depressive disorder, recurrent, mild (F33.0) Active confirmed Problem Generalized anxiety disorder (33791879) Generalized anxiety disorder (F41.1) Active confirmed Problem Recurrent hypersomnia (775644527) Recurrent hypersomnia (G47.13) Active confirmed Vital Signs Heart Rate 67 /min 10/06/2024 Height-cm 162.56 cm 10/06/2024 Blood pressure diastolic 69 mm Hg 10/06/2024 Weight-kg 106.14 kg 10/06/2024 Height 64.00 in 10/06/2024 Blood pressure systolic 109 mm Hg 10/06/2024 Weight 234 lbs 10/06/2024 BMI 40.16 kg/m2 10/06/2024 Encounters Encounter Location Date Provider Diagnosis [facility] [employer] [facility] [address] [address] 12/28/2023 Thena Malik Generalized anxiety disorder F41.1 and Major depressive disorder, recurrent, in remission, unspecified F33.40 [facility] [employer] [facility] [address] [address] 02/09/2024 Walternhung Parada Generalized anxiety disorder F41.1 and Recurrent major depressive episodes, mild F33.0 [facility] [address] [address] 04/08/2024 Thena Malik Major depressive disorder, recurrent, mild F33.0 ; Generalized anxiety disorder F41.1 and Recurrent hypersomnia G47.13 [facility] [employer] [facility] [address] [address] 04/28/2024 Walter Parada Generalized anxiety disorder F41.1 and Recurrent major depressive episodes, mild F33.0 [facility] [employer] [facility] [address] [facility] [address] [place] [address] 06/29/2024 Walter Parada Generalized anxiety disorder F41.1 and Depression, major, recurrent, mild F33.0 [facility] [employer] [facility] [address] [address] 07/08/2024 Thena Malik Major depressive disorder, recurrent, mild F33.0 ; Generalized anxiety disorder F41.1 and Recurrent hypersomnia G47.13 [facility] [address] [facility] [address] [facility] [address] [place] [address] 10/06/2024 Thenhugo GalvezMalik Major depressive disorder, recurrent, mild F33.0 ; Generalized anxiety disorder F41.1 and Recurrent hypersomnia G47.[address] [place] [address] 01/09/2024 Provider Migration [address] [facility] [address] [place] [address] 01/10/2024 Provider Migration Assessments Encounter Date Diagnosis (ICD Code) Assessment Notes Treatment Notes Treatment Clinical Notes Section Notes 07/08/2024 Major depressive disorder, recurrent, mild (ICD-10 - F33.0) 07/08/2024 Generalized anxiety disorder (ICD-10 - F41.1) 10/06/2024 Major depressive disorder, recurrent, mild (ICD-10 - F33.0) 10/06/2024 Generalized anxiety disorder (ICD-10 - F41.1) 04/28/2024 Generalized anxiety disorder (ICD-10 - F41.1) [...] several years prior to her . 06/29/2024 Generalized anxiety disorder (ICD-10 - F41.1) [...] for several years prior to her . 12/28/2023 Major depressive disorder, recurrent, in remission, unspecified (ICD-10 - F33.40) 12/28/2023 Generalized anxiety disorder (ICD-10 - F41.1) 02/09/2024 [...] 04/08/2024 Generalized anxiety disorder (ICD-10 - F41.1) 04/08/2024 [...] Provider Name:Bonnie Villareal jassi, 01/03/2025 02:00:00 PM, [facility] [facility] [address] [facility] [address], [place], [address], Insurance Providers Payer Name Payer Address Payer Phone Subscriber Number Group Number Insured Name Patient Relationship to Insured Coverage Start Date Coverage End Date [facility] Medicare Replacement/ Advantage - Ppo [address] [address] [place] [address] [id number] GLADIS MARK Self - patient is the [...] Yes Surgical History Surgery Date(Month/Year) Ankle arthroscopy/surgery (15537) Hip arthroscopy dx (15830) Knee arthroscopy/surgery (60573) lt Lung excision (316192610) Other Left hip replacement 01/11/2024
--- OUTSIDE RECORDS SUMMARY | 2024-11-23 07:47 | XMS_ITS | Encounter Summary ---
Author Organization [facility] Address [address] [place] [address] Care Team Providers Care Trade Show Specialist Name Role Phone Didier Wolf MD Primary Care Provider [phone] Reason for Referral * Evaluate (Routine) - Closed Specialty Diagnoses / Procedures Referred By Francis t Referred To Contact Diagnoses Family history of breast cancer Meg Munoz MD [address] [facility] [address] [place] [address] Denise Ware, [employer] Referral ID Status Reason Start Date Expiration Date V isits Requested Visits Authorized [id number] Closed Specialty Services Required 09/05/2021 09/05/2022 99 99 LABORER Reason for Visit * Reason Onset Date Comments Genetic Counseling 09/05/2021 Encounter Details Date Type Department Care Team (Late st Contact Info) Description 09/05/2021 Telephone [facility] [address] [place] [address] Meg Munoz MD [address] [facility] [address] [place] [address] Genetic Counseling Social History Tobacco [...] Meg Munoz MD - 09/05/2021 12:46 PM SHOP LABORER Would refer the patient to genetics as below. Genetics for breast cancer risk: Dr. Denise Ware at [facility] [phone] Meg Munoz MD LABORER * Telephone Encounter - Duyen Boone - 09/05/2021 11:29 AM CST Patient wanting to get genetic testing for breast cancer because daughter was just diagnosed and italso runs in the family. Daughter is also a patient of Dr Munoz. # [phone] LABORER documented in this encounter Plan of Treatment Scheduled Referrals Name Type Priority Associated Diagnoses Order Schedule Ref to Cancer Genetic Counseling - Yamileth Ware [facility] Outpatient Referral Routine Family history of breast cancer Ordered: 09/05/2021 documented as of this encounter Visit Diagnoses Diagnosis Family history of breast cancer- Primary Family history of malignant neoplasm of breast documented in this encounter Care Teams Trade Show Specialist Relationship Specialty Start Date End Date Didier Wolf MD PCP - General 12/01/17 documented as of this encounter
--- OUTSIDE RECORDS SUMMARY | 2024-11-23 07:47 | XMS_ITS | CONTINUITY OF CARE DOCUMENT ---
Author Name [email or web address] Address Unknown Organization [facility] Address [address] [facility] [address] [place] [address] Phone [phone] Care Team Providers Care Gypsum Roofer Name Role Phone Ann Marie TURCIOS, Josué Unavailable ROBERTO TURCIOS, JULIA Unavailable MARGARITA TURCIOS, BALDEV Amaya Unavailable INSURANCE PROVIDERS Payer name Policy type / Coverage type Trona red democrat ID UHC MEDICARE COMPLETE O Other [id number]
--- OUTSIDE RECORDS SUMMARY | 2024-11-23 07:47 | XMS_ITS | Clinical Summary ---
Author Organization [facility] Address [address] [place] [address] Care Team Providers Care Manager Drug Safety Name Role Phone Didier Wolf MD Primary Care Provider Allergies Active Allergy Reactions Criticality Noted Date Comments Avocado Stomach upset,Unknown Low 12/28/2023 Banana Extract Stomach upset,Unknown Low 12/28/2023 Medications flu vac lp6364-79,36mo s,up,/PF (FLUARIX QUAD 5584-2430, PF, IM) Fluarix Quad 6176-1750 (PF) 60 mcg (15 mcg x 4)/0.5 [...] 6 months. New lab orders sent to [employer]. Continue low-carb (<150 g/day), low-glycemic diet. Assessment [...] w/r/t gut microbiome. Referred to ADA and [employer] websites for additional information on topics including [...] Team Description 11/22/2024 11:15 AM CDT Lab [facility] Advanced [facility] ([facility]) [address] [place] [address] Other specified abnormal immunological findings in serum 11/22/2024 9:00 AM CDT Office Visit [facility] Rheumatology [address] [facility] Medicine 5th [place] [address] [place] [address] Satish Espinosa MD PhD Other specified abnormal [...] Antibodies against the following antigens: Shirley-1 Ab, OCCUPATIONAL SAFETY SPECIALIST Ab, Scl-70 Ab, Brady Ab, SS-A/Ro Ab, [...] ORDERABLE S Final Result Performing Organization Address City/State/[facility] co Phone Number [facility] Department [place] [address] from Last 3 Months Insurance [facility] [place] [address] [facility] MDCR HMO REF [facility] MEDICARE ADVANTAGE Care Teams Manager Drug Safety Relationship Specialty Start Date End Date Didier Wolf MD PCP - General Internal Medicine 02/21/19
[2024-11-23] MEDS: KETOROLAC 30 MG/ML VIAL (*BKC) IM (08:05)
[2024-11-23] MEDS: CYCLOBENZAPRINE HCL 10 MG TABLET PO (08:06)
== END 2024-11-23 08:32 | disposition home or self-care (01) ==
PROVIDERS: Emergency Provider Emergency Medicine; PCP Internal Medicine
DX: M54.41 Lumbago with sciatica, right side (principal); G47.30 Sleep apnea, unspecified; E78.5 Hyperlipidemia, unspecified; I10 Essential (primary) hypertension; F32.A Depression, unspecified
CPT/HCPCS: 96372; 99283; A9270; J1885

== ENCOUNTER 2024-12-28 00:21 | Day surgery (SDC) | payer MEDICARE, SELFPAY ==
[2024-12-15 15:18] VITALS: BMI 39.7
--- OUTSIDE RECORDS SUMMARY | 2024-12-28 00:24 | XMS_ITS | Clinical Summary ---
Author Organization [facility] Address [address] [facility] [place] [address] Care Team Providers Care Micro Computer Specialist Name Role Phone Didier Wolf MD Primary Care Provider [phone] [facility],non-owned Affiliates and Associated Physician Practices is amultiple site organization consisting of ambulatory clinics and hospital sitesin [place], [place], [place] and [place]. This disclosure is being madepursuant to the Care Everywhere program and may not contain all information available regarding this patient. Last updated 18.[facility] Allergies No known active allergies Medications * Be aware that medications may not be up to date on this document. Alwaysverify current medications with the patient. losartan-hydroCHL OROthiazide (HYZAAR) 100-25 MG tabletIndications :Well woman exam with routine gynecological exam Take 1 tablet by mouth once daily 1 11/10/19 18 Active ALBUTEROL SULFATE HFA INIndications:Wel l woman exam with routine gynecological exam Inhale 2 puffs by mouth as needed Active PARoxetine (PAXIL) 20 MG tabletIndications :Well woman exam with routine gynecological exam Take 20 mg by mouth once daily Active methocarbamol (ROBAXIN) 750 MG tablet Take 750 mg by mouth every 8 hours 1 01/04/20 19 Active meloxicam (MOBIC) 15 MG tablet Take 15 mg by mouth once daily 0 01/12/20 19 Active WIXELA INHUB 250-50 MCG/DOSE inhaler INHALE 1 DOSE BY MOUTH TWICE DAILY. RINSE MOUTH AFTER USE 1 11/27/19 19 Active vitamin D, ergocalciferol, (DRISDOL) 32765 units capsule TAKE ONE CAPSULE BY MOUTH ONE TIME PER WEEK 0 11/12/19 19 Active acetaminophen-cod eine (TYLENOL #3) 300-30 MG tablet acetaminophen 300 mg-codeine 30 mg tablet Active Estradiol (IMVEXXY STARTER PACK) 10 MCG INST Insert 1 capsule into the vagina once daily 18 Each 03/02/20 19 Active Active Problems Problem Noted Date Diagnosed Date Essential hypertension 03/03/2019 Obesity 03/03/2019 Obstructive sleep apnea syndrome 03/03/2019 Osteoarthritis of hip 03/03/2019 Anxiety 04/23/2017 Immunizations Immunization Administration Dates Next Due INFLUENZA VACCINE 05/24/2017 [...] 0.6 oz pu re alcohol) per week Comments No Sex and Gender Information Value Date Recorded Sex Assigned at Not on file Legal Sex Female 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 Gender Identity Not on file Sexual Orientation [...] MAMMOGRAM 01/31/2021 01/31/2019, 01/28/2019 COVID-19 VACCINE ( - season) 2024 12/06/2021, 06/20/2021 DEPRESSION SCREENING 08/24/2024 INFLUENZA VACCINE (Season Ended) 2025 05/24/2020, 04/22/2018, [...] MAMMOGRAM (01/31/2019) Anatomical Region Laterality Modality Other us Historical Provider MD SCANNING ONLY Final Res ult from Last 3 Months or Most Recently Relevant to Health Maintenance Insurance [facility] MANAGED MEDICARE [place] [id number] Care Teams Micro Computer Specialist Relationship Specialty Start Date End Date Didier Wolf MD PCP - General 12/01/17
--- OUTSIDE RECORDS SUMMARY | 2024-12-28 00:24 | XMS_ITS | Clinical Summary ---
Author Organization [employer] [facility] Address [address] [place] [address] Care Team Providers Care Bread Wrapper Name Role Phone Unavailable Primary Care Provider [...] of architectural distortion in the left breast. Didier Wolf MD MAMMO ORDERABLES Final Result from Last 3 Months or Most Recently Relevant to Health Maintenance Insurance [facility] [id number] [place] [id number]
--- OUTSIDE RECORDS SUMMARY | 2024-12-28 00:24 | XMS_ITS | Clinical Summary ---
Author Organization [facility] Address [address] [place] [address] Care Team Providers Care It Compliance Manager Name Role Phone Didier Wolf MD Primary Care Provider [phone] Allergies Active Allergy Reactions Criticality Noted Date Comments Avocado Stomach upset,Unknown Low 12/28/2023 Banana Extract Stomach upset,Unknown Low 12/28/2023 Medications flu vac ut1173-41,36mo s,up,/PF (FLUARIX QUAD 6429-4073, PF, IM) Fluarix Quad 1708-8560 (PF) 60 mcg (15 mcg x 4)/0.5 [...] 6 months. New lab orders sent to [employer]. Continue low-carb (<150 g/day), low-glycemic diet. [...] w/r/t gut microbiome. Referred to ADA and [employer] websites for additional information on topics including [...] Encounters Date Type Department Care Team Description 11/29/2024 Results Follow-Up [facility] Rheumatology [address] [place] [address] Advanced Medicine 5th [place] [address] [place] [address] Satish Espinosa MD PhD 11/22/2024 11:15 AM CDT Lab [facility] Advanced [facility] ([facility]) [address] [place] [address] Other specified abnormal immunological findings in serum 11/22/2024 9:00 AM CDT Office Visit [facility] Rheumatology [facility] 5th [place] [address] [place] [address] Satish Espinosa MD PhD Other specified abnormal [...] Antibodies against the following antigens: Shirley-1 Ab, LEASE EXAMINER Ab, Scl-70 Ab, Brady Ab, SS-A/Ro Ab, and SS- B/La Ab. Further testing for dsDNA, Centromere, or Ribosomal P antibodies is suggested in patient with a positive screen and negative specific antibodies. Current interpretive data was last revised on 2023. Blood 11/22/2024 10:1 9 AM CDT 11/22/2024 11:11 AM CDT us Satish Espinosa MD PhD LAB BLOOD ORDERABLE S Final Result [facility] [place] [address] from Last 3 Months Insurance [facility] MEDICARE ADVANTAGE [facility] MDCR HMO REF [facility] MEDICARE ADVANTAGE Care Teams It Compliance Manager Relationship Specialty Start Date End Date Didier Wolf MD PCP - General Internal Medicine 02/21/19
--- OUTSIDE RECORDS SUMMARY | 2024-12-28 00:24 | XMS_ITS | Patient Health Record ---
Author Organization [facility] [employer] Address [address] [place] [address] Care Team Providers Care Legal Compliance Officer Name Role Phone Didier Wolf MD Primary Care Provider Unavaila Bonnie Holley Unavailable [phone] Walter Parada Unavailable [phone] Sol Gan Unavailable [phone] Migration, Provider Unavailable Unavailable Allergies Allergen (clinical [...] MCG/DOSE BLISTR POWDR FOR INHALATION *Reorder from [facility] for eRx and Interaction Alerts* 12/28/2023 Active Ergocalciferol 1.25 MG (67543 UT) Oral 12/28/2023 Active Primidone 50 MG [...] 1st dose Unknown 10/30/2020 Ad ministered Novel Fruryhiun-[id number], preservative free Unknown 07/01/2015 Administered Novel Cxjkjgunt-X4J5-18, preservative free Unknown 08/14/2016 Administered Pfizer Biontech [...] Risk Notes Problem Mild recurrent major depression (17486137) Major depressive disorder, recurrent, mild (F33.0) Active confirmed Problem Generalized anxiety disorder (17377547) Generalized anxiety disorder (F41.1) Active confirmed Problem Recurrent hypersomnia (559664857) Recurrent hypersomnia (G47.13) Active confirmed Vital Signs Heart Rate 67 /min 10/06/2024 Height-cm 162.56 cm 10/06/2024 Blood pressure diastolic 69 mm Hg 10/06/2024 Weight-kg 106.14 kg 10/06/2024 Height 64.00 in 10/06/2024 Blood pressure systolic 109 mm Hg 10/06/2024 Weight 234 lbs 10/06/2024 BMI 40.16 kg/m2 10/06/2024 Encounters Encounter Location Date Provider Diagnosis [facility] [employer] [place] [address] [address] 02/09/2024 Walter Parada Generalized anxiety disorder F41.1 and Recurrent major depressive episodes, mild F33.0 [facility] [employer] [place] [address] [facility] [address] [place] [address] 04/08/2024 Thena Mailk Major depressive disorder, recurrent, mild F33.0 ; Generalized anxiety disorder F41.1 and Recurrent hypersomnia G47.13 [facility] [place] [address] [address] 04/28/2024 Walter Parada Generalized anxiety disorder F41.1 and Recurrent major depressive episodes, mild F33.0 [facility] [place] [address] [facility] [address] [place] [address] 06/29/2024 Walter Parada Generalized anxiety disorder F41.1 and Depression, major, recurrent, mild F33.0 [facility] [employer] [place] [address] [place] [address] 07/08/2024 Thena [place] Major depressive disorder, recurrent, mild F33.0 ; Generalized anxiety disorder F41.1 and Recurrent hypersomnia G47.13 [facility] [address] [facility] [address] [place] [address] 10/06/2024 Thena [place] Major depressive disorder, recurrent, mild F33.0 ; Generalized anxiety disorder F41.1 and Recurrent hypersomnia G47.13 [facility] [address] [place] [address] 01/09/2024 Provider Migration [facility] [address] [place] [address] 01/10/2024 Provider Migration Assessments Encounter Date Diagnosis [...] it. Client added she has seen Rachael Shni for a couple of years for medication [...] several years prior to her . 02/09/2024 Generalized anxiety disorder (ICD-10 - F41.1) [...] it. Client added she has seen Rachael Aleida for a couple of years for medication [...] Of Treatment Next Appt Details Provider Name:Bonnie Bazan thad, 01/03/2025 02:00:00 PM, [address], [facility] [address], [place], [address], Insurance Providers Payer Name Payer Address Payer Phone Subscriber Number Group Number Insured Name Patient Relationship to Insured Coverage Start Date Coverage End Date [facility] Medicare Replacement/ Advantage - P[place] [address] [address] [place] [address] [id number] GLADIS MARK Self - patient is the [...] Yes Surgical History Surgery Date(Month/Year) Ankle arthroscopy/surgery (80453) Hip arthroscopy dx (56723) Knee arthroscopy/surgery (76236) lt Lung excision ([id number]) Other Left hip replacement 01/11/2024
--- OUTSIDE RECORDS SUMMARY | 2024-12-28 00:24 | XMS_ITS | Encounter Summary ---
Author Organization [facility] Address [address] [place] [address] Care Team Providers Care Sports Analyst Name Role Phone Didier Wolf MD Primary Care Provider [phone] Reason for Referral * Evaluate (Routine) - Closed Specialty Diagnoses / Procedures Referred By Francis t Referred To Contact Diagnoses Family history of breast cancer Meg Munoz MD [address] [facility] [address] [place] [address] Phone: tel: fax: Denise Ware, SUPER[employer]-[facility] Referral ID Status Reason Start Date Expiration Date V isits Requested Visits Authorized [id number] Closed Specialty Services Required 09/05/2021 09/05/2022 99 99 AL SURGEON Reason for Visit * Reason Onset Date Comments Genetic Counseling 09/05/2021 Encounter Details Date Type Department Care Team (Late st Contact Info) Description 09/05/2021 Telephone [facility] [address] [place] [address] Meg Munoz MD [address] [facility] [address] [place] [address] Genetic Counseling Social History Tobacco Use Types Packs/Day Years Used Date Smoking Tobacco: Never Smokeless Tobacco: Never Alcohol Use Standard Drinks/Week Comments Yes 10 (1 standard drink = 0.6 oz pu re alcohol) per week Comments No Sex and Gender Information Value Date Recorded Sex Assigned at Not on file Legal Sex Female 6:30 AM DENTAL SURGEON Gender Identity Not on file Sexual Orientation Not on file documented as of this encounter Miscellaneous Notes * Telephone Encounter - Meg Munoz MD - 09/05/2021 12:46 PM DENTAL SURGEON Would refer the patient to genetics as below. Genetics for breast cancer risk: Dr. Denise Ware at [facility] [phone] Meg Munoz MD AL SURGEON * Telephone Encounter - Duyen Boone - 09/05/2021 11:29 AM CST Patient wanting to get genetic testing for breast cancer because daughter was just diagnosed and italso runs in the family. Daughter is also a patient of Dr Munoz. CB# [phone] AL SURGEON documented in this encounter Plan of Treatment Scheduled Referrals Name Type Priority Associated Diagnoses Order Schedule Ref to Cancer Genetic Counseling - Yamileth Ware [facility] Outpatient Referral Routine Family history of breast cancer Ordered: 09/05/2021 documented as of this encounter Visit Diagnoses Diagnosis Family history of breast cancer- Primary Family history of malignant neoplasm of breast documented in this encounter Care Teams Sports Analyst Relationship Specialty Start Date End Date Didier Wolf MD PCP - General 12/01/17 documented as of this encounter
--- OUTSIDE RECORDS SUMMARY | 2024-12-28 00:24 | XMS_ITS | Encounter Summary ---
Author Organization [facility] Address [address] [place] [address] Phone Care Team Providers Care Machine Pie Maker Name Role Phone Didier Wolf MD Primary Care Provider [phone] Encounter Details Date Type Department Care Team (Late st Contact Info) Description 11/29/2024 Results Follow-Up [facility] [facility] Medicine 5th [place] [address] [place] [address] Satish Espinosa MD PhD [address] [place] [address] Social History Tobacco Use Types Packs/Day Years [...] on file documented as of this encounter Visit Diagnoses Not on filedocumented in this encounter Care Teams Machine Pie Maker Relationship Specialty Start Date End Date Didier Wolf MD PCP - General Internal Medicine 02/21/19 documented as of this encounter
--- OUTSIDE RECORDS SUMMARY | 2024-12-28 00:24 | XMS_ITS | CONTINUITY OF CARE DOCUMENT ---
Author Name [email or web address] Address Unknown Organization [facility] Address [address] [facility] [address] [place] [address] Phone [phone] Care Team Providers Care Waste Machine Offbearer Name Role Phone Ann Marie TURCIOS, Josué Unavailable ROBERTO TURCIOS, JULIA Unavailable MARGARITA TURCIOS, BALDEV Amaya Unavailable [phone] INSURANCE PROVIDERS Payer name Policy type / Coverage type Power red green party ID [employer] MEDICARE COMPLETE O Other [id number]
--- OUTSIDE RECORDS SUMMARY | 2024-12-28 00:24 | XMS_ITS | Referral Summary ---
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 Name Role Phone Didier Wolf MD Primary Care Provider Encounters Date Type Department Care Team Description 11/29/2024 Results Follow-Up [facility] Rheumatology [address] [place] [address] 5th [place] [address] Satish Espinosa MD PhD 11/22/2024 11:15 AM CDT Lab [facility] [address] [place] [address] Other specified abnormal immunological findings in serum 11/22/2024 9:00 AM CDT Office Visit [facility] Rhe[facility] [address] [place] [address] 5th [place] [address] Satish Espinosa MD PhD Other specified abnormal immunological findings in serum from Last 3 Months Allergies Active Allergy Reactions Criticality Noted Date Comments Avocado Stomach upset,Unknown Low 12/28/2023 Banana Extract Stomach upset,Unknown Low 12/28/2023 Medications flu vac [id number],36mo s,up,/PF (FLUARIX QUAD 3811-4825, PF, IM) Fluarix Quad 1750-3238 (PF) 60 mcg (15 mcg x 4)/0.5 [...] 6 months. New lab orders sent to [facility]. Continue low-carb (<150 g/day), low-glycemic diet. Assessment [...] w/r/t gut microbiome. Referred to ADA and [employer] websites for additional information on topics [...] Antibodies against the following antigens: Shirley-1 Ab, LABORATORY DIRECTOR Ab, Scl-70 Ab, Brady Ab, SS-A/Ro Ab, and SS- B/La Ab. Further testing for dsDNA, Centromere, or Ribosomal P antibodies is suggested in patient with a positive screen and negative specific antibodies. Current interpretive data was last revised on 2023. 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
--- OUTSIDE RECORDS SUMMARY | 2024-12-28 00:24 | XMS_ITS | Data Portability ---
Author Organization [place] [facility] [email or web address], Main Office Address [address] [place] [address] Care Team Providers Care Digital Media Director Name Role Phone BALDEV WOLF Primary Care Provider [phone] BALDEV WOLF Referring Provider Assessment Encounter Date Assessment Date Assessment LastModified by Organization Details LastModified Time 12/24/2022 12/24/2022 Cough doxycycline for a week Done divide his eyedrops no contacts for 2 weeks she is going to check in by phone in 4-5 days because that she is not improving with her eyes I told her I want to go see the eye doctor [email or web address] Not available 12/25/2022 08:51:35 03/12/2023 03/12/2023 Patient presents hip pain left. She has an arthritic left hip and is [id number]-[id number] at this time. She has pain with [...] me in 4 months all questions answered Not available 03/19/2023 22:49:18 07/20/2023 07/20/2023 Blood work show A1c of 5.0 LDL of 80 minimally anemic vitamin-D level look continue current therapy follow-up 4 months. [email or web address] Not available 07/20/2023 22:40:59 Plan of Treatment Reminders Order Date Submit Date Provider Last Modified By Organization Details Last Modified Time Details Appointments None recorded. Lab None recorded. Referral None recorded. Procedures None recorded. Surgeries None recorded. Imaging XR, hip + pelvis, unilateral, 2 or 3 view 2022 023 [email or web address] 158 [facility] [place], [address], [place], [address], 11:42:24 Medication Orders TobraDex 0.3 %-0.1 % eye drops,suspe nsion 2022 023 [email or web address] 3 [facility], [address] [place], [address], 11:00:11 doxycycline hyclate 100 mg tablet 2022 023 [email or web address] 3 [facility], [address] [place], [address], 10:59:57 Patient TargetsNo targets recorded. Patient InstructionsNo instructions recorded. Reason for Referral None Reported. Results Created Date Observation Date Name Description Value Unit Range Abnormal Flag Note LastModifiedBy Organization Detail LastModifiedTime 09/22/1909/05/2022 mihai r monit or No observ ation record ed. [id number] [facility] [address], [place], [address], 10/22/2022 06:09:13 11/05/19 23 09/22/2022 cardi ac monit or No observ ation record ed. cyahl Not Available 2022 16:23:42 03/06/20 23 XR, foot [facility] [address] [facility] [place] [address] Dominick hooker Name: LOUISE OROZCO Access ion #: [id number] Sex: F : 1949 1 Locati [...] tibia sugges tive Page 1 of 2 [facility] Dominick hooker Name: LOUISE OROZCO ion #: [id number] Sex: F : 1949 1 Exam [...] 2:52 PM (CT) Page 2 of 2 [facility] (Imaging) [address] [facility], [place], [address], 03/20/2023 13:58:20 03/12/20 23 XR, hip + pelvi s, unila teral , 2 or 3 view No observ ation record ed. [facility] [place] [address], [place], [address], 03/12/2023 11:42:23 Result Notes None recorded. Problems Name Problem SNOMED Code Status Onset Date Resolution Date Notes Provider Name and Address Organization Details Recorded Time Spinal enthesopa thy 29358389 Active Not Available [facility] 3 09:44:19 Arthritis of left hip 03566727538 89364 Active 2020 Not Available [facility] 3 09:44:19 Arthritis of left knee 04767867470 84005 Active 2020 Not Available [facility] 3 09:44:19 History of left total knee replaceme nt 91994642113 16414 Active 2020 Not Available [facility] 3 09:44:19 History of total knee arthropla sty 16845798929 05 Active 2021 Not Available [facility] 3 09:44:19 Pain in right sacroilia c joint 28896227703 647245 Active 2021 Not Available [facility] 3 09:44:19 Disorder of sacrum 33448874 Active Not Available [facility] 3 09:44:19 Recurrent urinary tract infection 561600494 Active 2021 Not Available [facility] 3 09:44:19 Localized , primary osteoarth ritis of the hand 993602817 Active Not Available [facility] 3 09:44:19 Localized , primary osteoarth 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 897772381 Active Not Available [facility] 3 09:44:19 Pain of joint of wrist 725539453 Active Not Available [facility] 3 09:44:19 Sciatica 25851850 Active 2021 Not Available [facility] 3 09:44:19 Osteoarth ritis of hip 811308074 Active Not Available [facility] 3 09:44:19 Osteoarth ritis of knee 011582426 Active Not Available [facility] 3 09:44:19 Low back pain 768589427 Active 2021 Not Available [facility] 3 09:44:19 Enthesopa thy of hip region 49731059 Active Not Available [facility] 3 09:44:19 Localized , primary osteoarth ritis of elbow 604130032 Active Not Available [facility] 3 09:44:19 Pain of left hip joint 05247986982 9100 Active 2020 Not Available [facility] 3 09:44:19 Trochante dhiraj bursitis of left hip 34143374120 9103 Active 2020 Not Available [facility] 3 09:44:19 Tachycard ia 5736015 Active 2022 Not Available [facility] 3 09:44:19 Vitamin D deficienc y 25180245 Active 2018 Not Available [facility] 3 09:44:19 Closed fracture of metatarsa l bone 41808126 Active Not Available [facility] 3 09:44:19 Sinusitis 70553382 Completed Not Available [facility] 3 06:02:39 Dyslipide hanh 212512588 Active 2020 Not Available [facility] 3 09:44:19 Osteoarth ritis 612617434 Active Not Available [facility] 3 09:44:19 Obesity 394938157 Active Not Available [facility] 3 09:44:19 Disorder of wrist joint 365319009 Active Not Available [facility] 3 09:44:19 Asymmetri stephanie sensorine ural hearing loss 405371373 Active 2021 Not Available [facility] 3 09:44:19 Acute urinary tract infection 147248916 Active 2021 Not Available [facility] 3 09:44:19 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 82889453930 4100 Active 2021 Not Available [facility] 3 09:44:19 Tinnitus of left ear 91958304603 06 Active 2021 Not Available [facility] 3 09:44:19 Anxiety 60263456 Active 2016 Not Available [facility] 3 09:44:19 Pain of hip region 27978935 Active Not Available [facility] 3 09:44:19 Cough 36074751 Completed CLEMENTE Holloway, STELLA - [employer] [place] [employer] [facility] 3 11:29:07 Essential hypertens ion 31988547 Active Not Available [facility] 3 09:44:20 Derangeme nt of knee 03527532 Active Not Available [facility] 3 09:44:20 Obstructi ve sleep apnea syndrome 97923601 Active Not Available [facility] 3 09:44:20 Pain in limb 58920290 Active Not Available [facility] 3 09:44:20 Upper respirato ry infection 22252920 Active 2022 Not Available [facility] 3 09:44:20 Cough 12043471 Active 2022 Not Available [facility] 3 09:44:19 Acute conjuncti vitis 50723436 Active 2022 Not Available [facility] 3 09:44:20 Sore mouth 896652752 Active 2022 Not Available [facility] 3 09:44:19 Foot pain 73839197 Active 2022 Not Available [facility] 3 09:44:19 Osteoarth ritis of left hip joint 70682466357 9108 Active 2022 Not Available [facility] 3 09:44:19 Morbid obesity 101843217 Active 2022 Not Available [facility] 3 09:44:19 Asthma 180055823 Active 2022 Not Available [facility] 3 09:44:19 Notes:Some problems listed i n Document: #[id number] could not be added to this patient's chart. Please review this document and add these problems to the patient's chart manually as needed. Problem Notes None recorded. Procedures Surgical History Date Name Laterality Status Provider Name and Address Organization Details Recorded Time 08/30/19 21 Most Recent Bone Density completed Not Available [facility] 10/22/2022 05:56:24 09/02/19 18 Total knee arthroplasty completed Not Available [facility] 10/22/2022 05:56:31 07/18/20 15 Total hip arthroplasty completed Not Available [facility] 10/22/2022 05:56:31 08/30/19 15 Date of Last Colonoscopy completed Not Available [facility] 10/22/2022 05:56:24 08/30/19 15 Colonoscopy completed Not Available [facility] 10/23/19 23 05:56:31 08/24/18 99 lobectomy of the lung and excisional biopsies completed Jaelyn Gutierrez [facility] [place] [facility] 03/12/2023 11:01:16 Ankle Surgery completed Not Available [facility] 10/22/2022 05:56:31 Imaging Results Imaging Date Name Status LastModified by Organiz ation Details LastModified Time 09/05/2022 holter monitor completed [id number] [facility] [address], [place], [address], 10/22/2022 06:09:13 09/22/2022 monitoring engineer completed cyl Information not available 11/04/2022 16:23:42 03/06/2023 XR, foot completed [email or web address] [facility] ([facility]) [address], [place], [address], 03/20/2023 13:58:20 03/12/2023 XR, hip + pelvis, unilateral, 2 or 3 view completed [email or web address] [facility] [place] [address], [place], [address], 03/12/2023 11:42:23 Procedure Notes None recorded. Medical Equipment None Reported. Allergies Allergen ID Allergen Name Allergen Category Reaction Reaction Severity Criticality Documentation Date Start Date Code Code System Note Provider Name and Address Organization Details Recorded Time 03051 banana extract food,medi cation abdominal pain Not available Not available 10/22/2022 81923 9 RxNorm Not Available [facility] 3 06:08:51 35440 avocado allergeni c extract food abdominal pain Not available Not available 10/22/2022 45398 2 RxNorm Not Available [facility] 3 06:08:51 Medications Name Sig Start Date [...] administe red by the provider 06/28 completed [facility]: 0003- 0494- 20 Not Available Not [...] administe red by the provider 06/28 completed [facility]: 0409- 4276- 17 Not Available Not [...] Available Not Available Not Available Fluarix Quad 4497-8748 (PF) 60 mcg (15 mcg x 4)/0.5 mL IM syringe TO BE ADMINISTE RED BY PHARMACIS T FOR IMMUNIZAT ION active Not Available Not Available No t Available Fluarix Quad 6441-6823 (PF) 60 mcg (15 mcg x 4)/0.5 mL IM syringe TO BE ADMINISTE RED BY PHARMACIS T FOR IMMUNIZAT ION 11/20 completed Not Available Not Available Not Available Fluzone High-Dose 9181-6375 (PF) 180 mcg/0.5 mL intramuscul ar syringe TO BE ADMINISTE RED BY PHARMACIS T FOR IMMUNIZAT ION active Not Available Not Available No t Available Shingrix (PF) 50 mcg/0.5 mL intramuscul ar suspension, kit 10/06 completed Not Available Not Available Not Available Fluzone High-Dose 2045-1793 (PF) 180 mcg/0.5 mL intramuscul ar syringe active Not Available Not Available N ot Available Fluzone High-Dose (PF) 180 mcg/0.5 mL intramuscul ar syringe TO BE ADMINISTE RED BY PHARMACIS T FOR IMMUNIZAT ION active Not Available Not Available No t Available Fluad Quad 1884-8027(6 5yr up)(PF) 60 mcg (15 mcg x [...] 160.02 cm 0 69 /min 97.7 [degF] 967129. 58 g 118 mm[Hg] 78 mm[Hg] Not Available [facility] 3 05:56:56 Date Recorded Body height Body mass index (BMI) Body weight Body temperature Heart rate Systolic blood pressure Diastolic blood pressure Provider Name and Address Organization Details Last Updated DateTime 3 160.02 cm 42.2 kg/m2 821074. 98 g 97.3 [degF] 70 /min 118 mm[Hg] 78 mm[Hg] CLEMENTE [employer] 3 10:43:03 Date Recorded Body height Body mass index (BMI) Body weight Provider Name and Address Organization Details Last Updated DateTime 03/12/2023 160.02 cm 40.7 kg/m2 541098.25 g Jaelyn Schaefer [email or web address] 03/12/2023 10:59:25 Date Recorded Body height Body mass index (BMI) Body weight Body temperature Heart rate Systolic blood pressure Diastolic blood pressure Provider Name and Address Organization Details Last Updated DateTime 3 160.02 cm 41.3 kg/m2 708483. 02 g 97.7 [degF] 60 /min 124 mm[Hg] 84 mm[Hg] CLEMENTE [employer] 3 11:22:43 Date Recorded Body height Body mass index (BMI) Body weight Body temperature Heart rate Systolic blood pressure Diastolic blood pressure Provider Name and Address Organization Details Last Updated DateTime 3 160.02 cm 40.2 kg/m2 207880. 47 g 98.9 [degF] 59 /min 130 mm[Hg] 88 mm[Hg] CLEMENTE [employer] 3 12:40:55 Social History Question Answer Notes LastModified by Organization Details LastModified Time Tobacco Smoking Status Never Smoker Not Available [facility] 10/22/2022 05:53:42 Do You Have An Advance Directive? Yes MIGRATION.300 506423 Information not available 10/22/2022 What Is Your Level Of Alcohol Consumption? Occasional MIGRATION.030 779293 Information not available 10/22/2022 Are You Blind Or Do You Have Difficulty Seeing? No MIGRATION.0301 464258 Information not available 10/22/2022 What Is Your Level Of Caffeine Consumption? Heavy MIGRATION.0301 661929 Information not available 10/22/2022 How Much Tobacco Do You Chew? None MIGRATION.0301 356052 Information not available 10/22/2022 In The 14 Days Before Symptom Onset, Have You Had Close Contact With A Laboratory-confi rmed COVID-19 While That Case Was Ill? No MIGRATION.0301 673324 Information not available 10/22/2022 In The 14 Days Before Symptom Onset, Have You Had Close Contact With A Person Who Is Under Investigation For COVID-19 While That Person Was Ill? No MIGRATION.0301 043471 Information not available 10/22/2022 Are You Deaf Or Do You Have Serious Difficulty Hearing? Yes In Left Ear Getting Hearing Aid MIGRATION.0301 846755 Information not available 10/22/2022 What Type Of Diet Are You Following? REGULAR MIGRATION.030 092371 Information not available 10/22/2022 Which Illicit Or Recreational Drugs Have You Used? None MIGRATION.030 691973 Information not available 10/22/2022 Do You Or Have You Ever Used E-cigarettes Or Vape? Never Used Electronic Cigarettes MIGRATION.0301 445020 Information not available 10/22/2022 What Is The Highest Grade Or Level Of School You Have Completed Or The Highest Degree You Have Received? LL54786-5 MIGRATION.0301 573502 Information not available 10/22/2022 What Is Your Occupation? Retired MIGRATION.030 195160 Information not available 10/22/2022 Have There Been Any Changes To Your Family Or Social Situation? No MIGRATION.0301 148346 Information not available 10/22/2022 What Is The Fluoride Status Of Your Home? Unknown MIGRATION.0301 640011 Information not available 10/22/2022 Are There Any Guns Present In Your Home? Yes MIGRATION.0301 623523 Information not available 10/22/2022 Do You Use Insect Repellent Routinely? No MIGRATION.0301 430110 Information not available 10/22/2022 Where Do You Live? [place] MIGRATION.030 532140 Information not available 10/22/2022 Do You Have A Medical Power Of Flat Clothier? Yes MIGRATION.0301 858563 Information not available 10/22/2022 What Was The Date Of Your Most Recent Tobacco Screening? 07/20/2023 [email or web address] Information not available 07/20/2023 Have You Ever Been Counseled For Unhealthy Alcohol Use? No MIGRATION.0301 757272 Information not available 10/22/2022 Do You Have Any Pets? No MIGRATION.0301 572592 Information not available 10/22/2022 What Is Your Relationship Status? MIGRATION.0301 321090 Information not available 10/22/2022 Do You Use Your Seat Belt Or Car Seat Routinely? Yes MIGRATION.0301 396212 Information not available 10/22/2022 Do You Have Smoke And Carbon Monoxide Detectors In Your Home? Yes MIGRATION.0301 680253 Information not available 10/22/2022 Are You Passively Exposed To Smoke? No MIGRATION.0301 838265 Information not available 10/22/2022 Do You Or Have You Ever Used Smokeless Tobacco? Never Used Smokeless Tobacco MIGRATION.0301 505825 Information not available 10/22/2022 Are There Any Smokers In Your House? No MIGRATION.0301 280094 Information not available 10/22/2022 How Much Tobacco Do You Smoke? No MIGRATION.0301 695357 Information not available 10/22/2022 What Types Of Sporting Activities Do You Participate In? None MIGRATION.0301 179500 Information not available 10/22/2022 Do You Feel Stressed (tense, Restless, Nervous, Or Anxious, Or Unable To Sleep At Night)? NL87266-5 MIGRATION.0301 032323 Information not available 10/22/2022 Do You Use Any Illicit Or Recreational Drugs? No MIGRATION.0301 206521 Information not available 10/22/2022 Do You Use Sunscreen Routinely? Yes MIGRATION.0301 778200 Information not available 10/22/2022 Has Tobacco Cessation Counseling Been Provided? No Not Needed-ne arnav Smoked MIGRATION.0301 064757 Information not available 10/22/2022 How Many Years Have You Smoked Tobacco? 0 MIGRATION.0301 031572 Information not available 10/22/2022 Have You Recently Traveled Abroad? No MIGRATION.0301 112126 Information not available 10/22/2022 Do You Have Any Dietary Restrictions? No MIGRATION.0301 163111 Information not available 10/22/2022 Do You Or Have You Ever Used Any Other Forms Of Tobacco Or Nicotine? No MIGRATION.0301 841546 Information not available 10/22/2022 Sex: Female Functional Status Question Answer Note LastModified by Organizat ion Details LastModified Time Do you have difficulty walking or climbing stairs? No MIGRATION.237947 1190 Information not available 10/22/2022 Do you have transportation difficulties? No MIGRATION.656973 1456 Information not available 10/22/2022 Are you able to walk? YESWOREST MIGRATION.327677 2883 Information not available 10/22/2022 Do you have difficulty doing errands alone? No MIGRATION.355277 1100 Information not available 10/22/2022 Are you able to care for yourself? Yes MIGRATION.407670 4202 Information not available 10/22/2022 Do you have difficulty dressing or bathing? No MIGRATION.045173 3345 Information not available 10/22/2022 What is your exercise level? Moderate goes to gym weekly MIGRATION.307338 8247 Information not available 10/22/2022 Mental Status Question Answer Note LastModified by Organizat ion Details LastModified Time Do you have difficulty concentrating, remembering or making decisions? No MIGRATION.060245224 6 Information not available 10/22/2022 Family History Relationship Description Onset Age of this Age Resolved Age Notes LastModified by Organization Details LastModified Time Unspecified Relation Hypertensive disorder MIGRATION.040 5703738 Not available 10/22/2022 05:56:32 Father Heart disease MIGRATION.110 5517664 Not available 10/22/2022 05:56:32 Mother Anxiety disorder MIGRATION.112 9119506 Not available 10/22/2022 05:56:32 Mother Dementia MIGRATION.714 0507376 Not available 10/22/2022 05:56:32 Brother Cerebrovascu lar accident MIGRATION.811 2598580 Not available 10/22/2022 05:56:33 Sister Family history of malignant neoplasm MIGRATION.307 8661294 Not available 10/22/2022 05:56:33 Notes:NO ENT HISTORY [...] GLAUCOMA N FOOT PROBLEM N DIVERTICULITIS N CHICKENPOX N SLEEP APNEA N INFECTIOUS DISEASE N HEART ARRHYTHMIA N PROSTATE N INSOMNIA N HIGH CHOLESTEROL / HYPERLIPIDEMIA [...] N ALZHEIMER'S DISEASE N Brain Problems N HERPES N DEMENTIA N SEIZURES/EPILEPSY N HEADACHES/MIGRAINES N VASCULAR DISEASE N PACEMAKER N Blood Disorder N DIZZINESS N KIDNEY DISEASE N HEART DISEASE/HEART PROBLEMS N MULTIPLE SCLEROSIS N CARDIAC ARRHYTHMIA N CANCER: SPECIFY Y Gall Stones N ATRIAL FIBRILLATION N PULMONARY EMBOLISM N AUTOIMMUNE DISEASE N Gynecological History Statement/Question Response Date of Last Pap Date of Last Mammogram 01/28/2021 Date of Last Colonoscopy 08/30/2014 Most Recent Bone Density 08/30/2020 Obstetrics History GPAL:G 0 P 0 0 0 0 Immunizations Vaccine Type Date Status Note Provider Nam e and Address Organization Details Recorded Time influenza, unspecified formulation 3 completed CLEMENTE Holloway, rumr: turn off the lights [facility] [email or web address] 06/08/2023 16:23:09 SARS-COV-2 (COVID-19) vaccine, UNSPECIFIED 3 completed CLEMENTE Holloway, rumr: turn off the lights [facility] [email or web address] 06/08/2023 16:23:19 Respiratory syncytial virus (RSV) MAB, unspecified 3 completed CLEMENTE Holloway null, [place] [facility] 08/10/2023 10:26:58 Influenza, high-dose, quadrivalent, PF 1 completed Not Available [facility] 03/14/2023 06:33:23 Influenza, split virus, trivalent, preservative 0 completed Not Available [facility] 03/14/2023 06:33:23 pneumococcal polysaccharide PPV23 9 completed Not Available [facility] 03/14/2023 06:33:23 Influenza, high-dose, quadrivalent, PF 9 completed Not Available [facility] 03/14/2023 06:33:23 zoster live 8 completed Not Available [facility] 03/14/2023 06:33:23 influenza, unspecified formulation 8 completed Not Available [facility] 03/14/2023 06:33:23 zoster live 8 completed Not Available [facility] 03/14/2023 06:33:23 Pneumococcal conjugate PCV 13 8 completed Not Available [facility] 03/14/2023 06:33:23 Influenza, high-dose, trivalent, PF 7 completed Not Available [facility] 03/14/2023 06:33:23 Influenza, split virus, quadrivalent, preservative 6 completed Not Available [facility] 03/14/2023 06:33:23 COVID-19, mRNA, LNP-S, PF, 30 mcg/0.3 mL dose 2 completed Not Available [facility] 03/14/2023 06:33:23 Influenza, split virus, trivalent, preservative 2 completed Not Available [facility] 03/14/2023 06:33:23 COVID-19, mRNA, LNP-S, PF, 30 mcg/0.3 mL dose 2 completed Not Available [facility] 03/14/2023 06:33:23 COVID-19, mRNA, LNP-S, PF, 30 mcg/0.3 mL dose 1 completed Not Available [facility] 03/14/2023 06:33:23 influenza, unspecified formulation 5 completed Not Available [facility] 03/14/2023 06:33:23 Influenza, split virus, trivalent, PF 4 completed Not Available [facility] 03/14/2023 06:33:23 Past Encounters Encounter ID Performer Location Encounter Start Date Encounter Closed Date Diagnosis/Indication Diagnosis SNOMED-CT Code Diagnosis ICD10 Code Diagnosis Note [id number] Miguelito Stauffer MD [facility] [place] [address] [place] [address] 11/22/2020 00:00:00 11/22/2020 11:17:50 [id number] Miguelito Stauffer MD [facility] [place] [address] [place] [address] 12/20/2020 00:00:00 01/10/2021 15:44:36 [id number] Baldev Wolf MD [facility] [address] [facility] [address] [place] [address] 03/01/2021 00:00:00 03/02/2021 15:56:51 [id number] Miguelito Stauffer MD [facility] [place] [address] [place] [address] 03/12/2021 00:00:00 03/12/2021 15:27:35 [id number] Miguelito Stauffer MD [facility] [place] [address] [place] [address] 04/04/2021 00:00:00 04/04/2021 10:57:26 [id number] Baldev Wolf MD [facility] [address] [facility] [address] [place] [address] 06/28/2021 00:00:00 07/07/2021 22:02:58 [id number] Baldev Wolf MD [facility] [address] [facility] [address] [place] [address] 09/20/2021 00:00:00 09/20/2021 14:01:30 [id number] Baldev Wolf MD [facility] [address] [address] 10/25/2021 00:00:00 11/17/2021 17:11:19 [id number] Miguelito Stauffer MD [facility] [place] [address] [place] [address] 12/02/2021 00:00:00 12/02/2021 09:59:09 [id number] Baldev Wolf MD [facility] Internal Med [facility] [address] [facility] [address] 04/23/2022 00:00:00 04/23/2022 23:06:16 [id number] Kristian Spicer MD [facility] [place] [address] [place] [address] 05/27/2022 00:00:00 05/27/2022 15:24:55 [id number] Baldev Wolf MD [facility] Internal Med [facility] [address] [address] 08/27/2022 00:00:00 08/28/2022 20:55:04 [id number] Baldev Wolf MD [facility] Internal Med [facility] [address] [address] 12/24/2022 10:32:44 12/24/2022 11:19:14 Cough 90739469 R05.9 Acute conjunctivitis 537 72802 H10.33 [id number] Miguelito Stauffer MD [facility] [place] [address] [place] [address] 03/12/2023 10:30:10 03/12/2023 11:40:29 Arthritis of left hip 7238867237 447347 M13.852 Osteoarthr itis of left hip joint 6378756846 25849 M16.12 History of total replacement of right hip joint 1884658466 92393 Z96.641 Morbid obesity 686088871 E66.01 [id number] Baldev Wolf MD [facility] Internal Med [facility] [address] [address] 03/19/2023 11:07:54 03/19/2023 12:05:17 Dyslipidemia 814009785 E78.5 Anxiety 02059618 F41.9 Essential hypertension 76869433 I10 Asthma 489295530 J45.90 9 [id number] Baldev Wolf MD [facility] [address], [address] [place] [address] 07/20/2023 11:31:46 07/20/2023 13:04:29 Anxiety 56616459 F41.9 Dyslipidemia 719860269 E 78.5 Asthma 105408719 J45.90 9 Essential hypertension 85382820 I10 Health Concerns Section Related Observation LastModified by Organization Detai ls LastModified Time None Recorded Concern Status LastModified by Organization Details LastModified Time None Recorded Advance Directives Directive Y: Payers Encounter Date Sequence Insurance Name Policy Number Policy Fowler Covered Member ID Fowler Member ID Guarantor Name 12/24/2022 1 [facility] (MEDICARE REPLACEMENT/A DVANTAGE - HMO) [id number] Louise Ponce [id number] Louise Ponce 03/12/2023 1 [facility] (MEDICARE REPLACEMENT/A DVANTAGE - HMO) [id number] Louise Ponce [id number] Louise Ponce 03/19/2023 1 [facility] (MEDICARE REPLACEMENT/A DVANTAGE - HMO) [id number] Louise Ponce [id number] Louise Ponce 07/20/2023 1 [facility] (MEDICARE REPLACEMENT/A DVANTAGE - HMO) [id number] Louise Ponce [id number] Louise Ponce Notes Date Note Type Note Provider Name and Address Organization Details Recorded Time 12/24/2022 text/html dry cough for about a weekEyes of started itching turned red and they are mattingNo skin rashesNot really short of breath no hemoptysis Baldev Wolf MD [address], [place], [address], [facility] [employer] 12/25/2022 08:51:56 03/12/2023 text/html Patient [...] follow-up with that hip. Miguelito Stauffer MD [address], [address], [place], [address], [employer] 03/12/2023 11:44:31 03/19/2023 text/html Asthma stable dyslipidemia can not lose weight hypertension no headache no dizziness arthritis foot still bothers her she still working with Orthopedics and probably needs a joint replacement but they want to lose some weight for Baldev Wolf MD [address], [address], [place], [address], [employer] 03/19/2023 22:49:34 07/20/2023 text/html Saw weight loss specialists lots of blood work that was done will get copies of. anxiety stable . Hypertension no chest pain or shortness of breath. Obesity has stated being put on medicines. Arthritis ortho recommended weight loss prior to any surgery. Asthma stable Baldev Wolf MD [address], [place], [address], [employer] 07/20/2023 22:41:17 OBGyn Episode No OBEpisode recorded.
--- OUTSIDE RECORDS SUMMARY | 2024-12-28 00:25 | XMS_ITS | Data Portability ---
Author Organization [facility] Address [address] [place] [address] Care Team Providers Care Mobile Therapist Name Role Phone BALDEV WOLF Primary Care Provider Assessment Encounter Date Assessment Date Assessment LastModified by Organization Details LastModified Time 02/29/2024 02/29/2024 wellness visit completed handouts were appropriate discussed immunizations and screenings ordered were appropriate patient agreeable she will keep her regular follow up all questions answered [email or web address] Not available 03/27/2024 11:49:39 03/07/2024 03/07/2024 obesity handout DEXA ordered we will continue current therapy echo reviewed blood work recently done reviewed follow up me in months she is taking some for anemia [email or web address] Not available 03/07/2024 21:01:00 08/04/2024 08/04/2024 blood work reall y is nondiagnostic we will continue to observe and she will see me back in her regularly scheduled appointment time [email or web address] Not available 08/29/2024 16:50:55 10/20/2024 10/20/2024 colonoscopies. Healthy lifestyle care instructions. We will continue her medicines for hypertension hyperlipidemia essential tremor anxiety low vitamin-D level rhinitis. We will follow up in 3 months [email or web address] Not available 11/27/2024 16:12:01 11/24/2024 11/24/2024 she is getting better finish the medications consider physical therapy if she does not completely resolve if she does use keep her regular [email or web address] Not available 11/26/2024 15:32:50 Plan of Treatment Reminders Order Date Submit Date Provider Last Modified By Organization Details Last Modified Time Details Appointments ANY 15 2024 09:30A Inga Wolf MD Not available Not available Not available Lab None recorded. Referral None recorded. Procedures colonosco py screening (PROC) 2024 025 [facility], [address], [address], [place], [address], 12/08/2024 14:32:54 Surgeries None recorded. Imaging DEXA 2023 024 [facility] (Imaging), [address], [place], [address], 10/14/2024 17:27:54 MAMMO, screening , bilateral 2023 [address] [facility], [address], [place], [address], 04/19/2024 15:27:57 Medication Orders None recorded. Patient TargetsNo targets recorded. Patient Instructions Encounter Date Encounter Id Patient Instructions Last Modified By Organization Details Last Modified Time 02/29/2024 [id number] A healthy lifestyle: care instructions Not available 02/29/2024 17:33:48 preventing falls : care instructions [email or web address] Not available 02/29/2024 14:00:11 Medicare Wellnes s Preventive Checklist Not available 02/29/2024 14:00:11 03/07/2024 [id number] A healthy lifestyle: care instructions [email or web address] Not available 03/07/2024 21:01:16 08/04/2024 [id number] A healthy lifestyle: care instructions [email or web address] Not available 08/05/2024 07:59:03 10/20/2024 [id number] A healthy lifestyle: care instructions [email or web address] Not available 10/20/2024 13:39:56 11/24/2024 [id number] A healthy lifestyle: care instructions Not available 11/24/2024 16:43:00 Reason for Referral None Reported. Results Created Date Observation Date Name Description Value Unit Range Abnormal Flag Note LastModifiedBy Organization Detail LastModifiedTime 02/17/20 24 08/30/2020 DEXA, axial skele ton No observ ation record ed. [email or web address] Not Available 16:24:33 02/17/20 24 02/28/2022 MAMMO , scree inderjit, digit al, bilat eral No observ ation record ed. [email or web address] Not Available 16:35:53 02/29/20 24 03/06/2023 XR, foot, 3 or more view No observ ation record ed. [email or web address] Not Available 2023 09:16:12 03/01/20 24 08/30/2014 colon oscop y proce dure (PROC ) No observ ation record ed. [facility] [address], [address], 03/02/2024 09:14:56 04/14/20 24 04/14/2024 MAMMO , scree inderjit, bilat eral No observ [facility]ion [facility]. [facility] [address], [place], [address], 04/19/2024 16:35:25 04/19/20 24 04/14/2024 MAMMO , scree inderjit, bilat eral No observ ation record ed. [facility] [address], [place], [address], 04/20/2024 13:56:32 04/19/20 24 04/14/2024 MAMMO , scree inderjit, bilat eral No observ ation record ed. [facility] [address], [place], [address], 04/20/2024 13:56:33 10/13/19 25 10/10/2024 DEXA No observ ation record ed. [address], [place], [address], 10/18/2024 18:39:29 11/23/19 25 11/22/2024 XR, knee No observ ation record ed. [address], [place], [address], 11/25/2024 22:52:19 Result Notes None recorded. Problems Name Problem SNOMED Code Status Onset Date Resolution Date Notes Provider Name and Address Organization Details Recorded Time Ectopic atrial tachycardia 558457805 Active 2023 Bernadette Rothman MA null, [place] - [facility] 4 17:15:22 Obstructive sleep apnea syndrome 36468612 Active 2023 Baldev Wolf MD Attn: Rahul riya,[address] [facility], [place], [address], [place] - [facility] 4 14:20:19 Hyperlipidemia 83351940 Active 2023 Baldev Wolf MD Attn: Rahul riya,[address] [facility], [place], [address], [place] - [facility] 4 14:20:20 Essential tremor 930303021 Active 2023 Baldev Wolf MD Attn: Rahul ritter,[address] [facility], [place], [address], [place] [facility] 4 14:20:21 Vitamin D deficiency 05201887 Active 2023 Baldev Wolf MD Attn: Rahul riya,[address] [facility], [place], [address], [place] - [facility] 4 14:20:24 Anxiety 08204923 Active 2023 Baldev Wolf MD Attn: Rahul riya,[address] [facility], [place], [address], [place] - [facility] 4 14:20:26 Essential hypertension 43937184 Active 2023 Baldev Wolf MD Attn: Rahul riya,[address] [facility], [place], [address], [place] - [facility] 4 14:20:28 Obesity 428112414 Active 2023 Baldev Wolf MD Attn: Rahul ritter,[address] [facility], [place], [address], [place] - [facility] 14:20:29 Problem Notes None recorded. 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 completed Elizabeth Lind [facility] 10/29/2023 16:03:48 Imaging Results Imaging Date Name Status LastModified by Organiz ation Details LastModified Time 08/30/2020 DEXA, axial skeleton completed [email or web address] Information not available 02/17/2024 16:24:33 02/28/2022 MAMMO, screening, digital, bilateral completed [email or web address] Information not available 02/17/2024 16:35:53 03/06/2023 XR, foot, 3 or more view completed [facility] Information not available 03/02/2024 09:16:12 08/30/2014 colonoscopy procedure (PROC) completed [address] [place], [address], 03/02/2024 09:14:56 04/14/2024 MAMMO, screening, bilateral completed [facility] [address], [place], [address], 04/19/2024 16:35:25 04/14/2024 MAMMO, screening, bilateral completed [facility] [address], [place], [address], 04/20/2024 13:56:32 04/14/2024 MAMMO, screening, bilateral completed [facility] [address], [place], [address], 04/20/2024 13:56:33 10/10/2024 DEXA completed [address] [address], [place], [address], 10/18/2024 18:39:29 11/22/2024 XR, knee completed [address] [facility] [address], [place], [address], 11/25/2024 22:52:19 Procedure Notes None recorded. Medical Equipment None Reported. Allergies Allergen ID Allergen Name Allergen Category Reaction Reaction Severity Criticality Documentation Date Start Date Code Code System Note Provider Name and Address Organization Details Recorded Time 221188 banana extract food,medi cation nausea severe Not available 12/24/2023 26308 9 RxNorm Miriam Kirkpatrick MA null, [place] - [facility] 4 11:38:10 212126 avocado allergeni c extract food nausea severe Not available 12/24/2023 11586 2 RxNorm Miriam Kirkpatrick [place] null, [place] - [facility] 4 11:38:26 Medications Name Sig Start Date Stop Date Status Note LastModified by Organization Details LastModified Time cyclobenzap rine 10 mg tablet Take 1 tablet twice a day by oral route. active Not Available Not Available No t Available amoxicillin 500 mg capsule TAKE 4 CAPSULES BY MOUTH NOW 10/28 completed Not Available Not Available Not Available primidone 50 mg tablet TAKE 1 TABLET BY MOUTH TWICE A DAY active Not Available Not Available No t Available fluticasone 250 mcg-salmete rol 50 mcg/dose blistr powdr for inhalation TAKE 1 PUFF BY MOUTH TWICE A DAY *RINSE MOUTH AFTER USE* 2024 active Not Available Not Available Not Avai lable nystatin 100,000 unit/mL oral suspension TAKE 5 [...] hydrocodone 5 mg-acetamin ophen 325 mg tablet Take 1 tablet every 12 hours by oral route. active Not Available Not Available No t Available naltrexone 50 mg tablet TAKE 0.5 TABLETS (25 MG TOTAL) BY MOUTH DAILY FOR 7 DAYS, THEN 1 TABLET (50 MG TOTAL) DAILY. 10/28 completed Not Available Not Available Not Available Medrol (Mo) 4 mg tablets in a dose pack Take by oral route. active Not Available Not Available No t Available sertraline 100 mg tablet TAKE 1 TABLET BY MOUTH DAILY WITH 50MG TABLET active Not Available Not Available No t Available ketorolac 10 mg tablet Take 1 tablet every 8 hours by oral route for 5 days. active Not Available Not Available No t [...] 1 TABLET BY MOUTH ONCE DAILY WITH 100MG TABLET. TOTAL DAILY DOSE 150MG active Not Available Not Available [...] Updated DateTime 4 162.56 cm 38.1 kg/m2 636607. 15 g 118 /min 18 /min 99 % 99 % 106 mm[Hg] 78 mm[Hg] Elizabeth Lind Jane [facility] 4 12:51:07 Date Recorded Pain severity - 0-10 verbal numeric rating [Score] - Reported Provider Name and Address Organization Details Last Updated DateTime 02/29/2024 0 Jamia Danny [facility] 02/29/2024 12:52:52 Date Recorded Body height Body mass index (BMI) Body weight Heart rate Respiratory rate Oxygen saturation Oxygen saturation in Arterial blood by Pulse oximetry Systolic blood pressure Diastolic blood pressure Provider Name and Address Organization Details Last Updated DateTime 4 162.56 cm 38.3 kg/m2 292098. 54 g 71 /min 14 /min 97 % 97 % 102 mm[Hg] 68 mm[Hg] Elizabeth Lind Jane [facility] 4 14:09:27 Date Recorded Body height Body mass index (BMI) Body weight Heart rate Oxygen saturation Oxygen saturation in Arterial blood by Pulse oximetry Systolic blood pressure Diastolic blood pressure Provider Name and Address Organization Details Last Updated DateTime 4 162.56 cm 39.9 kg/m2 447470. 59 g 73 /min 96 % 96 % 112 mm[Hg] 74 mm[Hg] Tatiana Jeong MA [facility] 4 16:31:09 Date Recorded Body height Body mass index (BMI) Body weight Heart rate Oxygen saturation Oxygen saturation in Arterial blood by Pulse oximetry Systolic blood pressure Diastolic blood pressure Provider Name and Address Organization Details Last Updated DateTime 5 162.56 cm 40.5 kg/m2 419663. 16 g 63 /min 98 % 98 % 132 mm[Hg] 70 mm[Hg] Arely Swift [place] [facility] 5 11:06:07 Date Recorded Body height Body mass index (BMI) Body weight Heart rate Oxygen saturation Oxygen saturation in Arterial blood by Pulse oximetry Systolic blood pressure Diastolic blood pressure Provider Name and Address Organization Details Last Updated DateTime 162.56 cm 40.2 kg/m2 094703. 61 g 63 /min 99 % 99 % 124 mm[Hg] 68 mm[Hg] Miriam Kirkpatrick [place] [facility] 15:07:26 Social History Question Answer Notes LastModified by Organizat ion Details LastModified Time Tobacco Smoking Status Never Smoker Elizabeth Lind TREJane null, [place] [facility] 10/29/2023 15:58:56 Do You Have An [...] Or The Highest Degree You Have Received? [id number] Information not available 02/29/2024 Are There Any Guns Present In Your Home? Yes Locked Up Information not available 02/29/2024 In The Past 7 Days, How Many Days Did You Exercise? 0 Information not available 02/29/2024 In The Past 7 Days, How Much Pain Have You Muse? Some Information not available 02/29/2024 In General, [...] Past 7 Days, How Often Have You Muse Sleepy In The Daytime? Never Information not available 02/29/2024 # Alcohol Drinks Per Week 2 Information not available 02/29/2024 What Was The Date Of Your Most Recent Tobacco Screening? 11/24/2024 Information not available 11/24/2024 What Is Your Relationship Status? Information not available 12/24/2023 Do You Use Your Seat Belt Or Car Seat Routinely? Yes Information not available 12/24/2023 Do You Have Smoke And Carbon Monoxide Detectors In Your Home? Yes Information not available 12/24/2023 Do You Feel Stressed (tense, Restless, Nervous, Or Anxious, Or Unable To Sleep At Night)? [id number] Information not available 10/20/2024 Do You Use [...] mcg/0.3 mL dose, sunita-sucrose 2 completed Shell sims, [place] [facility] 02/17/2024 16:12:14 COVID-19, mRNA, LNP-S, bivalent, PF, 30 mcg/0.3 mL dose 2 [place] Shell sims[place] [facility] 02/17/2024 16:12:14 pneumococcal conjugate PCV 7 9 kenan sims[place] [facility] 02/17/2024 16:12:14 RSV, recombinant, protein subunit RSVpreF, adjuvant reconstituted, 0.5 mL, PF 3 completed Shell sims[place] [facility] 02/17/2024 16:12:14 COVID-19, mRNA, LNP-S, PF, 50 mcg/0.5 mL 3 completed Shell sims[place] [facility] 02/17/2024 16:12:14 pneumococcal polysaccharide PPV23 9 [place] Shell sims[place] [facility] 02/17/2024 16:12:14 influenza, unspecified formulation 7 kenan Grant [place] [facility] 02/17/2024 16:12:14 Pneumococcal conjugate PCV 13 8 [place] Shell sims[place] [facility] 02/17/2024 16:12:14 Influenza, high-dose, trivalent, PF 8 completed Shell Grant [place] [facility] 02/17/2024 16:12:14 Influenza, high-dose, trivalent, PF 9 completed Shell Grant [place] [facility] 02/17/2024 16:12:14 Influenza, high-dose, trivalent, PF 7 completed Shell Grant [place] [facility] 02/17/2024 16:12:14 Influenza, split virus, trivalent, PF 4 completed Shell Grant [place] [facility] 02/17/2024 16:12:14 Influenza, split virus, quadrivalent, PF 5 completed Shell Grant [place] [facility] 02/17/2024 16:12:14 Influenza, split virus, quadrivalent, PF 6 completed Shell Grant [place] [facility] 02/17/2024 16:12:14 influenza, unspecified formulation 4 completed Bernadette Rothman MA null, [facility] 06/29/2024 12:43:10 Past Encounters Encounter ID Performer Location Encounter Start Date Encounter Closed Date Diagnosis/Indication Diagnosis SNOMED-CT Code Diagnosis ICD10 Code Diagnosis Note [id number] Baldev Wolf MD [facility] (Adult Med) [address] [place] [address] 10/29/2023 15:28:42 10/29/2023 16:48:29 Hyperlipidemia 94868096 E78.5 Anxiety 54190542 F41.9 Chronic rhinitis 7564408 6 J31.0 Asthma 629509506 J45.90 9 Essential hypertension 92424944 I10 Essential tremor 2868091 09 G25.0 Obstructiv e sleep apnea syndrome 38936852 G47.33 [id number] Baldev Wolf MD [facility] [place] [address] [place] [address] 12/24/2023 11:08:30 12/24/2023 12:16:24 Ectopic atrial tachycardia 703628296 I47.19 Hyperlipidemia 75539863 E78.5 Anxiety 00564684 F41.9 Chronic rhinitis 6468379 6 J31.0 Obstructiv e sleep apnea syndrome 93296787 G47.33 Asthma 960135326 J45.90 9 Essential hypertension 96218250 I10 Essential tremor 7297521 09 G25.0 Osteoarthritis 158513648 M19.90 [id number] Baldev Wolf MD [facility] [employer] [facility] [place] [address] [place] [address] 02/29/2024 11:38:17 02/29/2024 14:34:26 Adult health examination 533634276 Z00.00 Health Risk Assessment collected and reviewed Obesity 718670731 E66.8 Screening mammography 24 184065 Z12.31 [id number] Baldev Wolf MD [facility] [employer] [facility] [place] [address] [place] [address] 03/07/2024 13:55:56 03/07/2024 14:44:21 Screening for osteoporosis 600329718 Z13.820 Obesity 258585178 E66.8 Essential hypertension 29702995 I10 Anxiety 74629051 F41.9 Vitamin D deficiency 347 47794 E55.9 Essential tremor 1788023 09 G25.0 Hyperlipidemia 10096257 E78.5 Obstructiv e sleep apnea syndrome 12701998 G47.33 Postmenopausal state 764 47411 Z78.0 [id number] Baldev Wolf MD [facility] [employer] [facility] [place] [address] [place] [address] 08/04/2024 15:50:22 08/04/2024 17:28:59 Body mass index 30+ - obesity 703683409 Z68.39 Obesity 604650910 E66.9 Fatigue 50516543 R53.83 [id number] Baldev Wolf MD [facility] [employer] [facility] [place] [address] [place] [address] 10/20/2024 10:45:07 10/20/2024 12:03:55 Obesity 015636541 E66.9 Screening for malignant neoplasm of colon 053120826 Z12.11 Essential hypertension 61400282 I10 Hyperlipidemia 80349452 E78.5 Anxiety 76610686 F41.9 [id number] Baldev Wolf MD [facility] - [place] [address] [place] [address] 11/24/2024 14:39:13 11/24/2024 15:41:16 Body mass index 30+ - obesity 587625593 Z68.41 Obesity 867915973 E66.9 Pain in ri ght lower limb 679283157 M79.604 Health Concerns Section Related Observation LastModified by Organization Detai ls LastModified Time None Recorded Concern Status LastModified by Organization Details LastModified Time None Recorded Advance Directives Directive Y: Payers Encounter Date Sequence Insurance Name Policy Number Policy Fowler Covered Member ID Fowler Member ID Guarantor Name 02/29/2024 1 [facility] (MEDICARE REPLACEMENT/A DVANTAGE - PPO) [id number] Louise Arnotti [id number] Louise Arnotti 03/07/2024 1 [facility] (MEDICARE REPLACEMENT/A DVANTAGE - PPO) [id number] Louise Arnotti [id number] Louise Arnotti 08/04/2024 1 [facility] (MEDICARE REPLACEMENT/A DVANTAGE - PPO) [id number] Louise Arnotti [id number] Louise Arnotti 10/20/2024 1 [facility] (MEDICARE REPLACEMENT/A DVANTAGE - PPO) [id number] Louise Arnotti [id number] Louise Arnotti 11/24/2024 1 [facility] (MEDICARE REPLACEMENT/A DVANTAGE - PPO) [id number] Louise Arnotti [id number] Louise Arnotti Notes Date Note Type Note Provider Name and Address Organization Details Recorded Time 02/29/2024 text/html MAW 2Reported bypatient.Diet and Nutrition:healthy [...] for Medicare wellness Baldev Wolf MD Attn: Accounting, [address] [place], [address], [facility] 03/27/2024 11:49:52 03/07/2024 text/html hypertension no headache or dizziness obesity she has needed limbs anxiety has been stable low vitamin-D level she does try to replace that her tremor has been doing okay hyperlipidemia trying to low-fat diet sleep apnea compliant with device. Still recovering from left hip surgery Baldev Wolf MD Attn: Accounting, [address] [place], [address], [facility] 03/07/2024 21:01:19 08/04/2024 text/html she has been hav ing some fatigue got some blood work done which really nonspecific does have some mild anemia she is seeing her psychiatrist as well she has had a lot of anxiety and depression. Still has a hematoma from her surgery but it is no worse Baldev Wolf MD Attn: Accounting, [address] [place], [address], [facility] 08/29/2024 16:51:14 10/20/2024 text/html anxiety is doing okay trying to cut down on her saturated fat blood pressure has been controlled still hurts a little bit from her orthopedic problems with her hip Baldev Wolf MD Attn: Accounting,[address] [facility], [place], [address], [facility] [place] [place] 11/27/2024 16:12:25 11/24/2024 text/html fell hurt her ri ght knee went to the emergency room told she had patellar bursitis went home had to go back because in the pain started down her groin and down her right leg and they gave her cyclobenzaprine a Medrol Dosepak hydrocodone and some ketorolac and she is getting a little bit better Baldev Wolf MD Attn: Accounting,[address] [facility], [place], [address], [facility] [place] [place] 11/26/2024 15:33:08 OBGyn Episode No OBEpisode recorded.
[2024-12-28 13:35] VITALS: BP 147/80; PULSE 102; RESP 16; TEMP 36.2; O2SAT 100; BMI 39.5
--- NOTE | 2024-12-28 13:38 | P.PNAN_ITS ---
Anes - Initial Pre Proc Eval Procedure: Operation Date: 12/28/24 14:30 Proposed Procedures p Screening Colonoscopy - Onofre Corbett MD Date/Time: 12/28/24 13:38 Surgeon: Onofre Corbett MD Pre Op Diagnosis: Screening Patient Data Age: 74 Gender: F Height: 1.63 m Weight: 104.5 kg Last Vital Signs Temp 36.2 C L 12/28/24 13:35 Pulse 102 H 12/28/24 13:35 Resp 16 12/28/24 13:35 BP 147/80 H 12/28/24 13:35 Pulse Ox 100 12/28/24 13:35 O2 Del Method Room Air 12/28/24 13:35 Allergies Allergy/AdvReac Type Severity Reaction Status Date / Time avocado Allergy Mild stomach Verified 12/28/24 13:34 ache banana Allergy Mild stomach Uncoded 12/28/24 13:34 ache Home Medications ?Medication ?Instructions ?Recorded ?Confirmed ?Type albuterol 90 mcg/actuation aerosol 1 mcg inhalation PRN PRN ASTHMA 01/04/24 12/15/24 History inhaler atorvastatin 10 mg tablet 10 mg PO DAILY 01/04/24 12/28/24 History bupropion HCl 150 mg 24 hr tablet, 150 mg PO DAILY 01/04/24 12/28/24 History extended release hydrochlorothiazide 25 mg tablet 25 mg PO DAILY 01/04/24 12/28/24 History ibuprofen 125 mg-acetaminophen 250 2 tablet PO PRN PRN Pain 01/04/24 12/15/24 History mg tablet olmesartan 40 mg tablet 40 mg PO DAILY 01/04/24 12/28/24 History primidone 50 mg tablet 50 mg PO BID 01/04/24 12/28/24 History sertraline 100 mg tablet 150 mg PO DAILY 01/04/24 12/28/24 History ketorolac 10 mg tablet 10 mg PO Q8H PRN pain 5 days #20 11/22/24 12/15/24 Rx tabs cyclobenzaprine 10 mg tablet 10 mg PO BID PRN muscle spasm #14 11/23/24 12/15/24 Rx tabs hydrocodone 5 mg-acetaminophen 325 1 tablet PO Q12H PRN pain #14 tabs 11/23/24 12/15/24 Rx mg tablet methylprednisolone 4 mg tablets in See Rx Instructions PO .COMPLEX 11/23/24 12/15/24 Rx a dose pack (Medrol (Mo)) #21 ea ergocalciferol (vitamin D2) 1,250 50,000 unit PO WEEKLY 12/15/24 12/15/24 History mcg (50,000 unit) capsule Patient hx anesthesia problems: none Family hx anesthesia problems: none Results Review: All pre-operative results and documents have been reviewed as part of the pre- operative evaluation. [facility] Past Medical History Medical History Essential tremor Obstructive sleep apnea on CPAP Hyperlipidemia Hypertension Depression Surgical History Surgical History History of left hip replacement (01/11/24) History of left knee replacement 2017 History of right hip replacement 2014 History of bladder surgery bladder lift 2005 History of lung surgery upper lobe removed 1999 History of ankle surgery 1988 due to break Family History Family History Father Acute myocardial infarction Hypertension Sibling Cerebrovascular accident Breast cancer Social History Social History Social History: Surrogate medical decision maker: Dottie Ponce, daughter. Code status: Full code. Smoking status: Never smoker Second hand tobacco smoke exposure: No Alcohol intake: current Drinks per week: 2 Substance use: former Substance use type: marijuana Other substance usage details: 1/2 gummie to sleep Last use: 01/04/24 Do You Feel Safe in your Home?: Yes Lack of Transportation: No Lack of Food: Never True Current Housing: I Have Housing Concerned About Future Housing: No Difficulty Paying Gas/Electric Bills: No Difficulty Paying for Meds: No Currently Unemployed: No Education: Bachelor's Degree Difficulty w/ Childcare or Family Care: No Living arrangements: with family Additional living arrangements comments: caregiver for Occupation/Education: retired Spiritual care concerns: No Anes - Eval Final PreProcedure Day of Procedure 12/28/24 13:38 Patient weight: obese Heart: regular rate and rhythm Lungs: clear to auscultation Airway: Mallampati scale class II Neurological: alert and oriented Last oral intake: >/= 8 hours ASA classification: III Emergent: no Anesthetic plan: proceed Anesthesia type and monitoring: general GIVS and standard monitoring Results Review: All pre-operative results and documents have been reviewed as part of the pre- operative evaluation. Informed Consent: The patient's anesthetic plan and its attendant risks and benefits were discussed with the patient/family/POA. Questions were solicited and answers provided to the satisfaction of the patient/family/POA.
[2024-12-28] MEDS: LACTATED RINGERS 1,000 ML 150 ML IV CONT (13:51)
--- NOTE | 2024-12-28 14:10 | PM.HPGS ---
History of Present Illness History of Present Illness Consent: Risks, benefits, and alternatives have been discussed and questions answered. Patient agrees to proceed with procedure. Chief complaint: Screening Narrative: Louise Ponce is a 74 year old female here for screening colonoscopy, last one 10 years ago but also few episodes of incontinence Review of Systems Review of Systems: All systems reviewed & are unremarkable except as noted in HPI and below PMFSH Past Medical History Medical History (Updated 12/28/24 @ 14:12 by Onofre Corbett MD) Colon cancer screening Essential tremor Obstructive sleep apnea on CPAP Hyperlipidemia Hypertension Depression Surgical History Surgical History History of left hip replacement (01/11/24) History of left knee replacement 2017 History of right hip replacement 2014 History of bladder surgery bladder lift 2005 History of lung surgery upper lobe removed 1999 History of ankle surgery 1988 due to break Family History Family History Father Acute myocardial infarction Hypertension Sibling Cerebrovascular accident Breast cancer Social History Social History Social History: Surrogate medical decision maker: Dottie Ponce, daughter. Code status: Full code. Smoking status: Never smoker Second hand tobacco smoke exposure: No Alcohol intake: current Drinks per week: 2 Substance use: former Substance use type: marijuana Other substance usage details: 1/2 gummie to sleep Last use: 01/04/24 Do You Feel Safe in your Home?: Yes Lack of Transportation: No Lack of Food: Never True Current Housing: I Have Housing Concerned About Future Housing: No Difficulty Paying Gas/Electric Bills: No Difficulty Paying for Meds: No Currently Unemployed: No Education: Bachelor's Degree Difficulty w/ Childcare or Family Care: No Living arrangements: with family Additional living arrangements comments: caregiver for Occupation/Education: retired Spiritual care concerns: No Meds Home Medications and Allergies Home Medications ?Medication ?Instructions ?Recorded ?Confirmed ?Type albuterol 90 mcg/actuation aerosol 1 mcg inhalation PRN PRN ASTHMA 01/04/24 12/15/24 History inhaler atorvastatin 10 mg tablet 10 mg PO DAILY 01/04/24 12/28/24 History bupropion HCl 150 mg 24 hr tablet, 150 mg PO DAILY 01/04/24 12/28/24 History extended release hydrochlorothiazide 25 mg tablet 25 mg PO DAILY 01/04/24 12/28/24 History ibuprofen 125 mg-acetaminophen 250 2 tablet PO PRN PRN Pain 01/04/24 12/15/24 History mg tablet olmesartan 40 mg tablet 40 mg PO DAILY 01/04/24 12/28/24 History primidone 50 mg tablet 50 mg PO BID 01/04/24 12/28/24 History sertraline 100 mg tablet 150 mg PO DAILY 01/04/24 12/28/24 History ketorolac 10 mg tablet 10 mg PO Q8H PRN pain 5 days #20 11/22/24 12/15/24 Rx tabs cyclobenzaprine 10 mg tablet 10 mg PO BID PRN muscle spasm #14 11/23/24 12/15/24 Rx tabs hydrocodone 5 mg-acetaminophen 325 1 tablet PO Q12H PRN pain #14 tabs 11/23/24 12/15/24 Rx mg tablet methylprednisolone 4 mg tablets in See Rx Instructions PO .COMPLEX 11/23/24 12/15/24 Rx a dose pack (Medrol (Mo)) #21 ea ergocalciferol (vitamin D2) 1,250 50,000 unit PO WEEKLY 12/15/24 12/15/24 History mcg (50,000 unit) capsule Allergies Allergy/AdvReac Type Severity Reaction Status Date / Time avocado Allergy Mild stomach Verified 12/28/24 13:34 ache banana Allergy Mild stomach Uncoded 12/28/24 13:34 ache Vital Signs Vital Signs - 24 hr 12/28/24 13:35 Temperature 97.2 F L Pulse Rate 102 H Respiratory Rate 16 Blood Pressure 147/80 H Pulse Oximetry 100 Oxygen Delivery Room Air Exam Const: General: comfortable and no acute distress HENMT: Face/Nose/Sinus: Normal nares present Eyes: General: appearance normal, both eyes and all related structures Neck: Neck: no JVD Resp: Auscultation: clear to auscultation bilaterally Cardio: Rate: regular rate Rhythm: regular rhythm GI: Inspection: non-distended GI Palp: Yes Soft to palpation Skin: General skin exam: normal color Neuro: General: gait normal Speech: normal speech Extrem: General: normal to inspection Psych: Mental Status: mental status grossly normal Assessment and Plan Assessment and plan (1) Colon cancer screening: Code(s): Z12.11 - Encounter for screening for malignant neoplasm of colon Status: Acute Assessment and Plan: colonoscopy
[2024-12-28 14:32] VITALS: BP 109/61; PULSE 101; RESP 20; O2SAT 98
[2024-12-28 14:42] VITALS: BP 119/71; PULSE 68; RESP 18; O2SAT 100
[2024-12-28 14:52] VITALS: BP 131/76; PULSE 90; RESP 18; O2SAT 100
== END 2024-12-28 14:58 | disposition home or self-care (01) ==
PROVIDERS: PCP Internal Medicine; Referring Provider Internal Medicine; Visit Provider Internal Medicine Gastroenterology
PROC: 0DJD8ZZ Inspection of Lower Intestinal Tract, Via Natural or Artificial Opening Endoscopic (ICD-10-PCS; CPT 45378; principal; 2024-12-28 14:30)
DX: Z12.11 Encounter for screening for malignant neoplasm of colon (principal); K57.30 Diverticulosis of large intestine without perforation or abscess without bleeding; E78.5 Hyperlipidemia, unspecified; I10 Essential (primary) hypertension; F32.A Depression, unspecified; G47.33 Obstructive sleep apnea (adult) (pediatric); G25.0 Essential tremor; F12.90 Cannabis use, unspecified, uncomplicated; E66.9 Obesity, unspecified; Z68.39 Body mass index [BMI] 39.0-39.9, adult; Z79.51 Long term (current) use of inhaled steroids; Z79.1 Long term (current) use of non-steroidal anti-inflammatories (NSAID); Z79.891 Long term (current) use of opiate analgesic; Z99.89 Dependence on other enabling machines and devices; Z98.890 Other specified postprocedural states; Z80.3 Family history of malignant neoplasm of breast; Z82.49 Family history of ischemic heart disease and other diseases of the circulatory system
CPT/HCPCS: G0105; 88305; J2003; J2704; J7120

== ENCOUNTER 2025-04-14 13:19 | Outpatient (CLI) | payer MEDICARE, SELFPAY ==
--- OUTSIDE RECORDS SUMMARY | 2025-01-23 10:00 | XMS_ITS ---
Author Organization [facility] Locaid Address [address] [place] [address] Care Team Providers Care Surgical Aides Teacher Name Role Phone Didier Wolf MD Primary Care Provider Bonnie Santos Unavailable [phone] Allergies Allergen (clinical drug ingredient) Drug/Non Drug Allergy documented on EMR Reaction Allergy Type Onset Date Status banana allergenic extract BANANA (uncoded) Unknown Allergy 12/28/2023 Active Avocado Avocado Unknown Allergy 12/28/2023 Active REASON FOR VISIT Law De Leon 01/03/2025 Medications Medication SIG (Take, Route, Frequency, Duration) Notes Start Date End Date Status Primidone 50 MG Tablet Oral 12/28/2023 Active Ergocalciferol 1.25 MG (43550 UT) Capsule Oral 12/28/2023 Active Atorvastatin Calcium 10 MG Tablet Oral 12/28/2023 Active FLUTICASONE 250 MCG-SALMETEROL 50 MCG/DOSE BLISTR POWDR FOR INHALATION *Reorder from [facility] for eRx and Interaction Alerts* 12/28/2023 [...] decision-maker Yes Do you have Power of City Jailer for Health or Medi stephanie? Yes Do you have a power of attorney recruiter for health? Yes Do you have power of attorney recruiter for Medical ? Yes If yes, then [...] 01/23/2025 Encounters Encounter Location Date Provider Diagnosis [facility] [place] Framed Data [facility] [address] [address] 01/23/2025 Bonnie Perea Encounter for screening for depression Z13.31 and Encounter for screening for cardiovascular disorders Z13.6 Assessments Encounter Date Diagnosis (ICD Code) Assessment Notes Treatment Notes Treatment Clinical Notes Section Notes 01/23/2025 Encounter for screening for depression (ICD-10 - Z13.31) 01/23/2025 Encounter for screening for cardiovascular disorders (ICD-10 - Z13.6) Plan Of Treatment Next Appt Details Provider Name:Bonnie oneil, 04/28/2025 01:30:00 PM, [address] [facility] [address], [facility] [address], [place], [address], History and Physical Notes * HPI (History [...] Screening Findings: P ositve Follow-Up for Depression: [facility] health care management, Psychiatric follow-up Suicide Risk [...] awful might happen: 0 Not at all [place]-Suicide Severity Rating Scale Suicide Risk (CSRS-screener) in [...] * HOOD MARKOB: 2 (75 yo F)Acc No.[id number]:01/23/2025 Transfer of Care from [facility] Patient: Jane GLADIS VALENZUELA Provider: Kevin Perea :1950 A ge:74 Y S ex:Female Date:01/23/2025 Address:[address] [place], [place] [id number] Pcp:Didier Wolf MD Subjective: * Chief Complaints: * S aw Moises 01/03/2025 * HPI: B cleo Depression Inventory: [...] household: 2 L evel of education: f [employer] M iscellaneous: S afety issues A re there any firearms in the house? 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 Y es D o you have a power of attorney recruiter for health??Yes D o you have power of attorney recruiter for Medical ??Yes I f yes, then please bring the POA paperwork so that we can upload it. N o S ocial History: Eddie Xiong arital Status: M arried N umber of Adults in household: 2 L evel of Education: F [employer] * Medications: T akingSertraline HCl 200 [...] INHALATION , Notes to Pharmacist: *Reorder from [facility] for eRx and Interaction Alerts*Ergocalciferol 1.25 MG (80799 UT) Capsule Oral Primidone 50 MG Tablet [...] INHALATION , Notes to Pharmacist: *[facility]*Taking Ergocalciferol 1.25 MG (84582 UT) Capsule Oral Taking Primidone 50 MG [...] Plan: * Procedure Codes: 1 036F TOBACCO [id number] NORMAL BP READING DOC F/U NOT [id number] BEHAV ASSMT W/SCORE & DOCD/STAND [id number] CLIN DEPRESSION SCREEN [id number] MOST RECENT SYSTOLIC BP < 140MM [id number] MOST RECENT DIASTOLIC BP < 90MM HG * Preventive Medicine: Screenings: D epression screening Have you had a recent depression screening? Y es Billing Information: * Procedure Codes: 1036F TOBACCO NON-USER. G8783 NORMAL BP READING DOC F/U NOT RQR. [id number] BEHAV ASSMT W/SCORE & DOCD/STAND INSTRUMENT. G8431 CLIN DEPRESSION SCREEN DOC. G8752 MOST RECENT SYSTOLIC BP < 140MM HG. G8754 MOST RECENT DIASTOLIC BP < 90MM HG. * Electronic signature of Kody Perea on 04/14/2025 at 01:21 PM CDT Sign off status: Pending * Provider: Kevin Perea Date: 01/23/2025 Generated for Ladonna vela/Erum/Jazmin on: 0 04/14/2025 01:21 PM CDT
--- NOTE | ~2025-04-14 | CT_ITS ---
EXAMINATION: CT abdomen pelvis w con DATE: 04/14/2025 14:14 INDICATION: Right-sided abdominal pain TECHNIQUE: Computed tomography (CT) of the abdomen and pelvis was performed with 100 cc Omnipaque 350 intravenous contrast. The dose-length product was 1193.76 mGy-cm. Automated exposure control and iterative reconstruction technique were employed. COMPARISON: None. FINDINGS: Lung bases unremarkable. Heart size normal. No significant pleural or pericardial effusion. Fatty infiltration of the liver. The spleen, pancreas, adrenal glands and right kidney are unremarkable. There is an exophytic left renal cysts. Small hiatal hernia. Gallbladder is present. Nonobstructive bowel gas pattern. There are bilateral total hip arthroplasties. No evidence for appendicitis or diverticulitis. No significant vascular abnormality. No lymphadenopathy. No abnormal pelvic masses or fluid collections, although evaluation limited due to streak artifact. There is moderate thoracic and upper lumbar spondylosis. There is grade 1 degenerative spondylolisthesis at L5-S1. There is fusion at T10-11. IMPRESSION: 1. No acute abdominal abnormality. Reviewed, dictated and finalized at location O.
--- OUTSIDE RECORDS SUMMARY | 2025-04-14 13:21 | XMS_ITS | Clinical Summary ---
Author Organization [facility] Address [address] [place] [address] Care Team Providers Care Contract Programmer Name Role Phone Didier Wolf MD Primary Care Provider [phone] Source Comments [facility],non-owned Affiliates and Associated Physician Practices is amultiple site organization consisting of ambulatory clinics and hospital sitesin [place], [place], [place] and [place]. This disclosure is being madepursuant to the Care Everywhere program and may not contain all information available regarding this patient. 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 Gender Identity Not on file Sexual Orientation Not on file Last Filed Vital Signs Vital Sign Reading Time Taken Comments Blood Pressure 142/82 03/02/2019 10:15 AM CDT Pulse - - Temperature - - Respiratory Rate - - Oxygen Saturation - - Inhaled Oxygen Concentration - - Weight 108 kg (238 lb) 03/02/2019 10:15 AM CDT Height 162.6 cm (5' 4) 03/02/2019 10:15 AM CDT Body Mass Index 40.85 03/02/2019 10:15 AM CDT Plan of Treatment Upcoming Encounters Date Type Department Care Team (Late st Contact Info) Description 06/13/2025 2:00 PM CDT Office Visit [facility] - RECREATIONAL THERAPY AIDE [address] [place] [address] Vania Good MD [address] [place] [address] Health Maintenance Due Date Last Done Comments [...] 1-dose series) 2012 MAMMOGRAM 01/31/2021 01/31/2019, 01/28/2019 DEPRESSION SCREENING 08/24/2024 MEDICARE AWV CALENDAR YEAR 2024 INFLUENZA VACCINE (#1) 2025 , 06/06/2023, 06/01/2022, Additional history exists COVID-19 VACCINE Completed 02/25/2025, 10/2023, 06/06/2023, Additional history exists HEPATITIS B VACCINE Aged [...] Most Recently Relevant to Health Maintenance Insurance [facility] MANAGED MEDICARE ADV SELF PAY NO INSURANCE Member Subscriber Plan / Payer (Ef fective for All Dates) Name:Louise Mark Member ID:Not on file Relation to Subscriber:Not on file Name:LOUISE MARK Subscriber ID:Not on file (Home) Address: [address] [place] [id number] Payer ID:Not on file Group ID:Not on file Type:Self Pay Address: [facility] MANAGED MEDICARE ADV Care Teams Contract Programmer Relationship Specialty Start Date End Date Didier Wolf MD PCP - General 12/01/17
--- OUTSIDE RECORDS SUMMARY | 2025-04-14 13:22 | XMS_ITS | Encounter Summary ---
Author Organization [facility] Address [address] [place] [address] Care Team Providers Care Music Director Name Role Phone Didier Wolf MD Primary Care Provider [phone] Reason for Referral * Evaluate (Routine) - Closed Specialty Diagnoses / Procedures Referred By Francis t Referred To Contact Diagnoses Family history of breast cancer Meg Munoz MD [address] [facility] [address] [place] [address] Phone: tel: fax: Denise Ware, [facility] Referral ID Status Reason Start Date Expiration Date V isits Requested Visits Authorized [id number] Closed Specialty Services Required 09/05/2021 09/05/2022 99 99 N MAN Reason for Visit * Reason Onset Date Comments Genetic Counseling 09/05/2021 Encounter Details Date Type Department Care Team (Late st Contact Info) Description 09/05/2021 Telephone [facility] [address] [place] [address] Meg Munoz MD [address] [facility] [address] [place] [address] Genetic Counseling Social History Tobacco Use Types Packs/Day Years Used Date Smoking Tobacco: Never Smokeless Tobacco: Never Alcohol Use Standard Drinks/Week Comments Yes 10 (1 standard drink = 0.6 oz pu re alcohol) per week Comments No Sex and Gender Information Value Date Recorded Sex Assigned at Not on file Legal Sex Female 6:30 AM CABIN MAN Gender Identity Not on file Sexual Orientation Not on file documented as of this encounter Miscellaneous Notes * Telephone Encounter - Meg Munoz MD - 09/05/2021 12:46 PM CABIN MAN Would refer the patient to genetics as below. Genetics for breast cancer risk: Dr. Denise Ware at [facility] [phone] Meg uMnoz MD N MAN * Telephone Encounter - Duyen Boone - 09/05/2021 11:29 AM CST Patient wanting to get genetic testing for breast cancer because daughter was just diagnosed and italso runs in the family. Daughter is also a patient of Dr Munoz. 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 [address] [place] [address] Vania Good MD [address] [place] [address] Scheduled Referrals Name Type Priority Associated Diagnoses Order Schedule Ref to Cancer Genetic Counseling - Yamileth Ware [facility] Outpatient Referral Routine Family history of breast cancer Ordered: 09/05/2021 documented as of this encounter Visit Diagnoses Diagnosis Family history of breast cancer- Primary Family history of malignant neoplasm of breast documented in this encounter Care Teams Music Director Relationship Specialty Start Date End Date Didier Wolf MD PCP - General 12/01/17 documented as of this encounter
--- OUTSIDE RECORDS SUMMARY | 2025-04-14 13:22 | XMS_ITS | Clinical Summary ---
Author Organization [facility] Address [address] [place] [address] Care Team Providers Care Weight Loss Sales Consultant Name Role Phone Didier Wolf MD Primary Care Provider Allergies Active Allergy Reactions Criticality Noted Date Comments Avocado Stomach upset,Unknown Low 12/28/2023 Banana Extract Stomach upset,Unknown Low 12/28/2023 Medications flu vac og5151-71,36mo s,up,/PF (FLUARIX QUAD 3022-1240, PF, IM) Fluarix Quad 2633-4715 (PF) 60 mcg (15 mcg x 4)/0.5 [...] 6 months. New lab orders sent to [facility]. Continue low-carb (<150 g/day), low-glycemic diet. Assessment [...] w/r/t gut microbiome. Referred to ADA and [employer] websites for additional information on topics including [...] 9:25 AM CDT Height 162.6 cm (5' 4) 11/22/2024 9:25 AM CDT Body Mass Index [...] Cancer Screening-Mammogram 04/14/2025 024, 04/14/2024 Influenza Vaccine (#1) 2025 3, 06/01/2022, 05/24/2020, Additional history exists Zoster Vaccine Completed 06/21/2018, 05/25, 03/16/2018 Pneumococcal vaccine 65+ Completed 019, 02/01/2018, 01/31/2018 Insurance [facility] MEDICARE ADVANTAGE [facility] MEDICARE Address: [facility] [address] [place] [address] MDCR HMO REF [facility] MEDICARE Address: [address] [address] [place] [address] MEDICARE ADVANTAGE [facility] MEDICARE Address: [address] [address] [place] [address] Care Teams Weight Loss Sales Consultant Relationship Specialty Start Date End Date Didier Wolf MD PCP - General Internal Medicine 02/21/19
--- OUTSIDE RECORDS SUMMARY | 2025-04-14 13:22 | XMS_ITS | Clinical Summary ---
Author Organization [facility] Address [address] [place] [address] Care Team Providers Care Edge Bander Operator Name Role Phone Unavailable Primary Care Provider Unavailabl e Encounters Date Type Department Care Team Description 04/03/2025 11:35 AM CDT - 04/03/2025 11:59 PM CDT Hospital Encounter [facility] [address] [place] [address] Didier Wolf MD Discharge Disposition: Home or Self Care 03/08/2025 External Device Data STL ABSTRACTION Provider, Abstract 03/08/2025 External Device Data STL ABSTRACTION Provider, Abstract 03/08/2025 External Device Data ST[facility] ABSTRACTION Provider, Abstract 03/07/2025 External Device Data STL ABSTRACTION Provider, Abstract 02/14/2025 External Device Data STL ABSTRACTION Provider, Abstract 02/08/2025 External Device Data STL ABSTRACTION Provider, Abstract 02/07/2025 External Device Data STL ABSTRACTION Provider, Abstract [...] years 1-dose series) 2012 OSTEOPOROSIS SCREENING 02/05/2017 COLORECTAL SCREENING 08/30/2024 08/30/2014, 08/29/19 Colorectal Cancer Screening 08/30/2024 INFLUENZA VACCINE (#1) 2025 3, 06/01/2022, 06/01/2022, Additional history exists BREAST CANCER SCREENING 04/14/2025 04/14/20 24, 02/28/2022, 02/28/2022, Additional history exists ZOSTER VACCINE Completed 06/21/2018, 05/25, 03/16/2018 PNEUMOCOCCAL VACCINE 50+ YEARS Completed 1 09/21/2018, 08/24/2018, 01/31/2018 COVID-19 Vaccine Completed 02/25/2025, 10/2023, 06/06/2023, Additional history exists Procedures Procedure Name Priority Date/Time Associated Diagnosis Comments XR LUMBAR SPINE 4+ VW Routine 04/03/2025 11:54 AM CDT Dorsalgia MAMMO 3D ANTIONETTE SCREEN BILAT W OR WO CAD Routine 04/14/2024 11:41 AM CDT Encounter for screening mammogram for malignant neoplasm of breast from Last 3 Months or Most Recently Relevant to Health Maintenance Results * XR LUMBAR SPINE 4+ VW (04/03/2025 11:54 AM CDT) Anatomical Region Laterality Modality Spine Computed Radiogr aphy 04/03/2025 11:5 4 AM CDT Impressions 04/03/2025 12:19 PM CDT IMPRESSION: Multilevel degenerative disc disease, most pronounced and moderate to severe at T12-L1 and L1-2. DICTATION LOCATION: Location 4 Narrative 04/03/2025 12:19 PM CDT EXAMINATION: XR LUMBAR SPINE 4+ VW HISTORY: See Diagnosis. Dorsalgia FINDINGS: No prior study is available for comparison at the time of this dictation. There is grade 1 L5-S1 anterolisthesis. The vertebral body heights are normal. There is multilevel degenerative disc disease, most pronounced and moderate to severe at T12-L1 and L1-2, with disc height loss and osteophyte formation at these levels. There is multilevel facet osteoarthritis, most pronounced in the lower lumbar spine. Procedure Note Donato Pineda MD - 04/03/2025 EXAMINATION: XR LUMBAR SPINE 4+ VW HISTORY: See Diagnosis. Dorsalgia FINDINGS: No prior study is available for comparison at the time of this dictation. There is grade 1 L5-S1 anterolisthesis. The vertebral body heights are normal. There is multilevel degenerative disc disease, most pronounced and moderate to severe at T12-L1 and L1-2, with disc height loss and osteophyte formation at these levels. There is multilevel facet osteoarthritis, most pronounced in the lower lumbar spine. IMPRESSION: Multilevel degenerative disc disease, most pronounced and moderate to severe at T12-L1 and L1-2. DICTATION LOCATION: Location 4 External Provider [facility] ORDER MARIA Final Result * MAMMO 3D ANTIONETTE SCREEN BILAT W [...]
--- OUTSIDE RECORDS SUMMARY | 2025-04-14 13:22 | XMS_ITS | Patient Health Record ---
Author Organization [facility] [employer] [facility] Address [address] [place] [address] Care Team Providers Care Beater Room Helper Name Role Phone Didier Wolf MD Primary Care Provider Unavaila Bonnie Holley Unavailable [phone] Walter Parada Unavailable [phone] Sol Gan Unavailable [phone] Moises Ross Unavailable [phone] Allergies Allergen (clinical drug ingredient) Drug/Non Drug Allergy documented on EMR Reaction Allergy Type Onset Date Status banana allergenic extract BANANA (uncoded) Unknown Allergy 12/28/2023 Active Avocado Avocado Unknown Allergy 12/28/2023 Active Reason For Referral No Information Medications Medication SIG (Take, Route, Frequency, Duration) Notes Start Date End Date Status Sertraline HCl 100 MG Tablet 2 tablets Oral Once a day; Duration: 90 days taking over rx, please DC any prescriptions available from Sol Gan who is no longer at this practice, thanks Active hydroCHLOROthiazide 25 MG Tablet Oral 12/28/2023 Active Atorvastatin Calcium 10 MG Tablet Oral 12/28/2023 Active Olmesartan Medoxomil 20 MG Tablet 1 tablet Orally Once a day Active Wellbutrin XL 150 MG Tablet Extended Release 24 Hour 1 tablet in the morning Oral Once a day; Duration: 90 days taking over rx, please DC any prescriptions available from Sol Gan who is no longer at this practice, thanks 12/28/2023 Active buPROPion HCl ER (XL) 150 MG Tablet Extended Release 24 Hour 1 TABLET Oral Once a day; Duration: 30 days Active FLUTICASONE 250 MCG-SALMETEROL 50 MCG/DOSE BLISTR POWDR FOR INHALATION *Reorder from [facility] for eRx and Interaction Alerts* 12/28/2023 Active Primidone 50 MG Tablet Oral 12/28/2023 Active Ergocalciferol 1.25 MG (42375 UT) Capsule Oral 12/28/2023 Active Immunizations Vaccine Route Administration Date Status Comme [...] cine 2nd dose Unknown 06/20/2021 Administered Novel [id number], preservative free Unknown 07/01/2015 Administered Novel [id number], preservative free Unknown 08/14/2016 Administered Moderna Covid-19 [...] decision-maker Yes Do you have Power of Paring Machine Operator for Health or Medi stephanie? Yes Do you have a power of health safety specialist for health? Yes Do you have power of health safety specialist for Medical ? Yes If yes, then [...] marijuana? Denies Do you drink alcohol? Yes Problems Problem Type SNOMED Code ICD Code Onset Dates Problem Status W/U Status Risk Notes Problem Mild recurrent major depression (97341314) Major depressive disorder, recurrent, mild (F33.0) Active confirmed Problem Recurrent major depression in remission (27761530) Major depressive disorder, recurrent, in partial remission (F33.41) Active confirmed Problem Generalized anxiety disorder (34796403) Generalized anxiety disorder (F41.1) Active confirmed Problem Recurrent hypersomnia (600297774) Recurrent hypersomnia (G47.13) Active confirmed Problem Obstructive sleep apnea syndrome (disorder) (86201319) Obstructive sleep apnea (adult) (pediatric) (G47.33) Active confirmed Vital Signs Heart Rate 58 /min 01/26/2025 Height-cm 162.56 cm 01/26/2025 Blood pressure diastolic 81 mm Hg 01/26/2025 Weight-kg 106.78 kg 01/26/2025 Height 64.00 in 01/26/2025 Blood pressure systolic 107 mm Hg 01/26/2025 Weight 235.4 lbs 01/26/2025 BMI 40.4 kg/m2 01/26/2025 Encounters Encounter Location Date Provider Diagnosis [facility] [employer] [place] [address] [address] [facility] [address] [address] 04/28/2024 Walter Parada Generalized anxiety disorder F41.1 and Recurrent major depressive episodes, mild F33.0 [facility] [address] [address] 06/29/2024 Walter Parada Generalized anxiety disorder F41.1 and Depression, major, recurrent, mild F33.0 [facility] [address] [address] 07/08/2024 Thena Malik Major depressive disorder, recurrent, mild F33.0 ; Generalized anxiety disorder F41.1 and Recurrent hypersomnia G47.13 [facility] [address] [address] 10/06/2024 Thena Malik Major depressive disorder, recurrent, mild F33.0 ; Generalized anxiety disorder F41.1 and Recurrent hypersomnia G47.13 [facility] [address] [address] [place] [address] [address] 01/03/2025 Moises Ross Generalized anxiety disorder F41.1 ; Major depressive disorder, recurrent, mild F33.0 ; Recurrent hypersomnia G47.13 and Encounter for screening for cardiovascular disorders Z13.6 [facility] [address] [address] 01/26/2025 Bonnie Perea Generalized anxiety disorder F41.1 ; Major depressive disorder, recurrent, in partial remission F33.41 ; Recurrent hypersomnia G47.13 ; Obstructive sleep apnea (adult) (pediatric) G47.33 ; Encounter for screening for cardiovascular disorders Z13.6 and Negative depression screening Z13.31 Assessments Encounter Date Diagnosis (ICD Code) Assessment Notes Treatment Notes Treatment Clinical Notes Section Notes 07/08/2024 Major depressive disorder, recurrent, mild (ICD-10 - F33.0) 07/08/2024 Generalized anxiety disorder (ICD-10 - F41.1) 01/03/2025 Generalized anxiety disorder (ICD-10 - F41.1) 10/06/2024 [...] for several years prior to her . 01/26/2025 Major depressive disorder, recurrent, in partial remission (ICD-10 - F33.41) 01/26/2025 Generalized anxiety disorder (ICD-10 - F41.1) 01/26/2025 Recurrent hypersomnia (ICD-10 - G47.13) 01/03/2025 Major depressive disorder, recurrent, mild (ICD-10 - F33.0) 10/06/2024 Recurrent hypersomnia (ICD-10 - G47.13) 07/08/2024 Recurrent hypersomnia (ICD-10 - G47.13) 01/03/2025 Recurrent hypersomnia (ICD-10 - G47.13) 01/26/2025 Obstructive sleep apnea (adult) (pediatric) (ICD-10 - G47.33) 01/26/2025 Encounter for screening for cardiovascular disorders (ICD-10 - Z13.6) 01/03/2025 Encounter for screening for cardiovascular disorders (ICD-10 - Z13.6) 01/26/2025 Negative depression screening (ICD-10 - Z13.31) 04/28/2024 Other Client partici pated in individual psychotherapy(CBT/Sup portive) based on her hx of anxiety and [...] prior to her . 06/29/2024 Other Client partici pated in individual psychotherapy (CBT/Supportive) related to her [...] for several years prior to her . 01/03/2025 Other Learning About Depression Screening material was printed Louise Mark is a female patient with a history of recurrent major depressive disorder, presenting with increased sleep and lack of motivation. She reports feeling that something's not right with her current medication regimen. Recurrent Major Depressive Disorder with Hypersomnia Assessment: Patient reports current depressive symptoms including hypersomnia (sleeping all night plus 1-2 naps during the day) and lack of motivation. She rates her depression at 4-5 out of 10. Current medications include sertraline 100mg-50 and bupropion 150mg. Patient has a history of major depressive episodes since 1998, initially triggered by multiple losses and a cancer diagnosis. No current suicidal ideation or self-harm. Patient is engaging in self-care activities such as chair yoga, working out with a head athletic trainer, and attending mindfulness classes, but reports having to force herself to do these activities. Plan: - Increase sertraline to 200mg daily - Patient agreed to this change - Discussed potential to decrease dose if symptoms improve and depression appears situational - Continue bupropion 150mg - Discussed risk of lowering seizure threshold with alcohol use. - Follow up with new therapist on January 26 as scheduled - Encourage continuation of current self-care activities (yoga, exercise, mindfulness) - Follow up with ALBER Jha on 01/23/25 Caregiver Fatigue Assessment: Patient reports irritability, particularly towards her who has cognitive issues. This situation has been ongoing for a long time, suggesting possible caregiver fatigue. Patient expresses desire to visit her sister in [place] to get away from it. Plan: - Discuss caregiver fatigue and coping strategies with new therapist - Consider short-term respite care options to allow for visit to sister in [place] The note is transcribed using speech recognition software. It is a reflection of a visit with the patient. It might have some inaccuracy, including medication names and transcribing errors, though efforts have been made to correct them. 01/26/2025 Chiki Mark presents with persistent fatigue following a bout of sciatica in , despite resolution of pain. She reports good mood but exhaustion, requiring frequent long naps. Depression Assessment: Patient reports good mood on current antidepressant regimen of bupropion and sertraline 200mg. Previously responded well to paroxetine but was switched due to age-related concerns. Two other antidepressants were tried but found less effective. Patient is engaged in therapy, recently switching to a female therapist outside the practice. Plan: - Continue current antidepressant regimen: - Bupropion XL 150 mg PO daily - Sertraline 200mg PO daily - Encourage continuation of therapy with new therapist - Support ongoing self-care practices for mental health - Follow up in 3 months or as needed Hypertension Assessment: Patient is on olmesartan and hydrochlorothiazide for blood pressure management. Today's blood pressure reading was 87/58, repeat blood pressure was 107/81. Patient reports occasional lightheadedness when standing up quickly. Plan: - Monitor for symptoms of hypotension - Encouraged to monitor blood pressure at home and follow up with primary care provider - Advise patient to rise slowly from seated or lying positions Hypersomnia Assessment: Patient reports worsening of fatigue coinciding with sciatic pain in late October/early November. Despite resolution of pain, fatigue persists. Recent fall and subsequent hospital visits for sciatica resulted in steroid treatment and pain medication. Fatigue significantly impacts daily activities, necessitating frequent, prolonged naps. Low blood pressure could be a contributing factor. Patient plans to follow up with her primary care provider next month and will discuss blood pressures, fatgiue, and obtain labs at this appointment Plan: - Monitor fatigue levels - Continue CPAP use Plan Of Treatment Next Appt Details Provider Name:Bonnie Bazan thad, 04/28/2025 01:30:00 PM, [address], [facility] [address], [place], [address], Insurance Providers Payer Name Payer Address Payer Phone Subscriber Number Group Number Insured Name Patient Relationship to Insured Coverage Start Date Coverage End Date [employer] Medicare Replacement/ Advantage - Ppo [address] [address] [place] [address] [id number] LOUISE MARK Self - patient is the insured Medical (General) History Medical History History ICD Code Past Psychiatric History: Anxiety Disord er,Major Depressive Episode undefined Recurrent hypersomnia essential tremor: Yes hypertension: Yes vitamin D deficiency osteoarthritis Surgical History Surgery Date(Month/Year) Ankle arthroscopy/surgery (93082) Hip arthroscopy dx (18412) Knee arthroscopy/surgery (16305) lt Lung excision (604068813) Left hip replacement 01/11/2024 bladder sling Hospitalization History Reason Date(Month/Year) child surgeries
[2025-04-14 13:49] LABS: Estimated Glomerular Filt Rate 54
[2025-04-14 14:17] LABS: Hematocrit 37.4 % (37.0-47.0); Hemoglobin 11.8 g/dL (12.0-15.0); Immature Granulocyte Percent A 0.2 % (0-0.5); Lymphocytes Absolute Auto 1.50 K/mm3 (0.9-3.2); Mean Corpuscular HGB Conc 31.6 g/dl (32-36); Mean Corpuscular Hemoglobin 30.8 pg (26-34); Mean Corpuscular Volume 97.7 fl (80-100); Nucleated Red Blood Cells Absolute Auto 0.000 K/mm3 (0.0-0.012); Nucleated Red Blood Cells Perc 0.0 % (0.0-0.2); Platelet Count Result 250 k/mm3 (150-375); Red Blood Count 3.83 M/mm3 (4.2-5.4); White Blood Count 6.5 K/mm3 (4.5-10.0)
[2025-04-14 14:38] LABS: Add Urine Microscopic? YES; Appearance Urine Clear (Clear); Glucose Urine UA Negative (Negative); Leukocyte Esterase Ur 1+ LEU/UL (Negative); Need Manual Microscopic Reviewed; Nitrate Urine Negative (Negative); Non Pathogenic Casts 0-2; Specific Grav Ur 1.033 (1.001-1.035)
[2025-04-14 14:40] LABS: Alanine Aminotransferase 16 U/L (6-35); Albumin Level 4.1 g/dL (3.5-5.1); Alkaline Phosphatase 80 U/L (38-126); Anion Gap 6 mmol/L (4-12); Aspartate Amino Transferase 29 U/L (14-36); Bilirubin,Total 0.2 mg/dL (0.2-1.3); Blood Urea Nitrogen 20 mg/dL (7-17); Calcium 9.3 mg/dL (8.4-10.2); Carbon Dioxide 28 mmol/L (22-30); Chloride 98 mmol/L (98-107); Estimated Glomerular Filt Rate > 60; Glucose 91 mg/dL (65-110); Potassium 4.0 mmol/L (3.4-5.0); Sodium 132 mmol/L (137-145); Total Protein 7.2 g/dL (6.3-8.2)
== END 2025-04-14 13:20 | disposition home or self-care (01) ==
PROVIDERS: PCP Internal Medicine; Visit Provider Internal Medicine
DX: R10.9 Unspecified abdominal pain (principal)
CPT/HCPCS: 36415; 74177; 80053; 81001; 85025; 87086; Q9967

== ENCOUNTER 2025-05-15 15:02 | Emergency (ER) | payer MEDICARE, SELFPAY ==
--- NOTE | 2025-05-15 15:10 | ED.BACK ---
HPI - Back Pain/Injury General Chief Complaint: Back Pain/Injury Stated Complaint: Back Pain/Rib Pain Time Seen by Provider: 05/15/25 15:22 Source: patient, RN notes reviewed and old records reviewed Mode of arrival: ambulatory Limitations: no limitations History of Present Illness HPI Narrative: 75-year-old female presents to the [facility] with right-sided lower back pain. Denies trauma. 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 Has been using warm moist heat or heating pad as well as taking Tylenol. Denies any midline tenderness. Denies loss or retention of bowel or bladder. Walks with a steady gait. No numbness or tingling in extremities Related Data Home Medications ?Medication ?Instructions ?Recorded ?Confirmed ?Last Taken ?Type albuterol 90 mcg/actuation aerosol 1 mcg inhalation PRN PRN ASTHMA 01/04/24 05/04/25 Unknown History inhaler atorvastatin 10 mg tablet 10 mg PO DAILY 01/04/24 05/04/25 12/27/24 History bupropion HCl 150 mg 24 hr tablet, 150 mg PO DAILY 01/04/24 05/04/25 12/27/24 History extended release hydrochlorothiazide 25 mg tablet 25 mg PO DAILY 01/04/24 05/04/25 12/27/24 History ibuprofen 125 mg-acetaminophen 250 2 tablet PO PRN PRN Pain 01/04/24 05/04/25 Unknown History mg tablet olmesartan 40 mg tablet 40 mg PO DAILY 01/04/24 05/15/25 12/27/24 History Held on 05/15/25. Instructions: low bp per pt primidone 50 mg tablet 50 mg PO BID 01/04/24 05/04/25 12/27/24 History sertraline 100 mg tablet 150 mg PO DAILY 01/04/24 05/04/25 12/27/24 History ergocalciferol (vitamin D2) 1,250 50,000 unit PO .Every other week 01/10/25 05/04/25 Unknown History mcg (50,000 unit) capsule Allergies Allergy/AdvReac Type Severity Reaction Status Date / Time avocado Allergy Mild stomach Verified 05/15/25 15:35 ache banana Allergy Mild stomach Uncoded 05/04/25 10:26 ache Review of Systems Review of Systems: All systems reviewed & are unremarkable except as noted in HPI and below Constitutional: Constitutional: Reports no additional constitutional complaints ENT: Reports system reviewed and no additional complaints, except as documented Cardiovascular: Cardiovascular: Reports no additional cardiovascular complaints, Denies chest pain and Denies dyspnea Respiratory: Respiratory: Reports no additional respiratory complaints, Denies chest congestion, Denies cough and Denies dyspnea Musculoskeletal: Musculoskeletal: Reports as per HPI Integumentary/Breasts: Skin/Breast: Reports system reviewed and no additional complaints, except as docu PMFSH Past Medical History Medical History Colon cancer screening Essential tremor Obstructive sleep apnea on CPAP Hyperlipidemia Hypertension Depression Surgical History Surgical History History of left hip replacement (01/11/24) History of left knee replacement 2018 History of right hip replacement 2014 History of bladder surgery bladder lift 2005 History of lung surgery upper lobe removed 1999 History of ankle surgery 1988 due to break Family History Family History Father Acute myocardial infarction Hypertension Sibling Cerebrovascular accident Breast cancer Social History Social History Social History: Surrogate medical decision maker: Dottie Ponce, daughter. Code status: Full code. Smoking status: Never smoker Second hand tobacco smoke exposure: No Alcohol intake: current Drinks per week: 2 Substance use: former Substance use type: marijuana Other substance usage details: 1/2 gummie to sleep Last use: 01/04/24 Lack of Transportation: No Lack of Food: Never True Current Housing: I Have Housing Concerned About Future Housing: No Difficulty Paying Gas/Electric Bills: No Difficulty Paying for Meds: No Currently Unemployed: No Education: Bachelor's Degree Difficulty w/ Childcare or Family Care: No Living arrangements: with family Additional living arrangements comments: caregiver for Occupation/Education: retired Spiritual care concerns: No Comments At the time of my signature, I reviewed and agree with the nursing past medical, surgical, social, and family history. There is no relevant family history pertinent to the patient complaint. Exam Const: General: cooperative, healthy appearing, comfortable, no acute distress, well developed, alert and well nourished Nutritional Appearance: well nourished and obese Orientation/consciousness: patient oriented x3 Limitations: no limitations HENMT: Head: normal to inspection Eyes: General: appearance normal, both eyes and all related structures Alignment and Position: alignment normal Neck: Neck: normal visual inspection, full ROM, no lymphadenopathy and no meningeal signs Chest: Chest palpation & inspection: normal inspection of the chest Resp: Effort & Inspection: normal respiratory effort and able to speak in complete sentences Auscultation: clear to auscultation bilaterally, no crackles, no rales, no rhonchi and no wheezes Cardio: Rate: regular rate GI: GI Palp: No abdominal tenderness Back/Spine/Pelvis: Back: back tenderness Cervical Spine: No cervical muscular tenderness and No Cervical spine tenderness Thoracic/Lumbar Spine: No thoracic spinal tenderness and No lumbar spinal tenderness Pelvis: no pain with anterior-posterior compression and no pain with lateral compression Sacrum: no ecchymosis, no erythema and no swelling Back/spine/pelvis image:  1. Tenderness, worse with movement Skin: General skin exam: normal color and no rashes or lesions noted Neuro: General: patient oriented x3, gait normal, moves all extremities and no meningeal signs Cognition (Neuro): normal cognition Speech: normal speech Gait exam (Neuro): Normal gait present Extrem: General: normal to inspection, full ROM, capillary refill normal and normal gait Psych: Appearance: grossly normal and well kempt Mental Status: mental status grossly normal Speech and movement: Normal speech and movement present and Clear speech present Affect: normal affect Attitude: cooperative Course Course Level of Care: Express Care Visit Vital Signs Vital signs: Vital Signs Temperature 97.0 F L 05/15/25 15:13 Pulse Rate 74 05/15/25 15:13 Respiratory Rate 16 05/15/25 15:13 Blood Pressure 153/84 H 05/15/25 15:13 Pulse Oximetry 98 05/15/25 15:13 Oxygen Delivery Room Air 05/15/25 15:13 Temperature 97.0 F L 05/15/25 15:13 Pulse Rate 74 05/15/25 15:13 Respiratory Rate 16 05/15/25 15:13 Blood Pressure 153/84 H 05/15/25 15:13 Pulse Oximetry 98 05/15/25 15:13 Oxygen Delivery Room Air 09/22/25 15:13 Reviewed MDM - Back Pain/Injury MDM Narrative Medical decision making narrative: Patient sitting in exam room. Patient is nontoxic, vitals stable. Patient presents with right flank pain. 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 Worse with movement. Denies any urinary symptoms. Denies any abdominal pain. Exam most consistent with lower back strain. No midline tenderness. No loss or retention of bowel or bladder. Walks with a normal gait. Discharge instructions reviewed with patient, as well as provided in writing per nursing staff. The instructions also include specific and strict return/GO TO THE ER as well as f/u information. All questions have been answered, and the patient deny any further questions with discharge and discharge plan. Some parts of this dictation were generated by voice recognition software and may contain typographical and/or grammatical inaccuracies. Differential Diagnosis Differential diagnosis: Likely lumbar radiculopathy, strain of lumbar region and pyelonephritis Critical Care Time Critical Care Time Critical Care Time: No Discharge Plan Discharge Clinical Impression: Strain of lumbar region Patient Disposition: Home Condition: Stable Instructions: Acute Low Back Pain (ED), Lower Back Exercises (ED) Additional Instructions: Take ibuprofen as directed to decrease inflammation and to help pain. Take Tylenol to help with pain Take Baclofen (muscle relaxer) as directed. Do not drink, drive, operate machinery, or do anything dangerous while taking this medication Exercise:Combine aerobic exercise, like walking or swimming, with specific exercises to keep the muscles in your back and abdomen strong and flexible. Proper Lifting:Be sure to lift heavy items with your legs, not your back. Do not bend over to pick something up. Keep your back straight and bend at your knees. Weight:Maintain a healthy weight. Being overweight puts added stress on your lower back. Avoid Smoking:Both the smoke and the nicotine cause your spine to age faster than normal. Proper Posture:Good posture is important for avoiding future problems. A therapist can teach you how to safely stand, sit, and lift. Use warm moist heat to help with pain. Using topical such as Biofreeze, Arjun-[place] or Aspercreme can also help Follow up with Primary provider in 2-3 days, This may become a chronic condition and they will be the one to help manage your pain and order additional testing. Go to the nearest ER if you develop problems with bladder/bowel function, weakness or loss of feeling in one or both of your legs. Patient Language: Urdu Prescriptions: New baclofen 10 mg tablet 10 mg PO TID PRN (Reason: muscle pain) Qty: 10 0RF No Action sertraline 100 mg tablet 150 mg PO DAILY atorvastatin 10 mg tablet 10 mg PO DAILY bupropion HCl 150 mg tablet extended release 24 hr 150 mg PO DAILY hydrochlorothiazide 25 mg tablet 25 mg PO DAILY olmesartan 40 mg tablet 40 mg PO DAILY primidone 50 mg tablet 50 mg PO BID ibuprofen-acetaminophen 125-250 mg Tablet 2 tablet PO PRN PRN (Reason: Pain) albuterol 90 mcg/actuation Aerosol 1 mcg INHALATION PRN PRN (Reason: ASTHMA) ergocalciferol (vitamin D2) 1,250 mcg (50,000 unit) capsule 50,000 unit PO .Every other week Follow-up/Referrals: Luciano,MD Didier [Primary Care Provider] - 1 Week Clinical Impression: Strain of lumbar region Time of Disposition: 15:37
[2025-05-15 15:13] VITALS: BP 153/84; PULSE 74; RESP 16; TEMP 36.1; O2SAT 98
== END 2025-05-15 15:45 | disposition home or self-care (01) ==
PROVIDERS: Emergency Provider Nurse Practitioner; PCP Internal Medicine
DX: S39.012S Strain of muscle, fascia and tendon of lower back, sequela (principal); X50.9XXS Other and unspecified overexertion or strenuous movements or postures, sequela; I10 Essential (primary) hypertension; E78.5 Hyperlipidemia, unspecified; G47.33 Obstructive sleep apnea (adult) (pediatric); F32.A Depression, unspecified; Z96.643 Presence of artificial hip joint, bilateral; Z96.652 Presence of left artificial knee joint
CPT/HCPCS: 99213; G0463

== ENCOUNTER 2025-05-18 02:00 | Emergency (ER) | payer MEDICARE, SELFPAY ==
--- OUTSIDE RECORDS SUMMARY | 2025-01-23 10:00 | XMS_ITS ---
Author Organization [facility] Simplist Address [address] [place] [address] Care Team Providers Care Environmental Field Technician Name Role Phone Didier Wolf MD Primary Care Provider Bonnie Santos Unavailable [phone] Allergies Allergen (clinical drug ingredient) Drug/Non Drug Allergy documented on EMR Reaction Allergy Type Onset Date Status banana allergenic extract BANANA (uncoded) Unknown Allergy 12/28/2023 Active Avocado Avocado Unknown Allergy 12/28/2023 Active REASON FOR VISIT Law De Leon 01/03/2025 Medications Medication SIG (Take, Route, Frequency, Duration) Notes Start Date End Date Status Primidone 50 MG Tablet Oral 12/28/2023 Active Ergocalciferol 1.25 MG (51276 UT) Capsule Oral 12/28/2023 Active Atorvastatin Calcium 10 MG Tablet Oral 12/28/2023 Active FLUTICASONE 250 MCG-SALMETEROL 50 MCG/DOSE BLISTR POWDR FOR INHALATION *Reorder from [facility] for eRx and Interaction Alerts* 12/28/2023 Active hydroCHLOROthiazide 25 MG Tablet Oral 12/28/2023 Active buPROPion HCl ER (XL) 150 MG Tablet Extended Release 24 Hour 1 TABLET Oral Once a day; Duration: 30 days Active Sertraline HCl 200 MG Capsule 1 capsule Oral Once a day; Duration: 30 days d/c 100 mg dose d/c 50 mg dose. Active Olmesartan Medoxomil 20 MG Tablet 1 tablet Orally Once a day Active Social History Tobacco Use: Social History Observation Description Date Details (start date - stop date) Unknown if ever smoked NA - NA Sex Assigned At : Social History Observation Description Sex Assigned At Female Social History Miscellaneous: Social Info Question Answer Notes Advance Care Planning Are you your own decision-maker Yes Do you have Power of Roustabout Head for Health or Medi stephanie? Yes Do you have a power of workers compensation attorney for health? Yes Do you have power of workers compensation attorney for Medical ? Yes If yes, then please bring the POA paperwork so that we can upload it. No Safety issues: Are there any firearms in the house? Ye s Social History Social Info Question Answer Notes Household: Marital Status: Number of Adults in household: 2 Level of Education: Finished College Household: Social Info Question Answer Notes Household Marital status: Number of adults in household: 2 Level of education: finished college Drug/Alcohol: Social Info Question Answer Notes Drugs Have you used drugs other than those for medical reasons in the past 12 months? No AUDIT-C (Standard) Did you have a drink containing alcohol in the past year? Yes How often did you have a drink containing alcohol in the past year? 2 to 3 times a week (3 points) How many drinks did you have on a typical day when you were drinking in the past year? 1 or 2 drinks (0 point) How often did you have six or more drinks on one occasion in the past year? Never (0 point) Points 3 Interpretation Positive Tobacco Use: Social Info Question Answer Notes Tobacco Control (Standard) Tobacco use: Unknown if ever smoked Additional Details Category Social Info Options Details Miscellaneous: Occupation: Retired [employer] Migrated Social History Migrated Social History Alcohol Intake: Moderate 12/09/2022,Tobacco Years: Never smoker 03/02/2020 Drug/Alcohol: Do you smoke marijuana? Denies Do you drink alcohol? Yes Vital Signs Blood pressure systolic 110 mm Hg 01/24/20 25 Blood pressure diastolic 72 mm Hg 025 Heart Rate 106 /min 01/23/2025 Height 64.00 in 01/23/2025 Weight 234 lbs 01/23/2025 BMI 40.16 kg/m2 01/23/2025 Height-cm 162.56 cm 01/23/2025 Weight-kg 106.14 kg 01/23/2025 Encounters Encounter Location Date Provider Diagnosis [facility] [address] [address] 01/23/2025 Bonnie Perea Encounter for screening for depression Z13.31 and Encounter for screening for cardiovascular disorders Z13.6 Assessments Encounter Date Diagnosis (ICD Code) Assessment Notes Treatment Notes Treatment Clinical Notes Section Notes 01/23/2025 Encounter for screening for depression (ICD-10 - Z13.31) 01/23/2025 Encounter for screening for cardiovascular disorders (ICD-10 - Z13.6) Plan Of Treatment Next Appt Details Provider Name:Bonnie oneil, 08/07/2025 01:45:00 PM, [id number] [facility] [address], [facility] [address], [place], [address], History and Physical Notes * HPI (History of Present Illness) Category Sub-Category Detail Notes Category Not es History of Presenting Problem Depression screening done Depression screening PHQ-9 Little inte rest or pleasure in doing things: Not at all Feeling down, depressed, or hopeless: No t at all Trouble falling or staying asleep, or sl eeping too much: Nearly every day Feeling tired or having little energy: M ore than half the days Poor appetite or overeating: Not at all Feeling bad about yourself o r that you are a failure, or have let yourself or your family down: Several days Trouble concentrating on thi ngs, such as [...] some way: Not at all Total Score: 6 Interpretation: Mild Depression Intervention Depression Screening Findings: P ositve Follow-Up for Depression: [facility] health care management, Psychiatric follow-up Suicide Risk Assessment Performed: 01/23 __ date Functional Status Functional Status Assessment Fall Risk Assessment:: One fall with injury in the past year Dias Depression Inventory which describe s you best in terms of this past week 1 In the past one week which term best describe you: 0 I do not feel sad or blue. 2 In the past one week which term best describe you: 0 I am not particularly pessimistic or discouraged about the future. 3 In the past one week which term best describe you: 0 I do not feel like a failure. 4 In the past one week which term best describe you: 1 I don't enjoy things the way I used to 5 In the past one week which term best describe you: 0 I don't feel particularly guilty. 6 In the past one week which term best describe you: 0 I don't feel I am being punished. 7 In the past one week which term best describe you: 0 I don't feel disappointed in myself. 8 In the past one week which term best describe you: 1 I am critical of myself for my weakness or mistakes. 9 In the past one week which term best describe you: 0 I don't have any thoughts of killing myself. 10 In the past one week whic h term best describe you: 3 I used to be able to cry , but now I can't cry even though I want to. 11 In the past one week whic h term best describe you: 0 I am no more irritated by things that I ever was. 12 In the past one week whic h term best describe you: 0 I have not lost interest in other people. 13 In the past one week whic h term best describe you: 0 I make decisions about as well as I ever could. 14 In the past one week whic h term best describe you: 0 I don't feel that I look any worse than I used to. 15 In the past one week whic h term best describe you: 1 It takes an extra effort to get started at doing something. 16 In the past one week whic h term best describe you: 0 I can sleep as well as usual. 17 In the past one week whic h term best describe you: 2 I get tired from doing almost anything 18 In the past one week whic h term best describe you: 0 My appetite is no worse than usual. 19 In the past one week whic h term best describe you: 0 I haven't lost much weight, if any, lately. 20 In the past one week whic h term best describe you: 1 I am worried about physical problems like aches, pain, upset stomach or constipation 21 In the past one week whic h term best describe you: 3 I have lost interest in sex completely. JOCY-7 Anxiety Over the last two we eks, how often have you been bothered by the following problems? 1. Feeling nervous, anxious, or on edge: 0 Not at all 2. Not being able to stop or control wor ryin Not at all 3. Worrying too much about different thi ngs: 0 Not at all 4. Trouble relaxin Not at all 5. Being so restless that it is hard to sit still: 0 Not at all 6. Becoming easily annoyed or irritable: 0 Not at all 7. Feeling afraid, as if something awful might happen: 0 Not at all Alexis-Suicide Severity Rating Scale Suicide Risk (CSRS-screener) in the past one month Have you wished you were or wished you could go to sleep and not wake up?: No in the past one month Have y ou actually had any thoughts of killing yourself?: No Have you ever done anything, started to do anything, or prepared to do anything to end your life?: No Progress Notes * HOOD MARKOB: 2 (75 yo F)Acc No.[id number]:01/23/2025 Transfer of Care from [facility] [place] [facility] Patient: Jane GLADIS VALENZUELA Provider: Kevin Perea :1950 A ge:74 Y S ex:Female Date:01/23/2025 Address:[address] [place], [place] [id number] Pcp:Didier Wolf MD Subjective: * Chief Complaints: * S aw Omises 01/03/2025 * HPI: B cleo Depression Inventory: which describes you best in terms of this past week 1 In the past one week which term best describe you 0 I do not feel sad or blue. 2 In the past one week which term best describe you 0 I am not particularly pessimistic or discouraged about the future. 3 In the past one week which term best describe you 0 I do not feel like a failure. 4 In the past one week which term best describe you 1 I don't enjoy things the way I used to 5 In the past one week which term best describe you 0 I don't feel particularly guilty. 6 In the past one week which term best describe you 0 I don't feel I am being punished. 7 In the past one week which term best describe you 0 I don't feel disappointed in myself. 8 In the past one week which term best describe you 1 I am critical of myself for my weakness or mistakes. 9 In the past one week which term best describe you 0 I don't have any thoughts of killing myself. 1 0 In the past one week which term best describe you 3 I used to be able to cry , but now I can't cry even though I want to. 1 1 In the past one week which term best describe you 0 I am no more irritated by things that I ever was. 1 2 In the past one week which term best describe you 0 I have not lost interest in other people. 1 3 In the past one week which term best describe you 0 I make decisions about as well as I ever could. 1 4 In the past one week which term best describe you 0 I don't feel that I look any worse than I used to. 1 5 In the past one week which term best describe you 1 It takes an extra effort to get started at doing something. 1 6 In the past one week which term best describe you 0 I can sleep as well as usual. 1 7 In the past one week which term best describe you 2 I get tired from doing almost anything 1 8 In the past one week which term best describe you 0 My appetite is no worse than usual. 1 9 In the past one week which term best describe you 0 I haven't lost much weight, if any, lately. 2 0 In the past one week which term best describe you 1 I am worried about physical problems like aches, pain, upset stomach or constipation 2 1 In the past one week which term best describe you 3 I have lost interest in sex completely. C [place]-Suicide Severity Rating Scale: Suicide Risk (CSRS-screener) i n the past one month Have you wished you were or wished you could go to sleep and not wake up? N o i n the past one month Have you actually had any thoughts of killing yourself? N o H ave you ever done anything, started to do anything, or prepared to do anything to end your life? N o D epression screening: PHQ-9 L ittle interest or pleasure in doing things?Not at all F eeling down, depressed, or hopeless N ot at all T rouble falling or staying asleep, or sleeping too much N early every day F eeling tired or having little energy M ore than half the days P oor appetite or overeating N ot at all F eeling bad about yourself or that you are a failure, or have let yourself or your family down S everal days T rouble concentrating on things, such as [...] in some way N ot at all T otal Score 6 I nterpretation M ild Depression Intervention D epression Screening Findings P ositve F ollow-Up for Depression M ental health care management, Psychiatric follow-up S uicide Risk Assessment Performed 0 01/23/2025 __ date F unctional Status: Functional Status Assessment F all Risk Assessment: O ne fall with injury in the past year G AD-7 Anxiety: Over the last two weeks, how often have you been bothered by the following problems? 1 . Feeling nervous, anxious, or on edge 0 Not at all 2 . Not being able to stop or control worrying?0 Not at all 3 . Worrying too much about different things?0 Not at all 4 . Trouble relaxing 0 Not at all 5 . Being so restless that it is hard to sit still 0 Not at all 6 . Becoming easily annoyed or irritable 0 Not at all 7 . Feeling afraid, as if something awful might happen 0 Not at all H istory of Presenting Problem: BP normal. Depression screening done. * ROS: P erformance Met: N ormal blood pressure reading documented, follow-up not required ( G8783). * Medical History: Problems: Generalized anxiety disorder Mild recurrent major depression Recurrent hypersomnia Recurrent major depression in remission , Past Psychiatric History: Anxiety Disorder,Major Depressive Episode abdominal aortic aneurysm: No atrial fibrillation: No chronic fatigue syndrome: No essential tremor: Yes hyperlipidemia: No hypertension: Yes Parkinson's disease: No restless leg syndrome: No stroke: No subdural hematoma: No type 1 diabetes mellitus: No type 2 diabetes mellitus: No vitamin B12 deficiency: No vitamin D deficiency: Yes Osteoarthritis * Social History: T obacco Use: T obacco Control (Standard) T obacco use: U nknown if ever smoked M igrated Social History: M igrated Social History: Alcohol Intake: Moderate 12/09/2022,Tobacco Years: Never smoker 03/02/2020. D rug/Alcohol: D rugs H ave you used drugs other than those for medical reasons in the past 12 months? N o Do you smoke marijuana?: Denies. Do you drink alcohol?: Yes. AUDIT-C (Standard) D id you have a drink containing alcohol in the past year? Y es H ow often did you have a drink containing alcohol in the past year? 2 to 3 times a week (3 points) H ow many drinks did you have on a typical day when you were drinking in the past year? 1 or 2 drinks (0 point) H ow often did you have six or more drinks on one occasion in the past year? N ever (0 point) P oints 3 I nterpretation P ositive H ousehold: Eddie Xiong arital status: m arried N umber of adults in household: 2 L evel of education: f [employer] M iscellaneous: S afety issues A re there any firearms in the house? 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 Y es D o you have a power of workers compensation attorney for health??Yes D o you have power of workers compensation attorney for Medical ??Yes I f yes, then please bring the POA paperwork so that we can upload it. N o S ocial History: Eddie Xiong arital Status: M arried N umber of Adults in household: 2 L evel of Education: [employer] * Medications: T akingSertraline HCl 200 MG Capsule 1 capsule Oral Once a day , Notes to Pharmacist: d/c 100 mg dosed/c 50 mg dose.buPROPion HCl ER (XL) 150 MG Tablet Extended Release 24 Hour 1 TABLET Oral Once a day Olmesartan Medoxomil 20 MG Tablet 1 tablet Orally Once a day Atorvastatin Calcium 10 MG Tablet Oral hydroCHLOROthiazide 25 MG Tablet Oral FLUTICASONE 250 MCG-SALMETEROL 50 MCG/DOSE BLISTR POWDR FOR INHALATION , Notes to Pharmacist: *Reorder from [facility] for eRx and Interaction Alerts*Ergocalciferol 1.25 MG (04110 UT) Capsule Oral Primidone 50 MG Tablet Oral Medication List reviewed and reconciled with the patientTaking Sertraline HCl 200 MG Capsule 1 capsule Oral Once a day , Notes to Pharmacist: d/c 100 mg dosed/c 50 mg dose.Taking buPROPion HCl ER (XL) 150 MG Tablet Extended Release 24 Hour 1 TABLET Oral Once a day Taking Olmesartan Medoxomil 20 MG Tablet 1 tablet Orally Once a day Taking Atorvastatin Calcium 10 MG Tablet Oral Taking hydroCHLOROthiazide 25 MG Tablet Oral Taking FLUTICASONE 250 MCG-SALMETEROL 50 MCG/DOSE BLISTR POWDR FOR INHALATION , Notes to Pharmacist: *[facility]*Taking Ergocalciferol 1.25 MG (73198 UT) Capsule Oral Taking Primidone 50 MG Tablet Oral Medication List reviewed and reconciled with the patient * Allergies: B ANANA: Allergy - Onset Date 12/28/2023vocado: Allergy - Onset Date 12/28/2023yesAllergies Verified. Objective: * Vitals: B P:110/72mm Hg, HR:106/min, Wt:234lbs, Wt-k.14 kg, Ht: 64.00 in, Ht-cm: 162.56 cm, BMI:40.16Index, Body Surface Area: 2.19. Assessment: * Assessment: 1. E ncounter for screening for depression - Z13.31 (Primary) 2 . E ncounter for screening for cardiovascular disorders - Z13.6 Plan: * Procedure Codes: 1 036F TOBACCO [id number] NORMAL BP READING DOC F/U NOT [id number] BEHAV ASSMT W/SCORE & DOCD/STAND [id number] CLIN DEPRESSION SCREEN [id number] MOST RECENT SYSTOLIC BP < 140MM [id number] MOST RECENT DIASTOLIC BP < 90MM HG * Preventive Medicine: Screenings: D epression screening Have you had a recent depression screening? Y es Billing Information: * Procedure Codes: 1036F TOBACCO NON-USER. G8783 NORMAL BP READING DOC F/U NOT RQR. 04768 BEHAV ASSMT W/SCORE & DOCD/STAND INSTRUMENT. G8431 CLIN DEPRESSION SCREEN DOC. G8752 MOST RECENT SYSTOLIC BP < 140MM HG. G8754 MOST RECENT DIASTOLIC BP < 90MM HG. * Electronic signature of Kody Perea on 05/18/2025 at 02:03 AM CDT Sign off status: Pending * Provider: Kevin Perea Date: 01/23/2025 Generated for Ladonna vela/Erum/Jazmin on: 0 05/18/2025 02:03 AM CDT
--- OUTSIDE RECORDS SUMMARY | 2025-04-28 08:30 | XMS_ITS ---
Author Organization [facility] Address [address] [place] [address] [address] Care Team Providers Care Cassandra Architect Name Role Phone Didier Wolf MD Primary Care Provider Bonnie Santos Unavailable [phone] REASON FOR VISIT Appointment was rescheduled prior to 24 hour chloe Social History Sex Assigned At : Social History Observation Description Sex Assigned At Female Encounters Encounter Location Date Provider Diagnosis [facility] [place] [id number] [facility] [address] [address] 04/28/2025 Bonnie Perea Plan Of Treatment Next Appt Details Provider Name:Bonnie oneil, 08/07/2025 01:45:00 PM, [facility], [facility] [address], [place], [address], Progress Notes * HOOD MARKOB: 2 (75 yo F)Acc No.[id number]:04/28/2025 Patient: Jane NICOLAS GLADIS Provider: Kevin Perea :1950 A ge:75 Y S ex:Female Date:04/28/2025 Address:[address] [place], [place] [id number] Pcp:Didier Wolf MD Subjective: * Chief Complaints: * A ppointment was rescheduled prior to 24 hour chloe Billing Information: * Procedure Codes: * Electronic signature of Kody Perea on 05/18/2025 at 02:04 AM CDT Sign off status: Pending * Provider: Kevin Perea Date: 0 04/28/2025 Generated for Ladonna vela/Erum/Jazmin on: 05/18/2025 02:04 AM CDT
--- NOTE | ~2025-05-18 | XR_ITS ---
Lumbar spine series Indication: Back pain Comparison: CT abdomen and pelvis 04/14/2025 Technique: 3 views lumbar spine Findings: 5 nonrib-bearing lumbar-type vertebral bodies. No acute fracture. Grade 1 retrolisthesis of L2 on 3. Grade 1 anterolisthesis of L4 on 5. Vertebral bodies normal height. Severe disc disease L1-2. Moderate degenerative changes. SI joints congruent. Sacrum intact. IMPRESSION: 1. No acute findings. Reviewed, dictated and finalized at location R. IMPRESSION: 1. No acute findings.
--- NOTE | ~2025-05-18 | XR_ITS ---
Examination: XR thoracic spine 3V Clinical History: back pain Comparison: None Technique: 2 views thoracic spine Findings: No acute fracture. Minimal anterior wedging of multiple midthoracic vertebral bodies. Loss of disc space at T10-11. Moderate multilevel degenerative changes including lateral bridging osteophytes. No listhesis. Visualized heart and lungs without acute abnormality. IMPRESSION: 1. No acute findings. Reviewed, dictated and finalized at location R. IMPRESSION: 1. No acute findings.
--- OUTSIDE RECORDS SUMMARY | 2025-05-18 02:03 | XMS_ITS | Clinical Summary ---
Author Organization [facility] [employer] Address [address] [place] [address] Care Team Providers Care Range Mounter Name Role Phone Didier Wolf MD Primary Care Provider [phone] Source Comments [facility] [employer],non-owned Affiliates and Associated Physician Practices is amultiple site organization consisting of ambulatory clinics and hospital sitesin [place], [place], [place] and [place]. This disclosure is being madepursuant to the Care Everywhere program and may not contain all information available regarding this patient. 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 [address] [place] [address] Vanai Good MD [address] [place] [address] Health Maintenance Due Date Last Done Comments [...] Recently Relevant to Health Maintenance Insurance [facility] MANAGED MEDICARE ADV SELF PAY NO INSURANCE Member Subscriber Plan / Payer (Ef fective for All Dates) Name:Louise Mark Member ID:Not on file Relation to Subscriber:Not on file Name:LOUISE MARK Subscriber ID:Not on file (Home) Address: [address] [place] [id number] Payer ID:Not on file Group ID:Not on file Type:Self Pay Address: [facility] MANAGED MEDICARE ADV Care Teams Range Mounter Relationship Specialty Start Date End Date Didier Wolf MD PCP - General 12/01/17
--- OUTSIDE RECORDS SUMMARY | 2025-05-18 02:04 | XMS_ITS | Encounter Summary ---
Author Organization [facility] Address [address] [place] [address] Care Team Providers Care Sheet Rock Nailer Name Role Phone Didier Wolf MD Primary Care Provider [phone] Reason for Referral * Evaluate (Routine) - Closed Specialty Diagnoses / Procedures Referred By Francis t Referred To Contact Diagnoses Family history of breast cancer Meg Munoz MD [address] [facility] [address] [place] [address] Phone: tel: fax: Denise Ware, [place] [facility] Referral ID Status Reason Start Date Expiration Date V isits Requested Visits Authorized [id number] Closed Specialty Services Required 09/05/2021 09/05/2022 99 99 GER REAL ESTATE Reason for Visit * Reason Onset Date Comments Genetic Counseling 09/05/2021 Encounter Details Date Type Department Care Team (Late st Contact Info) Description 09/05/2021 Telephone [facility] [address] [place] [address] Meg Munoz MD [address] [facility] [address] [place] [address] Genetic Counseling Social History Tobacco Use Types Packs/Day Years Used Date Smoking Tobacco: Never Smokeless Tobacco: Never Alcohol Use Standard Drinks/Week Comments Yes 10 (1 standard drink = 0.6 oz pu re alcohol) per week Comments No Sex and Gender Information Value Date Recorded Sex Assigned at Not on file 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 Genetics for breast cancer risk: Dr. Denise Ware at [facility] [phone] Meg Munoz MD GER REAL ESTATE * Telephone Encounter - Duyen Boone - 09/05/2021 11:29 AM CST Patient wanting to get genetic testing for breast cancer because daughter was just diagnosed and italso runs in the family. Daughter is also a patient of Dr Munoz. 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 [address] [place] [address] Vania Good MD [address] [place] [address] Scheduled Referrals Name Type Priority Associated Diagnoses Order Schedule Ref to Cancer Genetic Counseling - Yamileth Ware [facility] Outpatient Referral Routine Family history of breast cancer Ordered: 09/05/2021 documented as of this encounter Visit Diagnoses Diagnosis Family history of breast cancer- Primary Family history of malignant neoplasm of breast documented in this encounter Care Teams Sheet Rock Nailer Relationship Specialty Start Date End Date Didier Wolf MD PCP - General 12/01/17 documented as of this encounter
--- OUTSIDE RECORDS SUMMARY | 2025-05-18 02:04 | XMS_ITS | Data Portability ---
Author Organization [facility] Address [address] [place] [address] Care Team Providers Care Patient Access Manager Name Role Phone BALDEV WOLF Primary Care Provider [phone] Assessment Encounter Date Assessment Date Assessment LastModified by Organization Details LastModified Time 10/20/2024 10/20/2024 colonoscopies. Healthy lifestyle care instructions. We will continue her medicines for hypertension hyperlipidemia essential tremor anxiety low vitamin-D level rhinitis. We will follow up in 3 months [email or web address] Not available 11/27/2024 16:12:01 11/24/2024 11/24/2024 she is getting better finish the medications consider physical therapy if she does not completely resolve if she does use keep her regular Not available 11/26/2024 15:32:50 02/23/2025 02/23/2025 I have told her to stop the olmesartan and she will monitor her pressure and let me know her systolic blood pressure is consistently 140 or above otherwise she will see me back in 1 month [email or web address] Not available 02/24/2025 14:37:58 03/30/2025 03/30/2025 X-ray of the lumbar spine and get her in some physical therapy keep her regular appointment [email or web address] Not available 04/02/2025 11:58:09 Plan of Treatment Reminders Order Date Submit Date Provider Last Modified By Organization Details Last Modified Time Details Appointments ANY 15 2024 10:00A M Baldev Wolf MD Not available Not available Not available Lab None recorded. Referral physical therapist referral 2024 025 [email or web address] [facility], [address] [place], [address], 03/30/2025 18:01:51 Procedures colonosco py screening (PROC) 2024 025 [facility], [address], [address], [place], [address], 02/03/2025 13:51:22 Surgeries None recorded. Imaging XR, lumbar spine [address] (Imaging), [address] [place] [address] [address], [place], [address], 04/06/2025 20:34:54 Medication Orders None recorded. Patient TargetsNo targets recorded. Patient Instructions Encounter Date Encounter Id Patient Instructions Last Modified By Organization Details Last Modified Time 10/20/2024 [id number] A healthy lifestyle: care instructions [place] [id number] Not available 10/20/2024 13:39:56 11/24/2024 [id number] A healthy lifestyle: care instructions [email or web address] Not available 11/24/2024 16:43:00 02/23/2025 [id number] A healthy lifestyle: care instructions [place] [id number] Not available 02/23/2025 10:50:04 03/16/2025 [id number] A healthy lifestyle: care instructions Not available 03/16/2025 19:52:55 Reason for Referral Physical Therapist Referral for Chronic back pain Referring Physician: Baldev Wolf, Internal Medicine, Encounter Date: 03/30/2025 Results Created Date Observation Date Name Description Value Unit Range Abnormal Flag Note LastModifiedBy Organization Detail LastModifiedTime 10/13/1910/10/2024 DEXA No observ ation record ed. [facility] [address] [facility] [address], [place], [address], 10/18/2024 18:39:29 11/23/19 25 11/22/2024 XR, knee No observ ation record ed. [address] [facility] [address], [place], [address], 11/25/2024 22:52:19 04/03/20 25 04/03/2025 XR, lumba r spine No observ ation record ed. [email or web address] [address] [facility], [place], [address], 04/12/2025 12:50:24 04/14/20 25 04/14/2025 CT, abdom en + pelvi s, w/ contr ast No observ ation record ed. [address], [place], [address], 04/19/2025 12:21:45 04/15/20 25 04/14/2025 CT, abdom en + pelvi s, w/ contr ast No observ ation record ed. [address], [place], [address], 04/19/2025 12:21:46 Result Notes None recorded. Problems Name Problem SNOMED Code Status Onset Date Resolution Date Notes Provider Name and Address Organization Details Recorded Time Ectopic atrial tachycardia 579399536 Active 2023 Bernadette Rothman MA [facility], [place] - [facility] 4 17:15:22 Obstructive sleep apnea syndrome 59693205 Active 2023 Baldev Wolf MD Attn: Rahul ritter,[address] [place], [address], [facility] 4 14:20:19 Hyperlipidemia 92960577 Active 2023 Baldev Wolf MD Attn: Rahul ritter,[address] [place], [address], [facility] - [facility] 4 14:20:20 Essential tremor 758219802 Active 2023 Baldev Wolf MD Attn: Rahul ritter,[address] [place], [address], [facility] - [facility] 4 14:20:21 Vitamin D deficiency 03328047 Active 2023 Baldev Wolf MD Attn: Rahul ritter,[address] [place], [address], [place] - [facility] 4 14:20:24 Anxiety 65274891 Active 2023 Baldev Wolf MD Attn: Rahul ritter,[address] [facility], [place], [address], [place] - [facility] 4 14:20:26 Essential hypertension 76198642 Active 2023 Baldev Wolf MD Attn: Rahul ritter,[address] [facility], [place], [address], [place] - [facility] 4 14:20:28 Obesity 922907193 Active 2023 Baldev Wolf MD Attn: Rahul ritter,[address] [facility], [place], [address], [place] - [facility] 4 14:20:29 Problem Notes None recorded. 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 Procedure Notes None recorded. Medical Equipment None Reported. Allergies Allergen ID Allergen Name Allergen Category Reaction Reaction Severity Criticality Documentation Date Start Date Code Code System Note Provider Name and Address Organization Details Recorded Time 804017 banana extract food,medi cation nausea severe Not available 12/24/2023 55383 9 RxNorm Miriam Kirkpatrick [place] null, [place] - [facility] 4 11:38:10 750082 avocado allergeni c extract food nausea severe Not available 12/24/2023 72926 2 RxNorm Miriam Kirkpatrick [place] null, [place] - [facility] 4 11:38:26 Medications Name Sig Start Date Stop Date Status Note LastModified by Organization Details LastModified Time cyclobenzap rine 10 mg tablet Take 1 tablet twice a day by oral route. 02/23 completed Not Available Not Available Not Available [...] tablet every 12 hours by oral route. 02/23 completed Not Available Not Available Not Available naltrexone 50 mg tablet TAKE 0.5 TABLETS (25 MG TOTAL) BY MOUTH DAILY FOR 7 DAYS, THEN 1 TABLET (50 MG TOTAL) DAILY. 10/28 completed Not Available Not Available Not Available sertraline 100 mg tablet TAKE 2 TABLETS BY MOUTH EVERY DAY active Not Available Not Available No t Available ketorolac 10 mg tablet Take 1 tablet every 8 hours by oral route for 5 days. 02/23 completed Not Available Not Available Not Available [...] 1 CAPSULE BY MOUTH EVERY 2 WEEKS active Not Available Not Available No t Available methylpredn isolone 4 mg tablets in a dose pack TAKE 6 TABLETS ON DAY 1 DIRECTED ON PACKAGE AND DECREASE BY 1 TAB EACH DAY FOR A TOTAL OF 6 DAYS active Not Available Not Available No t Available albuterol sulfate HFA 90 mcg/actuati on aerosol inhaler active Not Available Not Available Not Available sertraline 50 mg tablet 1 TABLET ORAL ONCE A DAY TAKE TOGETHER WITH 100 MG TAB FOR TOTAL DAILY DOSE OF 150 MG 90 DAYS 02/23 completed Not Available Not Available Not Available doxycycline hyclate 100 mg tablet TAKE 1 TABLET BY MOUTH EVERY DAY 02/28 completed Not Available Not Available Not Available tobramycin 0.3 %-dexametha sone 0.1 % eye drops,suspe nsion INSTILL 3 DROPS INTO BOTH EYES THREE TIMES DAILY FOR ONE WEEK 10/28 completed Not Available Not Available Not Available olmesartan 20 mg tablet Take 1 tablet every day by oral route. active Not Available Not Available No t Available olmesartan 40 mg tablet TAKE 1 TABLET BY MOUTH EVERY DAY 02/23 completed Not Available Not Available Not Available bupropion HCl XL 150 mg 24 hr tablet, extended release TAKE 1 TABLET BY MOUTH EVERY DAY FOR 90 DAYS active Not Available Not Available No t Available nitrofurant oin monohydrate /macrocryst als 100 mg capsule TAKE 1 CAPSULE BY MOUTH TWICE A DAY FOR 5 DAYS 02/23 completed Not Available Not Available Not Available Xarelto 10 mg tablet PLEASE SEE ATTACHED FOR DETAILED DIRECTION S 02/28 completed Not Available Not Available Not Available Xdemvy 0.25 % eye drops PLACE 1 DROP IN BOTH EYES TWICE DAILY FOR 6 WEEKS. 02/23 completed Not Available Not Available Not Available Vitals Date Recorded Body height Body mass index (BMI) Body weight Heart rate Oxygen saturation Oxygen saturation in Arterial blood by Pulse oximetry Systolic And Diastolic Provider Name and Address Organization Details Last Updated DateTime 5 162.56 cm 40.5 kg/m2 845668. 16 g 63 /min 98 % 98 % 132/70 mm[Hg] Arely Swift [place] - [facility] 5 11:06:07 Date Recorded Body height Body mass index (BMI) Body weight Heart rate Oxygen saturation Oxygen saturation in Arterial blood by Pulse oximetry Systolic And Diastolic Provider Name and Address Organization Details Last Updated DateTime 5 162.56 cm 40.2 kg/m2 773575. 61 g 63 /min 99 % 99 % 124/68 mm[Hg] Miriam Kirkpatrick MA [facility] 5 15:07:26 Date Recorded Body height Body mass index (BMI) Body weight Heart rate Oxygen saturation Oxygen saturation in Arterial blood by Pulse oximetry Systolic And Diastolic Provider Name and Address Organization Details Last Updated DateTime 5 162.56 cm 39.5 kg/m2 052888. 25 g 73 /min 97 % 97 % 90/64 mm[Hg] Tatiana Jeong MA [facility] 5 10:33:52 Date Recorded Body height Body mass index (BMI) Body weight Heart rate Oxygen saturation Oxygen saturation in Arterial blood by Pulse oximetry Systolic And Diastolic Provider Name and Address Organization Details Last Updated DateTime 162.56 cm 39.2 kg/m2 585343. 86 g 110 /min 95 % 95 % 122/68 mm[Hg] Miriam Kirkpatrick MA [facility] 5 14:42:52 Date Recorded Body height Body mass index (BMI) Body weight Heart rate Oxygen saturation Oxygen saturation in Arterial blood by Pulse oximetry Systolic And Diastolic Provider Name and Address Organization Details Last Updated DateTime 5 162.56 cm 40.1 kg/m2 711812. 18 g 100 /min 96 % 96 % 122/70 mm[Hg] Arely Swift MA [facility] 15:35:28 Social History Question Answer Notes LastModified by Organizat ion Details LastModified Time Tobacco Smoking Status Never Smoker CLEMENTE Lim, [facility] 10/29/2023 15:58:56 Do You Have An Advance Directive? Yes Information not available 12/24/2023 Are You Blind Or Do You Have [...] No Information not available 12/24/2023 Are You Deaf Or Do You Have Serious Difficulty Hearing? 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 REGULAR Information not available 12/24/2023 What Is The Highest Grade Or Level Of School You Have Completed Or The Highest Degree You Have Received? [id number] Information not available 02/29/2024 Are There Any Guns Present In Your Home? Yes Locked Up Information not available 02/29/2024 In The Past 7 Days, How Many Days Did You Exercise? 0 Information not available 02/29/2024 In The Past 7 Days, How Much Pain Have You [place]? Some Information not available 02/29/2024 In General, [...] Past 7 Days, How Often Have You [place] Sleepy In The Daytime? Never Information not available 02/29/2024 # Alcohol Drinks Per Week 2 Information not available 02/29/2024 What Was The Date Of Your Most Recent Tobacco Screening? 03/16/2025 Information not available 03/16/2025 What Is Your Relationship Status? Information not available 12/24/2023 Do You Use Your Seat Belt Or Car Seat Routinely? Yes Information not available 12/24/2023 Do You Have Smoke And Carbon Monoxide Detectors In Your Home? Yes Information not available 12/24/2023 Do You Use Sunscreen Routinely? Yes Information not available 12/24/2023 Has Tobacco Cessation Counseling Been Provided? No Information not available 02/29/2024 Sex: Female Functional Status Question Answer Note LastModified by Organizat ion Details LastModified Time Do you use any illicit or recreational drugs? No Information not available 02/29/2024 Do you or have you ever used any other forms of tobacco or nicotine? No Information not available 02/29/2024 What is your level of alcohol consumption? Occasional couple drinks per week Information not available 02/29/2024 Are you currently employed? No Retired Information not available 02/29/2024 Are you able to care for yourself independently? Yes Information not available 12/24/2023 What is your exercise level? Moderate Information not available 10/20/2024 Mental Status Question Answer Note LastModified by Organization D etails LastModified Time Do you feel stressed (tense, restless, nervous, or anxious, or unable to sleep at night)? [id number] Information not available 10/20/2024 Family History Relationship Description Onset Age of [...] 16:12:14 pneumococcal polysaccharide PPV23 9 completed Shell rGant [place], [place] - [facility] 02/17/2024 16:12:14 influenza, [...] [place], [place] [facility] 06/29/2024 12:43:10 COVID-19, mRNA, LNP-S, PF, sunita-sucrose, 30 mcg/0.3 mL 4 completed Not Available [facility] 03/30/2025 15:06:59 COVID-19, mRNA, LNP-S, PF, sunita-sucrose, 30 mcg/0.3 mL 5 completed Not Available [facility] 03/30/2025 15:06:59 Past Encounters Encounter ID Performer Location Encounter Start Date Encounter Closed Date Diagnosis/Indication Diagnosis SNOMED-CT Code Diagnosis ICD10 Code Diagnosis IMO Codes Diagnosis Note [id number] Baldev Wolf MD [facility] (Adult Med) [address] [place] [address] 10/29/2023 15:28:42 10/29/2023 16:48:29 Hyperlipidemia 36987363 E78.5 Anxiety 23643370 F41.9 Chronic rhinitis 2270493 6 J31.0 Asthma 276673227 J45.90 9 Essential hypertension 60838549 I10 Essential tremor 4338265 09 G25.0 Obstructiv e sleep apnea syndrome 45409796 G47.33 [id number] Baldev Wolf MD [facility] [address] [place] [address] 12/24/2023 11:08:30 12/24/2023 12:16:24 Ectopic atrial tachycardia 395012021 I47.19 Hyperlipidemia 83472992 E78.5 Anxiety 83936302 F41.9 Chronic rhinitis 8351905 6 J31.0 Obstructiv e sleep apnea syndrome 93142121 G47.33 Asthma 630993453 J45.90 9 Essential hypertension 16742268 I10 Essential tremor 7126937 09 G25.0 Osteoarthritis 342905154 M19.90 [id number] Baldev Wolf MD [facility] [address] [place] [address] 02/29/2024 11:38:17 02/29/2024 14:34:26 Adult health examination 247364148 Z00.00 Health Risk Assessment collected and reviewed Obesity 249214257 E66.8 Screening mammography 24 931793 Z12.31 [id number] Baldev Wolf MD [facility] [place] [address] [place] [address] 03/07/2024 13:55:56 03/07/2024 14:44:21 Screening for osteoporosis 524093219 Z13.820 Obesity 321702843 E66.8 Essential hypertension 46189005 I10 Anxiety 48444205 F41.9 Vitamin D deficiency 347 01178 E55.9 Essential tremor 4527202 09 G25.0 Hyperlipidemia 50216497 E78.5 Obstructiv e sleep apnea syndrome 90987873 G47.33 Postmenopausal state 764 51301 Z78.0 [id number] Baldev Wolf MD [facility] [place] [address] [place] [address] 08/04/2024 15:50:22 08/04/2024 17:28:59 Body mass index 30+ - obesity 134598162 Z68.39 Obesity 092150033 E66.9 Fatigue 26593401 R53.83 [id number] Baldev Wolf MD [facility] [place] [address] [place] [address] 10/20/2024 10:45:07 10/20/2024 12:03:55 Obesity 453110269 E66.9 Screening for malignant neoplasm of colon 460482051 Z12.11 Essential hypertension 05985483 I10 Hyperlipidemia 51101931 E78.5 Anxiety 06891154 F41.9 [id number] Baldev Wolf MD [facility] [place] [address] [place] [address] 11/24/2024 14:39:13 11/24/2024 15:41:16 Body mass index 30+ - obesity 405743410 Z68.41 Obesity 625651991 E66.9 Pain in ri ght lower limb 985131282 M79.761 [id number] Baldev Wolf MD [facility] [place] [address] [place] [address] 02/23/2025 10:22:44 02/23/2025 11:08:13 Body mass index 30+ - obesity 909222204 Z68.39 796796 Obese class II 441476592 1 00141 E66.812 9108534811 Low blood pressure 41147 003 R03.1 810214 [id number] Baldev Wolf MD [facility] [place] [address] [place] [address] 03/16/2025 14:16:34 03/16/2025 16:11:03 Obese class II 2493007395 91011 E66.812 E66.3 2262097407 BMI 39.2 Right uppe r quadrant pain 472124680 R10.11 7282352 [id number] Baldev Wolf MD [facility] [place] [address] [place] [address] 03/30/2025 15:04:50 03/30/2025 16:47:43 Chronic back pain 127913786 M54.9 G89.29 32482169 Health Concerns Section Related Observation LastModified by Organization Detai ls LastModified Time None Recorded Concern Status LastModified by Organization Details LastModified Time None Recorded Advance Directives Directive Y: Payers Insurance Date Sequence Insurance Name Policy Number Policy Fowler Covered Member ID Fowler Member ID Guarantor Name 04/03/2025 1 [facility] (MEDICARE REPLACEMENT/A DVANTAGE - PPO) [id number] Louise Kris [id number] Louise Ponce 11/24/2024 1 [facility] (MEDICARE REPLACEMENT/A DVANTAGE - HMO) Louise Ponce [id number] Louise Ponce Notes Date Note Type Note Provider Name and Address Organization Details Recorded Time 10/20/2024 text/html anxiety is doing okay trying to cut down on her saturated fat blood pressure has been controlled still hurts a little bit from her orthopedic problems with her hip Baldev Wolf MD Attn: Accounting[address] [place], [address], [facility] 11/27/2024 16:12:25 11/24/2024 text/html fell hurt her right knee went to the emergency room told she had patellar bursitis went home had to go back because in the pain started down her groin and down her right leg and they gave her cyclobenzaprine a Medrol Dosepak hydrocodone and some ketorolac and she is getting a little bit better Baldev Wolf MD Attn: Accounting, [address] , [place], [address], [facility] 11/26/2024 15:33:08 02/23/2025 text/html She saw the colorectal surgeon she is taking Metamucil every night and things are doing better in that regard leg pain improving a little bit blood pressures has been on the lowish side but she has not been dizzy Tatiana Jeong MA [facility], [facility] 02/27/2025 09:32:21 03/16/2025 text/html Having some bowel issues started the Metamucil and that seemed to help a little bit and then she started to develop some right upper quadrant pain that was intermittent I am starting him some diarrhea sometimes pain in her left lower back and seems to be getting a little bit better no fever chills no blood in her stool she has not having any genitourinary complaints Baldev Wolf MD Attn: Accounting, [address] , [place], [address], [facility] 03/18/2025 18:06:38 03/30/2025 text/html She has had a couple of mechanical falls because she says she gets in her her and she has tripped over some raised curbs has not hit her head no loss of consciousness just some low back pain without any radicular component Baldev Wolf MD Attn: Accounting, [address] [facility], [place], [address], [facility] 04/02/2025 11:58:24 OBGyn Episode No OBEpisode recorded.
--- OUTSIDE RECORDS SUMMARY | 2025-05-18 02:04 | XMS_ITS | Patient Health Record ---
Author Organization [facility] Address [address] [place] [address] Care Team Providers Care Global Marketing Specialist Name Role Phone Didier Wolf MD Primary Care Provider Unavaila Bonnie Holley Unavailable [phone] Walter Parada Unavailable [phone] Sol Gan Unavailable [phone] Moises Ross Unavailable [phone] Allergies Allergen (clinical drug ingredient) Drug/Non Drug Allergy documented on EMR Reaction Allergy Type Onset Date Status banana allergenic extract BANANA (uncoded) Unknown Allergy 12/28/2023 Active Avocado Avocado Unknown Allergy 12/28/2023 Active Reason For Referral No Information Medications Medication SIG (Take, Route, Frequency, Duration) Notes Start Date End Date Status Olmesartan Medoxomil 20 MG Tablet 0.5 Tablet Orally Once a day Active buPROPion HCl ER (XL) 150 MG Tablet Extended Release 24 Hour 1 TABLET Oral Once a day; Duration: 30 days Active Wellbutrin XL 150 MG Tablet Extended Release 24 Hour 1 tablet in the morning Oral Once a day; Duration: 90 days 05/08/2025 Active Primidone 50 MG Tablet Oral 12/28/2023 Active Sertraline HCl 100 MG Tablet 2 tablets Oral Once a day; Duration: 90 days she has decided not to decrease to 1.5 tablets daily and is cont. 2 tablets daily. She may not need this refill, but want to make sure she has plenty before her next apt 05/08/2025 Active FLUTICASONE 250 MCG-SALMETEROL 50 MCG/DOSE BLISTR POWDR FOR INHALATION *Reorder from [facility] for eRx and Interaction Alerts* 12/28/2023 Active Ergocalciferol 1.25 MG (27988 UT) Capsule Oral 12/28/2023 Active Atorvastatin Calcium 10 MG Tablet Oral 12/28/2023 Active hydroCHLOROthiazide 25 MG Tablet Oral 12/28/2023 Active Immunizations Vaccine Route Administration [...] 1st dose Unknown 10/30/2020 Ad ministered Novel [id number], preservative free Unknown 07/01/2015 Administered Novel [id number], preservative free Unknown 08/14/2016 Administered Pfizer Biontech [...] decision-maker Yes Do you have Power of Geometry Teacher for Health or Medi stephanie? Yes Do you have a power of multimedia editor for health? Yes Do you have power of multimedia editor for Medical ? Yes If yes, then [...] Answer Notes Tobacco Control (Standard) Tobacco use: Nonsmoker Additional Details Category Social Info Options Details Miscellaneous: Occupation: Retired [employer] Migrated Social History Migrated Social History Alcohol Intake: Moderate 12/09/2022,Tobacco Years: Never smoker 03/02/2020 Drug/Alcohol: Do you smoke marijuana? Den ies Do you drink alcohol? Yes Problems Problem Type SNOMED Code ICD Code Onset Dates Problem Status W/U Status Risk Notes Problem Mild recurrent major depression (07289065) Major depressive disorder, recurrent, mild (F33.0) Active confirmed Problem Generalized anxiety disorder (08892089) Generalized anxiety disorder (F41.1) Active confirmed Problem Recurrent hypersomnia (619211045) Recurrent hypersomnia (G47.13) Active confirmed Problem Obstructive sleep apnea syndrome (disorder) (48343459) Obstructive sleep apnea (adult) (pediatric) (G47.33) Active confirmed Problem Recurrent major depression (67707691) MDD (recurrent major depressive disorder) in remission (F33.40) Active confirmed Vital Signs Heart Rate 100 /min 05/08/2025 Height-cm 162.56 cm 05/08/2025 Blood pressure diastolic 83 mm Hg 05/08/2025 Weight-kg 102.51 kg 05/08/2025 Height 64.00 in 05/08/2025 Blood pressure systolic 125 mm Hg 05/08/2025 Weight 226 lbs 05/08/2025 BMI 38.79 kg/m2 05/08/2025 Encounters Encounter Location Date Provider Diagnosis [place] [id number] [facility] [address] [place] [address] 04/27/2025 Bonnie Perea [facility] [address] [address] 05/11/2025 Bonnie Perea Major depressive disorder, recurrent, mild F33.0 ; Generalized anxiety disorder F41.1 and MDD (recurrent major depressive disorder) in remission F33.40 [facility] [address] [address] 06/29/2024 Walter Parada Generalized anxiety disorder F41.1 and Depression, major, recurrent, mild F33.0 [facility] [address] [address] 05/08/2025 Bonnie Perea Generalized anxiety disorder F41.1 ; MDD (recurrent major depressive disorder) in remission F33.40 ; Obstructive sleep apnea (adult) (pediatric) G47.33 and Recurrent hypersomnia G47.13 [facility] [address] [address] 01/03/2025 Moises Ross Generalized anxiety disorder F41.1 ; Major depressive disorder, recurrent, mild F33.0 ; Recurrent hypersomnia G47.13 and Encounter for screening for cardiovascular disorders Z13.6 [facility] [address] [address] 01/26/2025 Bonnie Perea Generalized anxiety disorder F41.1 ; Major depressive disorder, recurrent, in partial remission F33.41 ; Recurrent hypersomnia G47.13 ; Obstructive sleep apnea (adult) (pediatric) G47.33 ; Encounter for screening for cardiovascular disorders Z13.6 and Negative depression screening Z13.31 [facility] [address] [address] 07/08/2024 Sol Gan Major depressive disorder, recurrent, mild F33.0 ; Generalized anxiety disorder F41.1 and Recurrent hypersomnia G47.13 [facility] [address] [place] [address] 10/06/2024 Sol Gan Major depressive disorder, recurrent, mild F33.0 ; Generalized anxiety disorder F41.1 and Recurrent hypersomnia G47.13 Assessments Encounter Date Diagnosis (ICD Code) Assessment Notes Treatment Notes Treatment Clinical Notes Section Notes 07/08/2024 Major depressive disorder, recurrent, mild (ICD-10 - F33.0) 05/11/2025 Major depressive disorder, recurrent, mild (ICD-10 - F33.0) 05/11/2025 Generalized anxiety disorder (ICD-10 - F41.1) 07/08/2024 Generalized anxiety disorder (ICD-10 - F41.1) 05/08/2025 MDD (recurrent major depressive disorder) in remission (ICD-10 - F33.40) 01/26/2025 Major depressive disorder, recurrent, in partial remission (ICD-10 - F33.41) 01/26/2025 Generalized anxiety disorder (ICD-10 - F41.1) 05/08/2025 Generalized anxiety disorder (ICD-10 - F41.1) 01/03/2025 [...] for several years prior to her . 10/06/2024 Recurrent hypersomnia (ICD-10 - G47.13) 01/03/2025 Major depressive disorder, recurrent, mild (ICD-10 - F33.0) 05/08/2025 Obstructive sleep apnea (adult) (pediatric) (ICD-10 - G47.33) 01/26/2025 Recurrent hypersomnia (ICD-10 - G47.13) 07/08/2024 Recurrent hypersomnia (ICD-10 - G47.13) 05/11/2025 MDD (recurrent major depressive disorder) in remission (ICD-10 - F33.40) 01/26/2025 Obstructive sleep apnea (adult) (pediatric) (ICD-10 - G47.33) 05/08/2025 Recurrent hypersomnia (ICD-10 - G47.13) 01/03/2025 Recurrent hypersomnia (ICD-10 - G47.13) 01/03/2025 Encounter for screening for cardiovascular disorders (ICD-10 - Z13.6) 01/26/2025 Encounter for screening for cardiovascular disorders (ICD-10 - Z13.6) 01/26/2025 Negative depression screening (ICD-10 - Z13.31) 06/29/2024 Other Client partici pated in individual [...] as chair yoga, working out with a obedience trainer, and attending mindfulness classes, but reports [...] expresses desire to visit her sister in [place] to get away from it. Plan: - Discuss caregiver fatigue and coping strategies with new therapist - Consider short-term respite care options to allow for visit to sister in [place] The note is transcribed using speech recognition [...] Monitor fatigue levels - Continue CPAP use 05/08/2025 Other Louise Mark, a patient with a history of depression and sleep apnea, presents for medication management and reports feeling really good with current treatment regimen. Depression Assessment: Patient reports feeling really good on current medication regimen. She is currently taking sertraline 200 mg daily (2 tablets of 100 mg) and bupropion 150 mg daily. Patient notes that her depression tends to worsen in the wintertime. She uses a light therapy device (HappyLite) as part of her management strategy. Patient is engaged in therapy twice a month, which appears to be beneficial. Recent physical injury (fall 6 weeks ago) and subsequent sciatic pain temporarily affected her sleep and activity levels, but she reports returning to normal. Plan: - Decrease sertraline from 200 mg to 150 mg daily - Continue bupropion 150 mg daily - Continue use of HappyLite, especially during winter months - Maintain current therapy schedule (twice monthly) - Follow up in 3 months Obstructive Sleep Apnea and Fatigue Assessment: Patient reports consistent use of CPAP therapy, which she describes as making such a huge difference for her mood when she gets enough sleep. Fatigue levels have improved. Plan: - Continue CPAP therapy as prescribed - Monitor fatigue levels Medical Decision Making Louise Mark is a patient with a history of depression and sleep apnea, presenting for medication management. The patient reports feeling really good on her current regimen, which includes Wellbutrin 150mg and an unspecified medication at 200mg (likely an antidepressant). Given the patient's improved mood and stability, a medication taper is being considered. The decision to reduce the unspecified medication from 200mg to 150mg is based on the patient's previous tolerance at this dose and current positive response to treatment. The potential for seasonal mood fluctuations is acknowledged, with the patient noting worsening symptoms in winter. This factor is considered in the decision-making process, allowing for the possibility of increasing the medication dose during winter months if needed. The patient's use of a HappyLite for light therapy is noted as an additional non-pharmacological intervention for managing seasonal mood changes. Plan Of Treatment Next Appt Details Provider Name:Bonnie oneil, 08/07/2025 01:45:00 PM, [address], [facility] [address], [place], [address], Insurance Providers Payer Name Payer Address Payer Phone Subscriber Number Group Number Insured Name Patient Relationship to Insured Coverage Start Date Coverage End Date [facility] Medicare Replacement/ Advantage - Ppo [address] [address] [place] [address] [id number] LOUISE MARK Self - patient is the insured Medical (General) History Medical History History ICD Code Past Psychiatric History: Anxiety Disord er,Major Depressive Episode undefined Recurrent hypersomnia essential tremor: Yes hypertension: Yes vitamin D deficiency osteoarthritis Surgical History Surgery Date(Month/Year) Ankle arthroscopy/surgery (40902) Hip arthroscopy dx (54876) Knee arthroscopy/surgery (69671) lt Lung excision ([id number]) Left hip replacement 01/11/2024 bladder sling Hospitalization History Reason Date(Month/Year) child surgeries
--- OUTSIDE RECORDS SUMMARY | 2025-05-18 02:04 | XMS_ITS | Data Portability ---
Author Organization [place] [facility], Main Office Address [address] [place] [address] Care Team Providers Care Building Rigger Name Role Phone BALDEV WOLF Primary Care Provider BALDEV WOLF Referring Provider [phone] Assessment Encounter Date Assessment Date Assessment LastModified by Organization Details LastModified Time 12/24/2022 12/24/2022 Cough doxycycline for a week Done divide his eyedrops no contacts for 2 weeks she is going to check in by phone in 4-5 days because that she is not improving with her eyes I told her I want to go see the eye doctor Not available 12/25/2022 08:51:35 03/12/2023 03/12/2023 Patient presents hip pain left. She has an arthritic left hip and is lglc-fp-isdw at this time. She has pain with [...] me in 4 months all questions answered [email or web address] Not available 03/19/2023 22:49:18 07/20/2023 07/20/2023 Blood work show A1c of 5.0 LDL of 80 minimally anemic vitamin-D level look continue current therapy follow-up 4 months. Not available 07/20/2023 22:40:59 Plan of Treatment Reminders Order Date Submit Date Provider Last Modified By Organization Details Last Modified Time Details Appointments None recorded. Lab None recorded. Referral None recorded. Procedures None recorded. Surgeries None recorded. Imaging XR, hip + pelvis, unilateral, 2 or 3 view 2022 023 [email or web address] [address] [facility] Adilson Amezcua, [address] [facility] [address], [place], [address], 11:42:24 Medication Orders TobraDex 0.3 %-0.1 % eye drops,suspe nsion 2022 023 [email or web address] 3 [facility] #2510, [address] [place], [address], 11:00:11 doxycycline hyclate 100 mg tablet 2022 023 [email or web address] 3 [facility] #2510, [address] [place], [address], 10:59:57 Patient TargetsNo targets recorded. Patient InstructionsNo instructions recorded. Reason for Referral None Reported. Results Created Date Observation Date Name Description Value Unit Range Abnormal Flag Note LastModifiedBy Organization Detail LastModifiedTime 09/22/1909/05/2022 mihai r monit or No observ ation record ed. [id number].[id number] [facility] [address], [place], [address], 10/22/2022 06:09:13 11/05/19 23 09/22/2022 cardi ac monit or No observ ation record ed. cyahl Not Available 2022 16:23:42 07/14/20 23 XR, foot [facility] [address] [facility] [place] [address] [phone] Dominick hooker Name: LOUISE OROZCO Access ion #: [id number] Sex: F : 1949 1 Locati on: RA2 Attend ing Physic eun: KRISTIN WOLF Orderi ng Physic eun: KRISTIN WOLF Exam Date: 023 [...] tibia sugges tive Page 1 of 2 [facility] Dominick hooker Name: LOUISE OROZCO ion #: [id number] Sex: F : 1949 1 Exam [...] Dictat ed by: Ambrose kauffman MD DD: 2:52 PM (CT) DT: 2:52 PM (CT) Page 2 of 2 [facility] (Imaging) [address] [place], [address], 03/20/2023 13:58:20 03/12/20 23 XR, hip + pelvi s, unila teral , 2 or 3 view No observ ation record ed. [facility] Adilson Amezcua [address], [place], [address], 03/12/2023 11:42:23 Result Notes Documentation Provider Name and Address Organization Details Recorded Time Xr, Foot : [facility] [address] [place] [address] Patient Name: LOUISE PONCE Sex: F : 1950 Location: [facility] Attending Physician: BALDEV WOLF Ordering Physician: BALDEV WOLF Exam Date: 03/06/2023 2:07 PM Exam Name: XR FOOT RT 3V+ Admitting Diagnosis(es): RADIOLOGY REPORT - FINAL EXAM: XR FOOT RT 3V+ HISTORY: right foot pain 73-year-old female with right foot pain, injury 1 month ago, history of right ankle surgery. COMPARISON: None available. TECHNIQUE: Three views of the right foot were performed. FINDINGS: No acute fracture or dislocation are identified about the right foot. There is mild to moderate osteoarthritis of the 1st MTP joint, IP joints of the toes, and midfoot. There is medial prominence of the navicular bone. Small plantar calcaneal bone spur and Achilles insertion enthesophyte are incidentally noted. There is deformity of the right distal tibia suggestive Page 1 of 2 [facility] Patient Name: LOUISE PONCE Sex: F : 1950 Exam Date: 03/06/2023 2:07 PM Exam Name: XR FOOT RT 3V+ Admitting Diagnosis(es): of old healed fracture. 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 IMPRESSION: 1. No acute fracture of the right foot. 2. Nonacute findings as detailed above. Created and electronically signed by: Ambrose Strange MD Signed Date: 03/06/2023 2:52 PM (CT) Dictated by: Ambrose Strange MD (CT) (CT) Page 2 of 2 CLEMENTE [place], [place] - [facility] Nor[facility] 03/20/2023 13:58:20 Problems Name Problem SNOMED Code Status Onset Date Resolution Date Notes Provider Name and Address Organization Details Recorded Time Spinal enthesopa thy 28249198 Active Not Available [facility] 3 09:44:19 Disorder of sacrum 26390321 Active Not Available [facility] 3 09:44:19 Localized , primary osteoarth ritis of the hand 501147827 Active Not Available [facility] 3 09:44:19 Localized , primary osteoarth 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 520002122 Active Not Available [facility] 3 09:44:19 Pain of joint of wrist 181704712 Active Not Available [facility] 3 09:44:19 Osteoarth ritis of hip 857555807 Active Not Available [facility] 3 09:44:19 Osteoarth ritis of knee 301653877 Active Not Available [facility] 3 09:44:19 Enthesopa thy of hip region 36874330 Active Not Available [facility] 3 09:44:19 Localized , primary osteoarth ritis of elbow 994541068 Active Not Available [facility] 3 09:44:19 Closed fracture of metatarsa l bone 32763743 Active Not Available [facility] 3 09:44:19 Sinusitis 62411766 Completed Not Available [facility] 3 06:02:39 Osteoarth ritis 390924137 Active Not Available [facility] 3 09:44:19 Obesity 731122340 Active Not Available [facility] 3 09:44:19 Disorder of wrist joint 163633339 Active Not Available [facility] 3 09:44:19 Pain of hip region 04297272 Active Not Available [facility] 3 09:44:19 Cough 55087046 Completed CLEMENTE [place], [place] - [facility] 3 11:29:07 Essential hypertens ion 49090908 Active Not Available [facility] 3 09:44:20 Derangeme nt of knee 34070291 Active Not Available [facility] 3 09:44:20 Obstructi ve sleep apnea syndrome 26672015 Active Not Available [facility] 3 09:44:20 Pain in limb 33143499 Active Not Available [facility] 3 09:44:20 Anxiety 07476351 Active 2016 Not Available [facility] 3 09:44:19 Vitamin D deficienc y 18447242 Active 2018 Not Available [facility] 3 09:44:19 Trochante dhiraj bursitis of left hip 03200119112 9103 Active 2020 Not Available [facility] 3 09:44:19 Arthritis of left knee 10976078303 66225 Active 2020 Not Available [facility] 3 09:44:19 History of left total knee replaceme nt 45365593889 67574 Active 2020 Not Available [facility] 3 09:44:19 Dyslipide hanh 396297790 Active 2020 Not Available [facility] 3 09:44:19 Arthritis of left hip 16291696250 93253 Active 2020 Not Available [facility] 3 09:44:19 Pain of left hip joint 06120966870 9100 Active 2020 Not Available [facility] 3 09:44:19 Low back pain 040587645 Active 2021 Not Available [facility] 3 09:44:19 Sciatica 52201826 Active 2021 Not Available [facility] 3 09:44:19 History of total knee arthropla sty 93228940318 05 Active 2021 Not Available [facility] 3 09:44:19 Pain in right sacroilia c joint 10201820455 356446 Active 2021 Not Available [facility] 3 09:44:19 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 36215812745 4100 Active 2021 Not Available [facility] 3 09:44:19 Tinnitus of left ear 43531080221 06 Active 2021 Not Available [facility] 3 09:44:19 Asymmetri stephanie sensorine ural hearing loss 822531556 Active 2021 Not Available [facility] 3 09:44:19 Acute urinary tract infection 320772289 Active 2021 Not Available [facility] 3 09:44:19 Recurrent urinary tract infection 618371562 Active 2021 Not Available [facility] 3 09:44:19 Tachycard ia 8134546 Active 2022 Not Available [facility] 3 09:44:19 Upper respirato ry infection 22343846 Active 2022 Not Available [facility] 3 09:44:20 Cough 39465911 Active 2022 Not Available [facility] 3 09:44:19 Acute conjuncti vitis 55133406 Active 2022 Not Available [facility] 3 09:44:20 Sore mouth 387140950 Active 2022 Not Available [facility] 3 09:44:19 Foot pain 70736033 Active 2022 Not Available [facility] 3 09:44:19 Osteoarth ritis of left hip joint 18919848204 9108 Active 2022 Not Available [facility] 3 09:44:19 Morbid obesity 856467851 Active 2022 Not Available [facility] 3 09:44:19 Asthma 885501282 Active 2022 Not Available [facility] 3 09:44:19 Notes:Some problems listed i n Document: #[id number] could not be added to this patient's chart. Please review this document and add these problems to the patient's chart manually as needed. Problem Notes None recorded. Procedures Surgical History Date Name Laterality Status Provider Name and Address Organization Details Recorded Time 08/30/19 21 Most Recent Bone Density completed Not Available [facility] 10/22/2022 05:56:24 09/02/19 18 Total knee arthroplasty completed Not Available [facility] 10/22/2022 05:56:31 07/18/20 15 Total hip arthroplasty completed Not Available [facility] 10/22/2022 05:56:31 08/30/19 15 Date of Last Colonoscopy completed Not Available [facility] 10/22/2022 05:56:24 08/30/19 15 Colonoscopy completed Not Available [facility] 10/23/19 05:56:31 08/24/18 99 lobectomy of the lung and excisional biopsies completed Jaelyn Gutierrez [facility] 03/12/2023 11:01:16 Ankle Surgery completed Not Available [facility] 10/22/2022 05:56:31 Imaging Results None recorded. Procedure Notes None recorded. Medical Equipment None Reported. Allergies Allergen ID Allergen Name Allergen Category Reaction Reaction Severity Criticality Documentation Date Start Date Code Code System Note Provider Name and Address Organization Details Recorded Time 64584 banana extract food,medi cation abdominal pain Not available Not available 10/22/2022 15586 9 RxNorm Not Available [facility] 3 06:08:51 53326 avocado allergeni c extract food abdominal pain Not available Not available 10/22/2022 42579 2 RxNorm Not Available [facility] 3 06:08:51 Medications Name Sig [...] red by the provider 06/[address] [facility]: 0003- 0494- 20 Not Available Not [...] Available Not Available Not Available amoxicillin 875 mg-elva oakes clavulanate 125 mg tablet TAKE 1 TABLET [...] red by the provider 06/[address] [facility]: 0409- 4276- 17 Not Available Not [...] Available Not Available Not Available Fluarix Quad (PF) 60 mcg (15 mcg x 4)/0.5 mL IM syringe TO BE ADMINISTE RED BY PHARMACIS T FOR IMMUNIZAT ION active Not Available Not Available No t Available Fluarix Quad (PF) 60 mcg (15 mcg x 4)/0.5 mL IM syringe TO BE ADMINISTE RED BY PHARMACIS T FOR IMMUNIZAT ION 11/20 completed Not Available Not Available Not Available Fluzone High-Dose 5233-2391 (PF) 180 mcg/0.5 mL intramuscul ar syringe TO BE ADMINISTE RED BY PHARMACIS T FOR IMMUNIZAT ION active Not Available Not Available No t Available Shingrix (PF) 50 mcg/0.5 mL intramuscul ar suspension, kit 10/06 completed Not Available Not Available Not Available Fluzone High-Dose (PF) 180 mcg/0.5 mL intramuscul ar syringe active Not Available Not Available N ot Available Fluzone High-Dose (PF) 180 mcg/0.5 mL intramuscul ar syringe TO BE ADMINISTE RED BY PHARMACIS T FOR IMMUNIZAT ION active Not Available Not Available No t Available Fluad Quad 0300-5049(6 5yr up)(PF) 60 mcg (15 mcg x 4)/0.5mL IM syringe PHARMACY ADMINISTE RED 09/07 completed Not Available Not Available Not Available Vitals Date Recorded Body mass index (BMI) Body height Pain severity - 0-10 verbal numeric rating [Score] - Reported Heart rate Body temperature Body weight Systolic And Diastolic Provider Name and Address Organization Details Last Updated DateTime 3 42.3 kg/m2 160.02 cm 0 69 /min 97.7 [degF] 199357. 58 g 118/78 mm[Hg] Not Available [facility] 3 05:56:56 Date Recorded Body height Body mass index (BMI) Body weight Body temperature Heart rate Systolic And Diastolic Provider Name and Address Organization Details Last Updated DateTime 3 160.02 cm 42.2 kg/m2 321961. 98 g 97.3 [degF] 70 /min 118/78 mm[Hg] CLEMENTE Byrd [employer] 3 10:43:03 Date Recorded Body height Body mass index (BMI) Body weight Provider Name and Address Organization Details Last Updated DateTime 03/12/2023 160.02 cm 40.7 kg/m2 201521.25 g Jaelyn Schaefer [employer] 03/12/2023 10:59:25 Date Recorded Body height Body mass index (BMI) Body weight Body temperature Heart rate Systolic And Diastolic Provider Name and Address Organization Details Last Updated DateTime 3 160.02 cm 41.3 kg/m2 006728. 02 g 97.7 [degF] 60 /min 124/84 mm[Hg] [facility] 3 11:22:43 Date Recorded Body height Body mass index (BMI) Body weight Body temperature Heart rate Systolic And Diastolic Provider Name and Address Organization Details Last Updated DateTime 3 160.02 cm 40.2 kg/m2 417792. 47 g 98.9 [degF] 59 /min 130/88 mm[Hg] CLEMENTE [facility]rd [facility] 3 12:40:55 Social History Question Answer Notes LastModified by Organizat ion Details LastModified Time Tobacco Smoking Status Never Smoker Not Available [facility] 10/22/2022 05:53:42 Do You Have An Advance Directive? Yes MIGRATION.10689 04787 Information not available 10/22/2022 Are You Blind Or Do You Have Difficulty Seeing? No MIGRATION.30487 25849 Information not available 10/22/2022 What Is Your Level Of Caffeine Consumption? Heavy MIGRATION.53802 83828 Information not available 10/22/2022 How Much Tobacco Do You Chew? None MIGRATION.29353 38837 Information not available 10/22/2022 In The 14 Days Before Symptom Onset, Have You Had Close Contact With A Laboratory-confi rmed COVID-19 While That Case Was Ill? No MIGRATION.44718 52362 Information not available 10/22/2022 In The 14 Days Before Symptom Onset, Have You Had Close Contact With A Person Who Is Under Investigation For COVID-19 While That Person Was Ill? No MIGRATION.93890 90786 Information not available 10/22/2022 Are You Deaf Or Do You Have Serious Difficulty Hearing? Yes In Left Ear Getting Hearing Aid MIGRATION.98626 67716 Information not available 10/22/2022 What Type Of Diet Are You Following? REGULAR MIGRATION.76369 97836 Information not available 10/22/2022 Which Illicit Or Recreational Drugs Have You Used? None MIGRATION.85086 19487 Information not available 10/22/2022 What Is The Highest Grade Or Level Of School You Have Completed Or The Highest Degree You Have Received? [id number] MIGRATION.15227 99801 Information not available 10/22/2022 Have There Been Any Changes To Your Family Or Social Situation? No MIGRATION.93273 52099 Information not available 10/22/2022 What Is The Fluoride Status Of Your Home? Unknown MIGRATION.41280 63321 Information not available 10/22/2022 Are There Any Guns Present In Your Home? Yes MIGRATION.26057 61983 Information not available 10/22/2022 Do You Use Insect Repellent Routinely? No MIGRATION.55838 02058 Information not available 10/22/2022 Where Do You Live? [facility] MIGRATION.92197 61393 Information not available 10/22/2022 Do You Have A Medical Power Of Covering Machine Operator? Yes MIGRATION.47937 77250 Information not available 10/22/2022 What Was The Date Of Your Most Recent Tobacco Screening? 07/20/2023 [email or web address] Information not available 07/20/2023 Have You Ever Been Counseled For Unhealthy Alcohol Use? No MIGRATION.40949 10091 Information not available 10/22/2022 Do You Have Any Pets? No MIGRATION.03528 06804 Information not available 10/22/2022 What Is Your Relationship Status? MIGRATION.84616 13988 Information not available 10/22/2022 Do You Use Your Seat Belt Or Car Seat Routinely? Yes MIGRATION.66385 41704 Information not available 10/22/2022 Do You Have Smoke And Carbon Monoxide Detectors In Your Home? Yes MIGRATION.69435 91943 Information not available 10/22/2022 Are You Passively Exposed To Smoke? No MIGRATION.73858 56141 Information not available 10/22/2022 Are There Any Smokers In Your House? No MIGRATION.70361 70228 Information not available 10/22/2022 How Much Tobacco Do You Smoke? No MIGRATION.65636 68856 Information not available 10/22/2022 What Types Of Sporting Activities Do You Participate In? None MIGRATION.12649 88342 Information not available 10/22/2022 Do You Use Sunscreen Routinely? Yes MIGRATION.79583 83114 Information not available 10/22/2022 Has Tobacco Cessation Counseling Been Provided? No Not Needed-nev er Smoked MIGRATION.73898 68268 Information not available 10/22/2022 How Many Years Have You Smoked Tobacco? 0 MIGRATION.65543 05768 Information not available 10/22/2022 Have You Recently Traveled Abroad? No MIGRATION.82354 39995 Information not available 10/22/2022 Do You Have Difficulty Walking Or Climbing Stairs? No MIGRATION.31257 93787 Information not available 10/22/2022 Do You Have Any Dietary Restrictions? No MIGRATION.10580 46426 Information not available 10/22/2022 Sex: Female Functional Status Question Answer Note LastModified by Organizat ion Details LastModified Time Do you use any illicit or recreational drugs? No MIGRATION.14107 96686 Information not available 10/22/2022 Do you or have you ever used any other forms of tobacco or nicotine? No MIGRATION.73493 87974 Information not available 10/22/2022 What is your level of alcohol consumption? Occasional MIGRATION.34775 43521 Information not available 10/22/2022 Do you or have you ever used smokeless tobacco? Never used smokeless tobacco MIGRATION.72219 85848 Information not available 10/22/2022 Do you have access to reliable transportation? No MIGRATION.61209 23010 Information not available 10/22/2022 Are you able to walk independently without assistance or assistive devices? YESWOREST MIGRATION.62456 57196 Information not available 10/22/2022 Do you have difficulty doing errands alone? No MIGRATION.30882 36333 Information not available 10/22/2022 Are you able to care for yourself independently? Yes MIGRATION.84537 66685 Information not available 10/22/2022 What is your occupation? retired MIGRATION.26343 47803 Information not available 10/22/2022 Do you have difficulty dressing, bathing, grooming, or toileting? No MIGRATION.52503 98616 Information not available 10/22/2022 Do you or have you ever used e-cigarettes or vape? Never used electronic cigarettes MIGRATION.32401 90746 Information not available 10/22/2022 What is your exercise level? Moderate goes to gym weekly MIGRATION.72223 27771 Information not available 10/22/2022 Mental Status Question Answer Note LastModified by Organizat ion Details LastModified Time Do you feel stressed (tense, restless, nervous, or anxious, or unable to sleep at night)? [id number] MIGRATION.48520102 26 Information not available 10/22/2022 Do you have difficulty concentrating, remembering or making decisions? No MIGRATION.15701799 26 Information not available 10/22/2022 Family History Relationship Description Onset Age of this Age Resolved Age Notes LastModified by Organization Details LastModified Time Unspecified Relation Hypertensive disorder MIGRATION.235 6544157 Not available 10/22/2022 05:56:32 Father Heart disease MIGRATION.865 0264955 Not available 10/22/2022 05:56:32 Mother Anxiety disorder MIGRATION.417 6735405 Not available 10/22/2022 05:56:32 Mother Dementia MIGRATION.733 4728251 Not available 10/22/2022 05:56:32 Brother Cerebrovascu lar accident MIGRATION.327 4981098 Not available 10/22/2022 05:56:33 Sister Family history of malignant neoplasm MIGRATION.435 4196639 Not available 10/22/2022 05:56:33 Notes:NO ENT HISTORY [...] N CHRONIC PAIN SYNDROME N HYPOTHYROIDISM N CONSTIPATION N CAROTID BLOCKAGE N BACK / NECK PROBLEMS Y ATHEROSCLEROSIS [...] Recorded Time influenza, unspecified formulation 3 completed Claria Yahl, RMA null, [facility] [employer] [facility] 06/08/2023 16:23:09 SARS-COV-2 (COVID-19) vaccine, UNSPECIFIED 3 completed Claria Yahl, RMA null, [employer] [facility] [email or web address] [facility] 06/08/2023 16:23:19 Respiratory syncytial virus (RSV) MAB, unspecified 3 completed Claria Yahl, RMA null, [employer] [facility] [email or web address] [facility] 08/10/2023 10:26:58 Influenza, high-dose, quadrivalent, PF 1 completed Not Available [facility] 03/14/2023 06:33:23 Influenza, split virus, trivalent, preservative 0 completed Not Available [facility] 03/14/2023 06:33:23 pneumococcal polysaccharide PPV23 9 completed Not Available [facility] 03/14/2023 06:33:23 Influenza, high-dose, quadrivalent, PF 9 completed Not Available [facility] 03/14/2023 06:33:23 zoster live 8 completed Not Available [facility] 03/14/2023 06:33:23 influenza, unspecified formulation 8 completed Not Available [facility] 03/14/2023 06:33:23 zoster live 8 completed Not Available [facility] 03/14/2023 06:33:23 Pneumococcal conjugate PCV 13 8 completed Not Available [facility] 03/14/2023 06:33:23 Influenza, high-dose, trivalent, PF 7 completed Not Available [facility] 03/14/2023 06:33:23 Influenza, split virus, quadrivalent, preservative 6 completed Not Available [facility] 03/14/2023 06:33:23 COVID-19, mRNA, LNP-S, PF, 30 mcg/0.3 mL dose 2 completed Not Available [facility] 03/14/2023 06:33:23 Influenza, split virus, trivalent, preservative 2 completed Not Available [facility] 03/14/2023 06:33:23 COVID-19, mRNA, LNP-S, PF, 30 mcg/0.3 mL dose 2 completed Not Available [facility] 03/14/2023 06:33:23 COVID-19, mRNA, LNP-S, PF, 30 mcg/0.3 mL dose 1 completed Not Available [facility] 03/14/2023 06:33:23 influenza, unspecified formulation 5 completed Not Available [facility] 03/14/2023 06:33:23 Influenza, split virus, trivalent, PF 4 completed Not Available [facility] 03/14/2023 06:33:23 Past Encounters Encounter ID Performer Location Encounter Start Date Encounter Closed Date Diagnosis/Indication Diagnosis SNOMED-CT Code Diagnosis ICD10 Code Diagnosis IMO Codes Diagnosis Note [id number] Miguelito Stauffer MD [facility] [employer] [address] [place] [address] 11/22/2020 00:00:00 11/22/2020 11:17:50 [id number] Miguelito Stauffer MD [facility] [employer] [address] [facility] [address] [place] [address] 12/20/2020 00:00:00 01/10/2021 15:44:36 [id number] Baldev Wolf MD [facility] Internal [facility] 15 2043 [facility] [address] [place] [address] 03/01/2021 00:00:00 03/02/2021 15:56:51 [id number] Miguelito Stauffer MD [facility] [employer] [address] [place] [address] 03/12/2021 00:00:00 03/12/2021 15:27:35 [id number] Miguelito Stauffer MD [facility] [employer] [address] [place] [address] 04/04/2021 00:00:00 04/04/2021 10:57:26 [id number] Baldev Wolf MD [facility] [place] [address] [address] 06/28/2021 00:00:00 07/07/2021 22:02:58 [id number] Baldev Wolf MD [facility] Internal [facility] [address] [address] 09/20/2021 00:00:00 09/20/2021 14:01:30 [id number] Baldev Wolf MD [facility] [place] [address] [address] 10/25/2021 00:00:00 11/17/2021 17:11:19 [id number] Miguelito Stauffer MD [facility] [employer] [address] [place] [address] 12/02/2021 00:00:00 12/02/2021 09:59:09 [id number] Baldev Wolf MD [facility] [place] [address] [address] 04/23/2022 00:00:00 04/23/2022 23:06:16 [id number] Kristian Spicer MD [facility] E[facility] [employer] [address] [place] [address] 05/27/2022 00:00:00 05/27/2022 15:24:55 [id number] Baldev Wolf MD [facility] [place] [address] [place] [address] 08/27/2022 00:00:00 08/28/2022 20:55:04 [id number] Baldev Wolf MD [facility] [address] [address] 12/24/2022 10:32:44 12/24/2022 11:19:14 Cough [id number] R05.9 Acute conjunctivitis 537 12187 H10.33 [id number] Miguelito Stauffer MD [facility] [place] [address] [place] [address] 03/12/2023 10:30:10 03/12/2023 11:40:29 Arthritis of left hip [id number] 813297 M13.852 Osteoarthr itis of left hip joint 3057402029 83645 M16.12 History of total replacement of right hip joint 3807660191 43296 Z96.641 Morbid obesity 242529533 E66.01 [id number] Baldev Wolf MD [facility] Internal Med [facility] [address] [address] 03/19/2023 11:07:54 03/19/2023 12:05:17 Dyslipidemia 714075073 E78.5 Anxiety 41103885 F41.9 Essential hypertension 91443385 I10 Asthma 806402644 J45.90 9 [id number] Baldev Wolf MD [facility] Internal [facility] [address] [address] 07/20/2023 11:31:46 07/20/2023 13:04:29 Anxiety 17430133 F41.9 Dyslipidemia 708922414 E 78.5 Asthma 994744171 J45.90 9 Essential hypertension 03966550 I10 Health Concerns Section Related Observation LastModified by Organization Detai ls LastModified Time None Recorded Concern Status LastModified by Organization Details LastModified Time None Recorded Advance Directives Directive Y: Payers Insurance Date Sequence Insurance Name Policy Number Policy Fowler Covered Member ID Fowler Member ID Guarantor Name 07/20/2023 1 [facility] (MEDICARE REPLACEMENT/A DVANTAGE - HMO) [id number] Louise Ponce [id number] Louise Ponce Notes Date Note Type Note Provider Name and Address Organization Details Recorded Time 12/24/2022 text/html dry cough for about a weekEyes of started itching turned red and they are mattingNo skin rashesNot really short of breath no hemoptysis Baldev Wolf MD [address], [place], [address], [employer] 12/25/2022 08:51:56 03/12/2023 text/html Patient returns hip [...] that hip. Miguelito Stauffer MD [address], [place], [address], [employer] 03/12/2023 11:44:31 03/19/2023 text/html Asthma stable dyslipidemia can not lose weight hypertension no headache no dizziness arthritis foot still bothers her she still working with Orthopedics and probably needs a joint replacement but they want to lose some weight for Baldev Wolf MD [address], [place], [address], [employer] 03/19/2023 22:49:34 07/20/2023 text/html Saw weight loss specialists lots of blood work that was done will get copies of. anxiety stable . Hypertension no chest pain or shortness of breath. Obesity has stated being put on medicines. Arthritis ortho recommended weight loss prior to any surgery. Asthma stable Baldev Wolf MD [address], [place], [address], [employer] 07/20/2023 22:41:17 OBGyn Episode No OBEpisode recorded.
--- OUTSIDE RECORDS SUMMARY | 2025-05-18 02:04 | XMS_ITS | Clinical Summary ---
Author Organization [facility] Address [address] [place] [address] Care Team Providers Care Scout Name Role Phone Didier Wolf MD Primary Care Provider Allergies Active Allergy Reactions Criticality Noted Date Comments Avocado Stomach upset,Unknown Low 12/28/2023 Banana Extract Stomach upset,Unknown Low 12/28/2023 Medications flu vac [id number],36mo s,up,/PF (FLUARIX QUAD 0634-0032, PF, IM) Fluarix Quad 2768-1366 (PF) 60 mcg (15 mcg x 4)/0.5 [...] 6 months. New lab orders sent to [facility]. Continue low-carb (<150 g/day), low-glycemic diet. Assessment [...] w/r/t gut microbiome. Referred to ADA and [employer] websites for additional information on topics including [...] vaccine 65+ Completed 019, 02/01/2018, 01/31/2018 Insurance [facility] MEDICARE ADVANTAGE [address] [place] HMO REF [address] MEDICARE ADVANTAGE Care Teams Scout Relationship Specialty Start Date End Date Didier Wolf MD PCP - General Internal Medicine 02/21/19
--- OUTSIDE RECORDS SUMMARY | 2025-05-18 02:05 | XMS_ITS | Clinical Summary ---
Author Organization [facility] Address [address] [place] [address] Care Team Providers Care Remote Broadcast Technician Name Role Phone Unavailable Primary Care Provider Unavailabl e Encounters Date Type Department Care Team Description 05/16/2025 External Device Data [facility] Provider, Abstract 05/09/2025 External Device Data [facility] Provider, Abstract 04/03/2025 11:35 AM CDT - 04/03/2025 11:59 PM CDT Hospital Encounter [facility] [place] [address] [place] [address] Didier Wolf MD Discharge Disposition: [...] SCREENING 02/05/2017 COLORECTAL SCREENING 08/30/2024 08/30/2014, 08/29/19 15 Colorectal Cancer Screening 08/30/2024 INFLUENZA VACCINE (#1) [...] L1-2. DICTATION LOCATION: Location 4 External Provider [facility] DIAGNOSTIC IMAGING ORDER MARIA Final Result * [...]
[2025-05-18 02:13] VITALS: BP 136/94; PULSE 103; RESP 15; TEMP 36.6; O2SAT 100
--- NOTE | 2025-05-18 03:19 | ED.BACK ---
HPI - Back Pain/Injury General Chief Complaint: Back Pain/Injury Stated Complaint: back pain Time Seen by Provider: 05/18/25 02:43 History of Present Illness HPI Narrative: 75-year-old female presenting to the emergency department with right-sided paraspinal back pain. She states she injured herself while she was working out with physical therapy. Thinks she pulled a muscle. She went to urgent care 3 days ago and got a prescription for baclofen. She has been having intermittent relief but also having spasming pain her right-sided low back/paraspinal area. Taking Aleve and Tylenol at home as well as the baclofen and topical Biofreeze. Has not seen anybody else for this. She has a regular orthopedic surgeon and provider for her other musculoskeletal issues and recently finished a course of antibiotics for a pulled muscle in her right leg. Denies any traumatic injuries. She is otherwise well-appearing ambulatory. Drove here to the hospital. No neurological complaints. No midline back pain, no neuropathy or weakness in the limbs. No issues with incontinence. Related Data Home Medications ?Medication ?Instructions ?Recorded ?Confirmed ?Last Taken ?Type albuterol 90 mcg/actuation aerosol 1 mcg inhalation PRN PRN ASTHMA 01/04/24 05/04/25 Unknown History inhaler atorvastatin 10 mg tablet 10 mg PO DAILY 01/04/24 05/04/25 12/27/24 History bupropion HCl 150 mg 24 hr tablet, 150 mg PO DAILY 01/04/24 05/04/25 12/27/24 History extended release hydrochlorothiazide 25 mg tablet 25 mg PO DAILY 01/04/24 05/04/25 12/27/24 History ibuprofen 125 mg-acetaminophen 250 2 tablet PO PRN PRN Pain 01/04/24 05/04/25 Unknown History mg tablet olmesartan 40 mg tablet 40 mg PO DAILY 01/04/24 05/15/25 12/27/24 History Held on 05/15/25. Instructions: low bp per pt primidone 50 mg tablet 50 mg PO BID 01/04/24 05/04/25 12/27/24 History sertraline 100 mg tablet 150 mg PO DAILY 01/04/24 05/04/25 12/27/24 History ergocalciferol (vitamin D2) 1,250 50,000 unit PO .Every other week 01/10/25 05/04/25 Unknown History mcg (50,000 unit) capsule Allergies Allergy/AdvReac Type Severity Reaction Status Date / Time avocado Allergy Mild stomach Verified 05/18/25 02:20 ache banana Allergy Mild stomach Uncoded 05/04/25 10:26 ache Review of Systems Review of Systems: As reviewed above in [facility] Past Medical History Medical History Colon cancer screening Essential tremor Obstructive sleep apnea on CPAP Hyperlipidemia Hypertension Depression Surgical History Surgical History History of left hip replacement (01/11/24) History of left knee replacement 2017 History of right hip replacement 2014 History of bladder surgery bladder lift 2005 History of lung surgery upper lobe removed 1999 History of ankle surgery 1988 due to break Family History Family History Father Acute myocardial infarction Hypertension Sibling Cerebrovascular accident Breast cancer Social History Social History Social History: Surrogate medical decision maker: Dottie Ponce, daughter. Code status: Full code. Smoking status: Never smoker Second hand tobacco smoke exposure: No Alcohol intake: current Drinks per week: 2 Substance use: former Substance use type: marijuana Other substance usage details: 1/2 gummie to sleep Last use: 01/04/24 Lack of Transportation: No Lack of Food: Never True Current Housing: I Have Housing Concerned About Future Housing: No Difficulty Paying Gas/Electric Bills: No Difficulty Paying for Meds: No Currently Unemployed: No Education: Bachelor's Degree Difficulty w/ Childcare or Family Care: No Living arrangements: with family Additional living arrangements comments: caregiver for Occupation/Education: retired Spiritual care concerns: No Exam Narrative: GENERAL: [Well-appearing, well-nourished, and in no acute distress.] HEAD: [Normocephalic, atraumatic.] EYES: [PERRLA and EOMI.] ENT: Nares clear, no rhinorrhea or epistaxis. Mucous membranes moist. NECK: Supple. CHEST: [Clear to auscultation. No respiratory distress.] HEART: [Regular rate and rhythm]. No murmur heard. [Normal peripheral pulses.] ABDOMEN: [Soft, nondistended], [nontender], [No rigidity or guarding] EXTREMITIES: Right-sided low paraspinal muscle tenderness intermittently on palpation. No step-offs deformities. No midline tenderness. Full range of motion of extremities. Ambulatory. SKIN: Warm, dry, no rash. NEURO: [No focal deficits]. Alert and oriented [x3.] PSYCH: [Normal mood and affect.] Course Vital Signs Vital signs: Vital Signs Temperature 36.6 C 05/18/25 02:13 Pulse Rate 103 H 05/18/25 02:13 Respiratory Rate 15 05/18/25 02:13 Blood Pressure 136/94 H 05/18/25 02:13 Pulse Oximetry 100 05/18/25 02:13 Oxygen Delivery Room Air 05/18/25 02:13 Temperature 36.6 C 05/18/25 02:13 Pulse Rate 103 H 05/18/25 02:13 Respiratory Rate 15 05/18/25 02:13 Blood Pressure 136/94 H 05/18/25 02:13 Pulse Oximetry 100 05/18/25 02:13 Oxygen Delivery Room Air 05/18/25 02:13 MDM - Back Pain/Injury MDM Narrative Medical decision making narrative: 75-year-old female presenting to the emergency department with right-sided paraspinal back pain. She states she injured herself while she was working out with physical therapy. Thinks she pulled a muscle. She went to urgent care 3 days ago and got a prescription for baclofen. She has been having intermittent relief but also having spasming pain her right-sided low back/paraspinal area. Taking Aleve and Tylenol at home as well as the baclofen and topical Biofreeze. Has not seen anybody else for this. She has a regular orthopedic surgeon and provider for her other musculoskeletal issues and recently finished a course of antibiotics for a pulled muscle in her right leg. Denies any traumatic injuries. She is otherwise well-appearing ambulatory. Drove here to the hospital. No neurological complaints. No midline back pain, no neuropathy or weakness in the limbs. No issues with incontinence. Patient is hemodynamically stable. Afebrile. No red flag signs or symptoms on examination. Symptoms consistent with muscle spasm and pulled paraspinal muscle/lumbago. Will be given topical anti-inflammatory and intramuscular Toradol. X-rays obtained to rule out osseous abnormality. She will follow-up with her orthopedic doctor and PCP. , x-rays are unremarkable, no acute findings or evidence of fracture. Degenerative changes are noted. Safe for discharge. Given Voltaren prescription and follow-up instructions. Medical Records Attestation: I reviewed the patient's medical records. Imaging Data Attestation: I personally reviewed and interpreted this imaging study as follows: My impression: Diffuse degenerative disease, no acute findings. No fractures. Discharge Plan Discharge Clinical Impression: Acute right-sided back pain Patient Disposition: Home Condition: Stable Instructions: Antibiotic Form, Acute Low Back Pain (ED), Back Pain (ED) Additional Instructions: X-rays do not show any abnormalities that her acute. No fractures dislocation. Evidence of degenerative disease but nothing acute. We have prescribed use some Voltaren gel which is a high strength anti-inflammatory to apply to her back for pain control. Follow-up with your orthopedic surgeon and return with any emergencies. Patient Language: Afghan Prescriptions: New diclofenac sodium [Solaraze] 3 % gel 1 applic topical BID PRN (Reason: pain) Qty: 100 0RF No Action baclofen 10 mg tablet 10 mg PO TID PRN (Reason: muscle pain) Qty: 10 0RF sertraline 100 mg tablet 150 mg PO DAILY atorvastatin 10 mg tablet 10 mg PO DAILY bupropion HCl 150 mg tablet extended release 24 hr 150 mg PO DAILY hydrochlorothiazide 25 mg tablet 25 mg PO DAILY olmesartan 40 mg tablet 40 mg PO DAILY primidone 50 mg tablet 50 mg PO BID ibuprofen-acetaminophen 125-250 mg Tablet 2 tablet PO PRN PRN (Reason: Pain) albuterol 90 mcg/actuation Aerosol 1 mcg INHALATION PRN PRN (Reason: ASTHMA) ergocalciferol (vitamin D2) 1,250 mcg (50,000 unit) capsule 50,000 unit PO .Every other week Follow-up/Referrals: Luciano,MD Didier [Primary Care Provider] Time of Disposition: 05:23
[2025-05-18] MEDS: KETOROLAC 30 MG/ML VIAL (*BKC) IM (03:26)
[2025-05-18] MEDS: DICLOFENAC SODIUM 1% 100 GM GEL (*BKC) 1 APPLIC TOPICAL (03:27)
== END 2025-05-18 05:30 | disposition home or self-care (01) ==
PROVIDERS: Emergency Provider Student in an Organized Health Care Education/Training Program; PCP Internal Medicine
DX: M54.9 Dorsalgia, unspecified (principal)
CPT/HCPCS: 72072; 72100; 96372; 99283; A9270; J1885